=== PATIENT | male | born 1935 | race Caucasian/White ===

== ENCOUNTER → 2017-03-27 | Outpatient (CLI) | payer OTHER ==
[~2017-03-27] MED LIST: ACET-749 PO; ASPCH81 PO; B COCAP3 PO; CHOL400C7 PO; NORT25CA PO; PARO10TA4 PO; SIME125C52 PO; SULF800T23 PO; TAMS0.4C38 PO
[2017-03-27 13:31] LABS: BASO % 0.3 %; BASO ABS # 0.04 K/uL (0-0.2); HEMATOCRIT 45.2 % (42-52); IG% 1.1 %; LYMPH % 14.4 %; LYMPH ABS # 1.67 K/uL (1.2-3.4); MEAN CELL VOLUME 92.4 fL (80-100); MEAN CORPUSCULAR HEMOGLOBIN 30.9 pg (25-34); MONO % 10.3 %; NEUT % 70.9 %; PLATELET COUNT 230 K/uL (130-400); RED BLOOD COUNT 4.89 M/uL (4.7-6.1); WHITE BLOOD COUNT 11.61 K/uL (4.8-10.8)
[2017-03-27 13:53] LABS: ALB/GLOB RATIO 1.1 (0.9-2); ALKALINE PHOSPHATASE 102 U/L (45-117); ALT/SGPT 22 U/L (12-78); AST/SGOT 22 U/L (15-37); BLOOD UREA NITROGEN 19 mg/dl (7-18); BUN/CREATININE RATIO 17.4 (10-20); CALCIUM 9.3 mg/dl (8.5-10.1); CARBON DIOXIDE 26 mmol/L (21-32); CHLORIDE 106 mmol/L (98-107); GLUCOSE 84 mg/dl (70-99); POTASSIUM 4.4 mmol/L (3.5-5.1); SODIUM 140 mmol/L (136-145)
[2017-03-27 14:25] LABS: COMPLETE YES; MEAN CORPUSCULAR HGB CONC 33.4 g/dl (32-36)
== END ==
LOC: C.LABSPEC 11:26
DX: J18.9 Pneumonia, unspecified organism (principal)

== ENCOUNTER → 2018-02-06 | Outpatient (CLI) | payer OTHER ==
--- NOTE | 2018-02-06 14:41 | DIAGNOSTIC IMAGING REPORT ---
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 TECHNIQUE: Planar anterior and posterior imaging of the whole body was performed 3 hours following the intravenous administration of 25.4 mCi Tc-99m MDP. COMPARISON: None. FINDINGS: Focal activity is evident at the medial compartment of the left knee most consistent with degenerative change. Focal activity in the region of the scrotum most likely relates to urine leakage. No suspicious focal radiotracer activity is evident. Normal distribution of radiotracer in the axial and appendicular skeleton. Normal distribution within the genitourinary tract. IMPRESSION: 1. No convincing evidence of metastatic disease. 2. Medial compartment degenerative changes of the left knee. Electronically signed by: Corbin West M.D. 02/06/2018 2:39 PM Dictated Date/Time: 02/06/2018 2:33 PM
== END ==
LOC: C.NUCL 10:31
PROVIDERS: ATTEND Family Medicine
DX: M25.519 Pain in unspecified shoulder (principal); M25.559 Pain in unspecified hip; Z85.89 Personal history of malignant neoplasm of other organs and systems

== ENCOUNTER 2018-10-11 08:42 | Inpatient (IN) ==
[2018-10-11 09:28] LABS: Basophils # (auto) 0.07 K/uL (0-0.2); Basophils % (auto) 1.1 %; Eosinophils # (auto) 0.74 K/uL (0-0.5); Eosinophils % (auto) 11.6 %; Hematocrit (blood only) 47.5 % (42-52); Hemoglobin 16.1 g/dL (14.0-18.0); Immature Granulocytes # (auto) 0.03 K/uL (0.00-0.02); Immature Granulocytes % (auto) 0.5 %; Lymphocytes # (auto) 1.18 K/uL (1.2-3.4); Lymphocytes % (auto) 18.4 %; Mean Corpuscular Hgb Conc 33.9 g/dL (32-36); Mean Corpuscular Volume 90.3 fL (80-100); Mean Platelet Volume 10.2 fL (7.4-10.4); Monocytes # (auto) 0.84 K/uL (0.11-0.59); Monocytes % (auto) 13.1 %; Neutrophils # (auto) 3.54 K/uL (1.4-6.5); Neutrophils % (auto) 55.3 %; Platelet Count 169 K/uL (130-400); RDW Coefficient of Variation 14.5 % (11.5-14.5); RDW Standard Deviation 47.4 fL (36.4-46.3); Red Blood Count 5.26 M/uL (4.7-6.1)
[2018-10-11] MEDS ORDERED: SODIUM CHLORIDE 0.9% 1000ML 1,000 ML IV SCH (09:30)
[2018-10-11 09:38] LABS: Albumin Level 3.5 gm/dl (3.4-5.0); BUN Creatinine Ratio 17.7 (10-20); Calcium 9.1 mg/dl (8.5-10.1); Creatinine Clr Calc Pharmacy 59.1 ml/min; Est GFR (African American) 83.5; Magnesium 2.1 mg/dl (1.8-2.4); Potassium 3.8 mmol/L (3.5-5.1)
[2018-10-11 09:39] LABS: INR 1.1 (0.9-1.1); Prothrombin Time 10.7 Seconds (9.0-12.0)
--- NOTE | 2018-10-11 09:41 | XRay Report ---
XR chest 1V portable HISTORY: 83 years-old Male weakness acute weakness COMPARISON: Chest radiograph 07/27/2015 TECHNIQUE: Portable AP view of the chest FINDINGS: Cardiac silhouette is enlarged, unchanged. Inferior chest is partially excluded from the [id number] w. No pneumothorax, large pleural effusion or overt pulmonary edema. Subsegmental bibasilar opacities redemonstrated suggestive of atelectasis/scarring. Degenerative changes of the shoulders and spine. IMPRESSION: No acute process. The above report was generated using voice recognition software. It may contain grammatical, syntax o r spelling errors. Electronically signed by: Gerry Cali M.D. 10/11/2018 9:40 AM
[2018-10-11 09:49] LABS: Albumin Globulin Ratio 0.7 (0.9-2); Globulin 5.2 gm/dl (2.5-4.0); Total Protein 8.7 gm/dl (6.4-8.2)
--- NOTE | 2018-10-11 09:53 | Emergency Department Note ---
Entered by Jonatan Shafer acting as a scribe for ED Provider Note CHIEF COMPLAINT: Dizziness, chest tightness, hematochezia HISTORY OF PRESENT ILLNESS: The patient is an 83 year old male who presents to the Emergency Room with corrections officers from [facility] with complaints of persistent headaches and dizziness for about the past 2 weeks. The patient describes his dizziness and headache as a "tornado" in his head. He notes that he is intermittently off balance when walking, but denies any worsening of the dizziness with movement of his head. He is also currently complaining of "tightness" across his chest when he lays down at night as well as pain across his lower abdomen. He denies any nausea/vomiting or weakness. The patient adds that he has been having "blood and puss and poop" coming from his rectum for the past two weeks as well, but there is not any rectal pain. He has a significant medical history of parotid gland carcinoma and denied any chemotherapy/radiation treatment. He did have surgery by ENT. The patient was referred to the ED today from the [facility] for abdominal pain and hematochezia. There records state that he has a history of vertigo. REVIEW OF SYSTEMS: See HPI for pertinent positives and negatives. A total of ten systems were reviewed and were otherwise negative. PMHx/PSHx: Parotid gland carcinoma Inguinal hernia. SOCIAL HISTORY: Patient is incarcerated at [facility]. PHYSICAL EXAM: GENERAL: Awake, alert, well-appearing, in no distress HENT: Normocephalic, atraumatic. Oropharynx unremarkable. EYES: PERRL. Normal conjunctiva. Sclera non-icteric. Lateral nystagmus on exam. NECK: Inspection normal. Non-tender. Supple. No nuchal rigidity. FROM. No masses. There is a healed surgical scar in the right neck. RESPIRATORY: Clear to auscultation. No wheezes. No rales. Normal respiratory effort. CARDIAC: Normal rate. Normal rhythm. No murmurs. No rubs. Extremities warm and well perfused. Pulses equal. No JVD. GI: Soft, non-distended. There is lower abdominal tenderness to palpation. No rebound or guarding. No masses. RECTAL: Deferred. MUSCULOSKELETAL: Atraumatic. Chest examination reveals no tenderness. The back is symmetrical on inspection without obvious abnormality. There is no CVA tenderness to palpation. No joint edema. LOWER EXTREMITIES: Calves are equal size bilaterally and non-tender. No edema. No discoloration. NEURO: Normal sensorium. No sensory or motor deficits noted. SKIN: No rash or jaundice noted. EMERGENCY DEPARTMENT COURSE: 905: Past medical records reviewed. The patient was evaluated in room B4B, and a complete history and physical examination were performed. 1226: I discussed the case with Elisa DUKES. She will see the patient in consult. Suggests admitting to medicine. 1233: I updated the patient at this time. He is comfortable. 1257: I reviewed the patient's case with Dr. Stark - [facility]. He will evaluate the patient for further management. MEDICAL DECISION MAKING: Triage Nursing notes reviewed and agree them. The patient's history was concerning for abdominal pain, rectal bleeding, and dizziness. Differential diagnosis: Etiologies such as colitis, orthostatic hypotension, diverticulosis, appendicitis, diverticulitis, PUD, biliary pathology, UTI, pancreatitis, obstruction, mesenteric ischemia, aortic pathology, infections, inflammatory bowel disease, renal colic, positional vertigo, intracerebral event, as well as others were entertained. Physical examination findings: As above. Lower abdominal tenderness. ER treatment provided: Normal saline On reassessment the patient felt better. IV Rocephin Oral meclizine Diagnostics interpreted by me: ECG: No acute ischemia The labs revealed an unremarkable CBC and chemistry panel. The patient's urinalysis is concerning for infection. Imaging studies: CT scan of the head and abdomen were performed. Chest x-ray performed. The patient has a colitis. Consultation: Consultation was made with gastroenterology. Case discussed. The patient was evaluated in the ER. Stool testing and C. difficile testing ordered. A consultation was placed with the [facility] hospitalist. The case was discussed and diagnostics were reviewed. The patient was evaluated in the ER for further treatment. IMPRESSION: Colitis Acute UTI Dizziness PLAN: Admitted to [facility] Hospitalist. The scribe's documentation has been prepared under my direction and personally reviewed by me in its entirety. I confirm that the note above accurately reflects all work, treatment, procedures, and medical decision making performed by me. Impression & Plan Colitis, Acute UTI, Dizziness Past Med/Surg History Medical History Inguinal hernia Carcinoma of parotid gland Social History Current Living Situation Comment: [facility] Feels Safe at Home: Yes Smoking Status: Never smoker Results & Data Vital Signs Vital Signs - 24 hr 10/11/18 08:52 10/11/18 08:53 10/11/18 09:00 Temperature Temperature Source Sepsis Recent Fever Within 48 Hours Sepsis New/Unexplained Change in Mental Status Sepsis Action Taken by Nursing Pulse Rate - Lying Pulse Rate - Sitting Pulse Rate - Standing Pulse Rate 66 65 Pulse Rate [Left Brachial] Respiratory Rate 21 23 Respiratory Effort / Characteristics Respiratory Depth Respiratory Pattern Blood Pressure - Lying Blood Pressure - Sitting Blood Pressure- Standing Blood Pressure 114/72 Blood Pressure [Left Arm] Blood Pressure Mean 86 Blood Pressure Mean [Left Arm] Blood Pressure Position [Left Arm] Pulse Oximetry 97 97 95 Oxygen Delivery Method 10/11/18 09:02 10/11/18 09:07 10/11/18 09:15 Temperature 37.0 C Temperature Source Oral Sepsis Recent Fever Within 48 Hours No Sepsis New/Unexplained Change in Mental Status No Sepsis Action Taken by Nursing No Action Required Pulse Rate - Lying Pulse Rate - Sitting Pulse Rate - Standing Pulse Rate 64 Pulse Rate [Left Brachial] 64 Respiratory Rate 18 14 Respiratory Effort / Characteristics Non-Labored Spontaneous Respiratory Depth Normal Respiratory Pattern Regular Blood Pressure - Lying Blood Pressure - Sitting Blood Pressure- Standing Blood Pressure Blood Pressure [Left Arm] 114/72 Blood Pressure Mean Blood Pressure Mean [Left Arm] 86 Blood Pressure Position [Left Arm] Lying Pulse Oximetry 97 95 Oxygen Delivery Method Room Air 10/11/18 09:25 10/11/18 09:28 10/11/18 09:30 Temperature Temperature Source Sepsis Recent Fever Within 48 Hours Sepsis New/Unexplained Change in Mental Status Sepsis Action Taken by Nursing Pulse Rate - Lying 59 L Pulse Rate - Sitting 78 Pulse Rate - Standing 81 Pulse Rate 84 80 Pulse Rate [Left Brachial] Respiratory Rate 19 22 Respiratory Effort / Characteristics Respiratory Depth Respiratory Pattern Blood Pressure - Lying 124/78 Blood Pressure - Sitting 117/74 Blood Pressure- Standing 121/72 Blood Pressure 124/78 117/74 Blood Pressure [Left Arm] Blood Pressure Mean 93 88 Blood Pressure Mean [Left Arm] Blood Pressure Position [Left Arm] Pulse Oximetry 96 91 Oxygen Delivery Method Room Air 10/11/18 09:32 10/11/18 09:51 10/11/18 09:52 Temperature Temperature Source Sepsis Recent Fever Within 48 Hours Sepsis New/Unexplained Change in Mental Status Sepsis Action Taken by Nursing Pulse Rate - Lying Pulse Rate - Sitting Pulse Rate - Standing Pulse Rate 61 68 64 Pulse Rate [Left Brachial] 62 Respiratory Rate 16 16 15 Respiratory Effort / Characteristics Non-Labored Spontaneous Respiratory Depth Normal Respiratory Pattern Regular Blood Pressure - Lying Blood Pressure - Sitting Blood Pressure- Standing Blood Pressure 122/70 Blood Pressure [Left Arm] 122/70 Blood Pressure Mean 87 Blood Pressure Mean [Left Arm] 87 Blood Pressure Position [Left Arm] Lying Pulse Oximetry 98 95 97 Oxygen Delivery Method Room Air 10/11/18 10:00 10/11/18 10:15 10/11/18 10:30 Temperature Temperature Source Sepsis Recent Fever Within 48 Hours Sepsis New/Unexplained Change in Mental Status Sepsis Action Taken by Nursing Pulse Rate - Lying Pulse Rate - Sitting Pulse Rate - Standing Pulse Rate 57 L 61 56 L Pulse Rate [Left Brachial] Respiratory Rate 17 20 19 Respiratory Effort / Characteristics Respiratory Depth Respiratory Pattern Blood Pressure - Lying Blood Pressure - Sitting Blood Pressure- Standing Blood Pressure 116/55 L 114/53 L Blood Pressure [Left Arm] Blood Pressure Mean 75 73 Blood Pressure Mean [Left Arm] Blood Pressure Position [Left Arm] Pulse Oximetry 96 96 95 Oxygen Delivery Method 10/11/18 10:45 10/11/18 11:00 10/11/18 11:01 Temperature Temperature Source Sepsis Recent Fever Within 48 Hours Sepsis New/Unexplained Change in Mental Status Sepsis Action Taken by Nursing Pulse Rate - Lying Pulse Rate - Sitting Pulse Rate - Standing Pulse Rate 62 62 62 Pulse Rate [Left Brachial] 59 L Respiratory Rate 19 19 17 Respiratory Effort / Characteristics Non-Labored Spontaneous Respiratory Depth Normal Respiratory Pattern Regular Blood Pressure - Lying Blood Pressure - Sitting Blood Pressure- Standing Blood Pressure 116/68 Blood Pressure [Left Arm] 116/68 Blood Pressure Mean 84 Blood Pressure Mean [Left Arm] 84 Blood Pressure Position [Left Arm] Lying Pulse Oximetry 96 97 94 Oxygen Delivery Method Room Air 10/11/18 11:15 10/11/18 11:30 10/11/18 11:45 Temperature Temperature Source Sepsis Recent Fever Within 48 Hours Sepsis New/Unexplained Change in Mental Status Sepsis Action Taken by Nursing Pulse Rate - Lying Pulse Rate - Sitting Pulse Rate - Standing Pulse Rate 63 59 L 59 L Pulse Rate [Left Brachial] Respiratory Rate 22 15 16 Respiratory Effort / Characteristics Respiratory Depth Respiratory Pattern Blood Pressure - Lying Blood Pressure - Sitting Blood Pressure- Standing Blood Pressure 143/64 H Blood Pressure [Left Arm] Blood Pressure Mean 90 Blood Pressure Mean [Left Arm] Blood Pressure Position [Left Arm] Pulse Oximetry 97 96 95 Oxygen Delivery Method 10/11/18 12:00 10/11/18 12:01 10/11/18 12:11 Temperature Temperature Source Sepsis Recent Fever Within 48 Hours Sepsis New/Unexplained Change in Mental Status Sepsis Action Taken by Nursing Pulse Rate - Lying Pulse Rate - Sitting Pulse Rate - Standing Pulse Rate 57 L 64 Pulse Rate [Left Brachial] 64 Respiratory Rate 19 21 21 Respiratory Effort / Characteristics Non-Labored Spontaneous Respiratory Depth Normal Respiratory Pattern Regular Blood Pressure - Lying Blood Pressure - Sitting Blood Pressure- Standing Blood Pressure 121/65 Blood Pressure [Left Arm] 121/65 Blood Pressure Mean 83 Blood Pressure Mean [Left Arm] 83 Blood Pressure Position [Left Arm] Lying Pulse Oximetry 96 96 96 Oxygen Delivery Method Room Air 10/11/18 13:58 Temperature Temperature Source Sepsis Recent Fever Within 48 Hours Sepsis New/Unexplained Change in Mental Status Sepsis Action Taken by Nursing Pulse Rate - Lying Pulse Rate - Sitting Pulse Rate - Standing Pulse Rate Pulse Rate [Left Brachial] 63 Respiratory Rate 18 Respiratory Effort / Characteristics Non-Labored Spontaneous Respiratory Depth Normal Respiratory Pattern Regular Blood Pressure - Lying Blood Pressure - Sitting Blood Pressure- Standing Blood Pressure Blood Pressure [Left Arm] 123/68 Blood Pressure Mean Blood Pressure Mean [Left Arm] 86 Blood Pressure Position [Left Arm] Lying Pulse Oximetry 93 Oxygen Delivery Method Room Air Home Medications Current Medication List: was personally reviewed by me Laboratory Data Attestation: I reviewed the patient's lab results. Result diagrams: 10/11/18 08:55 10/11/18 08:55 Lab Results 10/11/18 10/11/18 10/11/18 Range/Units 08:55 08:55 08:55 WBC 6.40 (4.8-10.8) K/uL RBC 5.26 (4.7-6.1) M/uL Hgb 16.1 (14.0-18.0) g/dL Hct 47.5 (42-52) % MCV 90.3 (80-100) fL MCH 30.6 (25-34) pg MCHC 33.9 (32-36) g/dL RDW Std Deviation 47.4 H (36.4-46.3) fL RDW Coeff of Torrie 14.5 (11.5-14.5) % Plt Count 169 (130-400) K/uL MPV 10.2 (7.4-10.4) fL Immature Gran % (Auto) 0.5 % Neut % (Auto) 55.3 % Lymph % (Auto) 18.4 % [place] % (Auto) 13.1 % Eos % (Auto) 11.6 % Baso % (Auto) 1.1 % Immature Gran # (Auto) 0.03 H (0.00-0.02) K/uL Neut # (Auto) 3.54 (1.4-6.5) K/uL Lymph # (Auto) 1.18 L (1.2-3.4) K/uL [place] # (Auto) 0.84 H (0.11-0.59) K/uL Eos # (Auto) 0.74 H (0-0.5) K/uL Baso # (Auto) 0.07 (0-0.2) K/uL PT 10.7 (9.0-12.0) Seconds INR 1.1 (0.9-1.1) Sodium 140 (136-145) mmol/L Potassium 3.8 (3.5-5.1) mmol/L Chloride 109 H (98-107) mmol/L Carbon Dioxide 26 (21-32) mmol/L Anion Gap 5.0 (3-11) BUN 17 (7-18) mg/dl Creatinine 0.98 (0.6-1.4) mg/dl Est Cr Clr Drug Dosing 59.1 ml/min Est GFR ( Amer) 83.5 Est GFR (Non-Af Amer) 72.0 BUN/Creatinine Ratio 17.7 (10-20) Glucose 71 (70-99) mg/dl Calcium 9.1 (8.5-10.1) mg/dl Magnesium 2.1 (1.8-2.4) mg/dl Total Bilirubin 1.0 (0.2-1) mg/dl AST 23 (15-37) U/L ALT 19 (12-78) U/L Alkaline Phosphatase 142 H (45-117) U/L Total Protein 8.7 H (6.4-8.2) gm/dl Albumin 3.5 (3.4-5.0) gm/dl Globulin 5.2 H (2.5-4.0) gm/dl Albumin/Globulin Ratio 0.7 L (0.9-2) TSH 2.490 (0.300-4.500) uIu/ml Urine Color Urine Appearance (Clear) Urine pH (4.5-7.5) Ur Specific [place] (1.000-1.030) Urine Protein (Negative) Urine Glucose (UA) (Negative) Urine Ketones (Negative) Urine Blood (Negative) Urine Nitrite (Negative) Urine Bilirubin (Negative) Urine Urobilinogen (Negative) Ur Leukocyte Esterase (Negative) Urine WBC (Auto) (0-5) /hpf Urine RBC (Auto) (0-4) /hpf U Hyaline Cast (Auto) (0-5) /lpf U Epithel Cells (Auto) (0-5) /lpf Urine Bacteria (Auto) (Negative) 10/11/18 Range/Units 11:05 WBC (4.8-10.8) K/uL RBC (4.7-6.1) M/uL Hgb (14.0-18.0) g/dL Hct (42-52) % MCV (80-100) fL MCH (25-34) pg MCHC (32-36) g/dL RDW Std Deviation (36.4-46.3) fL RDW Coeff of Torrie (11.5-14.5) % Plt Count (130-400) K/uL MPV (7.4-10.4) fL Immature Gran % (Auto) % Neut % (Auto) % Lymph % (Auto) % [place] % (Auto) % Eos % (Auto) % Baso % (Auto) % Immature Gran # (Auto) (0.00-0.02) K/uL Neut # (Auto) (1.4-6.5) K/uL Lymph # (Auto) (1.2-3.4) K/uL [place] # (Auto) (0.11-0.59) K/uL Eos # (Auto) (0-0.5) K/uL Baso # (Auto) (0-0.2) K/uL PT (9.0-12.0) Seconds INR (0.9-1.1) Sodium (136-145) mmol/L Potassium (3.5-5.1) mmol/L Chloride (98-107) mmol/L Carbon Dioxide (21-32) mmol/L Anion Gap (3-11) BUN (7-18) mg/dl Creatinine (0.6-1.4) mg/dl Est Cr Clr Drug Dosing ml/min Est GFR ( Amer) Est GFR (Non-Af Amer) BUN/Creatinine Ratio (10-20) Glucose (70-99) mg/dl Calcium (8.5-10.1) mg/dl Magnesium (1.8-2.4) mg/dl Total Bilirubin (0.2-1) mg/dl AST (15-37) U/L ALT (12-78) U/L Alkaline Phosphatase (45-117) U/L Total Protein (6.4-8.2) gm/dl Albumin (3.4-5.0) gm/dl Globulin (2.5-4.0) gm/dl Albumin/Globulin Ratio (0.9-2) TSH (0.300-4.500) uIu/ml Urine Color Dark Yellow Urine Appearance Clear (Clear) Urine pH 5.0 (4.5-7.5) Ur Specific [place] 1.024 (1.000-1.030) Urine Protein Negative (Negative) Urine Glucose (UA) Negative (Negative) Urine Ketones 3+ H (Negative) Urine Blood Trace H (Negative) Urine Nitrite Positive H (Negative) Urine Bilirubin Negative (Negative) Urine Urobilinogen Negative (Negative) Ur Leukocyte Esterase 1+ H (Negative) Urine WBC (Auto) >30 H (0-5) /hpf Urine RBC (Auto) 5-10 H (0-4) /hpf U Hyaline Cast (Auto) 5-10 H (0-5) /lpf U Epithel Cells (Auto) 0-5 (0-5) /lpf Urine Bacteria (Auto) 2+ H (Negative) Administered Medications Sodium Chloride (Nss 1000ml) 1,000 mls @ 125 mls/hr IV .Q8H YADIRA Stop: 10/11/18 17:29 Last Admin: 10/11/18 09:32 Dose: 125 mls/hr Discontinued Medications Ceftriaxone Sodium (Rocephin) 1,000 mg in 50 mls @ 100 mls/hr IV NOW STA Stop: 10/11/18 12:56 Last Infusion: 10/11/18 13:04 Dose: 0 mls/hr Admin: 10/11/18 12:33 Dose: 100 mls/hr Meclizine HCl (Antivert) 25 mg PO NOW STA Stop: 10/11/18 12:34 Last Admin: 10/11/18 12:38 Dose: 25 mg Imaging Data Attestation: I personally reviewed and interpreted this imaging study as follows : Radiologist's Impression: HEAD CT NONCONTRAST CT DOSE: 1369.49 mGy.cm HISTORY: dizziness TECHNIQUE: Multiaxial CT images of the head were performed without the use of intravenous contrast. Automated exposure control was utilized for this study. A dose lowering technique was utilized adhering to the principles of ALARA. Comparison: Head CT 12/26/2012. Findings: The paranasal sinuses and mastoid air cells are clear. The calvarium and skull base are intact. There is no mass, hematoma, midline shift, acute infarct. White matter hypodensity is nonspecific but suggestive of microvascular ischemic change. The ventricles and sulci demonstrate mild age- related involutional changes. Old lacunar infarct within the right thalamus. Impression: No acute intracranial abnormality. Atrophy and microvascular ischemic changes. Electronically signed by: Richar Acuna M.D. 10/11/2018 10:05 AM XR chest 1V portable HISTORY: 83 years-old Male weakness acute weakness COMPARISON: Chest radiograph 07/27/2015 TECHNIQUE: Portable AP view of the chest FINDINGS: Cardiac silhouette is enlarged, unchanged. Inferior chest is partially excluded from the [id number]. No pneumothorax, large pleural effusion or overt pulmonary edema. Subsegmental bibasilar opacities redemonstrated suggestive of atelectasis/scarring. Degenerative changes of the shoulders and spine. IMPRESSION: No acute process. The above report was generated using voice recognition software. It may contain grammatical, syntax or spelling errors. Electronically signed by: Gerry Cali M.D. 10/11/2018 9:[address] SCAN OF THE ABDOMEN AND PELVIS WITHOUT IV CONTRAST CLINICAL HISTORY: Lower abdominal pain. Rectal bleeding. COMPARISON STUDY: Abdominal CT dated 12/29/2013. PET/CT dated 06/24/2015. Nuclear bone scan dated 02/06/2018. TECHNIQUE: CT scan of the abdomen and pelvis is performed from the lung bases to the proximal femora. Images are reviewed in the axial, sagittal, and coronal planes. IV contrast was not administered for this examination as per the referring clinician. Note that the examination was performed in significantly suboptimal fashion without oral and IV contrast. A dose lowering technique was utilized adhering to the principles of ALARA. FINDINGS: Lung bases: The heart is enlarged and without pericardial effusion. The coronary arteries are densely calcified. Emphysematous change is noted at the lung bases. There is bibasilar scarring/atelectasis. No airspace consolidation or pleural effusion is identified. There is a tiny hiatal hernia. A 2.2 x 1.8 cm lymph node is seen just above the esophageal hiatus on image #28. A right infrahilar node on image #16 measures 2.5 x 1.6 cm. Liver: The unenhanced liver is normal in size, contour, and attenuation. There is no intrahepatic biliary ductal dilatation. 9 mm cyst is noted in the right hepatic lobe. Gallbladder: A large calcified gallstone measures 2.2 cm. There is no CT evidence of acute cholecystitis. Spleen: Normal in size and attenuation. Pancreas: Unremarkable. Adrenal glands: Unremarkable. Kidneys: The unenhanced kidneys demonstrate cortical atrophy and are without hydronephrosis. There are no renal calculi identified. There is no evidence of contour deforming renal mass lesion. Abdominal vasculature: The abdominal aorta is normal in course and caliber noting moderate to advanced atherosclerotic calcification. Bowel: There is wall thickening with pericolonic inflammation and trace fluid seen involving the left colon. This extends from the mid descending colon to the rectum. The appearance is consistent with a nonspecific proctocolitis. There is mild to moderate colonic diverticulosis without CT evidence of acute diverticulitis. Moderate colonic fecal retention is observed. Small lipomas are densely noted in the duodenum. No bowel obstruction is identified. The appendix is not identified Peritoneum: There is no intraperitoneal free air or abdominal ascites. There is a small fat-containing umbilical hernia. There is a linear metallic foreign body present in the upper abdomen posterior to the distal stomach seen on image #109. Lymphadenopathy: There are enlarged lymph nodes in the yessica hepatis and portacaval region. These measure 11 mm short axis. There are numerous mildly enlarged retroperitoneal lymph nodes. The largest is aortocaval as seen on image #274 and measures 12 mm short axis. Mildly enlarged iliac chain nodes measure up to 12 mm in short axis as seen on image #321. Mildly enlarged mesenteric lymph nodes measure up to 10 mm short axis as seen on image #304. Pelvic viscera: The prostate gland is enlarged and heterogeneous, measuring 4.7 cm in transverse diameter. The bladder wall is thickened and trabeculated indicating chronic outlet obstruction. There is a moderate fat-containing right inguinal hernia. Skeletal structures: The skeletal structures are heterogeneously osteopenic. There is lumbosacral spondylosis and scoliosis. Nonspecific sclerotic change is seen involving the left iliac wing. This has been present dating back to 2013. There is a moderate chronic compression deformity of T12. IMPRESSION: 1. Significantly suboptimal examination without oral and IV contrast. 2. Findings are consistent with a nonspecific proctocolitis involving the left colon. This is likely on an infectious or inflammatory basis and clinical correlation will be required. 3. Mild to moderate colonic diverticulosis without clear CT evidence of acute diverticulitis. 4. There are pathologically enlarged lymph nodes identified in the lower chest, as well as the upper abdomen, retroperitoneum, iliac chain, and mesentery. 5. Cholelithiasis. 6. The skeletal structures are heterogeneously osteopenic with foci of patchy sclerosis. This has not appreciably changed from 12/29/2013 and may represent treated metastatic disease. This showed no pathologic activity on the 02/06/2018 clear bone scan. Clinical correlation will be required. 7. A linear metallic foreign body is present in the upper abdomen posterior to the stomach. This is of indeterminant significance and has been present dating back to 2013. 8. Cardiomegaly and emphysema. 9. Additional findings as above. Electronically signed by: Unruly Britton M.D. 10/11/2018 10:11 AM ECG Data Attestation: I personally reviewed and interpreted this ECG as follows: Indication: chest pain and other (Dizzy) Rate (beats per minute): 62 Rhythm: sinus rhythm Findings: + 1st degree AV block; no PAC, no PVC, no ST depression and no ST elevation Discharge Plan Visit Data Chief Complaint: Vertigo Stated Complaint: abd pain/rectal bleed / sci [facility] ED Provider: Eusebio Lopez Discharge Problem: Colitis, Acute UTI, Dizziness Patient Disposition: Being Evaluated by Hospitalist Forms Stand Alone Forms: [facility] Prescriptions Prescriptions: No Action aspirin 81 mg Tablet,Chewable 81 mg PO QAM RF: 0 cholecalciferol (vitamin D3) [Vitamin D3] 400 unit Tablet 800 unit PO QAM RF: 0 finasteride [Proscar] 5 mg Tablet 5 mg PO QAM RF: 0 vitamin B complex Capsule 1 cap PO QAM RF: 0 nabumetone 500 mg Tablet 500 mg PO BID RF: 0 Referrals Referrals: Berna LEBLANC [Primary Care Provider] - The scribe's documentation has been prepared under my direction and personally reviewed by me in its entirety. I confirm that the note above accurately reflects all work, treatment, procedures, and medical decision making performed by me.
--- NOTE | 2018-10-11 10:07 | CT Scan Report ---
HEAD CT NONCONTRAST CT DOSE: 1369.49 mGy.cm HISTORY: dizziness TECHNIQUE: Multiaxial CT images of the head were performed without the use of intravenous contrast. A utomated exposure control was utilized for this study. A dose lowering technique was utilized adheri ng to the principles of ALARA. Comparison: Head CT 12/26/2012. Findings: The paranasal sinuses and mastoid air cells are clear. The calvarium and skull base are int act. There is no mass, hematoma, midline shift, acute infarct. White matter hypodensity is nonspecifi c but suggestive of microvascular ischemic change. The ventricles and sulci demonstrate mild age-rela rosalina involutional changes. Old lacunar infarct within the right thalamus. Impression: No acute intracranial abnormality. Atrophy and microvascular ischemic changes. Electronically signed by: Richar Acuna M.D. 10/11/2018 10:05 AM
--- NOTE | 2018-10-11 10:13 | CT Scan Report ---
CT SCAN OF THE ABDOMEN AND PELVIS WITHOUT IV CONTRAST CLINICAL HISTORY: Lower abdominal pain. Rectal bleeding. COMPARISON STUDY: Abdominal CT dated 12/29/2013. PET/CT dated 06/24/2015. Nuclear bone scan dated 2017. TECHNIQUE: CT scan of the abdomen and pelvis is performed from the lung bases to the proximal femora. Images are reviewed in the axial, sagittal, and coronal planes. IV contrast was not administered for this examination as per the referring clinician. Note that the examination was performed in signific antly suboptimal fashion without oral and IV contrast. A dose lowering technique was utilized adherin g to the principles of ALARA. FINDINGS: Lung bases: The heart is enlarged and without pericardial effusion. The coronary arteries are densely calcified. Emphysematous change is noted at the lung bases. There is bibasilar scarring/atelectasis. No airspace consolidation or pleural effusion is identified. There is a tiny hiatal hernia. A 2.2 x 1.8 cm lymph node is seen just above the esophageal hiatus on image #28. A right infrahilar node on i mage #16 measures 2.5 x 1.6 cm. Liver: The unenhanced liver is normal in size, contour, and attenuation. There is no intrahepatic candelaria iary ductal dilatation. 9 mm cyst is noted in the right hepatic lobe. Gallbladder: A large calcified gallstone measures 2.2 cm. There is no CT evidence of acute cholecysti tis. Spleen: Normal in size and attenuation. Pancreas: Unremarkable. Adrenal glands: Unremarkable. Kidneys: The unenhanced kidneys demonstrate cortical atrophy and are without hydronephrosis. There ar e no renal calculi identified. There is no evidence of contour deforming renal mass lesion. Abdominal vasculature: The abdominal aorta is normal in course and caliber noting moderate to advance d atherosclerotic calcification. Bowel: There is wall thickening with pericolonic inflammation and trace fluid seen involving the left colon. This extends from the mid descending colon to the rectum. The appearance is consistent with a nonspecific proctocolitis. There is mild to moderate colonic diverticulosis without CT evidence of a cute diverticulitis. Moderate colonic fecal retention is observed. Small lipomas are densely noted in the duodenum. No bowel obstruction is identified. The appendix is not identified Peritoneum: There is no intraperitoneal free air or abdominal ascites. There is a small fat-containin g umbilical hernia. There is a linear metallic foreign body present in the upper abdomen posterior to the distal stomach seen on image #109. Lymphadenopathy: There are enlarged lymph nodes in the yessica hepatis and portacaval region. These aakash sure 11 mm short axis. There are numerous mildly enlarged retroperitoneal lymph nodes. The largest is aortocaval as seen on image #274 and measures 12 mm short axis. Mildly enlarged iliac chain nodes me asure up to 12 mm in short axis as seen on image #321. Mildly enlarged mesenteric lymph nodes measure up to 10 mm short axis as seen on image #304. Pelvic viscera: The prostate gland is enlarged and heterogeneous, measuring 4.7 cm in transverse diam eter. The bladder wall is thickened and trabeculated indicating chronic outlet obstruction. There is a moderate fat-containing right inguinal hernia. Skeletal structures: The skeletal structures are heterogeneously osteopenic. There is lumbosacral spo ndylosis and scoliosis. Nonspecific sclerotic change is seen involving the left iliac wing. This has been present dating back to 2013. There is a moderate chronic compression deformity of T12. IMPRESSION: 1. Significantly suboptimal examination without oral and IV contrast. 2. Findings are consistent with a nonspecific proctocolitis involving the left colon. This is likely on an infectious or inflammatory basis and clinical correlation will be required. 3. Mild to moderate colonic diverticulosis without clear CT evidence of acute diverticulitis. 4. There are pathologically enlarged lymph nodes identified in the lower chest, as well as the upper abdomen, retroperitoneum, iliac chain, and mesentery. 5. Cholelithiasis. 6. The skeletal structures are heterogeneously osteopenic with foci of patchy sclerosis. This has not appreciably changed from 12/29/2013 and may represent treated metastatic disease. This showed no path ologic activity on the 02/06/2018 clear bone scan. Clinical correlation will be required. 7. A linear metallic foreign body is present in the upper abdomen posterior to the stomach. This is o f indeterminant significance and has been present dating back to 2013. 8. Cardiomegaly and emphysema. 9. Additional findings as above. Electronically signed by: Unruly Britton M.D. 10/11/2018 10:11 AM
[2018-10-11 11:18] LABS: Appearance Urine Clear (Clear); Bacteria Urine Automated 2+ (Negative); Bilirubin Urine Negative (Negative); Blood Urine Trace (Negative); Color Urine Dark Yellow; Epithelial Cell Urine Auto 0-5 /lpf (0-5); Glucose Urine UA Negative (Negative); Leukocyte Esterase Urine 1+ (Negative); Nitrite Urine Positive (Negative); Protein Urine Negative (Negative); Specific Gravity Urine 1.024 (1.000-1.030); Urobilinogen Urine Negative (Negative); WBC Urine Automated >30 /hpf (0-5)
[2018-10-11 11:19] LABS: Ketones Urine 3+ (Negative)
[2018-10-11] MEDS ORDERED: cefTRIAXone SODIUM 1,000 MG/50 ML BAG IV STA (12:27)
[2018-10-11] MEDS ORDERED: MECLIZINE HCL 25 MG TAB PO STA (12:33)
--- NOTE | 2018-10-11 12:55 | Gastrointestinal Consultation ---
Date of Consultation October 11, 2018 Assessment & Plan (1) Colitis: Pt is a 83 y/o male inmate of [facility] presented w blood and pus in stools , stool urgency but denies diarrhea. On exam has L sided and lower quadrants tenderness. CT abd/pelvis w/o contrast w non specific proctocolitis. Labs w/o leukocytosis, anemia. He had hx of Cdiff in 2012. Colonoscopy then also showed ileitis w ulcer in rectum area bx consistency w dysplasia. + Tubular adenoma polyps - CL diet today; will tenatively make him NPO after midnight for possible flexible sigmoidscopy tomorrow if worsening rectal bleeding - Check stool cx, Cdiff. - We will follow along. Present on Admission?: Yes Supervising Physician Co-Signing Physician Notes I have performed a history and physical examination of this patient and reviewed the electronic medical record. Specifically, on physical examination there is mild left sided abdominal tenderness. I have discussed the case with ROSELINE Allen. The above note reflects my findings, conclusions, and recommendations. Brian Jonas MD History of Present Illness Reason for Consultation: Colitis Requesting Physician: Dr. Eusebio Lopez Attending Physician: Dr. 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 He's noticed blood and pus w each bowel movement. Has stool urgency after eating. Denies any n/v, abd pain but on exam is TTP on L sided of colon and lower quadrants. He is also been c/o "tornado feeling" in head, not headache or light headedness but more like vertigo. In the custodial he's on NSAIDs for his OA and also BPH meds. No recent antibiotics. On eval, labs w/o leukocytosis, H/H, plt ct, coags normal. Chem panel also relatively unremarkable. UA suspicious for UTI. CXR negative for acute processes. CT head w signs of microvascular ischemic changes. CT abd/ pelvis w/o contrast: showed L sided non specific proctocolitis, diverticulosis w /o diverticulitis. There are some lymph nodes enlargement on lower chest, upper abd, retroperitoneum, iliac chain and mesentery area. Pt did have hx of Cdiff infection in 2012. Colonoscopy 10/23/12 w findings of ileitis, rectal ulcers. 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 Was supposed to have repeat colonoscopy after Cdiff was treated but he didn't have one. Allergies Allergy/AdvReac Type Severity Reaction Status Date / Time No Known Allergies Allergy Unverified 10/11/18 09:28 Home Medications Home Medications Medication Instructions Recorded Confirmed Type aspirin 81 mg PO QAM 10/11/18 10/11/18 History cholecalciferol (vitamin D3) 800 unit PO QAM 10/11/18 10/11/18 History [Vitamin D3] finasteride [Proscar] 5 mg PO QAM 10/11/18 10/11/18 History nabumetone 500 mg PO BID 10/11/18 10/11/18 History vitamin B complex 1 cap PO QAM 10/11/18 10/11/18 History Patient History Medical History Inguinal hernia Carcinoma of parotid gland Social History Current Living Situation Comment: [facility] Feels Safe at Home: Yes Smoking Status: Never smoker Review of Systems Constitutional: no fever, no chills and no weakness Respiratory: no cough and no dyspnea Cardiovascular: no chest pain Gastrointestinal: as per Subjective / HPI and + blood in stools; no abdominal pain, no nausea and no vomiting pus in stools Neurologic: as per Subjective / HPI; no dizziness and no syncope Physical Exam 2 Vital Signs (Past 24 Hours): Last Vital Signs Temp 37.0 C 10/11/18 09:07 Pulse 64 10/11/18 12:11 Resp 21 10/11/18 12:11 BP 121/65 10/11/18 12:11 Pulse Ox 96 10/11/18 12:11 Constitutional: WD/WN, vitals as above well groomed, cooperative and comfortable Eyes: PERRL, conjunctivae normal, anicteric sclerae ENMT: external ear and nose normal, oropharynx normal Respiratory: normal respiratory effort, lungs clear to auscultation Cardiovascular: RRR, no murmur, no edema Gastrointestinal (Abdomen): Inspection/Auscultation: normal bowel sounds; abdomen not distended Percussion/Palpation: + abdomen tender (along L side of abd, lower quadrant. ) external hemorrhoids noted, no internal masses felt , red blood residue noted. Skin: no rashes, warm and dry no jaundice Neurologic: Motor/Sensory: no asterixis Psychiatric: A+Ox3, euthymic affect Lymphatic: no lymphedema Results & Data Laboratory Results Laboratory Results - last 48 hr 10/11/18 10/11/18 10/11/18 08:55 08:55 08:55 WBC 6.40 RBC 5.26 Hgb 16.1 Hct 47.5 MCV 90.3 MCH 30.6 MCHC 33.9 RDW Std Deviation 47.4 H RDW Coeff of Torrie 14.5 Plt Count 169 MPV 10.2 Immature Gran % (Auto) 0.5 Neut % (Auto) 55.3 Lymph % (Auto) 18.4 [place] % (Auto) 13.1 Eos % (Auto) 11.6 Baso % (Auto) 1.1 Immature Gran # (Auto) 0.03 H Neut # (Auto) 3.54 Lymph # (Auto) 1.18 L [place] # (Auto) 0.84 H Eos # (Auto) 0.74 H Baso # (Auto) 0.07 PT 10.7 INR 1.1 Sodium 140 Potassium 3.8 Chloride 109 H Carbon Dioxide 26 Anion Gap 5.0 BUN 17 Creatinine 0.98 Est Cr Clr Drug Dosing 59.1 Est GFR ( Amer) 83.5 Est GFR (Non-Af Amer) 72.0 BUN/Creatinine Ratio 17.7 Glucose 71 Calcium 9.1 Magnesium 2.1 Total Bilirubin 1.0 AST 23 ALT 19 Alkaline Phosphatase 142 H Total Protein 8.7 H Albumin 3.5 Globulin 5.2 H Albumin/Globulin Ratio 0.7 L TSH 2.490 Urine Color Urine Appearance Urine pH Ur Specific [place] Urine Protein Urine Glucose (UA) Urine Ketones Urine Blood Urine Nitrite Urine Bilirubin Urine Urobilinogen Ur Leukocyte Esterase Urine WBC (Auto) Urine RBC (Auto) U Hyaline Cast (Auto) U Epithel Cells (Auto) Urine Bacteria (Auto) 10/11/18 11:05 WBC RBC Hgb Hct MCV MCH MCHC RDW Std Deviation RDW Coeff of [place] Plt Count MPV Immature Gran % (Auto) Neut % (Auto) Lymph % (Auto) [place] % (Auto) Eos % (Auto) Baso % (Auto) Immature Gran # (Auto) Neut # (Auto) Lymph # (Auto) [place] # (Auto) Eos # (Auto) Baso # (Auto) PT INR Sodium Potassium Chloride Carbon Dioxide Anion Gap BUN Creatinine Est Cr Clr Drug Dosing Est GFR ( Amer) Est GFR (Non-Af Amer) BUN/Creatinine Ratio Glucose Calcium Magnesium Total Bilirubin AST ALT Alkaline Phosphatase Total Protein Albumin Globulin Albumin/Globulin Ratio TSH Urine Color Dark Yellow Urine Appearance Clear Urine pH 5.0 Ur Specific [place] 1.024 Urine Protein Negative Urine Glucose (UA) Negative Urine Ketones 3+ H Urine Blood Trace H Urine Nitrite Positive H Urine Bilirubin Negative Urine Urobilinogen Negative Ur Leukocyte Esterase 1+ H Urine WBC (Auto) >30 H Urine RBC (Auto) 5-10 H U Hyaline Cast (Auto) 5-10 H U Epithel Cells (Auto) 0-5 Urine Bacteria (Auto) 2+ H Diagnostic Findings CT abd/pelvis w/o contrast: 1. Significantly suboptimal examination without oral and IV contrast. 2. Findings are consistent with a nonspecific proctocolitis involving the left colon. This is likely on an infectious or inflammatory basis and clinical correlation will be required. 3. Mild to moderate colonic diverticulosis without clear CT evidence of acute diverticulitis. 4. There are pathologically enlarged lymph nodes identified in the lower chest, as well as the upper abdomen, retroperitoneum, iliac chain, and mesentery. 5. Cholelithiasis. 6. The skeletal structures are heterogeneously osteopenic with foci of patchy sclerosis. This has not appreciably changed from 12/29/2013 and may represent treated metastatic disease. This showed no pathologic activity on the 02/06/2018 clear bone scan. Clinical correlation will be required. 7. A linear metallic foreign body is present in the upper abdomen posterior to the stomach. This is of indeterminant significance and has been present dating back to 2013. 8. Cardiomegaly and emphysema.
--- NOTE | 2018-10-11 13:22 | History & Physical Report ---
Date of Service October 11, 2018 Assessment & Plan (1) Colitis: Patient has symptoms of colonic irritation with complaints of having purulent liquid coming from his rectum. The patient has a diffuse colitis seen on CT scan however with a relative paucity of systemic infectious symptoms this may be ischemic colitis. Given the fact that the mucosal membrane may be irritated we will cover with antibiotics will also serve to cover his urinary tract infection present on admission Gastroenterological consultation was undertaken in the ER this will be maintained Stool cultures were ordered in the ER including C. difficile these were not obtained will be reordered on the floor Patient appears clinically dehydrated although not markedly tachycardic we will provide additional hydration (2) Dizziness: Patient has persistent chronic dizziness. A CT scan of his head was negative on presentation will be continued on meclizine as needed. Patient states dizziness also occurs with his eyes closed is not reproducible by change in position of his head or moving his head side to side and it is been persistent and chronic. Given the fact that we are concerned about possible ischemic colitis he may have vascular disease elsewhere he will get as MRI of his brain and brainstem to evaluate for stroke causing the origin of his dizziness and a transdermal scopolamine patch will be applied he will be maintained on aspirin at this time he states he is on cholesterol-lowering medicine although this on his medicine reconciliation. If stroke is confirmed we will proceed with a high-dose statin (3) BPH (benign prostatic hyperplasia): Patient is maintained on his Proscar medication (4) DVT prophylaxis: Heparin subcu will be chosen for DVT prevention (5) UTI (urinary tract infection): Patient of urine culture sent to be placed on ceftriaxone and metronidazole at this time cover both the urine infection and possible bowel related issues (6) Carcinoma of parotid gland: History of Present Illness Primary Care Provider: [facility] Patient arrives in the [facility] with a history of only prehospital complaints of rectal bleeding with some purulence and loose stools. This is associate with left lower quadrant discomfort in his abdomen. Consists to He also had persistent continuous feelings of dizziness which she describes as a spinning sensation which is not worsened by head movement or eye movement In the ER he was found to have an abnormal urinalysis and he was seen by gastroenterology who was asked to have him brought into consider endoscopy The patient has had a negative CT scan of his head for acute stroke abdomen pelvis CT scan only showing ascending colitis Clinically the patient's biggest complaint is his dizziness Allergies Allergy/AdvReac Type Severity Reaction Status Date / Time No Known Allergies Allergy Unverified 10/11/18 09:28 Home Medications Home Medications Medication Instructions Recorded Confirmed Type aspirin 81 mg PO QAM 10/11/18 10/11/18 History cholecalciferol (vitamin D3) 800 unit PO QAM 10/11/18 10/11/18 History [Vitamin D3] finasteride [Proscar] 5 mg PO QAM 10/11/18 10/11/18 History nabumetone 500 mg PO BID 10/11/18 10/11/18 History vitamin B complex 1 cap PO QAM 10/11/18 10/11/18 History Past Med/Surg History Medical History Inguinal hernia Carcinoma of parotid gland Social History Current Living Situation Comment: [facility] Feels Safe at Home: Yes Smoking Status: Never smoker Review of Systems ROS: well nourished well developed. Patient has persistent vision problems since he had his parotid surgery for his parotid cancer he currently is got a new pair glasses with "prisms" in them No problems with speech or swallowing No palpitations, chest pain or pressure No Wheezing or breathing issues Left lower quadrant abdominal pain has no nausea vomiting has some diarrhea with blood in it No burning urine urine frequency or changes in color despite the abnormal urinalysis and presentation No focal joint pain or muscle pain No skin rashes or oral lesions No unusual bruising or bleeding No focused back pain or numbness or loss of strength No changes in memory or confusion Physical Exam 2 Vital Signs (Past 24 Hours): Last Vital Signs Temp 37.0 C 10/11/18 09:07 Pulse 64 10/11/18 12:11 Resp 21 10/11/18 12:11 BP 121/65 10/11/18 12:11 Pulse Ox 96 10/11/18 12:11 The patient appeared well nourished and normally developed. Vital signs as documented. Head exam is unremarkable. He has no lateral nystagmus to examination Neck is without jugular venous distension, thyromegaly, or lymphademopathy Lungs are clear to auscultation and percussion. Cardiac exam reveals Rhythm is regular. First and second heart sounds normal. No murmurs, rubs or gallops. Abdominal exam reveals normal bowel sounds, no masses, no organomegaly is tender to the left lower quadrant Extremities are nonedematous and both pedal pulses are normal. Is no dysmetria to confrontational testing Neurologic exam is A&Ox3, no focal deficits, strength is equal bilateral Skin is warm Dry without bruises or lesions Results & Data Diagnostic Findings ct abd pelvis IMPRESSION: . Findings are consistent with a nonspecific proctocolitis involving the left colon. This is likely on an infectious or inflammatory basis and clinical correlation will be required. 3. Mild to moderate colonic diverticulosis without clear CT evidence of acute diverticulitis. 4. There are pathologically enlarged lymph nodes identified in the lower chest, as well as the upper abdomen, retroperitoneum, iliac chain, and mesentery. 5. Cholelithiasis. 6. The skeletal structures are heterogeneously osteopenic with foci of patchy sclerosis. This has not appreciably changed from 12/29/2013 and may represent treated metastatic disease. This showed no pathologic activity on the 02/06/2018 clear bone scan. Clinical correlation will be required. 7. A linear metallic foreign body is present in the upper abdomen posterior to the stomach. This is of indeterminant significance and has been present dating back to 2013. 8. Cardiomegaly and emphysema. CT head Impression: No acute intracranial abnormality. Atrophy and microvascular ischemic changes.
[2018-10-11] MEDS ORDERED: SCOPOLAMINE 1.5 MG TDSY TD SCH (18:00)
[2018-10-11] MEDS: metroNIDAZOLE 500 MG/100 ML BAG IV SCH (18:46)
[2018-10-11] MEDS: SODIUM CHLORIDE 0.9% 1000ML 1,000 ML IV SCH (18:47)
[2018-10-11] MEDS: SCOPOLAMINE 1.5 MG TDSY TD SCH (18:48)
[2018-10-11] MEDS: CIPROFLOXACIN 400 MG/200 ML BAG IV SCH (20:45)
[2018-10-11] MEDS: HEPARIN SOD 5,000 UNIT/0.5 ML VIAL SQ SCH (20:46)
[2018-10-11] MEDS: NABUMETONE 500 MG TABLET PO SCH (20:47)
[2018-10-12] MEDS: CHECK SCOPOLAMINE PATCH PLACEMENT SCH ×3 (00:53→15:50)
[2018-10-12] MEDS: metroNIDAZOLE 500 MG/100 ML BAG IV SCH ×3 (02:11→18:45)
--- NOTE | 2018-10-12 07:21 | Magnetic Resonance Report ---
MR brain wo con HISTORY: Mental status change eval for stroke including brainstem TECHNIQUE: Multiplanar multisequence MRI of the brain was performed without the use of contrast. COMPARISON STUDY: None. FINDINGS: No evidence for an acute ischemic event based on diffusion images. Generalized atrophy and chronic small vessel change. Ventricular system is midline. 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 Internal artery canals are symmetric. Sella and parasellar regions are unremarkable. IMPRESSION: No acute intracranial abnormality. Atrophy. Chronic small vessel change. The above report was generated using voice recognition software. It may contain grammatical, syntax or spelling errors. Electronically signed by: Kevyn May M.D. 10/12/2018 7:19 AM
[2018-10-12] MEDS: CIPROFLOXACIN 400 MG/200 ML BAG IV SCH ×2 (08:07→20:38)
[2018-10-12] MEDS: HEPARIN SOD 5,000 UNIT/0.5 ML VIAL SQ SCH ×2 (08:10→20:38)
[2018-10-12] MEDS: SODIUM CHLORIDE 0.9% 1000ML 1,000 ML IV SCH ×2 (08:10→18:46)
[2018-10-12] MEDS: CHOLECALCIFEROL (VITAMIN D) 400 UNITS TABLET PO SCH (08:11)
[2018-10-12] MEDS: FINASTERIDE 5 MG TAB PO SCH (08:11)
[2018-10-12] MEDS: NABUMETONE 500 MG TABLET PO SCH ×2 (08:11→20:42)
[2018-10-12] MEDS: ASPIRIN 81 MG ECTAB PO SCH (08:11)
[2018-10-12] MEDS: VITAMIN B COMPLEX TAB PO SCH (08:11)
[2018-10-12 09:29] LABS: BUN Creatinine Ratio 15.3 (10-20); Calcium 8.1 mg/dl (8.5-10.1); Creatinine Clr Calc Pharmacy 70.4 ml/min; Est GFR (African American) 94.7; Est GFR (Non-African American) 81.7; Potassium 3.7 mmol/L (3.5-5.1)
--- NOTE | 2018-10-12 11:10 | Gastroenterology Progress Note ---
Date of Service October 12, 2018 Assessment & Plan (1) Colitis: Pt is a 83 y/o male inmate of [facility] presented w blood and pus in stools , stool urgency but denies diarrhea. On exam has L sided and lower quadrants tenderness. CT abd/pelvis w/o contrast w non specific proctocolitis. Labs w/o leukocytosis, anemia. He had hx of Cdiff in 2012. Colonoscopy then also showed ileitis w ulcer in rectum area bx consistency w dysplasia. + Tubular adenoma polyps Abd pain improved today, no n/v. Only had 1 stool this AM but still bloody. Stool studies for infectious workup not sent. - Check stool cx, Cdiff. - Regular diet - Continue Cipro/Flagyl to complete a week's course - No plans for endoscopic workup now, recommend waiting about 6 weeks for outpt colonoscopy evaluation (long term system to help arrange for appt date). - Pls call over weekend if any questions/concerns. Otherwise will sign off. Supervising Physician Co-Signing Physician Notes I saw and evaluated the patient. He reports having minimal hematochezia today and no longer has any loose to liquid stool. We would suggest a stool culture and C. difficile be done if possible. We suspect that the patient's presentation is likely related to ischemic colitis. We would suggest continued IV hydration and antibiotic use. The patient should be on an outpatient course of antibiotics for 10 days. He should have an outpatient colonoscopy in 6-8 weeks to ensure that he not have an underlying lesion such as a polyp or mass. Please call with any additional questions or concerns during the patient's hospital admission. Subjective Pt is laying comfortably in bed. Denies much abd pain, said dizziness is also better. He had one BM this AM that's liquid like and still w blood. Physical Exam 2 Vital Signs (Past 24 Hours): Last Vital Signs Temp 36.4 C L 10/12/18 07:40 Pulse 58 L 10/12/18 07:40 Resp 20 10/12/18 07:40 BP 113/59 L 10/12/18 07:40 Pulse Ox 95 10/12/18 07:40 Constitutional: WD/WN, vitals as above well groomed, cooperative and comfortable Eyes: PERRL, conjunctivae normal, anicteric sclerae ENMT: external ear and nose normal, oropharynx normal Respiratory: normal respiratory effort, lungs clear to auscultation Cardiovascular: RRR, no murmur, no edema Gastrointestinal (Abdomen): Inspection/Auscultation: normal bowel sounds; abdomen not distended Percussion/Palpation: + abdomen tender (along L side of abd, lower quadrant. ) Skin: no rashes, warm and dry no jaundice Neurologic: Motor/Sensory: no asterixis Psychiatric: A+Ox3, euthymic affect Lymphatic: no lymphedema
--- NOTE | 2018-10-12 14:28 | Hospitalist Progress Note ---
Date of Service October 12, 2018 Assessment & Plan (1) Colitis: Ddx includes ischemic colitis, infectious colitis. C. diff negative on . Other infectious causes pending. - Per GI, test stool for infectious causes & treat accordingly. - Follow up in 6 weeks for flex sigmoidoscopy - If infectious causes negative, could consider symptomatic treatment - Continue Cipro/Flagyl x 7 days per GI (End date: 10/18) (2) Dizziness: Patient has persistent chronic dizziness x 3 weeks. MRI brain on 10/11 showed small vessel disease, but no acute infarct. No recent cold or viral infection to indicate labrythnitis or vestibular neuritis. - Will get PT eval for vestibular causes - If negative, consider prednisone - Continue scopalamine patch (3) BPH (benign prostatic hyperplasia): - Continue finasteride (4) UTI (urinary tract infection): UA on 10/11 indicated infection. Urine culture growin Gram(-) bacteria. 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 - Outpatient follow up (7) DVT prophylaxis: Heparin 5000 TID Subjective 83yo M w/ hx of CAD who presents with bloody bowel movemnts. No further BMs today. No major complaints apart from the dizziness that began 3 weeks ago. Reports no fevers/chills, chest pain, shortness of breath, abdominal pain, nausea, or vomiting. Physical Exam 2 Vital Signs (Past 24 Hours): Last Vital Signs Temp 36.4 C L 10/12/18 07:40 Pulse 58 L 10/12/18 07:40 Resp 20 10/12/18 07:40 BP 113/59 L 10/12/18 07:40 Pulse Ox 95 10/12/18 07:40 Constitutional: WD/WN, vitals as above well groomed, cooperative and comfortable Eyes: PERRL, conjunctivae normal, anicteric sclerae ENMT: external ear and nose normal, oropharynx normal Respiratory: normal respiratory effort, lungs clear to auscultation Cardiovascular: RRR, no murmur, no edema Gastrointestinal (Abdomen): Inspection/Auscultation: normal bowel sounds; abdomen not distended Percussion/Palpation: + abdomen tender (along L side of abd, lower quadrant. ) Skin: no rashes, warm and dry no jaundice Neurologic: Motor/Sensory: no asterixis Psychiatric: A+Ox3, euthymic affect Lymphatic: no lymphedema
[2018-10-13] MEDS: CHECK SCOPOLAMINE PATCH PLACEMENT SCH ×3 (00:25→15:23)
[2018-10-13] MEDS: metroNIDAZOLE 500 MG/100 ML BAG IV SCH ×2 (01:46→10:42)
[2018-10-13] MEDS: SODIUM CHLORIDE 0.9% 1000ML 1,000 ML IV SCH ×3 (01:46→16:43)
--- NOTE | 2018-10-13 07:40 | Gastroenterology Progress Note ---
Date of Service October 13, 2018 Assessment & Plan (1) Colitis: Patient presented with altered bowel habits, intermittent hematochezia and found to have evidence of wall thickening on CT scan. There are number of possibilities to include infectious etiologies such as C. difficile or perhaps ischemic colitis. As the patient has persistent symptoms I would again suggest that the patient be screened for evidence of C. difficile infection as this would drastically change the management strategy for him at the present time. Recommendations Continue with IV hydration Continue with antibiotic coverage Await results from C. difficile PCR Consider use of Bentyl 10 mg twice daily Please call with any questions or concerns Subjective The patient reports that he had 2-3 loose bowel movements yesterday and had one today with some blood within it. This is from a baseline of 15 prior to admission. He does continue to have some left-sided abdominal discomfort but denies nausea vomiting fevers or chills. It appears that his stool culture is negative however stool was not sent for C. difficile as suggested before. Physical Exam 2 Vital Signs (Past 24 Hours): Last Vital Signs Temp 36.6 C 10/13/18 07:00 Pulse 53 L 10/13/18 07:00 Resp 18 10/13/18 07:00 BP 159/83 H 10/13/18 07:00 Pulse Ox 95 10/13/18 07:00 Neck: trachea midline, no thyromegaly Respiratory: normal respiratory effort, lungs clear to auscultation Cardiovascular: Rate/Rhythm: regular rate Heart Sounds: no murmur Gastrointestinal (Abdomen): Percussion/Palpation: + abdomen tender and abdomen soft mild LLQ tenderness Results & Data Laboratory Results Laboratory Results - last 24 hr 10/12/18 10/12/18 08:04 10:45 Sodium 141 Potassium 3.7 Chloride 112 H Carbon Dioxide 23 Anion Gap 6.0 BUN 13 Creatinine 0.85 Est Cr Clr Drug Dosing 70.4 Est GFR ( Amer) 94.7 Est GFR (Non-Af Amer) 81.7 BUN/Creatinine Ratio 15.3 Glucose 73 Calcium 8.1 L Stl C. diff Tox B Gene Neg C.diff Toxin B Diagnostic Findings CT SCAN OF THE ABDOMEN AND PELVIS WITHOUT IV CONTRAST CLINICAL HISTORY: Lower abdominal pain. Rectal bleeding. COMPARISON STUDY: Abdominal CT dated 12/29/2013. PET/CT dated 06/24/2015. Nuclear bone scan dated 02/06/2018. TECHNIQUE: CT scan of the abdomen and pelvis is performed from the lung bases to the proximal femora. Images are reviewed in the axial, sagittal, and coronal planes. IV contrast was not administered for this examination as per the referring clinician. Note that the examination was performed in significantly suboptimal fashion without oral and IV contrast. A dose lowering technique was utilized adhering to the principles of ALARA. FINDINGS: Lung bases: The heart is enlarged and without pericardial effusion. The coronary arteries are densely calcified. Emphysematous change is noted at the lung bases. There is bibasilar scarring/atelectasis. No airspace consolidation or pleural effusion is identified. There is a tiny hiatal hernia. A 2.2 x 1.8 cm lymph node is seen just above the esophageal hiatus on image #28. A right infrahilar node on image #16 measures 2.5 x 1.6 cm. Liver: The unenhanced liver is normal in size, contour, and attenuation. There is no intrahepatic biliary ductal dilatation. 9 mm cyst is noted in the right hepatic lobe. Gallbladder: A large calcified gallstone measures 2.2 cm. There is no CT evidence of acute cholecystitis. Spleen: Normal in size and attenuation. Pancreas: Unremarkable. Adrenal glands: Unremarkable. Kidneys: The unenhanced kidneys demonstrate cortical atrophy and are without hydronephrosis. There are no renal calculi identified. There is no evidence of contour deforming renal mass lesion. Abdominal vasculature: The abdominal aorta is normal in course and caliber noting moderate to advanced atherosclerotic calcification. Bowel: There is wall thickening with pericolonic inflammation and trace fluid seen involving the left colon. This extends from the mid descending colon to the rectum. The appearance is consistent with a nonspecific proctocolitis. There is mild to moderate colonic diverticulosis without CT evidence of acute diverticulitis. Moderate colonic fecal retention is observed. Small lipomas are densely noted in the duodenum. No bowel obstruction is identified. The appendix is not identified Peritoneum: There is no intraperitoneal free air or abdominal ascites. There is a small fat-containing umbilical hernia. There is a linear metallic foreign body present in the upper abdomen posterior to the distal stomach seen on image #109. Lymphadenopathy: There are enlarged lymph nodes in the yessica hepatis and portacaval region. These measure 11 mm short axis. There are numerous mildly enlarged retroperitoneal lymph nodes. The largest is aortocaval as seen on image #274 and measures 12 mm short axis. Mildly enlarged iliac chain nodes measure up to 12 mm in short axis as seen on image #321. Mildly enlarged mesenteric lymph nodes measure up to 10 mm short axis as seen on image #304. Pelvic viscera: The prostate gland is enlarged and heterogeneous, measuring 4.7 cm in transverse diameter. The bladder wall is thickened and trabeculated indicating chronic outlet obstruction. There is a moderate fat-containing right inguinal hernia. Skeletal structures: The skeletal structures are heterogeneously osteopenic. There is lumbosacral spondylosis and scoliosis. Nonspecific sclerotic change is seen involving the left iliac wing. This has been present dating back to 2013. There is a moderate chronic compression deformity of T12. IMPRESSION: 1. Significantly suboptimal examination without oral and IV contrast. 2. Findings are consistent with a nonspecific proctocolitis involving the left colon. This is likely on an infectious or inflammatory basis and clinical correlation will be required. 3. Mild to moderate colonic diverticulosis without clear CT evidence of acute diverticulitis. 4. There are pathologically enlarged lymph nodes identified in the lower chest, as well as the upper abdomen, retroperitoneum, iliac chain, and mesentery. 5. Cholelithiasis. 6. The skeletal structures are heterogeneously osteopenic with foci of patchy sclerosis. This has not appreciably changed from 12/29/2013 and may represent treated metastatic disease. This showed no pathologic activity on the 02/06/2018 clear bone scan. Clinical correlation will be required. 7. A linear metallic foreign body is present in the upper abdomen posterior to the stomach. This is of indeterminant significance and has been present dating back to 2013. 8. Cardiomegaly and emphysema. 9. Additional findings as above.
[2018-10-13] MEDS: FINASTERIDE 5 MG TAB PO SCH (07:44)
[2018-10-13] MEDS: CIPROFLOXACIN 400 MG/200 ML BAG IV SCH (07:44)
[2018-10-13] MEDS: CHOLECALCIFEROL (VITAMIN D) 400 UNITS TABLET PO SCH (07:44)
[2018-10-13] MEDS: ASPIRIN 81 MG ECTAB PO SCH (07:45)
[2018-10-13] MEDS: VITAMIN B COMPLEX TAB PO SCH (07:45)
[2018-10-13] MEDS: NABUMETONE 500 MG TABLET PO SCH (07:46)
[2018-10-13] MEDS: HEPARIN SOD 5,000 UNIT/0.5 ML VIAL SQ SCH (07:46)
[2018-10-13 08:08] LABS: Hematocrit (blood only) 41.9 % (42-52); Hemoglobin 14.3 g/dL (14.0-18.0); Mean Corpuscular Hgb Conc 34.1 g/dL (32-36); Mean Corpuscular Volume 89.9 fL (80-100); Mean Platelet Volume 9.8 fL (7.4-10.4); Platelet Count 151 K/uL (130-400); RDW Coefficient of Variation 14.5 % (11.5-14.5); RDW Standard Deviation 46.8 fL (36.4-46.3); Red Blood Count 4.66 M/uL (4.7-6.1)
[2018-10-13 08:32] LABS: Calcium 8.3 mg/dl (8.5-10.1); Creatinine Clr Calc Pharmacy 62.3 ml/min; Est GFR (African American) 85.6; Est GFR (Non-African American) 73.8; Potassium 3.5 mmol/L (3.5-5.1)
[2018-10-13] MEDS: MECLIZINE HCL 25 MG TAB PO PRN (10:48)
[2018-10-13] MEDS ORDERED: Nursing to Pharmacy Communication ONE (15:07)
[2018-10-13] MEDS ORDERED: PIPERACILL/TAZOBAC CONSULT ACTIVE PRN (15:43)
--- NOTE | 2018-10-13 15:49 | Hospitalist Progress Note ---
Date of Service October 13, 2018 Assessment & Plan (1) Colitis: Ddx includes ischemic colitis, infectious colitis. C. diff negative on . Other infectious causes so far negative. Nabumetone can cause diarrhea and "occult blood in stools" for 3-9% of people per UpToDate - Follow up in 6 weeks for colonoscopy - Continue Cipro/Flagyl x 7 days per GI (End date: 10/18) - Switched temporarily to Zosyn to cover UTI - Hold nabumetone (2) Dizziness: Patient has persistent chronic dizziness x 3 weeks. MRI brain on 10/11 showed small vessel disease, but no acute infarct. No recent cold or viral infection to indicate labrythnitis or vestibular neuritis. Worked with PT who felt that it was not BPPV-related, and possibly more orthostatic in nature. - Continue scopalamine patch & meclizine PRN (3) BPH (benign prostatic hyperplasia): - Continue finasteride (4) UTI (urinary tract infection): UA on 10/11 indicated infection. Urine culture growing Citrobacter. - Switched to Zosyn on 10/13 (5) Arthritis: Home nabumetone can cause dizziness and diarrhea. 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 - Outpatient follow up (7) DVT prophylaxis: SCDs Subjective 83yo M w/ hx of CAD who presents with bloody bowel movements. Several bloody BMs today. Minimal dizziness, but did require meclizine. Reports no fevers/chills, chest pain, shortness of breath, abdominal pain, nausea, or vomiting. Physical Exam 2 Vital Signs (Past 24 Hours): Last Vital Signs Temp 36.3 C L 10/13/18 14:50 Pulse 55 L 10/13/18 14:50 Resp 20 10/13/18 14:50 BP 117/73 10/13/18 14:50 Pulse Ox 94 10/13/18 14:50 Constitutional: WD/WN, vitals as above cooperative and comfortable Eyes: PERRL, conjunctivae normal, anicteric sclerae ENMT: external ear and nose normal, oropharynx normal Respiratory: normal respiratory effort, lungs clear to auscultation Cardiovascular: RRR, no murmur, no edema Gastrointestinal (Abdomen): Inspection/Auscultation: normal bowel sounds; abdomen not distended Percussion/Palpation: + abdomen tender (along L side of abd, lower quadrant. ) Skin: no rashes, warm and dry no jaundice Neurologic: Motor/Sensory: no asterixis Psychiatric: A+Ox3, euthymic affect Lymphatic: no lymphedema
[2018-10-13] MEDS ORDERED: ACETAMINOPHEN 325 MG TAB PO PRN (15:56)
[2018-10-13] MEDS ORDERED: PIPERACILLIN/TAZOBACTAM 3.375 GM in DEXTROSE 5% 100 ML IV ONE (16:00)
[2018-10-13] MEDS: PIPERACILLIN/TAZOBACTAM 3.375 GM in DEXTROSE 5% 100 ML IV SCH (22:39)
[2018-10-14] MEDS: CHECK SCOPOLAMINE PATCH PLACEMENT SCH ×4 (00:22→23:59)
[2018-10-14] MEDS: SODIUM CHLORIDE 0.9% 1000ML 1,000 ML IV SCH ×3 (01:39→17:26)
[2018-10-14 05:55] LABS: Hematocrit (blood only) 39.3 % (42-52); Hemoglobin 13.4 g/dL (14.0-18.0); Mean Corpuscular Hgb Conc 34.1 g/dL (32-36); Mean Corpuscular Volume 89.1 fL (80-100); Mean Platelet Volume 10.3 fL (7.4-10.4); Platelet Count 156 K/uL (130-400); RDW Coefficient of Variation 14.4 % (11.5-14.5); Red Blood Count 4.41 M/uL (4.7-6.1); White Blood Count 5.55 K/uL (4.8-10.8)
[2018-10-14 06:31] LABS: BUN Creatinine Ratio 8.6 (10-20); Calcium 8.1 mg/dl (8.5-10.1); Creatinine Clr Calc Pharmacy 66.5 ml/min; Est GFR (African American) 92.5; Est GFR (Non-African American) 79.8; Potassium 3.7 mmol/L (3.5-5.1)
--- NOTE | 2018-10-14 07:07 | Gastroenterology Progress Note ---
Date of Service October 14, 2018 Assessment & Plan (1) Colitis: Patient presented with discomfort, thickening of the colonic wall, and intermittent hematochezia with diarrhea. The findings were most consistent with ischemic colitis and I would suggest continued conservative management at the present time. He does appear to be improved today perhaps he can be returned to his place of origin. I would suggest completing a 10-day course of antibiotics. We will plan to do a colonoscopy in 6-8 weeks to ensure that he does not have another lesion within the colon. Please call with any questions or concerns. Subjective The patient notes that his discomfort is somewhat improved this morning. He notes that he has almost no hematochezia at the present time. Constitutional: no sweats and no malaise Eyes: no diplopia Respiratory: no change in sputum and no hemoptysis Cardiovascular: no chest pain with activity Physical Exam 2 Vital Signs (Past 24 Hours): Last Vital Signs Temp 36.6 C 10/13/18 22:31 Pulse 56 L 10/13/18 22:31 Resp 18 10/13/18 22:31 BP 116/74 10/13/18 22:31 Pulse Ox 94 10/13/18 22:31 Eyes: no scleral abnormality Neck: trachea midline, no thyromegaly Respiratory: normal respiratory effort, lungs clear to auscultation Cardiovascular: Rate/Rhythm: regular rate Gastrointestinal (Abdomen): Percussion/Palpation: abdomen soft; abdomen nontender and no guarding Results & Data Laboratory Results Laboratory Results - last 24 hr 10/13/18 10/13/18 10/13/18 08:00 08:00 10:49 WBC 5.50 RBC 4.66 L Hgb 14.3 Hct 41.9 L MCV 89.9 MCH 30.7 MCHC 34.1 RDW Std Deviation 46.8 H RDW Coeff of Torrie 14.5 Plt Count 151 MPV 9.8 Sodium 140 Potassium 3.5 Chloride 110 H Carbon Dioxide 24 Anion Gap 6.0 BUN 11 Creatinine 0.96 Est Cr Clr Drug Dosing 62.3 Est GFR ( Amer) 85.6 Est GFR (Non-Af Amer) 73.8 BUN/Creatinine Ratio 11.0 Glucose 81 Calcium 8.3 L Stl C. diff Tox B Gene Neg C.diff Toxin B 10/14/18 10/14/18 05:11 05:11 WBC 5.55 RBC 4.41 L Hgb 13.4 L Hct 39.3 L MCV 89.1 MCH 30.4 MCHC 34.1 RDW Std Deviation 47.0 H RDW Coeff of Torrie 14.4 Plt Count 156 MPV 10.3 Sodium 142 Potassium 3.7 Chloride 114 H Carbon Dioxide 26 Anion Gap 2.0 L BUN 8 Creatinine 0.90 Est Cr Clr Drug Dosing 66.5 Est GFR ( Amer) 92.5 Est GFR (Non-Af Amer) 79.8 BUN/Creatinine Ratio 8.6 L Glucose 73 Calcium 8.1 L Stl C. diff Tox B Gene
[2018-10-14] MEDS: PIPERACILLIN/TAZOBACTAM 3.375 GM in DEXTROSE 5% 100 ML IV SCH ×3 (07:14→21:37)
[2018-10-14] MEDS: FINASTERIDE 5 MG TAB PO SCH (08:14)
[2018-10-14] MEDS: CHOLECALCIFEROL (VITAMIN D) 400 UNITS TABLET PO SCH (08:15)
[2018-10-14] MEDS: VITAMIN B COMPLEX TAB PO SCH (08:15)
[2018-10-14] MEDS ORDERED: LOPERAMIDE HCL 2 MG CAP PO PRN (13:34)
--- NOTE | 2018-10-14 15:49 | Hospitalist Progress Note ---
Date of Service October 14, 2018 Assessment & Plan (1) Colitis: Ddx includes ischemic colitis vs. med effect. C. diff negative on 10/12. Other infectious causes so far negative. Nabumetone (LLAMAS-2 inhibitor for arthritis) can cause diarrhea and "occult blood in stools" for 3-9% of people per UpToDate. - Follow up in 6 weeks for colonoscopy - Continue Cipro/Flagyl x 10 days per GI (End date: 10/21) - Switched temporarily to Zosyn to cover UTI - Hold nabumetone - Trial loperamide since it is not infectious (2) Dizziness: Patient has persistent chronic dizziness x 3 weeks. MRI brain on 10/11 showed small vessel disease, but no acute infarct. No recent cold or viral infection to indicate labrythnitis or vestibular neuritis. Worked with PT who felt that it was not BPPV-related, and possibly more orthostatic in nature. - Continue scopalamine patch & meclizine PRN (3) BPH (benign prostatic hyperplasia): - Continued finasteride (4) UTI (urinary tract infection): UA on 10/11 indicated infection. Urine culture growing Citrobacter. - Switched to Zosyn on 10/13 (5) Arthritis: Home nabumetone can cause dizziness and diarrhea. 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 - Outpatient follow up (7) DVT prophylaxis: SCDs Dispo: Patient still having 5-10 bloody BMs/day with his RN and corrective officers corroborating his reports. Started loperamide trial today (10/14) to see if this improves. Will need to discuss with GI if no improvement in next 24 hours. Subjective 83yo M w/ hx of CAD who presents with bloody bowel movements. Several bloody BMs today. No dizziness, and has not required meclizine. Reports no fevers/chills, chest pain, shortness of breath, abdominal pain, nausea, or vomiting. Physical Exam 2 Vital Signs (Past 24 Hours): Last Vital Signs Temp 36.9 C 10/14/18 07:30 Pulse 60 10/14/18 07:30 Resp 18 10/14/18 07:30 BP 130/61 10/14/18 07:30 Pulse Ox 94 10/14/18 07:30 Constitutional: WD/WN, vitals as above well groomed, cooperative and comfortable Eyes: PERRL, conjunctivae normal, anicteric sclerae ENMT: external ear and nose normal, oropharynx normal Respiratory: normal respiratory effort, lungs clear to auscultation Cardiovascular: RRR, no murmur, no edema Gastrointestinal (Abdomen): Inspection/Auscultation: normal bowel sounds; abdomen not distended Percussion/Palpation: + abdomen tender (along L side of abd, lower quadrant. ) Skin: no rashes, warm and dry no jaundice Neurologic: Motor/Sensory: no asterixis Psychiatric: A+Ox3, euthymic affect Lymphatic: no lymphedema
[2018-10-14] MEDS: SCOPOLAMINE 1.5 MG TDSY TD SCH (17:28)
[2018-10-15] MEDS: SODIUM CHLORIDE 0.9% 1000ML 1,000 ML IV SCH ×3 (00:56→17:39)
[2018-10-15] MEDS: PIPERACILLIN/TAZOBACTAM 3.375 GM in DEXTROSE 5% 100 ML IV SCH (05:11)
[2018-10-15 06:09] LABS: Hematocrit (blood only) 40.2 % (42-52); Hemoglobin 13.6 g/dL (14.0-18.0); Mean Corpuscular Hgb Conc 33.8 g/dL (32-36); Mean Corpuscular Volume 89.9 fL (80-100); Mean Platelet Volume 10.6 fL (7.4-10.4); Platelet Count 155 K/uL (130-400); RDW Coefficient of Variation 14.6 % (11.5-14.5); RDW Standard Deviation 47.6 fL (36.4-46.3); Red Blood Count 4.47 M/uL (4.7-6.1); White Blood Count 6.14 K/uL (4.8-10.8)
[2018-10-15 06:40] LABS: BUN Creatinine Ratio 6.3 (10-20); Calcium 8.4 mg/dl (8.5-10.1); Creatinine Clr Calc Pharmacy 66.5 ml/min; Est GFR (African American) 92.5; Est GFR (Non-African American) 79.8
[2018-10-15] MEDS: VITAMIN B COMPLEX TAB PO SCH (07:28)
[2018-10-15] MEDS: CHOLECALCIFEROL (VITAMIN D) 400 UNITS TABLET PO SCH (07:28)
[2018-10-15] MEDS: CHECK SCOPOLAMINE PATCH PLACEMENT SCH ×3 (07:28→23:54)
[2018-10-15] MEDS: FINASTERIDE 5 MG TAB PO SCH (07:28)
--- NOTE | 2018-10-15 09:18 | Gastroenterology Progress Note ---
Date of Service October 15, 2018 Assessment & Plan (1) Colitis: 1. Change Immodium to regularly scheduled, TID.Pt can refuse if not needed. 2. Recommend OP Colonosocpy in 6-8 weeks, however, at this time, pt is refusing , citing that, if colon cancer were present he would op against treatment, saying he has a friend who from cancer treatment. Present on Admission?: Yes Supervising Physician Co-Signing Physician Notes I have personally seen and examined the patient with ROSELINE Hsieh on . Her note reflects my exam and findings. I agree with her impression and plan. An out patient colonoscopy is recommended to the patient. Marcelo Lindsey M.D. Subjective Mr. Sotelo is an 83-year old who presented to [facility] on 110 having been brought from [facility] with the report of rectal bleeding times 1 week. On arrival, CT with nonspecific proctocolitis. He has remained hemodynamically stable his hemoglobin is 13.6. He was placed on Zosyn and is 81 mg aspirin was held. Plan is for outpatient colonoscopy in 6 weeks I spoke with nursing who saw the bowel movement he had this morning and it was soft/loose and brown with very very small amount of light red blood. Physical Exam 2 Vital Signs (Past 24 Hours): Last Vital Signs Temp 36.8 C 10/15/18 07:59 Pulse 57 L 10/15/18 07:59 Resp 18 10/15/18 07:59 BP 138/79 10/15/18 07:59 Pulse Ox 94 10/15/18 07:59 Constitutional: WD/WN, vitals as above well developed and well nourished; no acute distress Eyes: PERRL, conjunctivae normal, anicteric sclerae Neck: trachea midline, no thyromegaly Respiratory: normal respiratory effort, lungs clear to auscultation Cardiovascular: RRR, no murmur, no edema Gastrointestinal (Abdomen): normal bowel sounds, soft, nontender, no hepatosplenomegaly Skin: no rashes, warm and dry no jaundice Neurologic: PERRL, EOMI, accommodation nl, no face palsy, no dysarthria Motor/Sensory: no tremor
[2018-10-15] MEDS: LOPERAMIDE HCL 2 MG CAP PO SCH ×2 (11:18→16:31)
[2018-10-15] MEDS: NITROFURANTOIN MONOHYDRATE 100 MG CAP PO SCH ×2 (11:58→20:41)
[2018-10-15] MEDS: CIPROFLOXACIN 500 MG TAB PO SCH ×2 (11:58→20:42)
[2018-10-15] MEDS: MECLIZINE HCL 25 MG TAB PO PRN (11:59)
[2018-10-15] MEDS: metroNIDAZOLE 500 MG TAB PO SCH ×2 (13:33→20:41)
--- NOTE | 2018-10-15 17:55 | Hospitalist Progress Note ---
Date of Service October 15, 2018 Assessment & Plan (1) Colitis: (2) Dizziness: (3) BPH (benign prostatic hyperplasia): (4) UTI (urinary tract infection): (5) Arthritis: (6) Carcinoma of parotid gland: (7) DVT prophylaxis: 83-year-old male admitted on October 11, 2018 because of ischemic colitis Colitis: Likely ischemic colitis, no more bloody bowrel movement Other differential diagnosis include C. difficile colitis, which was checked which was negative, stool culture negative GI on the case, recommend follow up in 6 weeks for colonoscopy On continue Cipro/Flagyl x 10 days per GI (End date: 10/21) Switched temporarily to Zosyn to cover UTI, switch back to Cipro and Flagyl today will continue trial loperamide since it is not infectious Diarrhea possible also could be from the side effect of Zosyn persistent chronic dizziness x 3 weeks. Report Meclizine help before the dizziness as needed MRI brain on 10/11 showed small vessel disease, but no acute infarct. No recent cold or viral infection to indicate labrythnitis or vestibular neuritis. Worked with PT who felt that it was not BPPV-related, and possibly more orthostatic in nature. Continue scopalamine patch & meclizine PRN Urine culture growing Citro, discussed with pharmacy, start nitrofurantoin per sensitivity, she is asymptomatic Arthritis, hx of Carcinoma of parotid gland f/u with Dr. Peralta, Possible discharge home tomorrow with planning follow-up with GI Subjective Reports significant diarrhea, throughout the night, No more bloody stools Denies fever and chill, Review of Systems Constitutional: Positive weakness, or fatigue Respiratory: no cough, sputum, wheezing, or dyspnea on exertion Cardiac: No chest pain, No orthopnea Abdomen: No pain, No nausea, No vomiting, No constipation, No GI bleeding Musculoskeletal: No joint pain, No muscle pain, No swelling, : No dysuria, No urinary frequency, No incontinence, Neurologic: No paralysis, No weakness, No numbness/tingling, Psychiatric: No depression symptoms, No anhedonism, No anxiety, Heme: No abnormal bleeding/bruising, No clotting problems, Skin: No rash, No itch, No new/changing skin lesions, No color change, No bleeding Physical Exam 2 Vital Signs (Past 24 Hours): Last Vital Signs Temp 36.5 C 10/15/18 15:25 Pulse 37 L 10/15/18 15:25 Resp 20 10/15/18 15:25 BP 128/74 10/15/18 15:25 Pulse Ox 94 10/15/18 15:25 Physical Exam: General Appearance: Pleasant, conversational, WD/WN, no apparent distress, Eyes: normal inspection, PERRL, EOMI, sclerae normal ENT: normal ENT inspection, hearing grossly normal, pharynx normal Neck: supple, no adenopathy, thyroid normal, no JVD, no carotid bruits, trachea midline Respiratory/Chest: chest non-tender, normal breath sounds, no wheezing rhonchi or crackles Cardiovascular: regular rate, rhythm, no JVD, no murmur Abdomen: normal bowel sounds, non tender, soft, no organomegaly, Extremities: normal range of motion, non-tender, normal inspection, no cyanosis clubbing Neurologic/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: 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, no motor/sensory deficits, alert, normal mood/affect, oriented x 3 Skin: normal color, warm/dry, no rash Lymphatic: no adenopathy Results & Data Laboratory Results Laboratory Results - last 24 hr 10/15/18 10/15/18 05:26 05:26 WBC 6.14 RBC 4.47 L Hgb 13.6 L Hct 40.2 L MCV 89.9 MCH 30.4 MCHC 33.8 RDW Std Deviation 47.6 H RDW Coeff of Torrie 14.6 H Plt Count 155 MPV 10.6 H Sodium 141 Potassium 4.0 Chloride 110 H Carbon Dioxide 23 Anion Gap 8.0 BUN 6 L Creatinine 0.90 Est Cr Clr Drug Dosing 66.5 Est GFR ( Amer) 92.5 Est GFR (Non-Af Amer) 79.8 BUN/Creatinine Ratio 6.3 L Glucose 72 Calcium 8.4 L Microbiology 10/12/18 10:45 Stool Escherichia coli Shiga Toxins - Final 10/12/18 10:45 Stool Stool Culture - Final No Salmonella isolated, No Shigella isolated, No Campylobacter jejuni isolated.
[2018-10-16] MEDS: SODIUM CHLORIDE 0.9% 1000ML 1,000 ML IV SCH ×2 (02:00→09:35)
[2018-10-16 06:13] LABS: Basophils # (auto) 0.06 K/uL (0-0.2); Basophils % (auto) 0.9 %; Eosinophils # (auto) 0.79 K/uL (0-0.5); Eosinophils % (auto) 11.7 %; Hematocrit (blood only) 40.2 % (42-52); Hemoglobin 13.6 g/dL (14.0-18.0); Immature Granulocytes # (auto) 0.03 K/uL (0.00-0.02); Immature Granulocytes % (auto) 0.4 %; Lymphocytes # (auto) 1.62 K/uL (1.2-3.4); Lymphocytes % (auto) 23.9 %; Mean Corpuscular Hgb Conc 33.8 g/dL (32-36); Mean Corpuscular Volume 89.7 fL (80-100); Mean Platelet Volume 10.3 fL (7.4-10.4); Monocytes # (auto) 1.03 K/uL (0.11-0.59); Monocytes % (auto) 15.2 %; Neutrophils # (auto) 3.24 K/uL (1.4-6.5); Neutrophils % (auto) 47.9 %; Platelet Count 151 K/uL (130-400); RDW Coefficient of Variation 14.7 % (11.5-14.5); RDW Standard Deviation 48.3 fL (36.4-46.3); Red Blood Count 4.48 M/uL (4.7-6.1); White Blood Count 6.77 K/uL (4.8-10.8)
[2018-10-16 07:03] LABS: BUN Creatinine Ratio 9.8 (10-20); Calcium 8.4 mg/dl (8.5-10.1); Creatinine Clr Calc Pharmacy 72.1 ml/min; Est GFR (African American) 95.6; Est GFR (Non-African American) 82.5; Magnesium 1.7 mg/dl (1.8-2.4); Phosphorus 2.7 mg/dl (2.5-4.9); Potassium 3.3 mmol/L (3.5-5.1)
[2018-10-16] MEDS ORDERED: POTASSIUM CHLORIDE 10 MEQ TABCR PO STA (08:06)
[2018-10-16] MEDS: CHECK SCOPOLAMINE PATCH PLACEMENT SCH ×2 (08:07→15:56)
[2018-10-16] MEDS: metroNIDAZOLE 500 MG TAB PO SCH ×3 (08:08→20:16)
[2018-10-16] MEDS: CHOLECALCIFEROL (VITAMIN D) 400 UNITS TABLET PO SCH (08:08)
[2018-10-16] MEDS: NITROFURANTOIN MONOHYDRATE 100 MG CAP PO SCH ×2 (08:08→20:17)
[2018-10-16] MEDS: CIPROFLOXACIN 500 MG TAB PO SCH ×2 (08:08→20:17)
[2018-10-16] MEDS: VITAMIN B COMPLEX TAB PO SCH (08:09)
[2018-10-16] MEDS: FINASTERIDE 5 MG TAB PO SCH (08:09)
[2018-10-16] MEDS: LOPERAMIDE HCL 2 MG CAP PO SCH ×4 (08:11→20:17)
[2018-10-16] MEDS ORDERED: MAGNESIUM SULFATE / D5W 1 GM/100 ML BAG IV ONE (08:45)
[2018-10-16] MEDS: MAGNESIUM OXIDE 400 MG TAB PO SCH ×2 (09:34→20:17)
--- NOTE | 2018-10-16 17:36 | Hospitalist Progress Note ---
Date of Service October 16, 2018 Assessment & Plan (1) Colitis: (2) Dizziness: (3) BPH (benign prostatic hyperplasia): (4) UTI (urinary tract infection): (5) Arthritis: (6) Carcinoma of parotid gland: (7) DVT prophylaxis: 83-year-old male admitted on October 11, 2018 because of ischemic colitis Colitis: Likely ischemic colitis, no more bloody bowrel movement Diarrhea from ischemic colitis, still so significant,Not improving Other differential diagnosis include C. difficile colitis, which was checked which was negative, stool culture negative GI on the case, recommend follow up in 6 weeks for colonoscopy On continue Cipro/Flagyl x 10 days per GI (End date: 10/21) Switched temporarily to Zosyn to cover UTI, switch back to Cipro and Flagyl Yesterday Because of severe diarrhea, will continue trial loperamide since it is not infectious, add choletyramine 1 g for Obvious diarrhea, Will watch for constipation and bowel obstruction when on choletyramine Diarrhea possible also could be from the side effect of Zosyn, However Zosyn was discontinued yesterday persistent chronic dizziness x 3 weeks. Report Meclizine help before the dizziness as needed MRI brain on 10/11 showed small vessel disease, but no acute infarct. No recent cold or viral infection to indicate labrythnitis or vestibular neuritis. Worked with PT who felt that it was not BPPV-related, and possibly more orthostatic in nature. Continue scopalamine patch & meclizine PRN Urine culture growing Citro, discussed with pharmacy, started nitrofurantoin per sensitivity On October 15, 2018 yesterday, will continue Arthritis, hx of Carcinoma of parotid gland f/u with Dr. Peralta, Possible discharge home tomorrow with planning follow-up with GI Subjective Reports significant diarrhea, Above 20 minutes after Almost every eat No more bloody stools Denies fever and chill, Review of Systems Constitutional: Positive weakness, or fatigue Respiratory: no cough, sputum, wheezing, or dyspnea on exertion Cardiac: No chest pain, No orthopnea Abdomen: No pain, No nausea, No vomiting, Musculoskeletal: No joint pain, No muscle pain, No swelling, : No dysuria, No urinary frequency, No incontinence, Neurologic: No paralysis, No weakness, No numbness/tingling, Psychiatric: No depression symptoms, No anhedonism, No anxiety, Heme: No abnormal bleeding/bruising, No clotting problems, Skin: No rash, No itch, No new/changing skin lesions, No color change, No bleeding Physical Exam 2 Vital Signs (Past 24 Hours): Last Vital Signs Temp 36.7 C 10/16/18 14:57 Pulse 60 10/16/18 14:57 Resp 18 10/16/18 14:57 BP 136/65 10/16/18 14:57 Pulse Ox 94 10/16/18 14:57 Physical Exam: eneral Appearance: Looks tired, speaks soft voice, conversational, WD/WN, no apparent distress, Eyes: normal inspection, PERRL, EOMI, sclerae normal ENT: normal ENT inspection, hearing grossly normal, pharynx normal Neck: supple, no adenopathy, thyroid normal, no JVD, no carotid bruits, trachea midline Respiratory/Chest: chest non-tender, normal breath sounds, no wheezing rhonchi or crackles Cardiovascular: regular rate, rhythm, no JVD, no murmur Abdomen: Active bowel sounds, non tender, soft, no organomegaly, Extremities: normal range of motion, non-tender, normal inspection, no cyanosis clubbing Neurologic/Psychiatric: 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 basic developer II-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 nml as tested, no motor/sensory deficits, alert, normal mood/affect, oriented x 3 Skin: normal color, warm/dry, no rash Lymphatic: no adenopathy Results & Data Laboratory Results Laboratory Results - last 24 hr 10/16/18 10/16/18 05:25 05:25 WBC 6.77 RBC 4.48 L Hgb 13.6 L Hct 40.2 L MCV 89.7 MCH 30.4 MCHC 33.8 RDW Std Deviation 48.3 H RDW Coeff of Torrie 14.7 H Plt Count 151 MPV 10.3 Immature Gran % (Auto) 0.4 Neut % (Auto) 47.9 Lymph % (Auto) 23.9 [place] % (Auto) 15.2 Eos % (Auto) 11.7 Baso % (Auto) 0.9 Immature Gran # (Auto) 0.03 H Neut # (Auto) 3.24 Lymph # (Auto) 1.62 [place] # (Auto) 1.03 H Eos # (Auto) 0.79 H Baso # (Auto) 0.06 Sodium 143 Potassium 3.3 L D Chloride 112 H Carbon Dioxide 21 Anion Gap 10.0 BUN 8 Creatinine 0.83 Est Cr Clr Drug Dosing 72.1 Est GFR ( Amer) 95.6 Est GFR (Non-Af Amer) 82.5 BUN/Creatinine Ratio 9.8 L Glucose 76 Calcium 8.4 L Phosphorus 2.7 Magnesium 1.7 L
[2018-10-16] MEDS: CHOLESTYRAMINE LIGHT 4 GM PKT PO SCH (22:24)
[2018-10-17] MEDS: LOPERAMIDE HCL 2 MG CAP PO SCH ×4 (00:06→12:49)
[2018-10-17] MEDS: CHECK SCOPOLAMINE PATCH PLACEMENT SCH ×3 (00:06→08:35)
[2018-10-17 06:14] LABS: Basophils # (auto) 0.04 K/uL (0-0.2); Basophils % (auto) 0.5 %; Eosinophils # (auto) 0.88 K/uL (0-0.5); Eosinophils % (auto) 11.4 %; Hematocrit (blood only) 41.7 % (42-52); Hemoglobin 14.1 g/dL (14.0-18.0); Immature Granulocytes # (auto) 0.03 K/uL (0.00-0.02); Immature Granulocytes % (auto) 0.4 %; Lymphocytes # (auto) 1.53 K/uL (1.2-3.4); Lymphocytes % (auto) 19.8 %; Mean Corpuscular Hgb Conc 33.8 g/dL (32-36); Mean Corpuscular Volume 90.5 fL (80-100); Mean Platelet Volume 10.4 fL (7.4-10.4); Monocytes # (auto) 0.86 K/uL (0.11-0.59); Monocytes % (auto) 11.1 %; Neutrophils % (auto) 56.8 %; Platelet Count 150 K/uL (130-400); RDW Coefficient of Variation 14.9 % (11.5-14.5); RDW Standard Deviation 48.9 fL (36.4-46.3); Red Blood Count 4.61 M/uL (4.7-6.1); White Blood Count 7.74 K/uL (4.8-10.8)
[2018-10-17 06:59] LABS: BUN Creatinine Ratio 9.8 (10-20); Calcium 8.4 mg/dl (8.5-10.1); Creatinine Clr Calc Pharmacy 73.9 ml/min; Est GFR (African American) 96.6; Est GFR (Non-African American) 83.4; Magnesium 1.8 mg/dl (1.8-2.4); Phosphorus 2.1 mg/dl (2.5-4.9); Potassium 3.8 mmol/L (3.5-5.1)
[2018-10-17] MEDS: CIPROFLOXACIN 500 MG TAB PO SCH (08:32)
[2018-10-17] MEDS: MAGNESIUM OXIDE 400 MG TAB PO SCH (08:33)
[2018-10-17] MEDS: CHOLECALCIFEROL (VITAMIN D) 400 UNITS TABLET PO SCH (08:33)
[2018-10-17] MEDS: FINASTERIDE 5 MG TAB PO SCH (08:33)
[2018-10-17] MEDS: NITROFURANTOIN MONOHYDRATE 100 MG CAP PO SCH (08:33)
[2018-10-17] MEDS: VITAMIN B COMPLEX TAB PO SCH (08:33)
[2018-10-17] MEDS: metroNIDAZOLE 500 MG TAB PO SCH (09:39)
[2018-10-17] MEDS: CHOLESTYRAMINE LIGHT 4 GM PKT PO SCH (09:40)
--- NOTE | 2018-10-17 16:09 | Discharge Summary ---
Date of Service October 17, 2018 Admission HPI Per Admitting Provider Patient arrives in the [facility] with a history of only prehospital complaints of rectal bleeding with some purulence and loose stools. This is associate with left lower quadrant discomfort in his abdomen. Consists to He also had persistent continuous feelings of dizziness which she describes as a spinning sensation which is not worsened by head movement or eye movement In the ER he was found to have an abnormal urinalysis and he was seen by gastroenterology who was asked to have him brought into consider endoscopy The patient has had a negative CT scan of his head for acute stroke abdomen pelvis CT scan only showing ascending colitis Clinically the patient's biggest complaint is his dizziness Principal Diagnosis no Discharge Data Allergies Allergy/AdvReac Type Severity Reaction Status Date / Time No Known Allergies Allergy Unverified 10/11/18 09:28 Consultations 10/11/18 12:54 ED Decision to Admit Stat Ordered Studies 10/11/18 09:18 CT abd pelvis wo con Stat CT head/brain wo con Stat 10/11/18 17:21 MR brain wo con Urgent Hospital Course (1) Colitis: (2) Dizziness: (3) BPH (benign prostatic hyperplasia): (4) UTI (urinary tract infection): (5) Arthritis: (6) Carcinoma of parotid gland: (7) DVT prophylaxis: 83-year-old male admitted on October 11, 2018 because of ischemic colitis Colitis: Likely ischemic colitis, no more bloody bowrel movement Diarrhea from ischemic colitis, has been improving, has 3 time diarrhea this morning, her differential diagnosis include C. difficile colitis, which was checked which was negative, stool culture negative GI on the case, recommend follow up in 6 weeks for colonoscopy On continue Cipro/Flagyl x 10 days per GI (End date: 10/21) Switched temporarily to Zosyn to cover UTI, switch back to Cipro and Flagyl Yesterday Because of severe diarrhea, has continued trial loperamide since it is not infectious, add choletyramine 1 g for Obvious diarrhea, yesterday. Is noticed patient to watch for constipation and bowel obstruction when on choletyramine persistent chronic dizziness x 3 weeks. Report Meclizine help for the dizziness as needed, will continue MRI brain on 10/11 showed small vessel disease, but no acute infarct. No recent cold or viral infection to indicate labrythnitis or vestibular neuritis. Worked with PT who felt that it was not BPPV-related, and possibly more orthostatic in nature. Continue scopalamine patch & meclizine PRN Urine culture growing Citro, discussed with pharmacy, started nitrofurantoin per sensitivity On October 15, 2018, will continue Arthritis, hx of Carcinoma of parotid gland f/u with Dr. Peralta, Important information upon discharge , need to follow up in 6 weeks for colonoscopy with GI, need to watch for constipation and bowel obstruction when on Choletyramine Subjective upon discharge, still have mild diarrhea but improving, No more bloody stools, Denies fever and chill, Review of Systems upon discharge Constitutional: Positive weakness, or fatigue Respiratory: no cough, sputum, wheezing, or dyspnea on exertion Cardiac: No chest pain, No orthopnea Abdomen: No pain, No nausea, No vomiting, Musculoskeletal: No joint pain, No muscle pain, No swelling, : No dysuria, No urinary frequency, No incontinence, Neurologic: No paralysis, No weakness, No numbness/tingling, Psychiatric: No depression symptoms, No anhedonism, No anxiety, Heme: No abnormal bleeding/bruising, No clotting problems, Skin: No rash, No itch, No new/changing skin lesions, No color change, No bleeding Physical Exam upon discharge General Appearance: Looks tired, speaks soft voice,conversational, WD/WN, no apparent distress, Eyes: normal inspection, PERRL, EOMI, sclerae normal ENT: normal ENT inspection, hearing grossly normal, pharynx normal Neck: supple, no adenopathy, thyroid normal, no JVD, no carotid bruits, trachea midline Respiratory/Chest: chest non-tender, normal breath sounds, no wheezing rhonchi or crackles Cardiovascular: regular rate, rhythm, no JVD, no murmur Abdomen: Active bowel sounds, non tender, soft, no organomegaly, Extremities: normal range of motion, non-tender, normal inspection, no cyanosis clubbing Neurologic/Psychiatric: research administrator II-XII nml as tested, no motor/sensory deficits, alert, normal mood/affect, oriented x 3 Skin: normal color, warm/dry, no rash Lymphatic: no adenopathy Lab data upon discharge: Laboratory Results - last 24 hr 10/17/18 10/17/18 05:27 05:27 WBC 7.74 RBC 4.61 L Hgb 14.1 Hct 41.7 L MCV 90.5 MCH 30.6 MCHC 33.8 RDW Std Deviation 48.9 H RDW Coeff of Torrie 14.9 H Plt Count 150 MPV 10.4 Immature Gran % (Auto) 0.4 Neut % (Auto) 56.8 Lymph % (Auto) 19.8 [place] % (Auto) 11.1 Eos % (Auto) 11.4 Baso % (Auto) 0.5 Immature Gran # (Auto) 0.03 H Neut # (Auto) 4.40 Lymph # (Auto) 1.53 [place] # (Auto) 0.86 H Eos # (Auto) 0.88 H Baso # (Auto) 0.04 Sodium 139 Potassium 3.8 D Chloride 110 H Carbon Dioxide 27 Anion Gap 2.0 L BUN 8 Creatinine 0.81 Est Cr Clr Drug Dosing 73.9 Est GFR ( Amer) 96.6 Est GFR (Non-Af Amer) 83.4 BUN/Creatinine Ratio 9.8 L Glucose 71 Calcium 8.4 L Phosphorus 2.1 L Magnesium 1.8 Total Time Total Time Spent Total Time Spent (In Minutes): 35 Total Time Includes: Examination of the Patient, Discharge Planning, Medication Reconciliation and Communication With Other Providers Discharge Plan Discharge Items Patient Disposition: Home - Self-Care Reason For Visit: ISCHEMIC COLITIS,UTI POA Discharge Diagnosis: as above Condition: Fair Discharge Goals: Decrease discomfort, Diagnostic testing, Improve disease control, Improve function and Increase independence Activity: Resume your previous activity Non-emergency contact: Primary Care Provider Call non-emergency contact if: you have any medication questions and your temperature is above 100.5 Diet: Heart Healthy, Low Fiber and Low Fat Addtl Provider Instructions: you are having Likely ischemic colitis, you need to follow up in 6 weeks for colonoscopy with GI uou need to watch for constipation and bowel obstruction when on Choletyramine stop Choletyramine when BM <3-4 times a day you have persistent chronic dizziness x 3 weeks. you can continue antivert for dizziness as needed MRI brain on 10/11 showed small vessel disease, but no acute infarct. No recent cold or viral infection to indicate labrythnitis or vestibular neuritis. you need to follow up with your primary care physician in 1 week, - take medication as instructed, never overdose or any misuse, or take with alcohol, because misuse of medicine may cause organ damage or , call me , or your primary care physician if have questions of discharge medicaitons. - call your primary care physician, or go to local emergency room if has any fever/chill, chest pain, shortness of breathing, nausea/vomiting/abdominal pain , facial droop/slurry speech/local weakness, or if has any questions. - fall precaution - diet as instructed - you need to follow up with your subspecialist, such as Dr. ALVAREZ Prescriptions: New loperamide 2 mg Capsule 2 mg PO Q4 7 Days Qty: 14 RF: 0 metronidazole 500 mg Tablet 500 mg PO TID 4 Days Qty: 12 RF: 0 ciprofloxacin HCl 500 mg Tablet 500 mg PO BID 4 Days Qty: 8 RF: 0 magnesium oxide 400 mg (241.3 mg magnesium) Tablet 400 mg PO BID 7 Days Qty: 14 RF: 0 meclizine 25 mg Tablet 25 mg PO Q6 PRN (Reason: dizziness) 7 Days Qty: 14 RF: 0 cholestyramine-aspartame [Cholestyramine Light] 4 gram Powder In Packet 7 g PO BID@1000,2200 3 Days Qty: 6 RF: 0 nitrofurantoin monohyd/m-cryst 100 mg Capsule 100 mg PO BID 4 Days Qty: 8 RF: 0 Continue aspirin 81 mg Tablet,Chewable 81 mg PO QAM RF: 0 cholecalciferol (vitamin D3) [Vitamin D3] 400 unit Tablet 800 unit PO QAM RF: 0 finasteride [Proscar] 5 mg Tablet 5 mg PO QAM RF: 0 vitamin B complex Capsule 1 cap PO QAM RF: 0 nabumetone 500 mg Tablet 500 mg PO BID RF: 0 Visit Report Forms: My [facility] Portal Stand-Alone Forms: [facility] Discharge Orders: Discharge Order (Routine); Ordered 10/17/18 Ordered By: Jose Enrique Grace Admission Data Admit Date/Time: 10/11/18 13:56 Attending Provider: Jose Enrique Grace Admit Provider: Corky Stark Primary Care Provider: Berna LEBLANC Other Providers: Janes Corey Service: Medical Other Interventions: Discharge Summary Assessment (RN) Last Done: 10/17/18 10:30 DC Date/Time DO NOT enter until pt leaves facility: 10/17/18 13:00
== END 2018-10-17 13:00 | disposition home or self-care (01) | DRG 394 ==
LOC: ED 08:42 → SUATTDRO 13:56 → 2W 13:56

== ENCOUNTER 2018-11-01 19:00 | Inpatient (IN) ==
[2018-11-01] MEDS ORDERED: ONDANSETRON INJ 2 MG/ML 2 ML VIAL IV STA (19:18)
[2018-11-01] MEDS ORDERED: ACETAMINOPHEN 1000 MG/100 ML IV IV STA (19:18)
[2018-11-01] MEDS ORDERED: SODIUM CHLORIDE 0.9% 1000ML 1,000 ML IV SCH (19:30)
[2018-11-01 19:31] LABS: Hematocrit (blood only) 42.5 % (42-52); Hemoglobin 14.6 g/dL (14.0-18.0); Mean Corpuscular Hgb Conc 34.4 g/dL (32-36); Mean Corpuscular Volume 90.4 fL (80-100); Mean Platelet Volume 10.2 fL (7.4-10.4); Platelet Count 187 K/uL (130-400); RDW Coefficient of Variation 14.3 % (11.5-14.5); RDW Standard Deviation 47.2 fL (36.4-46.3); White Blood Count 10.54 K/uL (4.8-10.8)
[2018-11-01 19:37] LABS: iSTAT Ionized Calcium 1.12 mmol/l (1.12-1.32)
[2018-11-01 19:42] LABS: INR 1.1 (0.9-1.1); Partial Thromboplastin Ratio 0.9; Partial Thromboplastin Time 24.6 Seconds (21.0-31.0); Prothrombin Time 11.1 Seconds (9.0-12.0)
[2018-11-01 19:46] LABS: Alanine Aminotransferase 20 U/L (12-78); Albumin Level 3.2 gm/dl (3.4-5.0); Aspartate Aminotransferase 27 U/L (15-37); BUN Creatinine Ratio 16.1 (10-20); Blood Urea Nitrogen 14 mg/dl (7-18); Calcium 8.9 mg/dl (8.5-10.1); Carbon Dioxide 24 mmol/L (21-32); Chloride 107 mmol/L (98-107); Creatinine Clr Calc Pharmacy 70.5 ml/min; Est GFR (African American) 92.5; Est GFR (Non-African American) 79.8; Glucose 97 mg/dl (70-99); Magnesium 1.8 mg/dl (1.8-2.4); Sodium 137 mmol/L (136-145)
[2018-11-01 19:51] LABS: Albumin Globulin Ratio 0.7 (0.9-2); Alkaline Phosphatase 92 U/L (45-117); Bilirubin,Total 0.8 mg/dl (0.2-1); Globulin 4.9 gm/dl (2.5-4.0); Total Protein 8.1 gm/dl (6.4-8.2); Troponin I < 0.015 ng/ml (0-0.045)
[2018-11-01 19:53] LABS: Basophils # (auto) 0.04 K/uL (0-0.2); Basophils % (auto) 0.4 %; Eosinophils # (auto) 0.34 K/uL (0-0.5); Eosinophils % (auto) 3.2 %; Immature Granulocytes # (auto) 0.03 K/uL (0.00-0.02); Immature Granulocytes % (auto) 0.3 %; Lymphocytes # (auto) 0.77 K/uL (1.2-3.4); Lymphocytes % (auto) 7.3 %; Monocytes # (auto) 0.76 K/uL (0.11-0.59); Monocytes % (auto) 7.2 %; Neutrophils % (auto) 81.6 %
--- NOTE | 2018-11-01 20:24 | CT Scan Report ---
CT abd pelvis wo con CLINICAL HISTORY: 83 years-old Male presenting with poss colitis or divertic. TECHNIQUE: Multidetector CT of the abdomen and pelvis was performed without the use of intravenous co ntrast. IV contrast: None. One or more dose lowering techniques were used consistent with the princip les of ALARA (as low as reasonably achievable), including automatic exposure control, mA or kV adjust ment to individual patient size, and/or use of iterative reconstruction. COMPARISON: 10/11/2018. CT DOSE (mGy.cm): The estimated cumulative dose is 606.33 mGycm. FINDINGS: Compressor Engineer topogram: Elevation of the left hemidiaphragm. Linear metallic foreign body projects over the e pigastrium. Lung bases: Extensive subpleural reticulation in a bandlike opacities, either atelectasis or chronic aspiration. Multichamber enlargement of the heart. Coronary artery calcification. Elevation of the le ft hemidiaphragm. No pericardial or pleural effusion. Liver: Normal morphology. Normal density. Subcentimeter well-defined hypodensity in the inferior righ t hepatic lobe likely hepatic cyst or hamartoma. Biliary: No gross biliary ductal dilatation allowing for noncontrast technique. Gallbladder contains gallstones. Pancreas: Mild parenchymal atrophy. Spleen: Normal noncontrast appearance. Adrenal glands: Normal noncontrast appearance. Kidneys and ureters: Normal noncontrast appearance. Punctate nonobstructing left renal calculus. No h ydronephrosis. Normal ureters. Bladder: Circumferential bladder wall thickening. Pelvic organs: Prostate enlargement likely secondary to benign prostatic hyperplasia. Bowel: Circumferential wall thickening of the rectum similar to prior exam. There is also diverticulo sis with significant wall thickening and pericolonic inflammatory change along the mid descending col on to mid sigmoid colon, which has worsened from prior exam. Greater adjacent peritoneal thickening. Allowing for noncontrast technique, no adjacent fluid collection to suggest abscess. No bowel obstruc tion. Peritoneal cavity: No free fluid or intraperitoneal gas. No focal fluid collection to suggest abscess . No extraluminal gas. Linear metallic foreign body in the region of the gastric antrum, which is of uncertain etiology. Lymph nodes: Numerous prominent retroperitoneal lymph nodes measuring up to 9 mm in short axis. There are also many prominent lymph nodes in the sigmoid mesocolon. Vasculature: Atherosclerosis of the normal caliber abdominal aorta. Abdominal wall: Fat-containing right inguinal hernia. Musculoskeletal: Degenerative changes of the spine. Osteopenia suspected. Posttraumatic or degenerati ve changes along the anterolateral right acetabulum. Anterior vertebral body compression deformity of T12, unchanged. IMPRESSION: 1. Findings consistent with severe though uncomplicated acute diverticulitis extending from the mid descending colon to the mid sigmoid colon. No abscess or extraluminal gas. Especially given the assoc iated borderline lymphadenopathy, follow-up direct visualization with colonoscopy recommended. 2. Noncontiguous circumferential wall thickening of the rectum suggesting proctitis, most likely inf ectious or inflammatory. 3. Cholelithiasis. 4. The linear metallic foreign body posterior to the gastric antrum is of uncertain clinical signifi cance and of uncertain etiology. The report will be called/faxed according to standard departmental protocol. Electronically signed by: Corbin West M.D. 11/01/2018 8:21 PM
[2018-11-01] MEDS ORDERED: PIPERACILLIN/TAZOBACTAM 4.5 GM/120 ML BAG IV ONE (20:59)
[2018-11-01] MEDS ORDERED: SODIUM CHLORIDE 0.9% 1000ML 1,000 ML IV STA (21:04)
--- NOTE | 2018-11-01 21:20 | XRay Report ---
XR chest 1V portable CLINICAL HISTORY: 83 years-old Male presenting with weakness, rectal bleeding. TECHNIQUE: Portable upright AP view of the chest was obtained. COMPARISON: 10/11/2018. FINDINGS: Atherosclerosis of the aortic arch. Tortuosity of the descending thoracic aorta. Cardiac silhouette n ormal in size. Mildly low lung volumes with elevation of the left hemidiaphragm. No focal opacity. No large effusion or pneumothorax. Degenerative changes of the thoracic spine. Linear metallic foreign body projects over the epigastrium as seen on CT. IMPRESSION: 1. Mildly low lung volumes with elevation of the left hemidiaphragm. No convincing evidence of acute cardiopulmonary disease. Electronically signed by: Corbin West M.D. 11/01/2018 9:19 PM
--- NOTE | 2018-11-01 22:18 | Emergency Department Note ---
Entered by Pawan Farfan acting as a scribe for Unruly Escobedo MD History of Present Illness General Chief complaint: Rectal Bleed Time Seen by Provider: 11/01/18 19:11 Source: patient and old records reviewed History of Present Illness Onset (ago): week(s) (a couple days after October 17) Location: buttocks (rectum) Pain Consistency: + other (persistent) Quality: + other (diarrhea and rectal bleeding) Associated symptoms: + weakness and + other (chills, lower abdominal pain); no nausea/vomiting and no shortness of breath The patient is an 83 year old male with a recent diagnosis of colitis who presents to the Emergency Room from [facility] with complaints of persistent diarrhea and rectal bleeding beginning a couple days after discharge on October 17. Review of records shows that the patient was discharged on October 17 from [facility] and was diagnosed with colitis thought to be ischemic. He was discharged on courses of Cipro and Flagyl that are now finished. The patient reports that he has diarrhea all the time, all day every day with bright red blood. He also notes weakness, chills and lower abdominal pain. He denies vomiting or shortness of breath. He notes that he feels thirsty. Home Medications Home Medications Medication Instructions Recorded Confirmed Type cholecalciferol (vitamin D3) 800 unit PO QAM 10/11/18 11/01/18 History [Vitamin D3] finasteride [Proscar] 5 mg PO QAM 10/11/18 11/01/18 History vitamin B complex 1 cap PO QAM 10/11/18 11/01/18 History aspirin [Aspir-Low] 81 mg PO DAILY 11/01/18 11/01/18 History tamsulosin 0.8 mg PO DAILY 11/01/18 11/01/18 History Allergies Allergy/AdvReac Type Severity Reaction Status Date / Time No Known Allergies Allergy Unverified 10/11/18 09:28 Past Med/Surg History Medical History Inguinal hernia Carcinoma of parotid gland BPH (benign prostatic hyperplasia) Family History Other Family history non-contributory Social History Current Living Situation: Other Current Living Situation Comment: [facility] Other Information That Helps Us Care for You: No Feels Safe at Home: Yes Safety Concerns: Feels Safe At This Time Smoking Status: Never smoker Tobacco Type: smokeless tobacco Do You Dip or Chew Tobacco: Yes Hx Alcohol Use: No Hx Substance Use: No Beliefs That Will Affect Care: None Preferred Language: Maltese Review of Systems See HPI for pertinent positives & negatives. and A total of 10 systems reviewed and were otherwise negative Physical Exam Vital Signs Vital Signs - 24 hr 11/01/18 19:05 11/01/18 19:12 11/01/18 19:18 Temperature 36.7 C Temperature Source Oral Sepsis Recent Fever Within 48 Hours No Sepsis Action Taken by Nursing No Action Required Pulse Rate 85 81 Pulse Rate [Apical] Respiratory Rate 19 27 H Respiratory Effort / Characteristics Non-Labored Respiratory Depth Normal Blood Pressure 113/77 Blood Pressure [Right Arm] Blood Pressure Mean 89 Blood Pressure Mean [Right Arm] Pulse Oximetry 96 96 95 Oxygen Delivery Method Room Air Nasal Cannula Oxygen Flow Rate 11/01/18 19:30 11/01/18 20:10 11/01/18 20:30 Temperature Temperature Source Sepsis Recent Fever Within 48 Hours Sepsis Action Taken by Nursing Pulse Rate 80 87 89 Pulse Rate [Apical] Respiratory Rate 22 23 32 H Respiratory Effort / Characteristics Respiratory Depth Blood Pressure Blood Pressure [Right Arm] Blood Pressure Mean Blood Pressure Mean [Right Arm] Pulse Oximetry 95 97 96 Oxygen Delivery Method Oxygen Flow Rate 11/01/18 20:49 11/01/18 20:59 11/01/18 21:00 Temperature Temperature Source Sepsis Recent Fever Within 48 Hours Sepsis Action Taken by Nursing Pulse Rate 84 85 Pulse Rate [Apical] 85 Respiratory Rate 18 21 21 Respiratory Effort / Characteristics Non-Labored Respiratory Depth Normal Blood Pressure 107/58 L 103/56 L Blood Pressure [Right Arm] 107/58 L Blood Pressure Mean 74 71 Blood Pressure Mean [Right Arm] 74 Pulse Oximetry 95 96 96 Oxygen Delivery Method Nasal Cannula Oxygen Flow Rate 2 11/01/18 21:02 11/01/18 21:30 11/01/18 22:00 Temperature Temperature Source Sepsis Recent Fever Within 48 Hours Sepsis Action Taken by Nursing Pulse Rate 84 82 76 Pulse Rate [Apical] Respiratory Rate 20 19 17 Respiratory Effort / Characteristics Respiratory Depth Blood Pressure 103/59 L 108/58 L Blood Pressure [Right Arm] Blood Pressure Mean 73 74 Blood Pressure Mean [Right Arm] Pulse Oximetry 96 96 96 Oxygen Delivery Method Oxygen Flow Rate 11/01/18 22:05 11/01/18 22:30 11/01/18 23:00 Temperature Temperature Source Sepsis Recent Fever Within 48 Hours Sepsis Action Taken by Nursing Pulse Rate 75 74 73 Pulse Rate [Apical] Respiratory Rate 18 16 20 Respiratory Effort / Characteristics Respiratory Depth Blood Pressure 108/58 L 102/55 L 112/59 L Blood Pressure [Right Arm] Blood Pressure Mean 74 70 76 Blood Pressure Mean [Right Arm] Pulse Oximetry 95 96 95 Oxygen Delivery Method Oxygen Flow Rate 11/01/18 23:30 11/01/18 23:31 11/02/18 00:00 Temperature Temperature Source Sepsis Recent Fever Within 48 Hours Sepsis Action Taken by Nursing Pulse Rate 71 71 71 Pulse Rate [Apical] Respiratory Rate 21 20 21 Respiratory Effort / Characteristics Respiratory Depth Blood Pressure 102/55 L 106/59 L Blood Pressure [Right Arm] Blood Pressure Mean 70 74 Blood Pressure Mean [Right Arm] Pulse Oximetry 97 96 98 Oxygen Delivery Method Oxygen Flow Rate 11/02/18 00:19 11/02/18 00:30 11/02/18 07:00 Temperature 36.7 C 36.4 C L Temperature Source Oral Oral Sepsis Recent Fever Within 48 Hours Sepsis Action Taken by Nursing Pulse Rate Pulse Rate [Apical] 71 65 Respiratory Rate 20 23 Respiratory Effort / Characteristics Respiratory Depth Blood Pressure Blood Pressure [Right Arm] 106/66 125/63 Blood Pressure Mean Blood Pressure Mean [Right Arm] 79 83 Pulse Oximetry 95 98 Oxygen Delivery Method Nasal Cannula Room Air Oxygen Flow Rate 2 11/02/18 10:24 Temperature 36.4 C L Temperature Source Sepsis Recent Fever Within 48 Hours Sepsis Action Taken by Nursing Pulse Rate Pulse Rate [Apical] 65 Respiratory Rate 23 Respiratory Effort / Characteristics Respiratory Depth Blood Pressure Blood Pressure [Right Arm] 125/63 Blood Pressure Mean Blood Pressure Mean [Right Arm] Pulse Oximetry 98 Oxygen Delivery Method Oxygen Flow Rate GENERAL: Patient is in no acute distress. HEENT: No acute trauma, normocephalic atraumatic, mucous membranes dry, no nasal congestion, no scleral icterus. NECK: No stridor, no adenopathy, no meningismus, trachea is midline. LUNGS: Clear to auscultation bilaterally, no wheeze, no rhonchi, breath sounds equal. HEART: Without murmurs gallops or rubs, regular rate and rhythm. ABDOMEN: Soft, mild tenderness in the LLQ, bowel sounds positive, no hernias, no peritonitis. EXTREMITIES: No cyanosis or edema, full range of motion of all the joints without pain or difficulty, no signs for acute trauma. NEUROLOGIC: Oriented x 3, no acute motor or sensory deficits, no focal weakness. SKIN: No rash, no jaundice, no diaphoresis. Course 1913: Past medical records reviewed. The patient was evaluated in room C10, and a complete history and physical examination were performed. 2056: Nursing staff report that the patients stool was heme-positive. 2107: I updated the patient on current results. 2129: Dr. Ribera [facility] Hospitalist has been notified of the patients case. He will reevaluate the patient for hospitalization. Consultations Consultation #1: Dr. Ribera [facility] Hospitalist has been notified of the patient s case. He will reevaluate the patient for hospitalization. Time: 21:30 Administered Medications Finasteride (Proscar) 5 mg PO QAM [facility] Stop: 12/02/18 08:59 Last Admin: 11/02/18 09:24 Dose: 5 mg Dextrose/Lactated Ringer's (D5w And Lactated Ringers) 1,000 mls @ 125 mls/hr IV .Q8H [facility] Stop: 11/02/18 16:33 Last Infusion: 11/02/18 05:04 Dose: 125 mls/hr Admin: 11/02/18 03:20 Dose: 125 mls/hr Piperacillin Sod/Tazobactam Sod (Zosyn) 3.375 gm in 115 mls @ 28.75 mls/hr IV Q8H [facility]; Protocol Stop: 11/12/18 02:59 Last Infusion: 11/02/18 03:52 Dose: 0 mls/hr Admin: 11/02/18 03:20 Dose: 230 mls/hr Tamsulosin HCl (Flomax) 0.8 mg PO DAILY [facility] Stop: 12/02/18 08:59 Last Admin: 11/02/18 09:24 Dose: 0.8 mg Discontinued Medications Acetaminophen (Ofirmev) 1,000 mg IV NOW STA Stop: 11/01/18 19:19 Last Admin: 11/01/18 19:32 Dose: 1,000 mg Sodium Chloride (Nss 1000ml) 1,000 mls @ 999 mls/hr IV .Q1H1M [facility] Stop: 11/01/18 20:30 Last Infusion: 11/01/18 20:40 Dose: 0 mls/hr Admin: 11/01/18 19:32 Dose: 999 mls/hr Piperacillin Sod/Tazobactam Sod (Zosyn) 4.5 gm in 120 mls @ 240 mls/hr IV NOW ONE Stop: 11/01/18 21:28 Last Infusion: 11/01/18 21:46 Dose: 0 mls/hr Admin: 11/01/18 21:04 Dose: 240 mls/hr Sodium Chloride (Nss 1000ml) 1,000 mls @ 999 mls/hr IV .Q1H1M STA Stop: 11/01/18 22:04 Last Infusion: 11/01/18 22:11 Dose: 0 mls/hr Admin: 11/01/18 21:09 Dose: 999 mls/hr Ondansetron HCl (Zofran) 4 mg IV NOW STA Stop: 11/01/18 19:19 Last Admin: 11/01/18 19:32 Dose: 4 mg Medical Decision Making Differential Diagnosis Differential diagnosis: dehydration, recurrent colitis, diverticulitis, C-diff infection, bacterial intestinal infection, renal or liver failure, electrolyte imbalance, anemia Medical Records Attestation: I reviewed the patient's medical records. Home Medications Current Medication List: was personally reviewed by me Laboratory Data Attestation: I reviewed the patient's lab results. Result diagrams: 11/02/18 06:13 11/02/18 06:13 Lab Results 11/01/18 11/01/18 11/01/18 Range/Units 19:12 19:12 19:12 WBC 10.54 (4.8-10.8) K/uL RBC 4.70 (4.7-6.1) M/uL Hgb 14.6 (14.0-18.0) g/dL POC Hgb (14.0-18.0) g/dl Hct 42.5 (42-52) % POC Hct (42-52) % MCV 90.4 (80-100) fL MCH 31.1 (25-34) pg MCHC 34.4 (32-36) g/dL RDW Std Deviation 47.2 H (36.4-46.3) fL RDW Coeff of Torrie 14.3 (11.5-14.5) % Plt Count 187 (130-400) K/uL MPV 10.2 (7.4-10.4) fL Immature Gran % (Auto) 0.3 % Neut % (Auto) 81.6 % Lymph % (Auto) 7.3 % [place] % (Auto) 7.2 % Eos % (Auto) 3.2 % Baso % (Auto) 0.4 % Immature Gran # (Auto) 0.03 H (0.00-0.02) K/uL Neut # (Auto) 8.60 H (1.4-6.5) K/uL Lymph # (Auto) 0.77 L (1.2-3.4) K/uL [place] # (Auto) 0.76 H (0.11-0.59) K/uL Eos # (Auto) 0.34 (0-0.5) K/uL Baso # (Auto) 0.04 (0-0.2) K/uL PT 11.1 (9.0-12.0) Seconds INR 1.1 (0.9-1.1) APTT 24.6 (21.0-31.0) Seconds PTT Ratio 0.9 POC Sodium (135-144) mEq/L Sodium 137 (136-145) mmol/L POC Potassium (3.3-5.0) mEq/L Potassium 4.0 (3.5-5.1) mmol/L POC Chloride (101-112) mEq/L Chloride 107 (98-107) mmol/L Carbon Dioxide 24 (21-32) mmol/L POC Total CO2 (24-31) mEq/l Anion Gap 6.0 (3-11) POC Anion Gap (16-25) mmol/L POC BUN (7-18) mg/dl BUN 14 (7-18) mg/dl Creatinine 0.90 (0.6-1.4) mg/dl POC Creatinine (0.6-1.3) mg/dl Est Cr Clr Drug Dosing 70.5 ml/min Est GFR ( Amer) 92.5 Est GFR (Non-Af Amer) 79.8 BUN/Creatinine Ratio 16.1 (10-20) Glucose 97 (70-99) mg/dl POC Glucose (other) (70-99) mg/dl Calcium 8.9 (8.5-10.1) mg/dl POC Ioniz Calcium Dianne (1.12-1.32) mmol/l Magnesium 1.8 (1.8-2.4) mg/dl Total Bilirubin 0.8 (0.2-1) mg/dl AST 27 (15-37) U/L ALT 20 (12-78) U/L Alkaline Phosphatase 92 (45-117) U/L Troponin I < 0.015 (0-0.045) ng/ml Total Protein 8.1 (6.4-8.2) gm/dl Albumin 3.2 L (3.4-5.0) gm/dl Globulin 4.9 H (2.5-4.0) gm/dl Albumin/Globulin Ratio 0.7 L (0.9-2) Specimen Hemolysis Urine Color Urine Appearance (Clear) Urine pH (4.5-7.5) Ur Specific [place] (1.000-1.030) Urine Protein (Negative) Urine Glucose (UA) (Negative) Urine Ketones (Negative) Urine Blood (Negative) Urine Nitrite (Negative) Urine Bilirubin (Negative) Urine Urobilinogen (Negative) Ur Leukocyte Esterase (Negative) Nasal Screen MRSA (PCR) (Negative) Stl C. diff Tox B Gene (Neg) 11/01/18 11/01/18 11/02/18 Range/Units 19:25 20:55 03:30 WBC (4.8-10.8) K/uL RBC (4.7-6.1) M/uL Hgb (14.0-18.0) g/dL POC Hgb 15.0 (14.0-18.0) g/dl Hct (42-52) % POC Hct 44 (42-52) % MCV (80-100) fL MCH (25-34) pg MCHC (32-36) g/dL RDW Std Deviation (36.4-46.3) fL RDW Coeff of Torrie (11.5-14.5) % Plt Count (130-400) K/uL MPV (7.4-10.4) fL Immature Gran % (Auto) % Neut % (Auto) % Lymph % (Auto) % [place] % (Auto) % Eos % (Auto) % Baso % (Auto) % Immature Gran # (Auto) (0.00-0.02) K/uL Neut # (Auto) (1.4-6.5) K/uL Lymph # (Auto) (1.2-3.4) K/uL [place] # (Auto) (0.11-0.59) K/uL Eos # (Auto) (0-0.5) K/uL Baso # (Auto) (0-0.2) K/uL PT (9.0-12.0) Seconds INR (0.9-1.1) APTT (21.0-31.0) Seconds PTT Ratio POC Sodium 142 (135-144) mEq/L Sodium (136-145) mmol/L POC Potassium 4.1 (3.3-5.0) mEq/L Potassium (3.5-5.1) mmol/L POC Chloride 103 (101-112) mEq/L Chloride (98-107) mmol/L Carbon Dioxide (21-32) mmol/L POC Total CO2 21 L (24-31) mEq/l Anion Gap (3-11) POC Anion Gap 23.0 (16-25) mmol/L POC BUN 16 (7-18) mg/dl BUN (7-18) mg/dl Creatinine (0.6-1.4) mg/dl POC Creatinine 0.8 (0.6-1.3) mg/dl Est Cr Clr Drug Dosing ml/min Est GFR ( Amer) Est GFR (Non-Af Amer) BUN/Creatinine Ratio (10-20) Glucose (70-99) mg/dl POC Glucose (other) 100 H (70-99) mg/dl Calcium (8.5-10.1) mg/dl POC Ioniz Calcium Dianne 1.12 (1.12-1.32) mmol/l Magnesium (1.8-2.4) mg/dl Total Bilirubin (0.2-1) mg/dl AST (15-37) U/L ALT (12-78) U/L Alkaline Phosphatase (45-117) U/L Troponin I (0-0.045) ng/ml Total Protein (6.4-8.2) gm/dl Albumin (3.4-5.0) gm/dl Globulin (2.5-4.0) gm/dl Albumin/Globulin Ratio (0.9-2) Specimen Hemolysis Urine Color Urine Appearance (Clear) Urine pH (4.5-7.5) Ur Specific [place] (1.000-1.030) Urine Protein (Negative) Urine Glucose (UA) (Negative) Urine Ketones (Negative) Urine Blood (Negative) Urine Nitrite (Negative) Urine Bilirubin (Negative) Urine Urobilinogen (Negative) Ur Leukocyte Esterase (Negative) Nasal Screen MRSA (PCR) Negative (Negative) Stl C. diff Tox B Gene Neg C.diff Toxin B (Neg) 11/02/18 11/02/18 11/02/18 Range/Units 05:30 06:13 06:13 WBC 8.16 (4.8-10.8) K/uL RBC 4.10 L (4.7-6.1) M/uL Hgb 12.5 L (14.0-18.0) g/dL POC Hgb (14.0-18.0) g/dl Hct 37.5 L (42-52) % POC Hct (42-52) % MCV 91.5 (80-100) fL MCH 30.5 (25-34) pg MCHC 33.3 (32-36) g/dL RDW Std Deviation 48.8 H (36.4-46.3) fL RDW Coeff of Torrie 14.6 H (11.5-14.5) % Plt Count 164 (130-400) K/uL MPV 9.9 (7.4-10.4) fL Immature Gran % (Auto) 0.2 % Neut % (Auto) 65.8 % Lymph % (Auto) 14.7 % [place] % (Auto) 13.6 % Eos % (Auto) 5.0 % Baso % (Auto) 0.7 % Immature Gran # (Auto) 0.02 (0.00-0.02) K/uL Neut # (Auto) 5.36 (1.4-6.5) K/uL Lymph # (Auto) 1.20 (1.2-3.4) K/uL [place] # (Auto) 1.11 H (0.11-0.59) K/uL Eos # (Auto) 0.41 (0-0.5) K/uL Baso # (Auto) 0.06 (0-0.2) K/uL PT (9.0-12.0) Seconds INR (0.9-1.1) APTT (21.0-31.0) Seconds PTT Ratio POC Sodium (135-144) mEq/L Sodium 141 (136-145) mmol/L POC Potassium (3.3-5.0) mEq/L Potassium 3.6 (3.5-5.1) mmol/L POC Chloride (101-112) mEq/L Chloride 110 H (98-107) mmol/L Carbon Dioxide 26 (21-32) mmol/L POC Total CO2 (24-31) mEq/l Anion Gap 6.0 (3-11) POC Anion Gap (16-25) mmol/L POC BUN (7-18) mg/dl BUN 13 (7-18) mg/dl Creatinine 1.04 (0.6-1.4) mg/dl POC Creatinine (0.6-1.3) mg/dl Est Cr Clr Drug Dosing 57.5 ml/min Est GFR ( Amer) 77.7 Est GFR (Non-Af Amer) 67.0 BUN/Creatinine Ratio 12.3 (10-20) Glucose 128 H (70-99) mg/dl POC Glucose (other) (70-99) mg/dl Calcium 7.8 L (8.5-10.1) mg/dl POC Ioniz Calcium Dianne (1.12-1.32) mmol/l Magnesium 2.1 (1.8-2.4) mg/dl Total Bilirubin (0.2-1) mg/dl AST (15-37) U/L ALT (12-78) U/L Alkaline Phosphatase (45-117) U/L Troponin I (0-0.045) ng/ml Total Protein (6.4-8.2) gm/dl Albumin (3.4-5.0) gm/dl Globulin (2.5-4.0) gm/dl Albumin/Globulin Ratio (0.9-2) Specimen Hemolysis Urine Color Dark Yellow Urine Appearance Clear (Clear) Urine pH 5.0 (4.5-7.5) Ur Specific [place] 1.022 (1.000-1.030) Urine Protein Negative (Negative) Urine Glucose (UA) Negative (Negative) Urine Ketones 1+ H (Negative) Urine Blood Negative (Negative) Urine Nitrite Negative (Negative) Urine Bilirubin Negative (Negative) Urine Urobilinogen Negative (Negative) Ur Leukocyte Esterase Negative (Negative) Nasal Screen MRSA (PCR) (Negative) Stl C. diff Tox B Gene (Neg) Imaging Data Radiologist's Impression: Radiology results as stated below per my review and the radiologist's interpretation: CT abd pelvis wo con CLINICAL HISTORY: 83 years-old Male presenting with poss colitis or divertic. TECHNIQUE: Multidetector CT of the abdomen and pelvis was performed without the use of intravenous contrast. IV contrast: None. One or more dose lowering techniques were used consistent with the principles of ALARA (as low as reasonably achievable), including automatic exposure control, mA or kV adjustment to individual patient size, and/or use of iterative reconstruction. COMPARISON: 10/11/2018. CT DOSE (mGy.cm): The estimated cumulative dose is 606.33 mGycm. 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 Linear metallic foreign body projects over the epigastrium. Lung bases: Extensive subpleural reticulation in a bandlike opacities, either atelectasis or chronic aspiration. Multichamber enlargement of the heart. Coronary artery calcification. Elevation of the left hemidiaphragm. No pericardial or pleural effusion. Liver: Normal morphology. Normal density. Subcentimeter well-defined hypodensity in the inferior right hepatic lobe likely hepatic cyst or hamartoma. Biliary: No gross biliary ductal dilatation allowing for noncontrast technique. Gallbladder contains gallstones. Pancreas: Mild parenchymal atrophy. Spleen: Normal noncontrast appearance. Adrenal glands: Normal noncontrast appearance. Kidneys and ureters: Normal noncontrast appearance. Punctate nonobstructing left renal calculus. No hydronephrosis. Normal ureters. Bladder: Circumferential bladder wall thickening. Pelvic organs: Prostate enlargement likely secondary to benign prostatic hyperplasia. Bowel: Circumferential wall thickening of the rectum similar to prior exam. There is also diverticulosis with significant wall thickening and pericolonic inflammatory change along the mid descending colon to mid sigmoid colon, which has worsened from prior exam. Greater adjacent peritoneal thickening. Allowing for noncontrast technique, no adjacent fluid collection to suggest abscess. No bowel obstruction. Peritoneal cavity: No free fluid or intraperitoneal gas. No focal fluid collection to suggest abscess. No extraluminal gas. Linear metallic foreign body in the region of the gastric antrum, which is of uncertain etiology. Lymph nodes: Numerous prominent retroperitoneal lymph nodes measuring up to 9 mm in short axis. There are also many prominent lymph nodes in the sigmoid mesocolon. Vasculature: Atherosclerosis of the normal caliber abdominal aorta. Abdominal wall: Fat-containing right inguinal hernia. Musculoskeletal: Degenerative changes of the spine. Osteopenia suspected. Posttraumatic or degenerative changes along the anterolateral right acetabulum. Anterior vertebral body compression deformity of T12, unchanged. IMPRESSION: 1. Findings consistent with severe though uncomplicated acute diverticulitis extending from the mid descending colon to the mid sigmoid colon. No abscess or extraluminal gas. Especially given the associated borderline lymphadenopathy, follow-up direct visualization with colonoscopy recommended. 2. Noncontiguous circumferential wall thickening of the rectum suggesting proctitis, most likely infectious or inflammatory. 3. Cholelithiasis. 4. The linear metallic foreign body posterior to the gastric antrum is of uncertain clinical significance and of uncertain etiology. The report will be called/faxed according to standard departmental protocol. Electronically signed by: Corbin West M.D. 11/01/2018 8:21 PM XR chest 1V portable CLINICAL HISTORY: 83 years-old Male presenting with weakness, rectal bleeding. TECHNIQUE: Portable upright AP view of the chest was obtained. COMPARISON: 10/11/2018. FINDINGS: Atherosclerosis of the aortic arch. Tortuosity of the descending thoracic aorta. Cardiac silhouette normal in size. Mildly low lung volumes with elevation of the left hemidiaphragm. No focal opacity. No large effusion or pneumothorax. Degenerative changes of the thoracic spine. Linear metallic foreign body projects over the epigastrium as seen on CT. IMPRESSION: 1. Mildly low lung volumes with elevation of the left hemidiaphragm. No convincing evidence of acute cardiopulmonary disease. Electronically signed by: Corbin West M.D. 11/01/2018 9:19 PM ECG Data Attestation: I personally reviewed and interpreted this ECG as follows: Indication: other (rectal bleeding) Rate (beats per minute): 84 Rhythm: sinus rhythm Findings: + 1st degree AV block and + T-wave inversion (anterior and lateral leads); no ST elevation Comparison ECG Date: from (10/11/18) Change: the following changes noted (anterior and lateral T-wave inversions are new) Blood Pressure Blood Pressure Findings: Low blood pressure Blood Pressure Disposition: further management by hospitalist MDM Narrative There is no leukocytosis or worrisome anemia. No significant electrolyte abnormality or kidney failure. No hepatitis. EKG shows some ST changes in the anterior/lateral leads, these did appear new compared to previous EKGs. No ST elevation. Cardiac enzyme testing x1 is not consistent with acute cardiac injury. There was no coagulopathy. Chest film did not show evidence for pneumonia or CHF. Abdominal and pelvis CT shows a significant case of diverticulitis. No perforation or abscess seen. Some proctitis was noted. Stool C. difficile testing was negative. Stool cultures are pending. The patient received IV saline, 2 L were given. He was given IV Tylenol for pain, IV Zofran for nausea, he received IV Zosyn as antibiotic coverage. Patient presents dehydrated with bloody stool. Nursing staff did confirm heme positive stool here in the ED. He has a severe case of diverticulitis and left lower quadrant abdominal pain. I do think IV antibiotics and a hospital stay is warranted. I spoke to the patient and case management. The on-call hospitalist was consulted. Of note, the patient was mildly hypoxic upon arrival, this resolved with nasal cannula O2. The cause for the hypoxia is not clear as his chest x-ray is unremarkable, the patient does not feel short of breath. Impression & Plan Acute diverticulitis, Dehydration, Acute electrocardiogram changes, Hypoxia Discharge Plan Visit Data *Final* Discharge Date/Time: 11/02/18 00:19 Chief Complaint: Rectal Bleed ED Provider: Unruly Escobedo Discharge Problem: Acute diverticulitis, Dehydration, Acute electrocardiogram changes, Hypoxia Patient Disposition: Admitted As Inpatient Discharge Instructions Interventions: ED Discharge Assessment Last Done: 11/02/18 00:19 The briana's documentation has been prepared under my direction and personally reviewed by me in its entirety. I confirm that the note above accurately reflects all work, treatment, procedures, and medical decision making performed by me.
--- NOTE | 2018-11-01 23:32 | History & Physical Report ---
Date of Service November 01, 2018 Assessment & Plan (1) Acute diverticulitis: 83 y/o M Hx BPH, parotid CA, recent admission for colitis - discharged . [facility] worsening abdominal pain and rigors over the past . A CT of the abdomen was obtained in the ER revealing severe, acute diverticulitis extending from the mid descending colon to the mid sigmoid colon and contiguous circumferential wall thickening of the rectum suggesting proctitis, most likely infectious or inflammatory. 1) Diverticulitis - sever, without evidence of perforation. Placed on Zosyn, IVF, NPO, analgesics, antiemetics as needed. There is accompanying proctocolitis which was present on previous, recent admit so that a GI consult may be merited prior to DC. 2) BPH - cont Finasteride, Flomax Full code - SCDs initially as there may be risk of GI bleed Total time for this admit including review of labs, meds, imaging, records - discussion with pt and ER attending - 37 min Present on Admission?: Yes History of Present Illness Chief Complaint: Abdominal pain Primary Care Provider: BENJI Coronel 83 y/o M Hx BPH, parotid CA, recent admission for colitis - discharged 10/20. [facility] worsening abdominal pain and rigors over the past . A CT of the abdomen was obtained in the ER revealing severe, acute diverticulitis extending from the mid descending colon to the mid sigmoid colon and nontiguous circumferential wall thickening of the rectum suggesting proctitis, most likely infectious or inflammatory. 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 or chemo 2) BPH Surgical: Limited to resection of the parotid gland on the R Social: Incarcerated, chews snuff, denies a history of smoking or alcohol abuse Family: Noncontributory due to age Allergies Allergy/AdvReac Type Severity Reaction Status Date / Time No Known Allergies Allergy Unverified 10/11/18 09:28 Home Medications Home Medications Medication Instructions Recorded Confirmed Type cholecalciferol (vitamin D3) 800 unit PO QAM 10/11/18 11/01/18 History [Vitamin D3] finasteride [Proscar] 5 mg PO QAM 10/11/18 11/01/18 History vitamin B complex 1 cap PO QAM 10/11/18 11/01/18 History aspirin [Aspir-Low] 81 mg PO DAILY 11/01/18 11/01/18 History tamsulosin 0.8 mg PO DAILY 11/01/18 11/01/18 History Past Med/Surg History Medical History Inguinal hernia Carcinoma of parotid gland BPH (benign prostatic hyperplasia) Family History Other Family history non-contributory Social History Current Living Situation: Other Current Living Situation Comment: [facility] Feels Safe at Home: Yes Smoking Status: Never smoker Tobacco Type: smokeless tobacco Second Hand Exposure: No Hx Alcohol Use: No Hx Substance Use: No Beliefs That Will Affect Care: None Preferred Language: Estonian Review of Systems Gen: Denies fevers, night sweats, fatigue, malaise, weight loss/gain - rigors reported and witnessed in ER ENT: Denies congestion, throat pain, hearing loss Eyes: Denies acute visual changes CV: Denies CP, palpitations Pulmonary: Denies SOB, cough, wheezing GI: Moderate to severe abdominal pain - mostly localized to LLQ - a few bouts of diarrhea Neuro: Denies acute or unilateral weakness, acute gait impairment, headache or acute visual changes Musculoskeletal: Denies joint pain, inflammation Endocrine: Denies polydipsia, polyuria Skin: Denies acute rashes or ulcers Physical Exam 2 Vital Signs (Past 24 Hours): Last Vital Signs Temp 36.7 C 11/01/18 19:05 Pulse 75 11/01/18 22:05 Resp 18 11/01/18 22:05 BP 108/58 L 11/01/18 22:05 Pulse Ox 95 11/01/18 22:05 Physical Exam: General: Cooperative elderly male, AAO x 3, no distress ENT: No erythema or exudates, no thrush Eyes: KELLY, EOMI Head and neck: Normocephalic, atraumatic, No JVD, neck is supple. Chest/heart: Nontender, S1,2, RRR, no murmurs, no gallops Lungs: CTAB, no wheezing or crackles Abdomen: Very tender with some guarding L abdomen - mostly lower Neuro: AAO x 3, speech is clear, no unilateral weakness or loss of sensation, coordination intact Musculoskeletal: No joint inflammation, muscle tenderness, FROM Skin: No acute rashes or ulcers Extremities: No clubbing, cyanosis, edema Results & Data Diagnostic Findings 1. Findings consistent with severe though uncomplicated acute diverticulitis extending from the mid descending colon to the mid sigmoid colon. No abscess or extraluminal gas. Especially given the associated borderline lymphadenopathy, follow-up direct visualization with colonoscopy recommended. 2. Noncontiguous circumferential wall thickening of the rectum suggesting proctitis, most likely infectious or inflammatory. 3. Cholelithiasis. 4. The linear metallic foreign body posterior to the gastric antrum is of uncertain clinical significance and of uncertain etiology. The report will be called/faxed according to standard departmental protocol.
[2018-11-02] MEDS ORDERED: ZOLPIDEM TARTRATE 5 MG TAB PO PRN (00:34)
[2018-11-02] MEDS ORDERED: PIPERACILL/TAZOBAC CONSULT ACTIVE PRN (00:34)
[2018-11-02] MEDS ORDERED: ACETAMINOPHEN 325 MG TAB PO PRN (00:34)
[2018-11-02] MEDS ORDERED: ONDANSETRON INJ 2 MG/ML 2 ML VIAL IV PRN (00:34)
[2018-11-02] MEDS ORDERED: HYDROmorphone INJ 0.5 MG/0.5 ML SYR IV PRN (00:34)
[2018-11-02] MEDS: D5W AND LACTATED RINGERS 1,000 ML IV SCH ×2 (03:20→15:00)
[2018-11-02] MEDS: PIPERACILLIN/TAZOBACTAM 3.375 GM/115 ML BAG IV SCH ×4 (03:20→16:00)
[2018-11-02 06:20] LABS: Appearance Urine Clear (Clear); Bilirubin Urine Negative (Negative); Color Urine Dark Yellow; Glucose Urine UA Negative (Negative); Ketones Urine 1+ (Negative); Leukocyte Esterase Urine Negative (Negative); Nitrite Urine Negative (Negative); Protein Urine Negative (Negative); Specific Gravity Urine 1.022 (1.000-1.030); Urobilinogen Urine Negative (Negative)
[2018-11-02 06:38] LABS: Basophils # (auto) 0.06 K/uL (0-0.2); Basophils % (auto) 0.7 %; Eosinophils # (auto) 0.41 K/uL (0-0.5); Hematocrit (blood only) 37.5 % (42-52); Hemoglobin 12.5 g/dL (14.0-18.0); Immature Granulocytes # (auto) 0.02 K/uL (0.00-0.02); Immature Granulocytes % (auto) 0.2 %; Lymphocytes % (auto) 14.7 %; Mean Corpuscular Hgb Conc 33.3 g/dL (32-36); Mean Corpuscular Volume 91.5 fL (80-100); Mean Platelet Volume 9.9 fL (7.4-10.4); Monocytes # (auto) 1.11 K/uL (0.11-0.59); Monocytes % (auto) 13.6 %; Neutrophils # (auto) 5.36 K/uL (1.4-6.5); Neutrophils % (auto) 65.8 %; Platelet Count 164 K/uL (130-400); RDW Coefficient of Variation 14.6 % (11.5-14.5); RDW Standard Deviation 48.8 fL (36.4-46.3); White Blood Count 8.16 K/uL (4.8-10.8)
[2018-11-02 07:12] LABS: BUN Creatinine Ratio 12.3 (10-20); Calcium 7.8 mg/dl (8.5-10.1); Creatinine Clr Calc Pharmacy 57.5 ml/min; Est GFR (African American) 77.7; Magnesium 2.1 mg/dl (1.8-2.4); Potassium 3.6 mmol/L (3.5-5.1)
[2018-11-02] MEDS: FINASTERIDE 5 MG TAB PO SCH (09:24)
[2018-11-02] MEDS: TAMSULOSIN HCL 0.4 MG CAP PO SCH (09:24)
--- NOTE | 2018-11-02 10:27 | Gastrointestinal Consultation ---
Date of Consultation November 02, 2018 Assessment & Plan (1) Abnormal CT of the abdomen: 83 year old male admitted with abdominal pain, diarrhea and rectal bleeding (similar presentation in October with negative stool studies) CT w/ severe inflammatory changes from the mid descending colon to the mid sigmoid colon w/o evidence of abscess/extraluminal gas w/ new lymphadenopathy. He is overdue for colonoscopy for colon CA screening - colonoscopy in 2012 was concerning for tubular adenoma and rectal dysplasia DDX discussed: IBD, diverticulitis, ischemic colitis, colon malignancy etc - NPO - Tap water enema x 3 - Flex Sig today - Cdiff negative - Culture pending - Continue ABX for now - Continue supportive management per primary service - Pending results of enema/flex sig may need fully prepped colonoscopy - Please see endoscopy report when completed for additional recommendations. Thank you for allowing us to participate in the care of this patient. Please call with any acute changes, questions or concerns. Please see addendum below with additional recommendation from my supervising physician. Present on Admission?: Yes Supervising Physician Co-Signing Physician Notes I performed a history and physical examination of the patient, including specifically on physical exam - soft, nontender abdomen. I have discussed the patient's management with Amie. Please refer to the nurse practitioner's note for the documented findings and plan of care. Abnormal CT scan with findings concerning for rectal malignancy, will plan for Flex sig today. 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 Pt was seen and evaluated, chart reviewed. Two guards at bedside. Notes recent admission in October. Symptoms improved on ABX but did not resolved. Endorses terrible abd pain. Bilateral lower quadrants. Associated with diarrhea. Has had some BRBPR. No melena. Denies any n/v. He has history of c.diff in 2012. Tolerating clear liquids. C.diff negative Stool culture pending but negative last admission CT: Findings consistent with severe though uncomplicated acute diverticulitis extending from the mid descending colon to the mid sigmoid colon. No abscess or extraluminal gas. Especially given the associated borderline lymphadenopathy, follow-up direct visualization with colonoscopy recommended.Noncontiguous circumferential wall thickening of the rectum suggesting proctitis, most likely infectious or inflammatory. Cholelithiasis. Colonoscopy 10/23/12 w findings of ileitis, rectal ulcers. 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 Was supposed to have repeat colonoscopy after Cdiff was treated but he didn't have one. Allergies Allergy/AdvReac Type Severity Reaction Status Date / Time No Known Allergies Allergy Unverified 10/11/18 09:28 Home Medications Home Medications Medication Instructions Recorded Confirmed Type cholecalciferol (vitamin D3) 800 unit PO QAM 10/11/18 11/01/18 History [Vitamin D3] finasteride [Proscar] 5 mg PO QAM 10/11/18 11/01/18 History vitamin B complex 1 cap PO QAM 10/11/18 11/01/18 History aspirin [Aspir-Low] 81 mg PO DAILY 11/01/18 11/01/18 History tamsulosin 0.8 mg PO DAILY 11/01/18 11/01/18 History Patient History Medical History Inguinal hernia Carcinoma of parotid gland BPH (benign prostatic hyperplasia) Family History Other Family history non-contributory Social History Current Living Situation: Other Current Living Situation Comment: [facility] Feels Safe at Home: Yes Smoking Status: Never smoker Tobacco Type: smokeless tobacco Hx Alcohol Use: No Hx Substance Use: No Beliefs That Will Affect Care: None Preferred Language: Portuguese Review of Systems Constitutional: + anorexia and + weight loss; no fever and no chills Respiratory: no cough, no chest congestion and no dyspnea Cardiovascular: no chest pain, no chest pain at rest and no dyspnea Gastrointestinal: + abdominal pain, + cramping, + change in stools, + diarrhea/ loose stools and + blood in stools; no belching, no bloating, no early satiety, no heartburn, no nausea, no vomiting, no coffee ground emesis, no hematemesis, no constipation and no melena Physical Exam 2 Vital Signs (Past 24 Hours): Last Vital Signs Temp 36.4 C L 11/02/18 07:00 Pulse 65 11/02/18 07:00 Resp 23 11/02/18 07:00 BP 125/63 11/02/18 07:00 Pulse Ox 98 11/02/18 07:00 Constitutional: + ill appearing (chronic), cooperative and comfortable; no acute distress Respiratory: normal respiratory effort, lungs clear to auscultation Cardiovascular: RRR, no murmur, no edema Gastrointestinal (Abdomen): normal bowel sounds, soft, nontender, no hepatosplenomegaly Skin: no rashes, warm and dry Results & Data Laboratory Results 11/02/18 11/02/18 11/02/18 Range/Units 06:13 06:13 05:30 WBC 8.16 (4.8-10.8) K/uL RBC 4.10 L (4.7-6.1) M/uL Hgb 12.5 L (14.0-18.0) g/dL POC Hgb (14.0-18.0) g/dl Hct 37.5 L (42-52) % POC Hct (42-52) % MCV 91.5 (80-100) fL MCH 30.5 (25-34) pg MCHC 33.3 (32-36) g/dL RDW Std Deviation 48.8 H (36.4-46.3) fL RDW Coeff of Torrie 14.6 H (11.5-14.5) % Plt Count 164 (130-400) K/uL MPV 9.9 (7.4-10.4) fL Immature Gran % (Auto) 0.2 % Neut % (Auto) 65.8 % Lymph % (Auto) 14.7 % [place] % (Auto) 13.6 % Eos % (Auto) 5.0 % Baso % (Auto) 0.7 % Immature Gran # (Auto) 0.02 (0.00-0.02) K/uL Neut # (Auto) 5.36 (1.4-6.5) K/uL Lymph # (Auto) 1.20 (1.2-3.4) K/uL [place] # (Auto) 1.11 H (0.11-0.59) K/uL Eos # (Auto) 0.41 (0-0.5) K/uL Baso # (Auto) 0.06 (0-0.2) K/uL PT (9.0-12.0) Seconds INR (0.9-1.1) APTT (21.0-31.0) Seconds PTT Ratio POC Sodium (135-144) mEq/L Sodium 141 (136-145) mmol/L POC Potassium (3.3-5.0) mEq/L Potassium 3.6 (3.5-5.1) mmol/L POC Chloride (101-112) mEq/L Chloride 110 H (98-107) mmol/L Carbon Dioxide 26 (21-32) mmol/L POC Total CO2 (24-31) mEq/l Anion Gap 6.0 (3-11) POC Anion Gap (16-25) mmol/L POC BUN (7-18) mg/dl BUN 13 (7-18) mg/dl Creatinine 1.04 (0.6-1.4) mg/dl POC Creatinine (0.6-1.3) mg/dl Est Cr Clr Drug Dosing 57.5 ml/min Est GFR ( Amer) 77.7 Est GFR (Non-Af Amer) 67.0 BUN/Creatinine Ratio 12.3 (10-20) Glucose 128 H (70-99) mg/dl POC Glucose (other) (70-99) mg/dl Calcium 7.8 L (8.5-10.1) mg/dl POC Ioniz Calcium Dianne (1.12-1.32) mmol/l Magnesium 2.1 (1.8-2.4) mg/dl Total Bilirubin (0.2-1) mg/dl AST (15-37) U/L ALT (12-78) U/L Alkaline Phosphatase (45-117) U/L Troponin I (0-0.045) ng/ml Total Protein (6.4-8.2) gm/dl Albumin (3.4-5.0) gm/dl Globulin (2.5-4.0) gm/dl Albumin/Globulin Ratio (0.9-2) Specimen Hemolysis Urine Color Dark Yellow Urine Appearance Clear (Clear) Urine pH 5.0 (4.5-7.5) Ur Specific Leola 1.022 (1.000-1.030) Urine Protein Negative (Negative) Urine Glucose (UA) Negative (Negative) Urine Ketones 1+ H (Negative) Urine Blood Negative (Negative) Urine Nitrite Negative (Negative) Urine Bilirubin Negative (Negative) Urine Urobilinogen Negative (Negative) Ur Leukocyte Esterase Negative (Negative) Nasal Screen MRSA (PCR) (Negative) Stl C. diff Tox B Gene (Neg) 11/02/18 11/01/18 11/01/18 Range/Units 03:30 20:55 19:25 WBC (4.8-10.8) K/uL RBC (4.7-6.1) M/uL Hgb (14.0-18.0) g/dL POC Hgb 15.0 (14.0-18.0) g/dl Hct (42-52) % POC Hct 44 (42-52) % MCV (80-100) fL MCH (25-34) pg MCHC (32-36) g/dL RDW Std Deviation (36.4-46.3) fL RDW Coeff of Torrie (11.5-14.5) % Plt Count (130-400) K/uL MPV (7.4-10.4) fL Immature Gran % (Auto) % Neut % (Auto) % Lymph % (Auto) % [place] % (Auto) % Eos % (Auto) % Baso % (Auto) % Immature Gran # (Auto) (0.00-0.02) K/uL Neut # (Auto) (1.4-6.5) K/uL Lymph # (Auto) (1.2-3.4) K/uL [place] # (Auto) (0.11-0.59) K/uL Eos # (Auto) (0-0.5) K/uL Baso # (Auto) (0-0.2) K/uL PT (9.0-12.0) Seconds INR (0.9-1.1) APTT (21.0-31.0) Seconds PTT Ratio POC Sodium 142 (135-144) mEq/L Sodium (136-145) mmol/L POC Potassium 4.1 (3.3-5.0) mEq/L Potassium (3.5-5.1) mmol/L POC Chloride 103 (101-112) mEq/L Chloride (98-107) mmol/L Carbon Dioxide (21-32) mmol/L POC Total CO2 21 L (24-31) mEq/l Anion Gap (3-11) POC Anion Gap 23.0 (16-25) mmol/L POC BUN 16 (7-18) mg/dl BUN (7-18) mg/dl Creatinine (0.6-1.4) mg/dl POC Creatinine 0.8 (0.6-1.3) mg/dl Est Cr Clr Drug Dosing ml/min Est GFR ( Amer) Est GFR (Non-Af Amer) BUN/Creatinine Ratio (10-20) Glucose (70-99) mg/dl POC Glucose (other) 100 H (70-99) mg/dl Calcium (8.5-10.1) mg/dl POC Ioniz Calcium Dianne 1.12 (1.12-1.32) mmol/l Magnesium (1.8-2.4) mg/dl Total Bilirubin (0.2-1) mg/dl AST (15-37) U/L ALT (12-78) U/L Alkaline Phosphatase (45-117) U/L Troponin I (0-0.045) ng/ml Total Protein (6.4-8.2) gm/dl Albumin (3.4-5.0) gm/dl Globulin (2.5-4.0) gm/dl Albumin/Globulin Ratio (0.9-2) Specimen Hemolysis Urine Color Urine Appearance (Clear) Urine pH (4.5-7.5) Ur Specific [place] (1.000-1.030) Urine Protein (Negative) Urine Glucose (UA) (Negative) Urine Ketones (Negative) Urine Blood (Negative) Urine Nitrite (Negative) Urine Bilirubin (Negative) Urine Urobilinogen (Negative) Ur Leukocyte Esterase (Negative) Nasal Screen MRSA (PCR) Negative (Negative) Stl C. diff Tox B Gene Neg C.diff Toxin B (Neg) 11/01/18 11/01/18 11/01/18 Range/Units 19:12 19:12 19:12 WBC 10.54 (4.8-10.8) K/uL RBC 4.70 (4.7-6.1) M/uL Hgb 14.6 (14.0-18.0) g/dL POC Hgb (14.0-18.0) g/dl Hct 42.5 (42-52) % POC Hct (42-52) % MCV 90.4 (80-100) fL MCH 31.1 (25-34) pg MCHC 34.4 (32-36) g/dL RDW Std Deviation 47.2 H (36.4-46.3) fL RDW Coeff of Torrie 14.3 (11.5-14.5) % Plt Count 187 (130-400) K/uL MPV 10.2 (7.4-10.4) fL Immature Gran % (Auto) 0.3 % Neut % (Auto) 81.6 % Lymph % (Auto) 7.3 % [place] % (Auto) 7.2 % Eos % (Auto) 3.2 % Baso % (Auto) 0.4 % Immature Gran # (Auto) 0.03 H (0.00-0.02) K/uL Neut # (Auto) 8.60 H (1.4-6.5) K/uL Lymph # (Auto) 0.77 L (1.2-3.4) K/uL [place] # (Auto) 0.76 H (0.11-0.59) K/uL Eos # (Auto) 0.34 (0-0.5) K/uL Baso # (Auto) 0.04 (0-0.2) K/uL PT 11.1 (9.0-12.0) Seconds INR 1.1 (0.9-1.1) APTT 24.6 (21.0-31.0) Seconds PTT Ratio 0.9 POC Sodium (135-144) mEq/L Sodium 137 (136-145) mmol/L POC Potassium (3.3-5.0) mEq/L Potassium 4.0 (3.5-5.1) mmol/L POC Chloride (101-112) mEq/L Chloride 107 (98-107) mmol/L Carbon Dioxide 24 (21-32) mmol/L POC Total CO2 (24-31) mEq/l Anion Gap 6.0 (3-11) POC Anion Gap (16-25) mmol/L POC BUN (7-18) mg/dl BUN 14 (7-18) mg/dl Creatinine 0.90 (0.6-1.4) mg/dl POC Creatinine (0.6-1.3) mg/dl Est Cr Clr Drug Dosing 70.5 ml/min Est GFR ( Amer) 92.5 Est GFR (Non-Af Amer) 79.8 BUN/Creatinine Ratio 16.1 (10-20) Glucose 97 (70-99) mg/dl POC Glucose (other) (70-99) mg/dl Calcium 8.9 (8.5-10.1) mg/dl POC Ioniz Calcium Dianne (1.12-1.32) mmol/l Magnesium 1.8 (1.8-2.4) mg/dl Total Bilirubin 0.8 (0.2-1) mg/dl AST 27 (15-37) U/L ALT 20 (12-78) U/L Alkaline Phosphatase 92 (45-117) U/L Troponin I < 0.015 (0-0.045) ng/ml Total Protein 8.1 (6.4-8.2) gm/dl Albumin 3.2 L (3.4-5.0) gm/dl Globulin 4.9 H (2.5-4.0) gm/dl Albumin/Globulin Ratio 0.7 L (0.9-2) Specimen Hemolysis Urine Color Urine Appearance (Clear) Urine pH (4.5-7.5) Ur Specific [place] (1.000-1.030) Urine Protein (Negative) Urine Glucose (UA) (Negative) Urine Ketones (Negative) Urine Blood (Negative) Urine Nitrite (Negative) Urine Bilirubin (Negative) Urine Urobilinogen (Negative) Ur Leukocyte Esterase (Negative) Nasal Screen MRSA (PCR) (Negative) Stl C. diff Tox B Gene (Neg)
[2018-11-02] MEDS ORDERED: TAP WATER ENEMA PR ONE ×3 (10:39→14:00)
--- NOTE | 2018-11-02 11:32 | Anesthesiology Consultation ---
Date of Service November 02, 2018 Assessment & Plan (1) Encounter for pre-operative examination: Chart Review Chart Review: Acceptable Risk for Surgery and Patient NOT seen in Pre Admission Testing Consults Requested none History Height/Weight Height: 5 ft 10 in Weight: 80 kg Allergies Allergy/AdvReac Type Severity Reaction Status Date / Time No Known Allergies Allergy Unverified 10/11/18 09:28 Medications Home Medications Medication Instructions Recorded Confirmed Last Taken cholecalciferol (vitamin D3) 800 unit PO QAM 10/11/18 11/01/18 10/11/18 [Vitamin D3] finasteride [Proscar] 5 mg PO QAM 10/11/18 11/01/18 10/11/18 vitamin B complex 1 cap PO QAM 10/11/18 11/01/18 10/11/18 aspirin [Aspir-Low] 81 mg PO DAILY 11/01/18 11/01/18 Unknown tamsulosin 0.8 mg PO DAILY 11/01/18 11/01/18 Unknown Active Medications Generic Name Dose Route Start Last Admin Trade Name Elis PRN Reason Stop Dose Admin Finasteride 5 mg 11/02/18 09:00 11/02/18 09:24 Proscar PO 12/02/18 08:59 5 mg QAM YADIRA Administration Dextrose/Lactated Ringer's 1,000 mls @ 125 mls/hr 11/02/18 00:34 11/02/18 05: 04 D5w And Lactated Ringers IV 11/02/18 16:33 125 mls/hr .Q8H YADIRA Infusion Piperacillin Sod/Tazobactam Sod 3.375 gm in 115 mls @ 28.75 mls/hr 11/02/18 03 :00 11/02/18 03:52 Zosyn IV 11/12/18 02:59 Infused Q8H YADIRA Infusion Protocol Tamsulosin HCl 0.8 mg 11/02/18 09:00 11/02/18 09:24 Flomax PO 12/02/18 08:59 0.8 mg DAILY YADIRA Administration Past Medical History Medical History Inguinal hernia Carcinoma of parotid gland BPH (benign prostatic hyperplasia) Past Family History Family History Other Family history non-contributory Social History Smoking Status: Never smoker tobacco type: smokeless tobacco Do You Dip or Chew Tobacco: Yes Hx Alcohol Use: No Hx Substance Use: No Physical Exam Vital Signs Last Vital Signs Temp 36.4 C L 11/02/18 10:24 Pulse 65 11/02/18 10:24 Resp 23 11/02/18 10:24 BP 125/63 11/02/18 10:24 Pulse Ox 98 11/02/18 10:24 Testing Laboratory Results 11/02/18 06:13 11/02/18 06:13 PT 11.1 Seconds (9.0-12.0) 11/01/18 19:12 INR 1.1 (0.9-1.1) 11/01/18 19:12 APTT 24.6 Seconds (21.0-31.0) 11/01/18 19:12 Urine Color Dark Yellow 11/02/18 05:30 Urine Appearance Clear (Clear) 11/02/18 05:30 Urine pH 5.0 (4.5-7.5) 11/02/18 05:30 Ur Specific [place] 1.022 (1.000-1.030) 11/02/18 05:30 Urine Protein Negative (Negative) 11/02/18 05:30 Urine Glucose (UA) Negative (Negative) 11/02/18 05:30 Urine Ketones 1+ (Negative) H 11/02/18 05:30 Urine Nitrite Negative (Negative) 11/02/18 05:30 Ur Leukocyte Esterase Negative (Negative) 11/02/18 05:30
[2018-11-02] MEDS ORDERED: ATROPINE SULFATE 0.1 MG/ML 10ML SYR IV PRN (12:19)
[2018-11-02] MEDS ORDERED: ePHEDrine sulfate 50 MG/ML AMP IV PRN (12:19)
[2018-11-02] MEDS ORDERED: PROPOFOL IV EMULSION 10 MG/ML 20 ML VIAL IV ONE (12:44)
[2018-11-02] MEDS ORDERED: LIDOCAINE HCL 2% 2 ML VIAL/AMP(20MG/ML) INFIL ONE (12:44)
--- NOTE | 2018-11-02 13:17 | GI REPORT ---
Patient Name: Gavin Sotelo Procedure Date: 11/02/2018 12:52 PM Date of : 1935 Admit Type: Inpatient Age: 83 Gender: Male Attending MD: Naveen Rayo MD Procedure: Flexible Sigmoidoscopy Providers: Naveen Rayo MD Referring MD: Galo Saxena Indications: Hematochezia, Diarrhea Medicines: Monitored Anesthesia Care Complications: No immediate complications. Estimated Blood Loss: Estimated blood loss: none. Procedure: Pre-Anesthesia Assessment: - Prior to the procedure, a History and Physical was performed, and patient medications and allergies were reviewed. The patient is competent. The risks and benefits of the procedure and the sedation options and risks were discussed with the patient. All questions were answered and informed consent was obtained. Patient identification and proposed procedure were verified by the physician and the nurse in the procedure room. Mental Status Examination: alert and oriented. Airway Examination: normal oropharyngeal airway and neck mobility. Respiratory Examination: clear to auscultation. CV Examination: normal. ASA Grade Assessment: III - A patient with severe systemic disease. After reviewing the risks and benefits, the patient was deemed in satisfactory condition to undergo the procedure. The anesthesia plan was to use monitored anesthesia care (MAC). Immediately prior to administration of medications, the patient was re-assessed for adequacy to receive sedatives. The heart rate, respiratory rate, oxygen saturations, blood pressure, adequacy of pulmonary ventilation, and response to care were monitored throughout the procedure. The physical status of the patient was re-assessed after the procedure. After obtaining informed consent, the endoscope was passed under direct vision. Throughout the procedure, the patient's blood pressure, pulse, and oxygen saturations were monitored continuously. The scope was introduced through the anus and advanced to the ileocecal valve. After obtaining informed consent, the endoscope was passed under direct vision. Throughout the procedure, the patient's blood pressure, pulse, and oxygen saturations were monitored continuously.The flexible sigmoidoscopy was accomplished without difficulty. The patient tolerated the procedure well. The quality of the bowel preparation was fair. Findings: The perianal and digital rectal examinations were normal. Solid stool was found in the ascending colon and in the cecum, precluding visualization. Normal mucosa was found in the transverse colon and in the ascending colon. Biopsies were taken with a cold forceps for histology. Verification of patient identification for the specimen was done by the physician and nurse using the patient's name and date. Segmental moderate inflammation characterized by erosions, erythema, friability and loss of vascularity was found from rectum to splenic flexure. Biopsies were taken with a cold forceps for histology. Multiple small-mouthed diverticula were found in the sigmoid colon. Non-bleeding internal hemorrhoids were found during retroflexion. The hemorrhoids were small. Impression: - Preparation of the colon was fair. - Normal mucosa in the transverse colon and in the ascending colon. Biopsied. - Segmental moderate inflammation was found from rectum to splenic flexure suggestive of left-sided ulcerative colitis. Biopsied. - Diverticulosis in the sigmoid colon. - Non-bleeding internal hemorrhoids. Recommendation: - Return patient to hospital [facility] for ongoing care. - Await pathology results. - Repeat flexible sigmoidoscopy in 6 months to evaluate the response to therapy. - If biopsies prove ulcerative colitis then use Pentasa 1 gram PO QID + Rowasa enemas 1 per rectum daily + prednisone 40 mg PO once a day for 2 weeks then do a short taper. Naveen Rayo MD 11/02/2018 1:17:20 PM This report has been signed electronically. Note Initiated On: 11/02/2018 12:52 PM Number of Addenda: 0 I attest to the content of the Intraoperative Record and orders documented therein, exceptions below {[id number]}
--- NOTE | 2018-11-02 15:04 | Anesthesiology Progress Note ---
Date of Service November 02, 2018 Anesthesia Post Procedure Vital Signs Vital Signs: Temp Pulse Pulse Resp BP BP Pulse Ox 11/02/18 13:27 70 18 114/60 98 11/02/18 13:12 36.7 C 69 16 95/40 L 98 11/02/18 12:10 36.4 C L 66 18 103/63 99 11/02/18 10:24 36.4 C L 65 23 125/63 98 11/02/18 07:00 36.4 C L 65 23 125/63 98 11/02/18 00:30 36.7 C 71 20 106/66 95 11/02/18 00:00 71 21 106/59 L 98 11/01/18 23:31 71 20 102/55 L 96 11/01/18 23:30 71 21 97 11/01/18 23:00 73 20 112/59 L 95 11/01/18 22:30 74 16 102/55 L 96 11/01/18 22:05 75 18 108/58 L 95 11/01/18 22:00 76 17 108/58 L 96 11/01/18 21:30 82 19 103/59 L 96 11/01/18 21:02 84 20 96 11/01/18 21:00 85 21 103/56 L 96 11/01/18 20:59 84 21 107/58 L 96 11/01/18 20:49 85 18 107/58 L 95 11/01/18 20:30 89 32 H 96 11/01/18 20:10 87 23 97 11/01/18 19:30 80 22 95 11/01/18 19:18 95 11/01/18 19:12 81 27 H 96 11/01/18 19:05 36.7 C 85 19 113/77 96 Pain Intensity Left Abdomen: Pain Intensity: 3 Notes Mental Status: alert / awake / arousable Patient Amnestic to Procedure: Yes Nausea / Vomiting: adequately controlled Pain: adequately controlled Airway Patency, RR, SpO2: stable & adequate BP & HR: stable & adequate Hydration State: stable & adequate Anesthetic Complications: no major complications apparent and Pt Satisfied with anesthetic care
[2018-11-02] MEDS ORDERED: MESALAMINE 4 GM/60 ML ENEMA PR ONE (16:58)
[2018-11-02] MEDS: MESALAMINE 250 MG CAPCR PO SCH ×2 (18:35→21:09)
--- NOTE | 2018-11-02 20:55 | Hospitalist Progress Note ---
Date of Service November 02, 2018 Assessment & Plan (1) Colitis: During previous admission thought to have ischemic colitis. Presented again yesterday to the hospital with onoing GI symptoms. CT with ?diverticulitis? Stephanie ALVAREZ consulted - elected to perform flex sig - findings concerning for ulcerative colitis. Repeat c. diff negative. GI recommending pentasa PO and WA. IF bx proves that this is ulcerative colitis then steroids to be started. Role for zosyn? IF GI ok with d/c of abx will do so. Supportive care, pain control, IV fluids, etc. (2) Carcinoma of parotid gland: (3) BPH (benign prostatic hyperplasia): cont usual meds no issues (4) DVT prophylaxis: in light of bloody stools will use SCDs at this time only Subjective after reviewing the pt's chart this AM I contacted Stephanie ALVAREZ they, too, were concerned about his recurrent admissions decision made to pursue flex sig flex sig completed -- findings were concerning for ulcerative colitis started on pentasa post-procedure patient reports ongoing abd pain he was sleepy, however, during the encounter (had just returned from flex sig) Constitutional: + anorexia and + weight loss Respiratory: no dyspnea Cardiovascular: no chest pain Gastrointestinal: + abdominal pain; no nausea and no vomiting Physical Exam 2 Vital Signs (Past 24 Hours): Last Vital Signs Temp 36.6 C 11/02/18 15:31 Pulse 63 11/02/18 15:31 Resp 20 11/02/18 15:31 BP 112/71 11/02/18 15:31 Pulse Ox 98 11/02/18 15:31 Constitutional: no acute distress ENMT: Mouth: + oral mucosal abnormality (dry mucous membranes) Respiratory: normal respiratory effort, lungs clear to auscultation Cardiovascular: RRR, no murmur, no edema Heart Sounds: normal S1 and normal S2 Vessels: posterior tibial pulses present and dorsalis pedis pulses present; no JVD Gastrointestinal (Abdomen): Inspection/Auscultation: abdomen normal to inspection and normal bowel sounds; abdomen not distended Percussion/ Palpation: + abdomen tender (left abdomen ); no hepatosplenomegaly Psychiatric: Orientation: alert and oriented x 3 Results & Data Laboratory Results Laboratory Results - last 24 hr 11/01/18 11/02/18 11/02/18 20:55 03:30 05:30 WBC RBC Hgb Hct MCV MCH MCHC RDW Std Deviation RDW Coeff of Torrie Plt Count MPV Immature Gran % (Auto) Neut % (Auto) Lymph % (Auto) [place] % (Auto) Eos % (Auto) Baso % (Auto) Immature Gran # (Auto) Neut # (Auto) Lymph # (Auto) [place] # (Auto) Eos # (Auto) Baso # (Auto) Sodium Potassium Chloride Carbon Dioxide Anion Gap BUN Creatinine Est Cr Clr Drug Dosing Est GFR ( Amer) Est GFR (Non-Af Amer) BUN/Creatinine Ratio Glucose Calcium Magnesium Specimen Hemolysis Urine Color Dark Yellow Urine Appearance Clear Urine pH 5.0 Ur Specific [place] 1.022 Urine Protein Negative Urine Glucose (UA) Negative Urine Ketones 1+ H Urine Blood Negative Urine Nitrite Negative Urine Bilirubin Negative Urine Urobilinogen Negative Ur Leukocyte Esterase Negative Nasal Screen MRSA (PCR) Negative Stl C. diff Tox B Gene Neg C.diff Toxin B 11/02/18 11/02/18 11/02/18 06:13 06:13 13:23 WBC 8.16 RBC 4.10 L Hgb 12.5 L Hct 37.5 L MCV 91.5 MCH 30.5 MCHC 33.3 RDW Std Deviation 48.8 H RDW Coeff of Torrie 14.6 H Plt Count 164 MPV 9.9 Immature Gran % (Auto) 0.2 Neut % (Auto) 65.8 Lymph % (Auto) 14.7 Whiteside % (Auto) 13.6 Eos % (Auto) 5.0 Baso % (Auto) 0.7 Immature Gran # (Auto) 0.02 Neut # (Auto) 5.36 Lymph # (Auto) 1.20 Wh[place]ide # (Auto) 1.11 H Eos # (Auto) 0.41 Baso # (Auto) 0.06 Sodium 141 Potassium 3.6 Chloride 110 H Carbon Dioxide 26 Anion Gap 6.0 BUN 13 Creatinine 1.04 Est Cr Clr Drug Dosing 57.5 Est GFR ( Amer) 77.7 Est GFR (Non-Af Amer) 67.0 BUN/Creatinine Ratio 12.3 Glucose 128 H Calcium 7.8 L Magnesium 2.1 Specimen Hemolysis Urine Color Urine Appearance Urine pH Ur Specific [place] Urine Protein Urine Glucose (UA) Urine Ketones Urine Blood Urine Nitrite Urine Bilirubin Urine Urobilinogen Ur Leukocyte Esterase Nasal Screen MRSA (PCR) Stl C. diff Tox B Gene Neg C.diff Toxin B _ (1) BPH (benign prostatic hyperplasia) Lower urinary tract symptom presence: symptoms absent Qualified Code(s): N40.0 - Benign prostatic hyperplasia without lower urinary tract symptoms
[2018-11-03] MEDS: PIPERACILLIN/TAZOBACTAM 3.375 GM/115 ML BAG IV SCH ×2 (00:09→08:11)
[2018-11-03 06:29] LABS: Hematocrit (blood only) 38.1 % (42-52); Hemoglobin 12.7 g/dL (14.0-18.0); Mean Corpuscular Hgb Conc 33.3 g/dL (32-36); Mean Corpuscular Volume 91.4 fL (80-100); Platelet Count 165 K/uL (130-400); RDW Coefficient of Variation 14.5 % (11.5-14.5); RDW Standard Deviation 48.3 fL (36.4-46.3); Red Blood Count 4.17 M/uL (4.7-6.1); White Blood Count 7.05 K/uL (4.8-10.8)
[2018-11-03 07:00] LABS: Calcium 8.2 mg/dl (8.5-10.1); Creatinine Clr Calc Pharmacy 68.8 ml/min; Est GFR (African American) 93.8; Est GFR (Non-African American) 80.9; Potassium 3.4 mmol/L (3.5-5.1)
[2018-11-03] MEDS: TAMSULOSIN HCL 0.4 MG CAP PO SCH (08:12)
[2018-11-03] MEDS: FINASTERIDE 5 MG TAB PO SCH (08:12)
[2018-11-03] MEDS: MESALAMINE 250 MG CAPCR PO SCH ×4 (08:12→21:12)
[2018-11-03] MEDS: POTASSIUM CHLORIDE 20 MEQ TABCR PO SCH ×3 (09:57→21:11)
--- NOTE | 2018-11-03 10:51 | Progress Note ---
Date of Service November 03, 2018 Subjective I have seen and examined the patient today. Feels fine, denies any abdominal pain, had several BM after the scope with no bleeding. His Flex sig was completed to the cecum and is consistent with likely left sided UC. He had a colonoscopy in 2012 with Bx suggestive of IBD. On exam abdomen is soft and nontender Recommend: Continue Mesalamine PO and rectal enema. Left sided UC typically responds to this regimen for induction and given no bleeding at this point I don't think he will need prednisone for induction of remession. Check ESR, CRP as baseline. Needs full colonoscopy as OP in 6 months. No need for IV ABx from GI point. OP follow up in GI office. Please recall GI if any questions of concerns. Physical Exam 2 Vital Signs (Past 24 Hours): Last Vital Signs Temp 36.6 C 11/03/18 07:55 Pulse 66 11/03/18 07:55 Resp 18 11/03/18 07:55 BP 143/81 H 11/03/18 07:55 Pulse Ox 92 11/03/18 07:55
[2018-11-03] MEDS: D5W AND 1/2NSS + 20MEQ KCL 20 MEQ/1,000 ML BAG IV SCH (16:43)
--- NOTE | 2018-11-03 21:58 | Hospitalist Progress Note ---
Date of Service November 03, 2018 Assessment & Plan (1) Ulcerative colitis: left-sided colitis thought to be due to UC flare. he had a colonoscopy several years ago through the [facility] and biopsies at that time were c/w IBD. he is now s/p flex sig this admission (although they reached the cecum with this scope) and grossly it appears the colitis is due to UC. [facility] recommending pentasa 1gm QID along with daily rectal pentasa (for proctitis component). defer on steroids for now unless he has poor response. having minimal stools at this time. abd exam today fairly benign. antibiotics can be stopped. I tried to order the pentasa rectally - uncertain if it is available at [facility]. advance diet to full liquids. cut fluid rate to 50cc/hour. appreciate [facility] recommendations. will need very close f/u after discharge. (2) Colitis: see discussion above in "UC" (3) Intra-abdominal lymphadenopathy: CT at admission with several upper limits of normal sized lymph nodes reactive to his colitis? he will need follow-up imaging to ensure these have resolved (4) Carcinoma of parotid gland: details uncertain (5) BPH (benign prostatic hyperplasia): cont usual meds no issues (6) Hypokalemia: replace, repeat BMP am (7) DVT prophylaxis: in light of bloody stools will use SCDs at this time only Subjective patient very distraught/tearful during the visit he asks numerous questions about the suspected ulcerative colitis he asks "can I from this?" he is especially tearful because he has 2 daughters and he wants to get in touch with them about his medical issues he has mild abdominal pain today and has had 1-2 stools but nothing has been worse Constitutional: no fever Respiratory: no cough and no dyspnea Cardiovascular: no chest pain Gastrointestinal: no nausea and no vomiting Physical Exam 2 Vital Signs (Past 24 Hours): Last Vital Signs Temp 36.5 C 11/03/18 14:25 Pulse 67 11/03/18 14:25 Resp 20 11/03/18 14:25 BP 121/77 11/03/18 14:25 Pulse Ox 96 11/03/18 14:25 Constitutional: no acute distress ENMT: Mouth: no oropharynx abnormality and no oral mucosal abnormality Respiratory: normal respiratory effort, lungs clear to auscultation Cardiovascular: RRR, no murmur, no edema Heart Sounds: normal S1 and normal S2 Vessels: posterior tibial pulses present and dorsalis pedis pulses present; no JVD Gastrointestinal (Abdomen): Inspection/Auscultation: abdomen normal to inspection and normal bowel sounds; abdomen not distended Percussion/ Palpation: abdomen nontender (left abdomen ) and no hepatosplenomegaly Psychiatric: Orientation: alert and oriented x 3 Affect: + tearful affect Results & Data Laboratory Results Laboratory Results - last 24 hr 11/03/18 11/03/18 05:53 05:53 WBC 7.05 RBC 4.17 L Hgb 12.7 L Hct 38.1 L MCV 91.4 MCH 30.5 MCHC 33.3 RDW Std Deviation 48.3 H RDW Coeff of Torrie 14.5 Plt Count 165 MPV 10.0 Sodium 144 Potassium 3.4 L Chloride 112 H Carbon Dioxide 25 Anion Gap 7.0 BUN 8 D Creatinine 0.87 Est Cr Clr Drug Dosing 68.8 Est GFR ( Amer) 93.8 Est GFR (Non-Af Amer) 80.9 BUN/Creatinine Ratio 9.0 L Glucose 76 Calcium 8.2 L _ (1) BPH (benign prostatic hyperplasia) Lower urinary tract symptom detail: Lower urinary tract symptom presence: symptoms absent Qualified Code(s): N40.0 - Benign prostatic hyperplasia without lower urinary tract symptoms
[2018-11-04 06:04] LABS: Hematocrit (blood only) 39.4 % (42-52); Hemoglobin 13.3 g/dL (14.0-18.0); Mean Corpuscular Hgb Conc 33.8 g/dL (32-36); Mean Corpuscular Volume 90.8 fL (80-100); Mean Platelet Volume 9.8 fL (7.4-10.4); Platelet Count 171 K/uL (130-400); RDW Coefficient of Variation 14.4 % (11.5-14.5); RDW Standard Deviation 47.6 fL (36.4-46.3); Red Blood Count 4.34 M/uL (4.7-6.1)
[2018-11-04 06:39] LABS: BUN Creatinine Ratio 4.9 (10-20); Calcium 8.6 mg/dl (8.5-10.1); Creatinine Clr Calc Pharmacy 73.9 ml/min; Est GFR (African American) 96.6; Est GFR (Non-African American) 83.4; Magnesium 1.9 mg/dl (1.8-2.4); Potassium 3.7 mmol/L (3.5-5.1)
[2018-11-04] MEDS: FINASTERIDE 5 MG TAB PO SCH (08:00)
[2018-11-04] MEDS: TAMSULOSIN HCL 0.4 MG CAP PO SCH (08:00)
[2018-11-04] MEDS: MESALAMINE 250 MG CAPCR PO SCH ×4 (08:00→21:09)
[2018-11-04] MEDS: MESALAMINE 4 GM/60 ML ENEMA PR SCH ×2 (10:08→22:10)
[2018-11-04] MEDS: D5W AND 1/2NSS + 20MEQ KCL 20 MEQ/1,000 ML BAG IV SCH (12:28)
--- NOTE | 2018-11-04 13:30 | Hospitalist Progress Note ---
Date of Service November 04, 2018 Assessment & Plan (1) Ulcerative colitis: left-sided colitis thought to be due to UC flare. he had a colonoscopy several years ago through the [facility] and biopsies at that time were c/w IBD. he is now s/p flex sig this admission (although they reached the cecum with this scope) and grossly it appears the colitis is due to UC. [facility] recommending pentasa 1gm QID along with daily rectal pentasa (for proctitis component). does not need steroids for now unless he has poor response. with continued loose stools with some red blood although Hgb stable abd exam today fairly benign. antibiotics have since been stopped. -advance diet to low fiber -continue IVFs at 50cc/hour. -appreciate [facility] recommendations. -will need very close f/u after discharge. -GI recommending full colonoscopy in 6 months (2) Colitis: see discussion above in "UC" Stool culture and C. diff stool toxin both negative (3) Intra-abdominal lymphadenopathy: CT at admission with several upper limits of normal sized lymph nodes reactive to his colitis? he will need follow-up imaging to ensure these have resolved (4) Carcinoma of parotid gland: details uncertain (5) BPH (benign prostatic hyperplasia): cont usual meds of FLomax and finasteride no issues (6) Hypokalemia: resolved (7) DVT prophylaxis: in light of bloody stools will use SCDs at this time only Subjective Pt reports pain in abdomen is improving, but still had 6 BMs so far today with some red blood in them. Is concerned he will be discharged too soon. No chest pain, no SOB. Tolerating full liquids diet Review of Systems All systems reviewed & are unremarkable except as noted in HPI & below Physical Exam 2 Vital Signs (Past 24 Hours): Last Vital Signs Temp 36.7 C 11/04/18 08:26 Pulse 58 L 11/04/18 08:26 Resp 20 11/04/18 08:26 BP 130/78 11/04/18 08:26 Pulse Ox 93 11/04/18 08:26 Constitutional: WD/WN, vitals as above Eyes: PERRL, conjunctivae normal, anicteric sclerae ENMT: external ear and nose normal, oropharynx normal Neck: trachea midline, no thyromegaly Respiratory: normal respiratory effort, lungs clear to auscultation Cardiovascular: RRR, no murmur, no edema Gastrointestinal (Abdomen): normal bowel sounds, soft, nontender, no hepatosplenomegaly Musculoskeletal: Extremities: extremities normal to inspection; no cyanosis and no clubbing Skin: no rashes, warm and dry Neurologic: moves all extremities and awake; no focal motor deficits Psychiatric: A+Ox3, euthymic affect Results & Data Laboratory Results 11/04/18 11/04/18 Range/Units 05:49 05:49 WBC 7.30 (4.8-10.8) K/uL RBC 4.34 L (4.7-6.1) M/uL Hgb 13.3 L (14.0-18.0) g/dL Hct 39.4 L (42-52) % MCV 90.8 (80-100) fL MCH 30.6 (25-34) pg MCHC 33.8 (32-36) g/dL RDW Std Deviation 47.6 H (36.4-46.3) fL RDW Coeff of Torrie 14.4 (11.5-14.5) % Plt Count 171 (130-400) K/uL MPV 9.8 (7.4-10.4) fL Sodium 139 (136-145) mmol/L Potassium 3.7 (3.5-5.1) mmol/L Chloride 110 H (98-107) mmol/L Carbon Dioxide 25 (21-32) mmol/L Anion Gap 4.0 (3-11) BUN 4 L (7-18) mg/dl Creatinine 0.81 (0.6-1.4) mg/dl Est Cr Clr Drug Dosing 73.9 ml/min Est GFR ( Amer) 96.6 Est GFR (Non-Af Amer) 83.4 BUN/Creatinine Ratio 4.9 L (10-20) Glucose 87 (70-99) mg/dl Calcium 8.6 (8.5-10.1) mg/dl Magnesium 1.9 (1.8-2.4) mg/dl _ (1) BPH (benign prostatic hyperplasia) Lower urinary tract symptom detail: Lower urinary tract symptom presence: symptoms absent Qualified Code(s): N40.0 - Benign prostatic hyperplasia without lower urinary tract symptoms (2) Ulcerative colitis Ulcerative colitis location: unspecified ulcerative colitis location Digestive disease complication type: with rectal bleeding Qualified Code(s): K51.911 - Ulcerative colitis, unspecified with rectal bleeding
[2018-11-05] MEDS: D5W AND 1/2NSS + 20MEQ KCL 20 MEQ/1,000 ML BAG IV SCH (06:03)
[2018-11-05 06:28] LABS: Basophils # (auto) 0.07 K/uL (0-0.2); Eosinophils # (auto) 0.83 K/uL (0-0.5); Eosinophils % (auto) 12.1 %; Hemoglobin 13.6 g/dL (14.0-18.0); Immature Granulocytes # (auto) 0.02 K/uL (0.00-0.02); Immature Granulocytes % (auto) 0.3 %; Lymphocytes # (auto) 1.45 K/uL (1.2-3.4); Lymphocytes % (auto) 21.1 %; Mean Corpuscular Volume 90.1 fL (80-100); Monocytes # (auto) 0.86 K/uL (0.11-0.59); Monocytes % (auto) 12.5 %; Neutrophils # (auto) 3.65 K/uL (1.4-6.5); Platelet Count 171 K/uL (130-400); RDW Coefficient of Variation 14.2 % (11.5-14.5); Red Blood Count 4.44 M/uL (4.7-6.1); White Blood Count 6.88 K/uL (4.8-10.8)
[2018-11-05 07:05] LABS: BUN Creatinine Ratio 4.6 (10-20); Creatinine Clr Calc Pharmacy 84.3 ml/min; Potassium 3.6 mmol/L (3.5-5.1)
[2018-11-05] MEDS: MESALAMINE 250 MG CAPCR PO SCH ×4 (08:09→21:16)
[2018-11-05] MEDS: TAMSULOSIN HCL 0.4 MG CAP PO SCH (08:09)
[2018-11-05] MEDS: FINASTERIDE 5 MG TAB PO SCH (08:09)
[2018-11-05] MEDS ORDERED: LOPERAMIDE HCL 2 MG CAP PO PRN (08:54)
[2018-11-05] MEDS ORDERED: LOPERAMIDE HCL 2 MG CAP PO STA (08:54)
--- NOTE | 2018-11-05 11:33 | Hospitalist Progress Note ---
Date of Service November 05, 2018 Assessment & Plan (1) Ulcerative colitis: With left-sided colitis thought to be due to UC flare. He had a colonoscopy several years ago through the [facility] and biopsies at that time were c/w IBD. Now s/p flex sig this admission (although they reached the cecum with this scope ) and grossly it appears the colitis is due to UC. Pathology still pending from biopsies GI recommending pentasa 1gm QID along with daily rectal pentasa (for proctitis component). -does not need steroids for now unless he has poor response. -remains today with loose stools with some red blood although Hgb stable -abd exam remains benign. -antibiotics have since been stopped. -continue low fiber diet -continue IVFs at 50cc/hour given poor appetite -start cholestyramine 4 gm pack bid, imodium prn for diarrhea -appreciate [facility] recommendations. -will need very close f/u after discharge. -GI recommending full colonoscopy in 6 months -if diarrhea and pain not improving in next 1-2 days, will d/w GI about starting steroids (2) Colitis: see discussion above in "UC" Stool culture and C. diff stool toxin both negative (3) Intra-abdominal lymphadenopathy: CT at admission with several upper limits of normal sized lymph nodes reactive to his colitis? he will need follow-up imaging to ensure these have resolved (4) Carcinoma of parotid gland: details uncertain (5) BPH (benign prostatic hyperplasia): cont usual meds of FLomax and finasteride no issues (6) Hypokalemia: resolved (7) DVT prophylaxis: in light of bloody stools will use SCDs at this time only Dispo-back to alf when appetite and diarrhea improve Subjective Pt reports he just does not feel well today. Still having multiple episodes of diarrhea, some LLQ abd pain. Is having a hard time eating regular food but wants to keep trying. Mostly feeling down about wanting to talk to his daughters. Reports he has never met his great granddaughters. He is expecting to get out of alf soon. Review of Systems All systems reviewed & are unremarkable except as noted in HPI & below Physical Exam 2 Vital Signs (Past 24 Hours): Last Vital Signs Temp 36.4 C L 11/05/18 07:52 Pulse 54 L 11/05/18 07:52 Resp 18 11/05/18 07:52 BP 139/84 11/05/18 07:52 Pulse Ox 96 11/05/18 07:52 Constitutional: WD/WN, vitals as above Eyes: PERRL, conjunctivae normal, anicteric sclerae Neck: trachea midline, no thyromegaly Respiratory: normal respiratory effort, lungs clear to auscultation Cardiovascular: RRR, no murmur, no edema Gastrointestinal (Abdomen): Inspection/Auscultation: abdomen normal to inspection and normal bowel sounds Percussion/Palpation: + abdomen tender ( mild in LLQ w/o guarding or rebound tenderness) Musculoskeletal: Extremities: extremities normal to inspection; no cyanosis and no clubbing Skin: no rashes, warm and dry Neurologic: moves all extremities and awake; no focal motor deficits Psychiatric: A+Ox3, euthymic affect Results & Data Laboratory Results 11/05/18 11/05/18 Range/Units 06:15 06:15 WBC 6.88 (4.8-10.8) K/uL RBC 4.44 L (4.7-6.1) M/uL Hgb 13.6 L (14.0-18.0) g/dL Hct 40.0 L (42-52) % MCV 90.1 (80-100) fL MCH 30.6 (25-34) pg MCHC 34.0 (32-36) g/dL RDW Std Deviation 47.0 H (36.4-46.3) fL RDW Coeff of Torrie 14.2 (11.5-14.5) % Plt Count 171 (130-400) K/uL MPV 10.0 (7.4-10.4) fL Immature Gran % (Auto) 0.3 % Neut % (Auto) 53.0 % Lymph % (Auto) 21.1 % Allen % (Auto) 12.5 % Eos % (Auto) 12.1 % Baso % (Auto) 1.0 % Immature Gran # (Auto) 0.02 (0.00-0.02) K/uL Neut # (Auto) 3.65 (1.4-6.5) K/uL Lymph # (Auto) 1.45 (1.2-3.4) K/uL Allen # (Auto) 0.86 H (0.11-0.59) K/uL Eos # (Auto) 0.83 H (0-0.5) K/uL Baso # (Auto) 0.07 (0-0.2) K/uL Sodium 140 (136-145) mmol/L Potassium 3.6 (3.5-5.1) mmol/L Chloride 108 H (98-107) mmol/L Carbon Dioxide 26 (21-32) mmol/L Anion Gap 6.0 (3-11) BUN 3 L (7-18) mg/dl Creatinine 0.71 (0.6-1.4) mg/dl Est Cr Clr Drug Dosing 84.3 ml/min Est GFR ( Amer) 102.0 Est GFR (Non-Af Amer) 88.0 BUN/Creatinine Ratio 4.6 L (10-20) Glucose 86 (70-99) mg/dl Calcium 9.0 (8.5-10.1) mg/dl _ (1) BPH (benign prostatic hyperplasia) Lower urinary tract symptom detail: Lower urinary tract symptom presence: symptoms absent Qualified Code(s): N40.0 - Benign prostatic hyperplasia without lower urinary tract symptoms (2) Ulcerative colitis Digestive disease complication type: with rectal bleeding Ulcerative colitis location: unspecified ulcerative colitis location Qualified Code(s): K51.911 - Ulcerative colitis, unspecified with rectal bleeding
[2018-11-05] MEDS: CHOLESTYRAMINE LIGHT 4 GM PKT PO SCH ×2 (12:55→22:03)
[2018-11-05] MEDS: MESALAMINE 4 GM/60 ML ENEMA PR SCH (22:03)
[2018-11-06] MEDS: D5W AND 1/2NSS + 20MEQ KCL 20 MEQ/1,000 ML BAG IV SCH (02:15)
[2018-11-06] MEDS: TAMSULOSIN HCL 0.4 MG CAP PO SCH (08:19)
[2018-11-06] MEDS: FINASTERIDE 5 MG TAB PO SCH (08:19)
[2018-11-06] MEDS: MESALAMINE 250 MG CAPCR PO SCH (08:19)
[2018-11-06] MEDS: CHOLESTYRAMINE LIGHT 4 GM PKT PO SCH (09:47)
--- NOTE | 2018-11-06 11:23 | Discharge Summary ---
Date of Service November 06, 2018 Admission HPI Per Admitting Provider 83 y/o M Hx BPH, parotid CA, recent admission for colitis - discharged 10/20. Presents from the [facility] for worsening abdominal pain and rigors over the past . A CT of the abdomen was obtained in the ER revealing severe, acute diverticulitis extending from the mid descending colon to the mid sigmoid colon and nontiguous circumferential wall thickening of the rectum suggesting proctitis, most likely infectious or inflammatory. 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 or chemo 2) BPH Surgical: Limited to resection of the parotid gland on the R Social: Incarcerated, chews snuff, denies a history of smoking or alcohol abuse Family: Noncontributory due to age Principal Diagnosis Ulcerative colitis Discharge Exam Constitutional WD/WN, vitals as above Eyes PERRL, conjunctivae normal, anicteric sclerae ENMT external ear and nose normal, oropharynx normal Neck trachea midline, no thyromegaly Respiratory normal respiratory effort, lungs clear to auscultation Cardiovascular RRR, no murmur, no edema Gastrointestinal (Abdomen) normal bowel sounds, soft, nontender, no hepatosplenomegaly Inspection/Auscultation: abdomen normal to inspection and normal bowel sounds Percussion/Palpation: + abdomen tender (mild in LLQ w/o guarding or rebound tenderness) Musculoskeletal Extremities: extremities normal to inspection; no cyanosis and no clubbing Skin no rashes, warm and dry Neurologic moves all extremities and awake; no focal motor deficits Psychiatric A+Ox3, euthymic affect Discharge Data Allergies Allergy/AdvReac Type Severity Reaction Status Date / Time No Known Allergies Allergy Unverified 10/11/18 09:28 Consultations Gastroenterology Procedures Performed Operation Date: 11/02/18 11:45 Actual Procedures p Flexible Sigmoidoscopy Biopsy - Naveen Rayo MD Ordered Studies 11/01/18 19:20 CT abd pelvis wo con Stat Chest x-ray Hospital Course (1) Ulcerative colitis: With left-sided colitis thought to be due to UC flare. He had a colonoscopy several years ago through the [facility] and biopsies at that time were c/w IBD. Now s/p flex sig this admission (although they reached the cecum with this scope ) and grossly it appears the colitis is due to UC. Pathology from biopsies confirms this diagnosis, no evidence of dysplasia GI recommending pentasa 1gm QID along with daily rectal pentasa (for proctitis component). -does not need steroids for now unless he has poor response. -Still having some loose stools with some scant red blood although Hgb stable and frequency is improving with Imodium -abd exam remains benign. -antibiotics have since been stopped. -continue regular diet -Received IV fluids and will now stop -Continue Imodium prn for diarrhea -appreciate [facility] recommendations. -will need very close f/u after discharge within 1 month. -GI recommending full colonoscopy in 6 months (2) Colitis: see discussion above in "UC" Stool culture and C. diff stool toxin both negative (3) Intra-abdominal lymphadenopathy: CT at admission with several upper limits of normal sized lymph nodes reactive to his colitis? 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 He is active and doing fairly well except for some occasional fecal urgency. He does not need any restrictions on top of his previously existing light duty and he does not need to remain in the infirmary for any extended period of time. Total Time Total Time Spent Total Time Spent (In Minutes): Greater than 30 minutes Total Time Includes: Examination of the Patient, Discharge Planning and Medication Reconciliation Discharge Plan Discharge Items [facility] Disposition: [facility] Reason For Visit: DIVERTICULITIS Discharge Diagnosis: Ulcerative Colitis Condition: Fair Discharge Goals: Decrease discomfort, Diagnostic testing and Therapeutic intervention Activity: Resume your previous activity Activity Comment: He should be as active as he can tolerate. No need for infirmary Lifting: Gradually increase as tolerated Bathing: No limitations Non-emergency contact: Primary Care Provider and Business Advisor Call non-emergency contact if: you have any medication questions, your symptoms worsen, your pain is not controlled, your pain is worsening, your pain is unusual for you, your pain is concerning for you and you have a fever Follow-up/Referrals: Naveen Rayo MD [Hospitalist] - (Please follow up within 1 month ) Diet: Regular Addtl Provider Instructions: You were admitted with bloody stools and abdominal pain. You had a sigmoidoscopy and were found to have ulcerative colitis. You were started on Pentasa both by mouth and per rectum. You can take imodium as needed for diarrhea.You will need to follow up with GI within 1 month and have a repeat colonoscopy in 6 months. Prescriptions: New acetaminophen [Mapap (acetaminophen)] 325 mg Tablet 650 mg PO Q4H PRN (Reason: pain) Qty: 30 RF: 0 loperamide 2 mg Capsule 2 mg PO Q4H PRN (Reason: loose stool) Qty: 30 RF: 0 mesalamine 4 gram/60 mL Enema 4 g NE HS 30 Days Qty: 1680 RF: 0 mesalamine 500 mg capsule, extended release 1,000 mg PO QID 28 Days Qty: 224 RF: 0 Continue cholecalciferol (vitamin D3) [Vitamin D3] 400 unit Tablet 800 unit PO QAM RF: 0 finasteride [Proscar] 5 mg Tablet 5 mg PO QAM RF: 0 vitamin B complex Capsule 1 cap PO QAM RF: 0 aspirin [Aspir-Low] 81 mg Tablet,Delayed Release (Dr/Ec) 81 mg PO DAILY RF: 0 tamsulosin 0.4 mg Capsule 0.8 mg PO DAILY RF: 0 Stand-Alone Forms: [facility] Discharge Orders: Discharge Order (Routine); Ordered 11/06/18 Ordered By: Vicki Salamanca Admission Data Admit Date/Time: 11/01/18 23:52 Attending Provider: Vicki Salamanca Admit Provider: Freddy Ribera Primary Care Provider: Berna LEBLANC Other Providers: Freddy Ribera ; Naveen Rayo Service: Medical Other Interventions: Discharge Summary Assessment (RN) Last Done: 11/06/18 11:37 Pending Studies at Discharge: No
== END 2018-11-06 12:55 | DRG 387 ==
LOC: ED 19:00 → 4W 23:52 → SUATTDRO 23:52 → 4W 11-02 00:19

== ENCOUNTER 2020-06-19 09:01 | Inpatient (IN) ==
[2020-06-19 09:41] LABS: Hematocrit (blood only) 35.6 % (42-52); Hemoglobin 11.9 g/dL (14.0-18.0); Mean Corpuscular Hemoglobin 28.4 pg (25-34); Mean Corpuscular Hgb Conc 33.4 g/dL (32-36); Mean Platelet Volume 9.1 fL (7.4-10.4); Platelet Count 273 K/uL (130-400); RDW Coefficient of Variation 13.7 % (11.5-14.5); RDW Standard Deviation 42.2 fL (36.4-46.3); Red Blood Count 4.19 M/uL (4.7-6.1); White Blood Count 9.51 K/uL (4.8-10.8)
[2020-06-19] MEDS ORDERED: SODIUM CHLORIDE 0.9% 1000ML 1,000 ML IV STA (09:52)
[2020-06-19] MEDS ORDERED: MoRPHine SULFATE 2 MG/ML CARP IV STA (09:52)
[2020-06-19] MEDS ORDERED: ONDANSETRON INJ 2 MG/ML 2 ML VIAL IV STA (09:52)
[2020-06-19] MEDS ORDERED: SODIUM CHLORIDE 0.9% 1000ML 500 ML IV ONE (09:52)
[2020-06-19 10:01] LABS: Albumin Level 1.9 gm/dl (3.4-5.0); Aspartate Aminotransferase 11 U/L (15-37); Blood Urea Nitrogen 18 mg/dl (7-18); Calcium 8.6 mg/dl (8.5-10.1); Carbon Dioxide 20 mmol/L (21-32); Chloride 104 mmol/L (98-107); Glucose 138 mg/dl (70-99); Lipase 155 U/L (73-393); Potassium 3.3 mmol/L (3.5-5.1); Sodium 138 mmol/L (136-145)
[2020-06-19 10:02] LABS: Alanine Aminotransferase 9 U/L (12-78); BUN Creatinine Ratio 20.9 (10-20); Est GFR (African American) 92.9; Est GFR (Non-African American) 80.2
[2020-06-19 10:05] LABS: Albumin Globulin Ratio 0.4 (0.9-2); Alkaline Phosphatase 77 U/L (45-117); Bilirubin,Total 0.7 mg/dl (0.2-1); Globulin 4.4 gm/dl (2.5-4.0); Magnesium 1.9 mg/dl (1.8-2.4); Total Protein 6.3 gm/dl (6.4-8.2)
[2020-06-19 10:13] LABS: Basophils # (auto) 0.01 K/uL (0-0.2); Basophils % (auto) 0.1 %; Eosinophils % (auto) 1.1 %; Immature Granulocytes # (auto) 0.12 K/uL (0.00-0.02); Immature Granulocytes % (auto) 1.3 %; Lymphocytes # (auto) 1.06 K/uL (1.2-3.4); Lymphocytes % (auto) 11.1 %; Monocytes # (auto) 1.04 K/uL (0.11-0.59); Monocytes % (auto) 10.9 %; Neutrophils # (auto) 7.18 K/uL (1.4-6.5); Neutrophils % (auto) 75.5 %
[2020-06-19 10:14] LABS: Troponin I < 0.015 ng/ml (0-0.045)
--- NOTE | 2020-06-19 10:18 | XRay Report ---
XR chest 1V portable CLINICAL HISTORY: Abdominal pain. Hypoxia. COMPARISON STUDY: Chest radiograph and chest CT November 19, 2019. FINDINGS: Lung volumes are diminished. This is unchanged. Mild left basilar opacity favors atelectasi s. There is no pneumothorax or pleural effusion. Moderate cardiomegaly is unchanged. There is no evid ence for pulmonary edema. 2.9 cm linear radiodensity projecting over the upper abdomen is unchanged. IMPRESSION: 1. No change in appearance of the chest. Low lung volumes with left basilar opacity suggestive of ate lectasis. 2. Cardiomegaly without evidence for pulmonary edema. ACT 112: Negative or not required by law. Electronically signed by: Lakhwinder Mckeon M.D. 06/19/2020 10:17 AM
--- NOTE | 2020-06-19 10:47 | CT Scan Report ---
CT OF THE ABDOMEN AND PELVIS WITHOUT CONTRAST CLINICAL HISTORY: Left lower quadrant abdominal pain. COMPARISON STUDY: CT of the abdomen and pelvis January 27, 2019. TECHNIQUE: Axial images of the abdomen and pelvis were obtained without IV contrast. Images were revi ewed in the axial, sagittal, and coronal planes. Automated exposure control was utilized for the ramya dy. A dose lowering technique was utilized adhering to the principles of ALARA. FINDINGS: Lung bases are unremarkable. No pneumatosis, free air or portal venous gas is present. A li near metallic density within the upper abdomen is unchanged from earlier exams. Evaluation of the abd omen and pelvis is suboptimal on this unenhanced examination. A subcentimeter segment 6 hepatic lesio n is unchanged. This is benign. The spleen, adrenal glands and kidneys are unremarkable. There is no hydronephrosis. There is a gallstone within the gallbladder without evidence for acute cholecystitis. There is no evidence for a bowel obstruction. There is mild wall thickening of the cecum, ascending colon and transverse colon. There is moderate wall thickening of the mid to distal descending colon a nd the proximal sigmoid colon. There is pericolic infiltration with prominent pericolonic lymph nodes . There is no evidence for a bowel obstruction. Several colonic wall thickening was shown on several prior exams. There are no suspicious osseous lesions. IMPRESSION: 1. Long segment mild to moderate colonic wall thickening, most pronounced within the descending colon and sigmoid colon with pericolic infiltration and prominent pericolonic lymph node. Similar findings shown on several prior exams. This represents a nonspecific colitis. No bowel obstruction. No pneuma tosis, free air or portal venous gas. If not recently performed, a follow-up nonemergent colonoscopy is recommended to exclude the less likely possibility of an underlying mucosal lesion. 2. Cholelithiasis. ACT 112: Negative or not required by law. Electronically signed by: Lakhwinder Mckeon M.D. 06/19/2020 10:46 AM
--- NOTE | 2020-06-19 12:04 | Electrocardiogram Report ---
Test Reason : Blood Pressure : / mmHG Vent. Rate : 078 BPM Atrial Rate : 078 BPM P-R Int : 216 ms QRS Dur : 110 ms QT Int : 418 ms P-R-T Axes : 026 019 026 degrees QTc Int : 476 ms Poor data quality, interpretation may be adversely affected Sinus rhythm with 1st degree A-V block Low voltage QRS Borderline ECG When compared with ECG of 19-NOV-2019 10:18, Premature ventricular complexes are no longer Present Confirmed by Cornelio Joshua ([id number]) on 06/19/2020 12:04:19 PM Referred By: [facility] Confirmed By:Cornelio Joshua
--- NOTE | 2020-06-19 12:36 | Emergency Department Note ---
Impression & Plan Abdominal pain, LLQ (left lower quadrant), Abnormal CT of the abdomen ED Provider Note INFORMANT: Patient ED PROVIDER(S): Eusebio Lopez MD CHIEF COMPLAINT: Abdominal pain PLAN: Disposition: Admitted Condition: Good MEDICAL DECISION MAKING: Patient presented with left lower quadrant abdominal pain. He was tender on examination. He was hydrated. He was given morphine and Zofran. He had an unremarkable ECG. The patient's CBC showed a mild anemia. Chemistry panel revealed mild hypokalemia. Troponin, LFTs and lipase were negative. The patient's chest x-ray showed cardiomegaly and a low lung volumes but no acute process. CT imaging of the abdomen pelvis does reveal a left-sided colitis. Given the findings and history reported of low blood pressure and low oxygen at the present I discussed the case with gastroenterology and internal medicine. Patient was evaluated by both teams in the emergency department. He was admitted for further management. Triage Nursing notes reviewed and agree them. Prior medical records reviewed, history of colitis noted. Seen by [facility]. Vital Signs: reviewed and remarkable for no significant abnormalities Differential diagnosis: Appendicitis, testicular torsion, infections, diverticulitis, UTI, obstruction, mesenteric ischemia, aortic pathology, inflammatory bowel disease, renal colic, PUD, pancreatitis, biliary pathology, hernia, volvulus, constipation, as well as other pathologies. Diagnostics interpreted by me: ECG: Twelve-lead ECG reveals a sinus rhythm with first-degree AV block at 78 bpm. There is low voltage QRS. No ST elevation or depression. Normal axis. No PACs or PVCs. Cardiac Monitoring: Cardiac monitoring ordered by me: The patient was placed on continuous cardiac monitoring and observed. It revealed a normal sinus rhythm at 72 beats per minute without ectopy or evidence of dysrhythmia. Imaging studies: Chest x-ray and CT scan as above. I refer you to the EMR for further details. Consultation(s): Dr. Gonzalez of [facility] Amie Cornell NP of the [facility] gastroenterology service HPI: The patient is a 85 year old male who presents to the Emergency Room with complaints of left-sided abdominal pain. This started 3 days ago and is persisting. The patient also notes the following associated symptoms, weakness, poor appetite. The patient has found no relieving factors. Current pain is rated as 5/10. Patient reportedly had a period of hypotension and hypoxia while being monitored for this abdominal pain. He was referred from the presented to the ER for further management. Currently he denies any trouble breathing, denies any recent problems as well. Pt denies LOC, headache, fevers, chills, diaphoresis, visual changes, neck pain, chest pain, breathing difficulties, nausea, vomiting, back pain, melena, hematochezia, urinary symptoms, numbness, weakness, lymphadenopathy, rash, or other complaints. ROS: See above HPI for pertinent positives & negatives. A total of 10 systems reviewed and were otherwise negative. PAST MEDICAL HISTORY:See Below, arthritis, BPH PAST SURGICAL HISTORY:See Below, FAMILY HISTORY:See Below SOCIAL HISTORY:See Below, incarcerated HOME MEDICATIONS:See Below ALLERGIES:See Below VITALS:See Below PHYSICAL EXAMINATION: GENERAL: Awake, alert, uncomfortable-appearing, in no distress HENT: Normocephalic, atraumatic. Oropharynx unremarkable. EYES: Normal conjunctiva. Sclera non-icteric. NECK: Inspection normal. Non-tender. Supple. No nuchal rigidity. FROM. No masses. RESPIRATORY: Clear to auscultation. No wheezes. No rales. Normal respiratory effort. CARDIAC: Normal rate. Normal rhythm. No murmurs. No rubs. Extremities warm and well perfused. Pulses equal. No JVD. GI: Soft, non-distended. Left lower quadrant tenderness to palpation. No rebound or guarding. No masses. RECTAL: Deferred. MUSCULOSKELETAL: Atraumatic. Chest examination reveals no tenderness. The back is symmetrical on inspection without obvious abnormality. There is no CVA tenderness to palpation. No joint edema. LOWER EXTREMITIES: Calves are equal size bilaterally and non-tender. No edema. No discoloration. NEURO: Normal sensorium. No sensory or motor deficits noted. SKIN: No rash or jaundice noted. Eusebio Lopez MD Past Med/Surg History Medical History (Updated 06/19/20 @ 15:40 by Eusebio Lopez MD) BPH (benign prostatic hyperplasia) Carcinoma of parotid gland Family History Other Family history non-contributory Social History Smoking Status: Never smoker Tobacco Type: Smokeless Tobacco (Dip or Chew) Second Hand Exposure: No; Do You Dip or Chew Tobacco: Yes (1 can every other day); Tobacco Cessation Education Requested by Patient: No Hx Alcohol Use: No Hx Substance Use: No Preferred Language: Faroese Communication Ability: Effective Operations Vocational Instructor Required: No Beliefs That Will Affect Care: None Current Living Situation: Other Current Living Situation Comment: inmate in [facility] Other Information That Helps Us Care for You: No Feels Safe at Home: Yes Safety Concerns: Feels Safe At This Time Allergies Allergies Allergy/AdvReac Type Severity Reaction Status Date / Time No Known Allergies Allergy Unverified 06/19/20 09:43 Home Meds Home Medications Medication Instructions Recorded Confirmed finasteride [Proscar] 5 mg PO HS 10/11/18 06/19/20 tamsulosin 0.8 mg PO HS 11/01/18 06/19/20 mesalamine 2.4 g PO BID 01/27/19 06/19/20 hydroxyzine pamoate 50 mg PO BID PRN 06/19/20 06/19/20 loperamide [Anti-Diarrhea] 2 mg PO BID 06/19/20 06/19/20 pantoprazole 40 mg PO DAILY 06/19/20 06/19/20 prednisolone [Millipred] 5 mg PO DAILY 06/19/20 06/19/20 sulfamethoxazole-trimethoprim 1 tab PO BID 06/19/20 06/19/20 [Bactrim DS] Results & Data (ED) Vital Signs Vital Signs - 24 hr 06/19/20 09:16 06/19/20 09:21 06/19/20 09:30 Temperature 36.8 C Temperature Source Oral Pulse Rate 74 77 79 Pulse Rate from SpO2 Sensor 77 79 Pulse Rhythm Regular Pulse Strength Normal Respiratory Rate 20 22 17 Respiratory Effort / Characteristics Non-Labored Spontaneous Respiratory Depth Normal Respiratory Pattern Regular Blood Pressure 114/65 113/66 114/65 Blood Pressure Mean 81 75 82 Blood Pressure Position Lying Pulse Oximetry 95 96 96 Oxygen Delivery Method Room Air Sepsis Recent Fever Within 48 Hours No Sepsis New/Unexplained Change in Mental Status No Sepsis Action Taken by Nursing No Action Required 06/19/20 10:00 06/19/20 10:35 06/19/20 11:09 Temperature Temperature Source Pulse Rate 77 79 75 Pulse Rate from SpO2 Sensor 76 75 71 Pulse Rhythm Pulse Strength Respiratory Rate 21 18 18 Respiratory Effort / Characteristics Respiratory Depth Respiratory Pattern Blood Pressure 102/76 112/60 119/73 Blood Pressure Mean 84 70 89 Blood Pressure Position Pulse Oximetry 97 96 96 Oxygen Delivery Method Sepsis Recent Fever Within 48 Hours Sepsis New/Unexplained Change in Mental Status Sepsis Action Taken by Nursing 06/19/20 11:30 06/19/20 12:00 06/19/20 12:10 Temperature Temperature Source Pulse Rate 77 77 75 Pulse Rate from SpO2 Sensor 78 77 74 Pulse Rhythm Pulse Strength Respiratory Rate 18 13 19 Respiratory Effort / Characteristics Respiratory Depth Respiratory Pattern Blood Pressure 133/70 110/62 Blood Pressure Mean 97 87 Blood Pressure Position Pulse Oximetry 96 97 98 Oxygen Delivery Method Sepsis Recent Fever Within 48 Hours Sepsis New/Unexplained Change in Mental Status Sepsis Action Taken by Nursing 06/19/20 12:20 06/19/20 12:30 06/19/20 12:31 Temperature Temperature Source Pulse Rate 78 76 77 Pulse Rate from SpO2 Sensor 73 79 73 Pulse Rhythm Pulse Strength Respiratory Rate 21 16 17 Respiratory Effort / Characteristics Respiratory Depth Respiratory Pattern Blood Pressure 118/69 Blood Pressure Mean 93 Blood Pressure Position Pulse Oximetry 96 95 95 Oxygen Delivery Method Sepsis Recent Fever Within 48 Hours Sepsis New/Unexplained Change in Mental Status Sepsis Action Taken by Nursing 06/19/20 12:40 06/19/20 12:50 06/19/20 13:00 Temperature Temperature Source Pulse Rate 75 76 76 Pulse Rate from SpO2 Sensor 74 74 76 Pulse Rhythm Pulse Strength Respiratory Rate 16 19 18 Respiratory Effort / Characteristics Respiratory Depth Respiratory Pattern Blood Pressure 114/70 Blood Pressure Mean 97 Blood Pressure Position Pulse Oximetry 94 92 95 Oxygen Delivery Method Sepsis Recent Fever Within 48 Hours Sepsis New/Unexplained Change in Mental Status Sepsis Action Taken by Nursing 06/19/20 13:01 06/19/20 13:10 06/19/20 13:20 Temperature Temperature Source Pulse Rate 76 78 75 Pulse Rate from SpO2 Sensor 76 75 75 Pulse Rhythm Pulse Strength Respiratory Rate 21 25 H 24 Respiratory Effort / Characteristics Respiratory Depth Respiratory Pattern Blood Pressure Blood Pressure Mean Blood Pressure Position Pulse Oximetry 95 93 93 Oxygen Delivery Method Sepsis Recent Fever Within 48 Hours Sepsis New/Unexplained Change in Mental Status Sepsis Action Taken by Nursing 06/19/20 13:30 06/19/20 13:31 06/19/20 14:00 Temperature Temperature Source Pulse Rate 75 74 75 Pulse Rate from SpO2 Sensor 75 69 75 Pulse Rhythm Pulse Strength Respiratory Rate 17 18 23 Respiratory Effort / Characteristics Respiratory Depth Respiratory Pattern Blood Pressure 111/67 105/71 Blood Pressure Mean 83 81 Blood Pressure Position Pulse Oximetry 95 95 94 Oxygen Delivery Method Sepsis Recent Fever Within 48 Hours Sepsis New/Unexplained Change in Mental Status Sepsis Action Taken by Nursing 06/19/20 15:15 Temperature Temperature Source Pulse Rate 71 Pulse Rate from SpO2 Sensor 71 Pulse Rhythm Pulse Strength Respiratory Rate 18 Respiratory Effort / Characteristics Respiratory Depth Respiratory Pattern Blood Pressure 111/62 Blood Pressure Mean 95 Blood Pressure Position Pulse Oximetry 97 Oxygen Delivery Method Sepsis Recent Fever Within 48 Hours Sepsis New/Unexplained Change in Mental Status Sepsis Action Taken by Nursing Laboratory Data Result diagrams: 06/19/20 09:35 06/19/20 09:35 Lab Results 06/19/20 06/19/20 06/19/20 Range/Units 09:35 09:35 11:04 WBC 9.51 (4.8-10.8) K/uL RBC 4.19 L (4.7-6.1) M/uL Hgb 11.9 L (14.0-18.0) g/dL Hct 35.6 L (42-52) % MCV 85.0 (80-100) fL MCH 28.4 (25-34) pg MCHC 33.4 (32-36) g/dL RDW Std Deviation 42.2 (36.4-46.3) fL RDW Coeff of Torrie 13.7 (11.5-14.5) % Plt Count 273 (130-400) K/uL MPV 9.1 (7.4-10.4) fL Immature Gran % (Auto) 1.3 % Neut % (Auto) 75.5 % Lymph % (Auto) 11.1 % [place] % (Auto) 10.9 % Eos % (Auto) 1.1 % Baso % (Auto) 0.1 % Neut # (Auto) 7.18 H (1.4-6.5) K/uL Lymph # (Auto) 1.06 L (1.2-3.4) K/uL [place] # (Auto) 1.04 H (0.11-0.59) K/uL Eos # (Auto) 0.10 (0-0.5) K/uL Baso # (Auto) 0.01 (0-0.2) K/uL Immature Gran # (Auto) 0.12 H (0.00-0.02) K/uL Sodium 138 (136-145) mmol/L Potassium 3.3 L (3.5-5.1) mmol/L Chloride 104 (98-107) mmol/L Carbon Dioxide 20 L (21-32) mmol/L Anion Gap 15.0 H (3-11) BUN 18 (7-18) mg/dl Creatinine 0.86 (0.6-1.4) mg/dl Est Cr Clr Drug Dosing Not Reportable Est GFR ( Amer) 92.9 Est GFR (Non-Af Amer) 80.2 BUN/Creatinine Ratio 20.9 H (10-20) Glucose 138 H (70-99) mg/dl Lactate 1.5 (0.4-2.0) mmol/L Calcium 8.6 (8.5-10.1) mg/dl Magnesium 1.9 (1.8-2.4) mg/dl Total Bilirubin 0.7 (0.2-1) mg/dl AST 11 L (15-37) U/L ALT 9 L (12-78) U/L Alkaline Phosphatase 77 (45-117) U/L Troponin I < 0.015 (0-0.045) ng/ml Total Protein 6.3 L (6.4-8.2) gm/dl Albumin 1.9 L (3.4-5.0) gm/dl Globulin 4.4 H (2.5-4.0) gm/dl Albumin/Globulin Ratio 0.4 L (0.9-2) Lipase 155 (73-393) U/L Urine Color Urine Appearance (Clear) Urine pH (4.5-7.5) Ur Specific [place] (1.000-1.030) Urine Protein (Negative) Urine Glucose (UA) (Negative) Urine Ketones (Negative) Urine Blood (Negative) Urine Nitrite (Negative) Urine Bilirubin (Negative) Urine Urobilinogen (Negative) Ur Leukocyte Esterase (Negative) Urine WBC (Auto) (0-5) /hpf Urine RBC (Auto) (0-4) /hpf U Hyaline Cast (Auto) (0-5) /lpf U Epithel Cells (Auto) (0-5) /lpf Urine Bacteria (Auto) (Negative) 06/19/20 Range/Units 12:15 WBC (4.8-10.8) K/uL RBC (4.7-6.1) M/uL Hgb (14.0-18.0) g/dL Hct (42-52) % MCV (80-100) fL MCH (25-34) pg MCHC (32-36) g/dL RDW Std Deviation (36.4-46.3) fL RDW Coeff of Torrie (11.5-14.5) % Plt Count (130-400) K/uL MPV (7.4-10.4) fL Immature Gran % (Auto) % Neut % (Auto) % Lymph % (Auto) % [place] % (Auto) % Eos % (Auto) % Baso % (Auto) % Neut # (Auto) (1.4-6.5) K/uL Lymph # (Auto) (1.2-3.4) K/uL [place] # (Auto) (0.11-0.59) K/uL Eos # (Auto) (0-0.5) K/uL Baso # (Auto) (0-0.2) K/uL Immature Gran # (Auto) (0.00-0.02) K/uL Sodium (136-145) mmol/L Potassium (3.5-5.1) mmol/L Chloride (98-107) mmol/L Carbon Dioxide (21-32) mmol/L Anion Gap (3-11) BUN (7-18) mg/dl Creatinine (0.6-1.4) mg/dl Est Cr Clr Drug Dosing Est GFR ( Amer) Est GFR (Non-Af Amer) BUN/Creatinine Ratio (10-20) Glucose (70-99) mg/dl Lactate (0.4-2.0) mmol/L Calcium (8.5-10.1) mg/dl Magnesium (1.8-2.4) mg/dl Total Bilirubin (0.2-1) mg/dl AST (15-37) U/L ALT (12-78) U/L Alkaline Phosphatase (45-117) U/L Troponin I (0-0.045) ng/ml Total Protein (6.4-8.2) gm/dl Albumin (3.4-5.0) gm/dl Globulin (2.5-4.0) gm/dl Albumin/Globulin Ratio (0.9-2) Lipase (73-393) U/L Urine Color Dark Yellow Urine Appearance Clear (Clear) Urine pH 5.5 (4.5-7.5) Ur Specific [place] 1.026 (1.000-1.030) Urine Protein Trace H (Negative) Urine Glucose (UA) Negative (Negative) Urine Ketones 3+ H (Negative) Urine Blood Negative (Negative) Urine Nitrite Negative (Negative) Urine Bilirubin Negative (Negative) Urine Urobilinogen Negative (Negative) Ur Leukocyte Esterase Trace H (Negative) Urine WBC (Auto) 1-5 (0-5) /hpf Urine RBC (Auto) 0-4 (0-4) /hpf U Hyaline Cast (Auto) 10-30 H (0-5) /lpf U Epithel Cells (Auto) 10-20 H (0-5) /lpf Urine Bacteria (Auto) Negative (Negative) Administered Medications Sodium Chloride (Nss 1000ml) 1,000 mls @ 125 mls/hr IV .Q8H STA Stop: 06/19/20 17:51 Last Admin: 06/19/20 11:41 Dose: 125 mls/hr Documented by: [id number] Discontinued Medications Sodium Chloride (Nss 1000ml) 500 mls @ 999 mls/hr IV .Q31M ONE Stop: 06/19/20 10:22 Last Infusion: 06/19/20 11:41 Dose: 0 mls/hr Documented by: [id number] Admin: 06/19/20 11:10 Dose: 999 mls/hr Documented by: [id number] Morphine Sulfate (Morphine Sulfate 2 Mg/Ml Carp) 2 mg IV NOW STA Stop: 06/19/20 09:53 Last Admin: 06/19/20 10:30 Dose: 2 mg Documented by: [id number] Ondansetron HCl (Ondansetron Inj 2 Mg/Ml 2 Ml Vial) 4 mg IV NOW STA Stop: 06/19/20 09:53 Last Admin: 06/19/20 10:30 Dose: 4 mg Documented by: [id number] Discharge Plan Visit Data Chief Complaint: Abdominal Pain ED Provider: Eusebio Lopez Discharge Problem: Abdominal pain, LLQ (left lower quadrant), Abnormal CT of the abdomen Forms Stand Alone Forms: [facility] Prescriptions Prescriptions: No Action finasteride [Proscar] 5 mg Tablet 5 mg PO HS RF: 0 tamsulosin 0.4 mg Capsule 0.8 mg PO HS RF: 0 mesalamine 1.2 gram Tablet,Delayed Release (Dr/Ec) 2.4 g PO BID RF: 0 loperamide [Anti-Diarrhea] 2 mg Tablet 2 mg PO BID RF: 0 hydroxyzine pamoate 50 mg Capsule 50 mg PO BID PRN (Reason: Itching) RF: 0 sulfamethoxazole-trimethoprim [Bactrim DS] 800-160 mg Tablet 1 tab PO BID RF: 0 pantoprazole 40 mg Tablet,Delayed Release (Dr/Ec) 40 mg PO DAILY RF: 0 Millipred 5 mg Tablet 5 mg PO DAILY RF: 0
[2020-06-19 12:41] LABS: Appearance Urine Clear (Clear); Bacteria Urine Automated Negative (Negative); Blood Urine Negative (Negative); Color Urine Dark Yellow; Glucose Urine UA Negative (Negative); Ketones Urine 3+ (Negative); Leukocyte Esterase Urine Trace (Negative); Nitrite Urine Negative (Negative); Protein Urine Trace (Negative); RBC Urine Automated 0-4 /hpf (0-4); Specific Gravity Urine 1.026 (1.000-1.030); Urobilinogen Urine Negative (Negative); pH Urine 5.5 (4.5-7.5)
[2020-06-19 12:51] LABS: Bilirubin Urine Negative (Negative); Ictotest Urine Negative (Negative)
--- NOTE | 2020-06-19 12:53 | Gastrointestinal Consultation ---
Date of Consultation June 19, 2020 Assessment & Plan (1) Ulcerative colitis: 85 year old male with history of UC on mesalamine who presents to the ED w/ abdominal pain, non-bloody diarrhea. CT w/ long segment mild to moderate colonic wall thickening, most pronounced within the descending colon and sigmoid colon with pericolic infiltration and prominent pericolonic lymph node. DDX discussed: infectious, inflammatory Clear liquids as tolerated Check c.diff Check stool culture Check CRP/ESR Continue mesalamine Pending results of stools consider steroid use Avoid narcotic analgesia if able antiemetics PRN Thank you for allowing us to participate in the care of this patient. Please call with any acute changes, questions or concerns. Please see addendum below with additional recommendation from my supervising physician. Supervising Physician Co-Signing Physician Notes I have personally seen and examined the patient with ROSELINE Shell. Her note reflects my exam and findings. I agree with her impression and plan. I am concerned about C. diff given reported hx of Bactrim course recently. Check stools and cont mesalamine product. Marcelo Lindsey M.D. History of Present Illness Reason for Consultation: abd pain Requesting Physician: Jessica Attending Physician: Aminta History of Present Illness 85 year old male from 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 Pt was seen and evaluated, chart reviewed. Two guards at bedside. Suggests for the past 1 week he has had generzlied abd pain, worse after PO intake. Suggests at this time he has had worsening diarrhea as well. 2/3 liquids stool in the AM and a few more bouts of diarrhea in the afternoon. Denies any black/bloody stools. He has also had decreased appetite and some vomiting post- prandial. No coffee ground emesis/hematemesis. He has history of c.diff in 2013. CT 2019: Long segment mild to moderate colonic wall thickening, most pronounced within the descending colon and sigmoid colon with pericolic infiltration and prominent pericolonic lymph node. Similar findings shown on several prior exams. This represents a nonspecific colitis. No bowel obstruction. No pneumatosis, free air or portal venous gas. If not recently performed, a follow-up nonemergent colonoscopy is recommended to exclude the less likely possibility of an underlying mucosal lesion. Cholelithiasis. CT: Findings consistent with severe though uncomplicated acute diverticulitis extending from the mid descending colon to the mid sigmoid colon. No abscess or extraluminal gas. Especially given the associated borderline lymphadenopathy, follow-up direct visualization with colonoscopy recommended.Noncontiguous circumferential wall thickening of the rectum suggesting proctitis, most likely infectious or inflammatory. Cholelithiasis. Colonoscopy 2019: Diverticulosis in the sigmoid colon. - Pseudopolyps with some inflammation at 40 cm proximal to the anus. Biopsied Colonoscopy 10/23/12 w findings of ileitis, rectal ulcers. 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 Was supposed to have repeat colonoscopy after Cdiff was treated but he didn't have one. Allergies Allergy/AdvReac Type Severity Reaction Status Date / Time No Known Allergies Allergy Unverified 06/19/20 09:43 Home Medications Home Medications Medication Instructions Recorded Confirmed Type finasteride [Proscar] 5 mg PO HS 10/11/18 06/19/20 History tamsulosin 0.8 mg PO HS 11/01/18 06/19/20 History mesalamine 2.4 g PO BID 01/27/19 06/19/20 History hydroxyzine pamoate 50 mg PO BID PRN 06/19/20 06/19/20 History loperamide [Anti-Diarrhea] 2 mg PO BID 06/19/20 06/19/20 History pantoprazole 40 mg PO DAILY 06/19/20 06/19/20 History prednisolone [Millipred] 5 mg PO DAILY 06/19/20 06/19/20 History sulfamethoxazole-trimethoprim 1 tab PO BID 06/19/20 06/19/20 History [Bactrim DS] Patient History Medical History (Updated 06/19/20 @ 14:18 by Galo Gonzalez MD) BPH (benign prostatic hyperplasia) Carcinoma of parotid gland Family History Other Family history non-contributory Social History Smoking Status: Never smoker Tobacco Type: Smokeless Tobacco (Dip or Chew) Second Hand Exposure: No; Do You Dip or Chew Tobacco: Yes (1 can every other day); Tobacco Cessation Education Requested by Patient: No Hx Alcohol Use: No Hx Substance Use: No Preferred Language: Tuvaluan Communication Ability: Effective Party Plan Sales Agent Required: No Beliefs That Will Affect Care: None Current Living Situation: Other Current Living Situation Comment: inmate in [facility] Other Information That Helps Us Care for You: No Feels Safe at Home: Yes Safety Concerns: Feels Safe At This Time Review of Systems Constitutional: + fatigue, + anorexia and + weight loss; no fever and no chills Respiratory: no cough and no chest congestion Cardiovascular: no chest pain Gastrointestinal: + abdominal pain, + nausea, + change in bowel habits and + diarrhea/loose stools; no hematemesis, no blood in stools and no melena Physical Exam Constitutional: + ill appearing (chronically ill appearing) and + thin; no acute distress Neck: trachea midline Respiratory: normal respiratory effort Cardiovascular: Rate/Rhythm: regular rate Gastrointestinal (Abdomen): Percussion/Palpation: + abdomen tender and abdomen soft; no guarding and abdomen not rigid Skin: no rashes, warm and dry Results & Data ([facility]) Vital Signs (Past 12 Hours) Vital Signs Temp Pulse Resp BP Pulse Ox 06/19/20 12:00 77 13 110/62 97 06/19/20 11:30 77 18 133/70 96 06/19/20 11:09 75 18 119/73 96 06/19/20 10:35 79 18 112/60 96 06/19/20 10:00 77 21 102/76 97 06/19/20 09:30 79 17 114/65 96 06/19/20 09:21 77 22 113/66 96 06/19/20 09:16 36.8 C 74 20 114/65 95 Laboratory Results 06/19/20 06/19/20 06/19/20 Range/Units 12:15 11:04 09:35 WBC (4.8-10.8) K/uL RBC (4.7-6.1) M/uL Hgb (14.0-18.0) g/dL Hct (42-52) % MCV (80-100) fL MCH (25-34) pg MCHC (32-36) g/dL RDW Std Deviation (36.4-46.3) fL RDW Coeff of Torrie (11.5-14.5) % Plt Count (130-400) K/uL MPV (7.4-10.4) fL Immature Gran % (Auto) % Neut % (Auto) % Lymph % (Auto) % [place] % (Auto) % Eos % (Auto) % Baso % (Auto) % Neut # (Auto) (1.4-6.5) K/uL Lymph # (Auto) (1.2-3.4) K/uL [place] # (Auto) (0.11-0.59) K/uL Eos # (Auto) (0-0.5) K/uL Baso # (Auto) (0-0.2) K/uL Immature Gran # (Auto) (0.00-0.02) K/uL Sodium 138 (136-145) mmol/L Potassium 3.3 L (3.5-5.1) mmol/L Chloride 104 (98-107) mmol/L Carbon Dioxide 20 L (21-32) mmol/L Anion Gap 15.0 H (3-11) BUN 18 (7-18) mg/dl Creatinine 0.86 (0.6-1.4) mg/dl Est Cr Clr Drug Dosing Not Reportable Est GFR ( Amer) 92.9 Est GFR (Non-Af Amer) 80.2 BUN/Creatinine Ratio 20.9 H (10-20) Glucose 138 H (70-99) mg/dl Lactate 1.5 (0.4-2.0) mmol/L Calcium 8.6 (8.5-10.1) mg/dl Magnesium 1.9 (1.8-2.4) mg/dl Total Bilirubin 0.7 (0.2-1) mg/dl AST 11 L (15-37) U/L ALT 9 L (12-78) U/L Alkaline Phosphatase 77 (45-117) U/L Troponin I < 0.015 (0-0.045) ng/ml Total Protein 6.3 L (6.4-8.2) gm/dl Albumin 1.9 L (3.4-5.0) gm/dl Globulin 4.4 H (2.5-4.0) gm/dl Albumin/Globulin Ratio 0.4 L (0.9-2) Lipase 155 (73-393) U/L Urine Color Dark Yellow Urine Appearance Clear (Clear) Urine pH 5.5 (4.5-7.5) Ur Specific [place] 1.026 (1.000-1.030) Urine Protein Trace H (Negative) Urine Glucose (UA) Negative (Negative) Urine Ketones 3+ H (Negative) Urine Blood Negative (Negative) Urine Nitrite Negative (Negative) Urine Bilirubin Negative (Negative) Urine Urobilinogen Negative (Negative) Ur Leukocyte Esterase Trace H (Negative) Urine WBC (Auto) 1-5 (0-5) /hpf Urine RBC (Auto) 0-4 (0-4) /hpf U Hyaline Cast (Auto) 10-30 H (0-5) /lpf U Epithel Cells (Auto) 10-20 H (0-5) /lpf Urine Bacteria (Auto) Negative (Negative) 06/19/20 Range/Units 09:35 WBC 9.51 (4.8-10.8) K/uL RBC 4.19 L (4.7-6.1) M/uL Hgb 11.9 L (14.0-18.0) g/dL Hct 35.6 L (42-52) % MCV 85.0 (80-100) fL MCH 28.4 (25-34) pg MCHC 33.4 (32-36) g/dL RDW Std Deviation 42.2 (36.4-46.3) fL RDW Coeff of Torrie 13.7 (11.5-14.5) % Plt Count 273 (130-400) K/uL MPV 9.1 (7.4-10.4) fL Immature Gran % (Auto) 1.3 % Neut % (Auto) 75.5 % Lymph % (Auto) 11.1 % [place] % (Auto) 10.9 % Eos % (Auto) 1.1 % Baso % (Auto) 0.1 % Neut # (Auto) 7.18 H (1.4-6.5) K/uL Lymph # (Auto) 1.06 L (1.2-3.4) K/uL [place] # (Auto) 1.04 H (0.11-0.59) K/uL Eos # (Auto) 0.10 (0-0.5) K/uL Baso # (Auto) 0.01 (0-0.2) K/uL Immature Gran # (Auto) 0.12 H (0.00-0.02) K/uL Sodium (136-145) mmol/L Potassium (3.5-5.1) mmol/L Chloride (98-107) mmol/L Carbon Dioxide (21-32) mmol/L Anion Gap (3-11) BUN (7-18) mg/dl Creatinine (0.6-1.4) mg/dl Est Cr Clr Drug Dosing Est GFR ( Amer) Est GFR (Non-Af Amer) BUN/Creatinine Ratio (10-20) Glucose (70-99) mg/dl Lactate (0.4-2.0) mmol/L Calcium (8.5-10.1) mg/dl Magnesium (1.8-2.4) mg/dl Total Bilirubin (0.2-1) mg/dl AST (15-37) U/L ALT (12-78) U/L Alkaline Phosphatase (45-117) U/L Troponin I (0-0.045) ng/ml Total Protein (6.4-8.2) gm/dl Albumin (3.4-5.0) gm/dl Globulin (2.5-4.0) gm/dl Albumin/Globulin Ratio (0.9-2) Lipase (73-393) U/L Urine Color Urine Appearance (Clear) Urine pH (4.5-7.5) Ur Specific [place] (1.000-1.030) Urine Protein (Negative) Urine Glucose (UA) (Negative) Urine Ketones (Negative) Urine Blood (Negative) Urine Nitrite (Negative) Urine Bilirubin (Negative) Urine Urobilinogen (Negative) Ur Leukocyte Esterase (Negative) Urine WBC (Auto) (0-5) /hpf Urine RBC (Auto) (0-4) /hpf U Hyaline Cast (Auto) (0-5) /lpf U Epithel Cells (Auto) (0-5) /lpf Urine Bacteria (Auto) (Negative) (1) Ulcerative colitis Digestive disease complication type: without complication Ulcerative colitis location: unspecified ulcerative colitis location Qualified Code(s): K51.90 - Ulcerative colitis, unspecified, without complications
--- NOTE | 2020-06-19 14:07 | History & Physical Report ---
Date of Service June 19, 2020 Assessment & Plan (1) Colitis: Gi Consulted - discussed with Dr Lindsey at bedside. Stool culture, c. diff (on antibiotics for right upper extremity abscess, prior history of this). If infectious workup negative will treat for ulcerative colitis (2) Ulcerative colitis: Switch Lialda for Delzicol as not available on hospital formulary. Notable history of this. (3) BPH (benign prostatic hyperplasia): Continue finasteride and tamsulosin (4) Abscess of right arm: Ongoing for last 3 weeks. Finishes bactrim today. HIM to get prior wound culture results. Does not appear cellulitis at the present time - no need to prolong antibiotics. Consult wound care nurse. (5) DVT prophylaxis: SCDs Admission and Anticipated Discharge Date Admission Date: June 19, 2020 History of Present Illness Chief Complaint: Abdominal pain, hypoxia, hypotension Primary Care Provider: [facility] Gavin Sotelo is an 85 year old male with ulcerative colitis who presents to the ER with worsening abdominal pain. LLQ abdominal pain intermittent, worse when he eats, ongoing for months although much worse in the last 3 days and more persisted during this time. Associated generalized weakness, complete loss of appetite. Currently pain at rest 3/10 but most severe 10/10. Having associated diarrhea 3-4 BM/day, non-watery, no melena or bright red blood in stool. Unable to take any oral intake due to pain. No nausea or vomiting. Prior history of c. diff. At [facility] he had a period of hypotension and hypoxia therefore was referred to the ER for ongoing care. Allergies Allergy/AdvReac Type Severity Reaction Status Date / Time No Known Allergies Allergy Unverified 06/19/20 09:43 Home Medications Home Medications Medication Instructions Recorded Confirmed Type finasteride [Proscar] 5 mg PO HS 10/11/18 06/19/20 History tamsulosin 0.8 mg PO HS 11/01/18 06/19/20 History mesalamine 2.4 g PO BID 01/27/19 06/19/20 History hydroxyzine pamoate 50 mg PO BID PRN 06/19/20 06/19/20 History loperamide [Anti-Diarrhea] 2 mg PO BID 06/19/20 06/19/20 History pantoprazole 40 mg PO DAILY 06/19/20 06/19/20 History prednisolone [Millipred] 5 mg PO DAILY 06/19/20 06/19/20 History sulfamethoxazole-trimethoprim 1 tab PO BID 06/19/20 06/19/20 History [Bactrim DS] Past Med/Surg History Medical History (Updated 06/21/20 @ 08:21 by Galo Gonzalez MD) BPH (benign prostatic hyperplasia) Carcinoma of parotid gland Ulcerative colitis Family History Other Family history non-contributory Social History Smoking Status: Never smoker Tobacco Type: Smokeless Tobacco (Dip or Chew) Second Hand Exposure: No; Do You Dip or Chew Tobacco: Yes (1 can every other day); Tobacco Cessation Education Requested by Patient: No Hx Alcohol Use: No Hx Substance Use: No Preferred Language: Japanese Communication Ability: Effective 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 Most recently taking Bactrim for this and finishes up this course today. No fever or chills. Physical Exam Constitutional: well developed, + acute distress (abdominal pain) and + frail appearing; + not well nourished Eyes: + anicteric sclerae; normal pupil size ENMT: Mouth: + dry oral mucous membranes Neck: trachea midline, no thyromegaly Respiratory: normal respiratory effort, lungs clear to auscultation Cardiovascular: Rate/Rhythm: regular rate and regular rhythm Heart Sounds: no murmur Extremities: normal capillary refill; no calf tenderness and no pedal edema Gastrointestinal (Abdomen): Inspection/Auscultation: + abdomen distended and normal bowel sounds Percussion/Palpation: + abdomen tender (generalized by much worse in LLQ), + guarding and abdomen soft; abdomen not rigid Musculoskeletal: no cyanosis or clubbing, extremities motor strength 5/5 Skin: Healing incised abscess on RUE with surrounding dark erythema but no cellulitis. Neurologic: moves all extremities and awake; not confused Psychiatric: A+Ox3, euthymic affect Genitourinary: no CVA tenderness Results & Data Results & Data ([facility]) Vital Signs (Past 12 Hours) Vital Signs Temp Pulse Resp BP Pulse Ox 06/19/20 13:31 74 18 95 06/19/20 13:30 75 17 111/67 95 06/19/20 13:20 75 24 93 06/19/20 13:10 78 25 H 93 06/19/20 13:01 76 21 95 06/19/20 13:00 76 18 114/70 95 06/19/20 12:50 76 19 92 06/19/20 12:40 75 16 94 06/19/20 12:31 77 17 95 06/19/20 12:30 76 16 118/69 95 06/19/20 12:20 78 21 96 06/19/20 12:10 75 19 98 06/19/20 12:00 77 13 110/62 97 06/19/20 11:30 77 18 133/70 96 06/19/20 11:09 75 18 119/73 96 06/19/20 10:35 79 18 112/60 96 06/19/20 10:00 77 21 102/76 97 06/19/20 09:30 79 17 114/65 96 06/19/20 09:21 77 22 113/66 96 06/19/20 09:16 36.8 C 74 20 114/[address] OF THE ABDOMEN AND PELVIS WITHOUT CONTRAST IMPRESSION: 1. Long segment mild to moderate colonic wall thickening, most pronounced within the descending colon and sigmoid colon with pericolic infiltration and prominent pericolonic lymph node. Similar findings shown on several prior exams. This represents a nonspecific colitis. No bowel obstruction. No pneumatosis, free air or portal venous gas. If not recently performed, a follow-up nonemergent colonoscopy is recommended to exclude the less likely possibility of an unde rlying mucosal lesion. 2. Cholelithiasis. ECG Indication: abdominal pain Rate (beats per minute): 78 Rhythm: normal sinus Findings: + 1st degree AV block; no acute ischemic change Comparison ECG Date: from (Nov 19, 2019) Change: the following changes noted (PVCs no longer present) Code Status & VTE Plan Code Status Full VTE Prophylaxis Plan VTE Prophylaxis will be ordered: Yes PG Care Time/CCT Total # of Minutes Spent Total Time Spent with Patient: Total time spent is greater than 50% in coordination of care (as documented) at patient's floor/unit and/or counseling patient: Coding Level of Care Code 57686 Initial Inpt Care Lvl 3 Diagnoses Colitis K52.9 Ulcerative colitis K51.90 Digestive disease complication type: without complication Ulcerative colitis location: unspecified ulcerative colitis location BPH (benign prostatic hyperplasia) N40.0 Lower urinary tract symptom presence: symptoms absent Abscess of right arm L02.413 DVT prophylaxis Z29.9 (1) BPH (benign prostatic hyperplasia) Lower urinary tract symptom presence: symptoms absent Qualified Code(s): N40.0 - Benign prostatic hyperplasia without lower urinary tract symptoms (2) Ulcerative colitis Digestive disease complication type: without complication Ulcerative colitis location: unspecified ulcerative colitis location Qualified Code(s): K51.90 - Ulcerative colitis, unspecified, without complications
[2020-06-19] MEDS: POTASSIUM CHLORIDE 40 MEQ in D5W AND 1/2NSS 1,000 ML/1,000 ML BAG IV SCH (18:25)
[2020-06-19] MEDS: ENOXAPARIN INJ 40 MG/0.4 ML SYR SQ SCH (20:17)
[2020-06-19] MEDS: TAMSULOSIN HCL 0.4 MG CAP PO SCH (20:19)
[2020-06-19] MEDS: FINASTERIDE 5 MG TAB PO SCH (20:21)
[2020-06-19] MEDS ORDERED: SULFAMETHOXAZOLE/TRIMETHOPRIM DS 800/160MG TAB PO ONE (21:00)
[2020-06-19] MEDS ORDERED: MESALAMINE 400 MG CAPDR PO ONE (22:00)
[2020-06-20 02:36] LABS: Hematocrit (blood only) 35.4 % (42-52); Hemoglobin 11.5 g/dL (14.0-18.0); Mean Corpuscular Hgb Conc 32.5 g/dL (32-36); Mean Corpuscular Volume 86.1 fL (80-100); Mean Platelet Volume 8.8 fL (7.4-10.4); Platelet Count 251 K/uL (130-400); RDW Coefficient of Variation 13.8 % (11.5-14.5); RDW Standard Deviation 43.6 fL (36.4-46.3); Red Blood Count 4.11 M/uL (4.7-6.1); White Blood Count 7.66 K/uL (4.8-10.8)
[2020-06-20 02:56] LABS: Albumin Level 1.9 gm/dl (3.4-5.0); BUN Creatinine Ratio 22.9 (10-20); Calcium 8.3 mg/dl (8.5-10.1); Est GFR (African American) 101.2; Est GFR (Non-African American) 87.3; Potassium 3.7 mmol/L (3.5-5.1)
[2020-06-20 02:58] LABS: Albumin Globulin Ratio 0.4 (0.9-2); Bilirubin,Total 0.4 mg/dl (0.2-1); Globulin 4.3 gm/dl (2.5-4.0); Phosphorus 1.9 mg/dl (2.5-4.9); Total Protein 6.2 gm/dl (6.4-8.2)
[2020-06-20] MEDS: POTASSIUM CHLORIDE 40 MEQ in D5W AND 1/2NSS 1,000 ML/1,000 ML BAG IV SCH ×3 (03:06→18:02)
[2020-06-20] MEDS: ACETAMINOPHEN 500 MG TAB PO PRN (07:50)
[2020-06-20] MEDS: MESALAMINE 400 MG CAPDR PO SCH ×3 (07:51→20:41)
[2020-06-20] MEDS: PANTOprazole 40 MG TAB PO SCH (07:51)
[2020-06-20] MEDS ORDERED: PREDNISOLONE SODIUM PHOSPHATE PO SCH ×2 (09:00)
[2020-06-20] MEDS ORDERED: prednisoLONE SYRUP 15 MG/5 ML BTL PO SCH (09:00)
[2020-06-20] MEDS ORDERED: HYDROmorphone INJ 1 MG/ML SYRINGE IV STA (13:24)
[2020-06-20 14:28] LABS: Cdiff Antigen Negative; Cdiff Toxin A+B Negative Cdiff Toxin (Negative)
--- NOTE | 2020-06-20 17:50 | Gastroenterology Progress Note ---
Date of Service June 20, 2020 Assessment & Plan Admission and Anticipated Discharge Date Admission Date: June 19, 2020 Subjective Cont to have pain in LLQ and tenesmus. Appetite is poor. No BM, no bleeding. On exam, he looks comfortable. Abd is tender in LLQ to light palpation with guarding but no rebound Labs unremarkable, C diff tox neg A/P: H/o UC Flex sig in 11/2018 with active left sided disease Cscopy in 06/[address] on admission with left colon wall thick Marked hypoalbuminemia - DDX = ischemic colitis, tic-itis, IBD flare. Absence of diarrhea, bleeding unusual for IBD flare. Cont same dose of low dose steroids and 5 ASA for now, will add cipro+ flagyl to cover possibility of ischemic colitis. If symptoms persistent, consider flex sig to help decide the need for steroids. Results & Data ([facility]) Vital Signs (Past 12 Hours) Vital Signs Temp Pulse Resp BP Pulse Ox 06/20/20 15:50 36.6 C 68 16 108/68 96 06/20/20 07:59 36.7 C 98 H 18 156/81 H 97
[2020-06-20] MEDS: HYDROmorphone INJ 0.5 MG/0.5 ML SYR IV PRN (18:02)
[2020-06-20] MEDS ORDERED: CIPROFLOXACIN / D5W 200 MG/100 ML BAG IV ONE (18:30)
[2020-06-20] MEDS: metroNIDAZOLE 500 MG/100 ML BAG IV SCH (18:39)
--- NOTE | 2020-06-20 18:59 | Hospitalist Progress Note ---
Date of Service June 20, 2020 Assessment & Plan (1) Colitis: LLQ pain with non-specific colitis on CT. Discussed with Dr Womack. Concern for ischemic colitis. Started on cef+met. c. diff toxin negative and not watery diarrhea therefore will also cover for ulcerative colitis flare with IV solu-medrol 20mg TID, hold his usual prednisolone. Stool culture pending (2) Ulcerative colitis: Switch Lialda for Delzicol as not available on hospital formulary. Notable history of this. (3) BPH (benign prostatic hyperplasia): Continue finasteride and tamsulosin (4) Abscess of right arm: Ongoing for last 3 weeks. Finishes bactrim today. HIM to get prior wound culture results. Does not appear cellulitis at the present time - no need to prolong antibiotics. Consult wound care nurse. (5) [facility] Admission and Anticipated Discharge Date Admission Date: June 19, 2020 Subjective Stool taken for c. diff today - gene positive, toxin negative. Not watery by report. x3 loose stool BM since admission. Ongoing abdominal pain much the same as yesterday. No appetite at the present time. No nausea or vomiting. Review of Systems Review of Systems: All systems reviewed & are unremarkable except as noted in HPI & below Physical Exam Constitutional: well developed, + acute distress (abdominal pain) and + frail appearing; + not well nourished ENMT: Mouth: + dry oral mucous membranes Respiratory: normal respiratory effort, lungs clear to auscultation Cardiovascular: Rate/Rhythm: regular rate and regular rhythm Heart Sounds: no murmur Extremities: normal capillary refill; no calf tenderness and no pedal edema Gastrointestinal (Abdomen): Inspection/Auscultation: + hypoactive bowel sounds Percussion/Palpation: + abdomen tender (generalized by much worse in LLQ), + guarding and abdomen soft; abdomen not rigid Musculoskeletal: no cyanosis or clubbing, extremities motor strength 5/5 Skin: + wound (RUE - not inspected under dressing today.) Neurologic: moves all extremities and awake; not confused Psychiatric: A+Ox3, euthymic affect Results & Data Results & Data ([facility]) Vital Signs (Past 12 Hours) Vital Signs Temp Pulse Resp BP Pulse Ox 06/20/20 15:50 36.6 C 68 16 108/68 96 06/20/20 07:59 36.7 C 98 H 18 156/81 H 97 PG Care Time/CCT Total # of Minutes Spent Total Time Spent with Patient: Total time spent is greater than 50% in coordination of care (as documented) at patient's floor/unit and/or counseling patient: Coding Level of Care Code 97943 Subseq Hosp Care Lvl 2 Diagnoses Colitis K52.9 Ulcerative colitis K51.90 Ulcerative colitis location: unspecified ulcerative colitis location Digestive disease complication type: without complication BPH (benign prostatic hyperplasia) N40.0 Lower urinary tract symptom presence: symptoms absent Abscess of right arm L02.413 DVT prophylaxis Z29.9 (1) Ulcerative colitis Ulcerative colitis location: unspecified ulcerative colitis location Digestive disease complication type: without complication Qualified Code(s): K51.90 - Ulcerative colitis, unspecified, without complications (2) BPH (benign prostatic hyperplasia) Lower urinary tract symptom presence: symptoms absent Qualified Code(s): N40.0 - Benign prostatic hyperplasia without lower urinary tract symptoms
[2020-06-20] MEDS: CIPROFLOXACIN / D5W 400 MG/200 ML BAG IV SCH (19:41)
[2020-06-20] MEDS: ENOXAPARIN INJ 40 MG/0.4 ML SYR SQ SCH (20:40)
[2020-06-20] MEDS: FINASTERIDE 5 MG TAB PO SCH (20:40)
[2020-06-20] MEDS: TAMSULOSIN HCL 0.4 MG CAP PO SCH (20:41)
[2020-06-20] MEDS: methylPREDNISolone 20 MG in SYRINGE 0 ML IV SCH (20:42)
[2020-06-21] MEDS: POTASSIUM CHLORIDE 40 MEQ in D5W AND 1/2NSS 1,000 ML/1,000 ML BAG IV SCH ×4 (02:12→19:29)
[2020-06-21] MEDS: metroNIDAZOLE 500 MG/100 ML BAG IV SCH ×3 (03:18→18:37)
[2020-06-21] MEDS: ONDANSETRON INJ 2 MG/ML 2 ML VIAL IV PRN (05:59)
[2020-06-21] MEDS: methylPREDNISolone 20 MG in SYRINGE 0 ML IV SCH ×3 (05:59→21:05)
[2020-06-21] MEDS: CIPROFLOXACIN / D5W 400 MG/200 ML BAG IV SCH ×2 (06:00→18:37)
[2020-06-21] MEDS: HYDROmorphone INJ 0.5 MG/0.5 ML SYR IV PRN (06:51)
[2020-06-21 06:56] LABS: BUN Creatinine Ratio 11.6 (10-20); Calcium 8.5 mg/dl (8.5-10.1); Creatinine Clr Calc Pharmacy 70.8 ml/min; Est GFR (African American) 96.2; Potassium 5.2 mmol/L (3.5-5.1)
[2020-06-21] MEDS: PANTOprazole 40 MG TAB PO SCH (08:08)
[2020-06-21] MEDS: MESALAMINE 400 MG CAPDR PO SCH ×3 (08:08→21:05)
--- NOTE | 2020-06-21 12:05 | Gastroenterology Progress Note ---
Date of Service June 21, 2020 Assessment & Plan Admission and Anticipated Discharge Date Admission Date: June 19, 2020 Subjective Pt reports no change in symptoms since yesterday. Solumedrol begun yest afternoon. On exam, appears comfortable. Tender LLQ. Labs reviewed A/P: IBD flare vs ischemic colitis - Cont steroids, un prepped flex sig tomorrow. Results & Data ([facility]) Vital Signs (Past 12 Hours) Vital Signs Temp Pulse Resp BP Pulse Ox 06/21/20 08:00 36.6 C 63 18 143/79 H 94 06/21/20 02:13 36.7 C 70 18 111/68 93
--- NOTE | 2020-06-21 17:44 | Hospitalist Progress Note ---
Date of Service June 21, 2020 Assessment & Plan (1) Colitis: LLQ pain with non-specific colitis on CT. Discussed with Dr Womack. Concern for ischemic colitis continue Cipro/Flagyl continue Solu Medrol 20mg q8 and mesalamine for UC flare? c. diff toxin negative and not watery diarrhea Stool culture pending plan for flexible sigmoidoscopy tomorrow, NPO after midnight, hold Lovenox (2) Ulcerative colitis: Solu Medrol 20 q8 and mesalamine GI consulted (3) BPH (benign prostatic hyperplasia): Continue finasteride and tamsulosin (4) Abscess of right arm: Ongoing for last 3 weeks. Finished bactrim 06/20. Does not appear cellulitis at the present time - no need to prolong antibiotics. (5) DVT prophylaxis: SCDs stop Lovenox for flex sigmoidoscopy Admission and Anticipated Discharge Date Admission Date: June 19, 2020 Subjective patient doing fine, still with diarrhea and abdominal pain no blood in diarrhea, no nausea or vomiting, tolerating liquid diet discussed with GI, plan for flex sigmoidoscopy tomorrow continue Solu Medrol reviewed labs, reviewed chart Review of Systems Review of Systems: All systems reviewed & are unremarkable except as noted in Subjective Gastrointestinal: + abdominal pain and + diarrhea/loose stools; no nausea, no vomiting, no constipation, no blood in stools and no melena Physical Exam Constitutional: WD/WN, vitals as above Eyes: PERRL, conjunctivae normal, anicteric sclerae ENMT: external ear and nose normal, oropharynx normal Neck: trachea midline, no thyromegaly Respiratory: normal respiratory effort, lungs clear to auscultation Cardiovascular: RRR, no murmur, no edema Gastrointestinal (Abdomen): Inspection/Auscultation: abdomen normal to inspection and + hyperactive bowel sounds; abdomen not distended Percussion/Palpation: + abdomen tender (diffuse) and abdomen soft; no guarding, abdomen not rigid, no hernia and no ascites Musculoskeletal: no cyanosis or clubbing, extremities motor strength 5/5 Skin: no rashes, warm and dry + wound (small wound, right arm, upper lateral, packing, no cellulitis surrounding) Neurologic: patellar DTR's 2+ bilat, sensation intact and PERRL, EOMI, accommodation nl, no face palsy, no dysarthria Psychiatric: A+Ox3, euthymic affect Lymphatic: no cervical or axillary lymphadenopathy Results & Data Results & Data ([facility]) Vital Signs (Past 12 Hours) Vital Signs Temp Pulse Resp BP Pulse Ox 06/21/20 15:22 36.5 C 69 16 127/88 95 06/21/20 08:00 36.6 C 63 18 143/79 H 94 Laboratory Results Laboratory Results - last 24 hr 06/21/20 05:52 Sodium 135 L Potassium 5.2 H D Chloride 107 Carbon Dioxide 21 Anion Gap 8.0 BUN 9 D Creatinine 0.79 Est Cr Clr Drug Dosing 70.8 Est GFR ( Amer) 96.2 Est GFR (Non-Af Amer) 83.0 BUN/Creatinine Ratio 11.6 Glucose 209 H Calcium 8.5 Medications Administered Current Inpatient Medications Acetaminophen (Acetaminophen 500 Mg Tab) 1,000 mg PO Q8H PRN PRN Reason: Pain or Fever Stop: 07/19/20 22:02 Last Admin: 06/20/20 07:50 Dose: 1,000 mg Documented by: Enoxaparin Sodium (Enoxaparin Inj 40 Mg/0.4 Ml Syr) 40 mg SQ QPM YADIRA Stop: 07/19/20 20:59 Last Admin: 06/20/20 20:40 Dose: 40 mg Documented by: Finasteride (Finasteride 5 Mg Tab) 5 mg PO HS YADIRA Stop: 07/19/20 20:59 Last Admin: 06/20/20 20:40 Dose: 5 mg Documented by: Hydromorphone HCl (Hydromorphone Inj 0.5 Mg/0.5 Ml Syr) 0.5 mg IV Q1H PRN PRN Reason: Pain Stop: 07/04/20 13:23 Last Admin: 06/21/20 06:51 Dose: 0.5 mg Documented by: Potassium Chloride 40 meq/ (Dextrose/Sodium Chloride) 1,000 ml in 1,020 mls @ 125 mls/hr IV .Q8H10M YADIRA Stop: 07/19/20 17:59 Last Admin: 06/21/20 19:29 Dose: 125 mls/hr Documented by: Metronidazole (Flagyl) 500 mg in 100 mls @ 100 mls/hr IV Q8H YADIRA Stop: 06/30/20 17:59 Last Infusion: 06/21/20 19:37 Dose: Infused Documented by: Ciprofloxacin (Cipro / D5w) 400 mg in 200 mls @ 100 mls/hr IV Q12H YADIRA Stop: 06/30/20 18:59 Last Infusion: 06/21/20 20:37 Dose: Infused Documented by: Methylprednisolone 20 mg/ (Syringe) 0.32 mls @ 1.5 mls/min IV Q8 YADIRA Stop: 07/20/20 21:59 Last Admin: 06/21/20 13:30 Dose: 1.5 mls/min Documented by: Mesalamine (Mesalamine 400 Mg Capdr) 800 mg PO TID YADIRA Stop: 07/20/20 08:59 Last Admin: 06/21/20 13:30 Dose: 800 mg Documented by: Ondansetron HCl (Ondansetron Inj 2 Mg/Ml 2 Ml Vial) 4 mg IV Q6H PRN PRN Reason: Nausea Stop: 07/19/20 22:05 Last Admin: 06/21/20 05:59 Dose: 4 mg Documented by: Pantoprazole Sodium (Pantoprazole 40 Mg Tab) 40 mg PO DAILY YADIRA Stop: 07/20/20 08:59 Last Admin: 06/21/20 08:08 Dose: 40 mg Documented by: Tamsulosin HCl (Tamsulosin Hcl 0.4 Mg Cap) 0.8 mg PO HS [facility] Stop: 07/19/20 20:59 Last Admin: 06/20/20 20:41 Dose: 0.8 mg Documented by: PG Care Time/CCT Total # of Minutes Spent Total Time Spent with Patient: Total time spent is greater than 50% in coordination of care (as documented) at patient's floor/unit and/or counseling patient: Coding Level of Care Code 82696 Subseq Hosp Care Lvl 2 Diagnoses Colitis K52.9 Ulcerative colitis K51.90 Digestive disease complication type: without complication Ulcerative colitis location: unspecified ulcerative colitis location BPH (benign prostatic hyperplasia) N40.0 Lower urinary tract symptom presence: symptoms absent Abscess of right arm L02.413 DVT prophylaxis Z29.9 (1) BPH (benign prostatic hyperplasia) Lower urinary tract symptom presence: symptoms absent Qualified Code(s): N40.0 - Benign prostatic hyperplasia without lower urinary tract symptoms (2) Ulcerative colitis Digestive disease complication type: without complication Ulcerative colitis location: unspecified ulcerative colitis location Qualified Code(s): K51.90 - Ulcerative colitis, unspecified, without complications
[2020-06-21] MEDS: FINASTERIDE 5 MG TAB PO SCH (21:04)
[2020-06-21] MEDS: TAMSULOSIN HCL 0.4 MG CAP PO SCH (21:04)
[2020-06-22] MEDS: HYDROmorphone INJ 0.5 MG/0.5 ML SYR IV PRN (01:43)
[2020-06-22] MEDS: PANTOprazole 40 MG in SYRINGE 0 ML IV SCH ×3 (02:54→20:28)
[2020-06-22] MEDS: metroNIDAZOLE 500 MG/100 ML BAG IV SCH ×3 (02:54→18:54)
[2020-06-22] MEDS: methylPREDNISolone 20 MG in SYRINGE 0 ML IV SCH ×3 (05:56→21:13)
[2020-06-22] MEDS: CIPROFLOXACIN / D5W 400 MG/200 ML BAG IV SCH ×2 (05:56→18:54)
[2020-06-22] MEDS: MESALAMINE 400 MG CAPDR PO SCH ×3 (07:28→20:27)
[2020-06-22 07:47] LABS: Creatinine Clr Calc Pharmacy 68.3 ml/min; Est GFR (African American) 94.8; Est GFR (Non-African American) 81.8
--- NOTE | 2020-06-22 08:01 | Anesthesiology Consultation ---
Date of Service June 22, 2020 Assessment & Plan (1) Encounter for pre-operative examination: Chart Review Chart Review: Acceptable Risk for Surgery and Patient NOT seen in Pre Admission Testing Consults Requested none History Surgery Operation Date: 06/22/20 18:30 Proposed Procedures p Colonoscopy Dr Shanta Womack Height/Weight Height: 5 ft 9 in Weight: 75.8 kg Allergies Allergy/AdvReac Type Severity Reaction Status Date / Time No Known Allergies Allergy Unverified 06/19/20 09:43 Medications Home Medications Medication Instructions Recorded Confirmed Last Taken finasteride [Proscar] 5 mg PO HS 10/11/18 06/19/20 02/16/19 tamsulosin 0.8 mg PO HS 11/01/18 06/19/20 02/16/19 mesalamine 2.4 g PO BID 01/27/19 06/19/20 02/17/19 hydroxyzine pamoate 50 mg PO BID PRN 06/19/20 06/19/20 Unknown loperamide [Anti-Diarrhea] 2 mg PO BID 06/19/20 06/19/20 Unknown pantoprazole 40 mg PO DAILY 06/19/20 06/19/20 Unknown prednisolone [Millipred] 5 mg PO DAILY 06/19/20 06/19/20 Unknown sulfamethoxazole-trimethoprim 1 tab PO BID 06/19/20 06/19/20 Unknown [Bactrim DS] Active Medications Generic Name Dose Route Start Last Admin Trade Name Freq PRN Reason Stop Dose Admin Acetaminophen 1,000 mg 06/19/20 22:03 06/20/20 07:50 Acetaminophen 500 Mg Tab PO 07/19/20 22:02 1,000 mg Q8H PRN Administration Pain or Fever Finasteride 5 mg 06/19/20 21:00 06/21/20 21:04 Finasteride 5 Mg Tab PO 07/19/20 20:59 5 mg HS YADIRA Administration Hydromorphone HCl 0.5 mg 06/20/20 13:24 06/22/20 01:43 Hydromorphone Inj 0.5 Mg/0.5 Ml Syr IV 07/04/20 13:23 0.5 mg Q1H PRN Administration Pain Metronidazole 500 mg in 100 mls @ 100 mls/hr 06/20/20 19:00 06/22/20 03:54 Flagyl IV 06/30/20 17:59 Infused Q8H YADIRA Infusion Ciprofloxacin 400 mg in 200 mls @ 100 mls/hr 06/20/20 19:00 06/22/20 05:56 Cipro / D5w IV 06/30/20 18:59 100 mls/hr Q12H YADIRA Administration Methylprednisolone 20 mg/ 0.32 mls @ 1.5 mls/min 06/20/20 22:00 06/22/20 05:56 Syringe IV 07/20/20 21:59 1.5 mls/min Q8 YADIRA Administration Pantoprazole Sodium 40 mg/ 10 mls @ 5 mls/min 06/22/20 02:10 06/22/20 07:45 Syringe IV 07/22/20 02:09 5 mls/min BID YADIRA Administration Mesalamine 800 mg 06/20/20 09:00 06/22/20 07:28 Mesalamine 400 Mg Capdr PO 07/20/20 08:59 800 mg TID YADIRA Administration Ondansetron HCl 4 mg 06/19/20 22:06 06/21/20 05:59 Ondansetron Inj 2 Mg/Ml 2 Ml Vial IV 07/19/20 22:05 4 mg Q6H PRN Administration Nausea Tamsulosin HCl 0.8 mg 06/19/20 21:00 06/21/20 21:04 Tamsulosin Hcl 0.4 Mg Cap PO 07/19/20 20:59 0.8 mg HS YADIRA Administration Past Medical History Medical History (Updated 06/22/20 @ 08:03 by Sukhdev Eubanks MD) BPH (benign prostatic hyperplasia) Carcinoma of parotid gland H/O flexible sigmoidoscopy Ulcerative colitis Past Family History Family History Other Family history non-contributory Social History Smoking Status: Never smoker tobacco type: smokeless tobacco Do You Dip or Chew Tobacco: Yes (1 can every other day) Hx Alcohol Use: No Hx Substance Use: No substance use type: does not use Physical Exam Vital Signs Last Vital Signs Temp 36.4 C L 06/22/20 07:51 Pulse 90 06/22/20 07:51 Resp 20 06/22/20 07:51 BP 107/73 06/22/20 07:51 Pulse Ox 91 06/22/20 07:51 Testing Laboratory Results 06/20/20 02:24 06/22/20 06:50 Urine Color Dark Yellow 06/19/20 12:15 Urine Appearance Clear (Clear) 06/19/20 12:15 Urine pH 5.5 (4.5-7.5) 06/19/20 12:15 Ur Specific Orient 1.026 (1.000-1.030) 06/19/20 12:15 Urine Protein Trace (Negative) H 06/19/20 12:15 Urine Glucose (UA) Negative (Negative) 06/19/20 12:15 Urine Ketones 3+ (Negative) H 06/19/20 12:15 Urine Nitrite Negative (Negative) 06/19/20 12:15 Ur Leukocyte Esterase Trace (Negative) H 06/19/20 12:15 Urine WBC (Auto) 1-5 /hpf (0-5) 06/19/20 12:15 Urine RBC (Auto) 0-4 /hpf (0-4) 06/19/20 12:15 U Hyaline Cast (Auto) 10-30 /lpf (0-5) H 06/19/20 12:15 U Epithel Cells (Auto) 10-20 /lpf (0-5) H 06/19/20 12:15 Urine Bacteria (Auto) Negative (Negative) 06/19/20 12:15 06/20/20 12:20 Escherichia coli Shiga Toxins Test - Preliminary Stool Stool Culture - Preliminary No Salmonella isolated to date, No Shigella isolated to date, No Campylobacter jejuni isolated to date. Electrocardiogram Date: 06/19/20 Findings: + NSR @ (78) Poor data quality, interpretation may be adversely affected Sinus rhythm with 1st degree A-V block Low voltage QRS Borderline ECG When compared with ECG of 19-NOV-2019 10:18, Premature ventricular complexes are no longer Present
--- NOTE | 2020-06-22 09:10 | History & Physical Bridge Note ---
Date of Service June 22, 2020 History & Physical Bridge Note I have examined the patient, reviewed the History & Physical and in the interval since the performance of the History & Physical I have noted the following changes of clinical significance: no changes noted
--- NOTE | 2020-06-22 11:47 | Medical Student Progress Note ---
Date of Service June 22, 2020 Assessment & Plan (1) Ulcerative colitis: Digestive disease complication type: without complication Ulcerative colitis location: unspecified ulcerative colitis location Qualified Code(s): K51.90 - Ulcerative colitis, unspecified, without complications Present on Admission?: Yes (2) Abdominal pain, LLQ (left lower quadrant): Present on Admission?: Yes (3) Dyspnea on exertion: Present on Admission?: Yes (4) Chest tightness: Present on Admission?: Yes (5) Abscess of right arm: Present on Admission?: Yes (6) Hypoalbuminemia: (7) Protein calorie malnutrition: Protein-calorie malnutrition severity: moderate Qualified Code(s): E44.0 - Moderate protein-calorie malnutrition (8) DVT prophylaxis: Admission and Anticipated Discharge Date Admission Date: June 19, 2020 Riley Alonso is an 85 y/o male with a history of ulcerative colitis, atrial fibrillation, HLD, BPH, cancer of the parotid gland, and vascular disease who presented to the ED on 06/20 with severe LLQ pain. There are no relieving factors to his pain, but pain increases after PO intake. He has not had much to eat or drink in the last week. He has been having increased diarrhea over the past 3 days. States that he has been having moderate to severe pain for about 2 weeks. It has been worsening over past two days and he rates it 8/10. He doesn't feel nauseated and has not vomited. He describes the pain as a generalized soreness. He also mentions that he is having dyspnea when walking and working at his job in [place]. He says there is increased chest tightness with this too. Some times, he has to use a wheelchair due to his dyspnea. He has concerns about the healing of the abcess on his right arm. It is currently being packed with iodine packing strips once a day. Physical Exam Constitutional: + thin, + frail appearing and + malnourished (Has not been eating well due to the pain from his UC. ) Neck: normal visual inspection and trachea midline Respiratory: normal respiratory effort, lungs clear to auscultation no respiratory distress, no cough and not tachypneic Auscultation: lungs clear to auscultation bilaterally; no crackles and no wheezes Cardiovascular: RRR, no murmur, no edema Heart Sounds: normal S1 and normal S2 Gastrointestinal (Abdomen): Inspection/Auscultation: normal bowel sounds Percussion/Palpation: + abdomen tender and abdomen soft; no hepatosplenomegaly Skin: + wound (Abcess noted on the RUE. Approx 1cm in diameter.) Neurologic: moves all extremities and awake Speech / Cognition: normal cognition Psychiatric: Orientation: alert, oriented x 3 and cooperative Eye Contact: + fair eye contact Results & Data ([facility]) Vital Signs (Past 12 Hours) Vital Signs Temp Pulse Resp BP BP Pulse Ox 06/22/20 11:01 58 L 17 125/72 99 06/22/20 10:47 58 L 17 118/69 98 06/22/20 10:32 67 17 118/74 97 06/22/20 09:30 36.1 C L 61 16 122/71 98 06/22/20 07:51 36.4 C L 90 20 107/73 91 States he is cold even with 5 blankets covering him.
--- NOTE | 2020-06-22 12:02 | GI REPORT ---
Patient Name: Gavin Sotelo Procedure Date: 06/22/2020 9:15 AM Date of : 1935 Admit Type: Inpatient Age: 85 Gender: Male Attending MD: Chaz Womack MD Procedure: Colonoscopy Providers: Chaz Womack MD Referring MD: Galo Saxena Indications: Follow-up of ulcerative colitis Medicines: See the Anesthesia note for documentation of the administered medications Complications: No immediate complications. Estimated Blood Loss: Estimated blood loss: none. Procedure: Pre-Anesthesia Assessment: - ASA Grade Assessment: III - A patient with severe systemic disease. After I obtained informed consent, the scope was passed under direct vision. Throughout the procedure, the patient's blood pressure, pulse, and oxygen saturations were monitored continuously. The Endoscope was introduced through the anus and advanced to the ileocecal valve. After I obtained informed consent, the scope was passed under direct vision. Throughout the procedure, the patient's blood pressure, pulse, and oxygen saturations were monitored continuously.The colonoscopy was performed without difficulty. The patient tolerated the procedure well. The quality of the bowel preparation was poor to fair. The upper endoscope was used to intubate the colon due to severe luminal narrowing. Findings: Hemorrhoids and skin tags were found on perianal exam. There was relative sparing of the rectum. Random biopsies of the rectum were done. There was circumferential severe ulceration and edema, as well as pseudopolyposis and nodularity beginning at 25 cm and extending throughout the sigmoid colon. There was moderate luminal narrowing and marked denudation of exudate. Biopsies from sigmoid colon. There was some mass effect from edema and pseudpolyposis at 30 cm. This tissue was very soft and friable. Extensive biopsies done at 30 to rule out neoplasia. There were punched out ulcers and pseudopolyps in the descending colon. This was biopsied. There were patchy areas of normal colon in the transverse colon. There were also areas of severe colitis in the proximal and distal transverse colon, characterized by ulceration, edema, and pseudopolypoosis. Random biopsies were done. There was severe colitis in the entire ascending colon, characterized by ulceration, edema, pseudopolyposis. Random biopsies done. Impression: Severe sanchez colitis with rectal sparing and skip areas in transverse colon. Luminal narrowing and edema, with some mass effect from colitis at 25 cm. Biopsies done throughout. Recommendation: - Discharge patient to floor. - Await biopsy results to rule out infectious etiology of colitis, also to rule out neoplasia. - Vascular imaging. - Clears only today. - Continue steroids and abx. Follow up pathology results. Chaz Womack M.D. Chaz Womack MD 06/22/2020 12:02:03 PM This report has been signed electronically. Note Initiated On: 06/22/2020 9:15 AM Number of Addenda: 0 I attest to the content of the Intraoperative Record and orders documented therein, exceptions below {[id number]}
[2020-06-22] MEDS ORDERED: LIDOCAINE HCL 2% 2 ML VIAL/AMP(20MG/ML) INFIL ONE (12:05)
[2020-06-22] MEDS ORDERED: PROPOFOL IV EMULSION 10 MG/ML 20 ML VIAL IV ONE (12:05)
--- NOTE | 2020-06-22 13:44 | Anesthesiology Progress Note ---
Date of Service June 22, 2020 Anesthesia Post Procedure Vital Signs Vital Signs: Temp Pulse Resp BP BP Pulse Ox 06/22/20 11:01 58 L 17 125/72 99 06/22/20 10:47 58 L 17 118/69 98 06/22/20 10:32 67 17 118/74 97 06/22/20 09:30 36.1 C L 61 16 122/71 98 06/22/20 07:51 36.4 C L 90 20 107/73 91 06/21/20 22:23 36.5 C 67 18 117/76 95 06/21/20 15:22 36.5 C 69 16 127/88 95 Pain Intensity Left Abdomen: Pain Intensity: 5 Transfer of Care Handoff Completed per policy Notes Mental Status: alert / awake / arousable and participated in evaluation Patient Amnestic to Procedure: Yes Nausea / Vomiting: adequately controlled Pain: adequately controlled Airway Patency, RR, SpO2: stable & adequate BP & HR: stable & adequate Hydration State: stable & adequate Anesthetic Complications: no major complications apparent and Pt Satisfied with anesthetic care
[2020-06-22] MEDS ORDERED: OPTIRAY 320 125ml IV ONE (15:25)
--- NOTE | 2020-06-22 15:45 | CT Scan Report ---
CT ANGIOGRAM OF THE ABDOMEN AND PELVIS CLINICAL HISTORY: Left lower quadrant abdominal pain. COMPARISON STUDY: Abdominal CT dated 06/19/2020. TECHNIQUE: Following the IV administration of 119 cc of Optiray 320, CT angiogram of the abdomen and pelvis was performed from the lung bases the proximal femora. Images are reviewed in the axial, sagit jean, and coronal planes. 3-D MIPS images are created and assessed. IV contrast was administered witho ut complication. A dose lowering technique was utilized adhering to the principles of ALARA. The exa mination is degraded by motion artifact. CT DOSE: 472.30 mGy.cm FINDINGS: Lower chest: The heart is normal in size and without pericardial effusion. The coronary arteries are densely calcified. There is chronic elevation of the left hemidiaphragm with bibasilar scarring/atele ctasis. No airspace consolidation or pleural effusion is identified. Liver: The contrast-enhanced liver is normal in size, contour, and attenuation. There is no intrahepa tic or ductal dilatation. A subcentimeter hypodensity in the right lobe on image #142 is unchanged. Gallbladder: There are numerous calcified gallstones without CT evidence of acute cholecystitis. Spleen: Normal in size and attenuation noting heterogeneous arterial phase enhancement. Pancreas: Moderately atrophic and grossly unremarkable. Adrenal glands: Unremarkable. Kidneys: The contrast enhanced kidneys are atrophic and without hydronephrosis. The kidneys enhance s ymmetrically. Abdominal aorta and iliac arteries: The abdominal aorta is normal in caliber noting mild to moderate atherosclerotic calcification. No dissection is seen. The abdominal aorta is widely patent. The iliac arteries are patent bilaterally noting mild atherosclerotic calcification. Major branches of the abdominal aorta: The celiac trunk, superior mesenteric, and inferior mesenteric arteries are widely patent. Hepatic arterial anatomy is conventional. The splenic artery is patent. There are 2 right renal arteries and a single left renal artery. The renal arteries are widely patent bilaterally. Bowel: There is a long segment of wall thickening with pericolonic inflammation and trace fluid invol ving the descending colon and proximal sigmoid. The appearance remains consistent with a nonspecific colitis. There are scattered colonic diverticula without clear CT evidence of acute diverticulitis. N o bowel obstruction is seen. The appendix is not visualized. Peritoneum: There is no intraperitoneal free air or abdominal ascites. There is a small fat-containin g umbilical hernia. A linear metallic foreign body is again seen in the upper abdomen below the diaph ragmatic hiatus. Lymphadenopathy: None. Pelvic viscera: The prostate gland is diminutive and heterogeneous noting median lobe hypertrophy. Th e bladder is normal as visualized. There is a fat-containing right inguinal hernia. Skeletal structures: The skeletal structures are osteopenic. There is advanced lumbosacral spondylosi s. A chronic compression deformity of T12 is unchanged. No destructive bony lesions are seen. IMPRESSION: 1. A nonspecific colitis of the left colon is unchanged from previous. This could be on an infectious , inflammatory, or ischemic basis and clinical correlation will be essential. 2. Unremarkable CT angiogram of the abdominal aorta and its major branches. 3. Cholelithiasis. 4. Additional findings as above. ACT 112: Negative or not required by law. Electronically signed by: Unruly Britton M.D. 06/22/2020 3:44 PM
[2020-06-22] MEDS: SODIUM CHLORIDE 0.9% 1000ML 1,000 ML IV SCH (16:56)
--- NOTE | 2020-06-22 18:30 | Hospitalist Progress Note ---
Date of Service June 22, 2020 Assessment & Plan (1) Colitis: s/p colonoscopy today. severe colitis seen especially the ascending and descending colon. likely that findings are due to severe, uncontrolled UC. biopsies taken to r/o CMV and neoplastic process but less likely. continue Cipro/Flagyl. continue Solu Medrol 20mg q8. clear liquids. resume IV fluids. appreciate GI support from [facility]. (2) Ulcerative colitis: see above in "colitis" cont steroids, abx, and mesalamine check iron studies, b12, folate in am (3) BPH (benign prostatic hyperplasia): Continue finasteride and tamsulosin (4) Abscess of right arm: s/p I/D several weeks ago followed by course of bactrim cont daily packing and local wound care (5) Chest tightness: IBARRA and chest symptoms could be 2nd to angina. start with 2D echo and go from there. recent EKG w/o ischemic changes. (6) Hypoalbuminemia: (7) DVT prophylaxis: resume lovenox Admission and Anticipated Discharge Date Admission Date: June 19, 2020 Subjective saw patient post-colonoscopy. c/o lack of appetite, ongoing abd pain, and just feeling poorly. he is hopeful that his abdomen starts to feel better soon. during our conversation he mentions that over the last 1-2 weeks he had been having episodes of dyspnea with exertion. he would have associated chest tightness over the mid-sternal region. he would stop and rest and symptoms would resolve. he thinks his father had heart disease but isn't certain. Review of Systems Constitutional: no fever Respiratory: no cough Cardiovascular: as per Subjective / HPI; no dyspnea at rest Gastrointestinal: + diarrhea/loose stools; no nausea and no vomiting Physical Exam Constitutional: no acute distress and no altered mental status ENMT: external ear and nose normal, oropharynx normal Respiratory: normal respiratory effort, lungs clear to auscultation Cardiovascular: Rate/Rhythm: regular rate and regular rhythm Heart Sounds: normal S1 and normal S2; no murmur Vessels: posterior tibial pulses present and dorsalis pedis pulses present; no JVD Extremities: no edema Gastrointestinal (Abdomen): normal bowel sounds, soft, nontender, no hepatosplenomegaly (Minimal discomfort LLQ) Neurologic: right proximal arm with prior abscess site with packing material in place; tiny area, about 1cm, with subcu induration but otherwise no signs of ongoing infection or cellulitis Psychiatric: A+Ox3, euthymic affect Results & Data Results & Data ([facility]) Vital Signs (Past 12 Hours) Vital Signs Temp Pulse Resp BP BP Pulse Ox 06/22/20 15:02 36.4 C L 68 20 122/71 95 06/22/20 11:01 58 L 17 125/72 99 06/22/20 10:47 58 L 17 118/69 98 06/22/20 10:32 67 17 118/74 97 06/22/20 09:30 36.1 C L 61 16 122/71 98 06/22/20 07:51 36.4 C L 90 20 107/73 91 Laboratory Results Laboratory Results - last 24 hr 06/22/20 06/22/20 06/22/20 06:50 08:28 08:28 Creatinine 0.82 Est Cr Clr Drug Dosing 68.3 Est GFR ( Amer) 94.8 Est GFR (Non-Af Amer) 81.8 COVID-19 Eval Order Covid19 [facility] SARS-CoV-2, RNA, NAAT NEGATIVE PG Care Time/CCT Total # of Minutes Spent Total Time Spent with Patient: Total time spent is greater than 50% in coordination of care (as documented) at patient's floor/unit and/or counseling patient: Coding Level of Care Code 35256 Subseq Hosp Care Lvl 2 Diagnoses Colitis K52.9 Ulcerative colitis K51.90 Digestive disease complication type: without complication Ulcerative colitis location: unspecified ulcerative colitis location BPH (benign prostatic hyperplasia) N40.0 Lower urinary tract symptom presence: symptoms absent Abscess of right arm L02.413 Chest tightness R07.89 Hypoalbuminemia E88.09 DVT prophylaxis Z29.9 (1) BPH (benign prostatic hyperplasia) Lower urinary tract symptom presence: symptoms absent Qualified Code(s): N40.0 - Benign prostatic hyperplasia without lower urinary tract symptoms (2) Ulcerative colitis Digestive disease complication type: without complication Ulcerative colitis location: unspecified ulcerative colitis location Qualified Code(s): K51.90 - Ulcerative colitis, unspecified, without complications
[2020-06-22] MEDS: FINASTERIDE 5 MG TAB PO SCH (20:27)
[2020-06-22] MEDS: TAMSULOSIN HCL 0.4 MG CAP PO SCH (20:27)
[2020-06-23] MEDS: metroNIDAZOLE 500 MG/100 ML BAG IV SCH ×3 (03:02→18:29)
[2020-06-23] MEDS: CIPROFLOXACIN / D5W 400 MG/200 ML BAG IV SCH ×2 (05:32→18:29)
[2020-06-23] MEDS: methylPREDNISolone 20 MG in SYRINGE 0 ML IV SCH ×3 (05:32→21:14)
[2020-06-23] MEDS: SODIUM CHLORIDE 0.9% 1000ML 1,000 ML IV SCH ×2 (05:35→18:23)
[2020-06-23 05:56] LABS: Hematocrit (blood only) 33.6 % (42-52); Hemoglobin 11.2 g/dL (14.0-18.0); Mean Corpuscular Hemoglobin 28.6 pg (25-34); Mean Corpuscular Hgb Conc 33.3 g/dL (32-36); Mean Corpuscular Volume 85.9 fL (80-100); Mean Platelet Volume 9.3 fL (7.4-10.4); Nucleated RBC # (auto) 0.02 K/uL (0-0); Nucleated RBC % (auto) 0.2 %; Platelet Count 198 K/uL (130-400); RDW Coefficient of Variation 13.9 % (11.5-14.5); RDW Standard Deviation 43.4 fL (36.4-46.3); Red Blood Count 3.91 M/uL (4.7-6.1); White Blood Count 10.06 K/uL (4.8-10.8)
[2020-06-23 06:19] LABS: BUN Creatinine Ratio 8.3 (10-20); Calcium 8.3 mg/dl (8.5-10.1); Creatinine Clr Calc Pharmacy 67.4 ml/min; Est GFR (African American) 94.3; Est GFR (Non-African American) 81.4; Potassium 5.1 mmol/L (3.5-5.1)
[2020-06-23 06:30] LABS: Ferritin 904.7 ng/ml (8-388); Thyroid Stimulating Hormone 0.366 uIu/ml (0.300-4.500)
[2020-06-23] MEDS: PANTOprazole 40 MG in SYRINGE 0 ML IV SCH ×2 (08:43→21:14)
[2020-06-23] MEDS: MESALAMINE 400 MG CAPDR PO SCH ×3 (08:43→21:14)
--- NOTE | 2020-06-23 09:41 | Medical Student Progress Note ---
Date of Service June 23, 2020 Assessment & Plan (1) Ulcerative colitis: Digestive disease complication type: without complication Ulcerative colitis location: unspecified ulcerative colitis location Qualified Code(s): K51.90 - Ulcerative colitis, unspecified, without complications (2) Anemia of chronic disease: (3) Chest tightness: (4) Protein calorie malnutrition: Protein-calorie malnutrition severity: moderate Qualified Code(s): E44.0 - Moderate protein-calorie malnutrition (5) Abscess of right arm: (6) DVT prophylaxis: (7) Dyspnea on exertion: (8) Folate deficiency: (9) Abnormal echocardiogram: Admission and Anticipated Discharge Date Admission Date: June 19, 2020 Riley Alonso is an 85 y/o male who is s/p colonoscopy for a flare up of his ulcerative colitis. This morning, he said that he is doing better today compared to yesterday. He is still having moderate soreness in the abdomen, but thinks it is improving from yesterday. He still does not have an appetite, and did not eat last night or this morning. He did have a bowel movement this morning, which he said was watery with some blood in it. He does not think his stool is forming yet. No changes to the abscess on his right arm since yesterday. He has no dyspnea or chest pain. He says this only happens when walking around. No tenderness in the lower extremities. Review of Systems Constitutional: no fever and no chills Complains of being cold despite having several blankets. Respiratory: + dyspnea on exertion; no cough and no chest congestion Cardiovascular: no chest pain, no dyspnea at rest, no edema and no calf pain Gastrointestinal: + abdominal pain, + diarrhea/loose stools and + blood in stools; no nausea and no vomiting Integumentary: Abcess on right upper extremity. No changes. Physical Exam Constitutional: + thin and + frail appearing Does not appear to be in as much discomfort as yesterday. Respiratory: normal respiratory effort, lungs clear to auscultation Cardiovascular: RRR, no murmur, no edema Extremities: no calf tenderness and no pedal edema Gastrointestinal (Abdomen): Inspection/Auscultation: abdomen normal to inspection and normal bowel sounds Percussion/Palpation: + abdomen tender and abdomen soft; no guarding and no hepatosplenomegaly Skin: no rashes, warm and dry Neurologic: awake Psychiatric: Orientation: alert and oriented x 3 Results & Data ([facility]) Vital Signs (Past 12 Hours) Vital Signs Temp Pulse Resp BP BP Pulse Ox 06/23/20 07:53 36.5 C 64 16 110/69 96 06/22/20 23:11 36.4 C L 64 18 133/80 95
--- NOTE | 2020-06-23 09:52 | Gastroenterology Progress Note ---
Date of Service June 23, 2020 Assessment & Plan (1) Ulcerative colitis: Pt is a 85 y/o male inmate w hx of Ulcerative colitis, admitted w bloody diarrhea, colitis on imaging studies. Colonoscopy 06/22 showed severe sanchez colitis with rectal sparing and skip areas in transverse colon. Luminal narrowing and edema, with some mass effect from colitis at 25 cm. Biopsies done, results pending. CTA abd/pelvis unremarkable for vascular issues. - Continue Cipro/Flagyl - Continue IV steroids - Adv to low residue diet as alisha - F/U bx report to r/o infectious etiology, neoplasia - Depending on bx if uncontrolled UC may need to escalate med therapy - GI will continue to follow Attg add: I interviewed and examined pt, reviewed chart and labs. Pt on abx, steroids (d #3) without improvement. Will check CRP, f/u path, also CXR/TB/Hep B serologies in anticipation of [facility] Admission and Anticipated Discharge Date Admission Date: June 19, 2020 Subjective Pt didn't eat breakfast this AM, said not hungry. Denies n/v. Stools still loose, blood tinged Review of Systems Review of Systems: All systems reviewed & are unremarkable except as noted in HPI & below Physical Exam Constitutional: WD/WN, vitals as above well groomed, cooperative and comfortable Eyes: PERRL, conjunctivae normal, anicteric sclerae ENMT: external ear and nose normal, oropharynx normal Respiratory: normal respiratory effort, lungs clear to auscultation Cardiovascular: RRR, no murmur, no edema Gastrointestinal (Abdomen): Inspection/Auscultation: normal bowel sounds Percussion/Palpation: abdomen soft Skin: no rashes, warm and dry no jaundice Psychiatric: A+Ox3, euthymic affect Lymphatic: no lymphedema Results & Data ([facility]) Vital Signs (Past 12 Hours) Vital Signs Temp Pulse Resp BP BP Pulse Ox 06/23/20 07:53 36.5 C 64 16 110/69 96 06/22/20 23:11 36.4 C L 64 18 133/80 95 (1) Ulcerative colitis Digestive disease complication type: without complication Ulcerative colitis location: unspecified ulcerative colitis location Qualified Code(s): K51.90 - Ulcerative colitis, unspecified, without complications
[2020-06-23 09:54] LABS: Folate (Folic Acid) 4.62 ng/ml (>5.38)
--- NOTE | 2020-06-23 11:19 | XCELERA ---
[id number]
[2020-06-23 11:59] LABS: Hepatitis B Surface Ab Quant < 3.10 mIU/mL (>or=10mIU/mL Immune); Hepatitis B Surface Antibody Non-Immune
[2020-06-23 12:10] LABS: Hepatitis B Surface Antigen Neg (Neg)
[2020-06-23] MEDS ORDERED: ENOXAPARIN INJ 40 MG/0.4 ML SYR SQ ONE (12:30)
--- NOTE | 2020-06-23 12:31 | Hospitalist Progress Note ---
Date of Service June 23, 2020 Assessment & Plan (1) Colitis: POD #1 s/p colonoscopy by Dr Womack with severe colitis seen especially the ascending and descending colon. likely that findings are due to severe, uncontrolled UC. biopsies taken to r/o CMV and neoplastic process but less likely. biopsies pending. continue Cipro/Flagyl. continue Solu Medrol 20mg q8. clear liquids as desired/tolerated. cont IV fluids. he overall is not much better today. appreciate GI support from [facility]. (2) Ulcerative colitis: see above in "colitis" cont steroids, abx, and mesalamine (3) Encephalopathy acute: metabolic from colitis. toxic from steroids, cipro, etc. haldol 1mg HS prn for severe agitation. fortunately he was directable during my visit today. cont supportive care. reinforce sleep-wake cycles. avoid benzos. (4) BPH (benign prostatic hyperplasia): Continue finasteride and tamsulosin (5) Abscess of right arm: s/p I/D several weeks ago followed by course of bactrim cont daily packing and local wound care (6) Chest tightness: IBARRA and chest symptoms - in the weeks leading up to admission. recent EKG w/o ischemic changes. however, echo with mildly depressed EF and ?inferior basal hypokinesis? poor candidate for stress test or other invasive cardiac testing due to colitis. strongly consider medical management only for now. (7) Hypoalbuminemia: (8) Folate deficiency: folic acid 1mg IV daily (9) Abnormal echocardiogram: mildly depressed EF with ? wall motion abnormality. indeed he may have ischemic heart disease as cause of recent cardiopulmonary symptoms back at the [place] [facility]. see above. (10) DVT prophylaxis: cont lovenox Admission and Anticipated Discharge Date Admission Date: June 19, 2020 Subjective patient very confused during the visit. upon my arrival he said "I want you to go away." I explained who I was and that I had met him yesterday but he didn't remember the visit. he told me to go away a 2nd time. he would not answer any questions. the guards report he was alert this am but he has worsened this afternoon. appetite very poor. c/o abdominal pain. Review of Systems Review of Systems: Unobtainable due to cognitive status Physical Exam Constitutional: no acute distress and no altered mental status ENMT: external ear and nose normal, oropharynx normal Respiratory: normal respiratory effort, lungs clear to auscultation Cardiovascular: Rate/Rhythm: regular rate and regular rhythm Heart Sounds: normal S1 and normal S2; no murmur Vessels: posterior tibial pulses present and dorsalis pedis pulses present; no JVD Extremities: no edema Gastrointestinal (Abdomen): normal bowel sounds, soft, nontender, no hepatosplenomegaly Psychiatric: Orientation: alert and oriented to person; + not oriented to place and + not oriented to time Insight: + limited insight Judgement: + limited judgement Results & Data Results & Data ([facility]) Vital Signs (Past 12 Hours) Vital Signs Temp Pulse Resp BP Pulse Ox 06/23/20 07:53 36.5 C 64 16 110/69 96 Laboratory Results Laboratory Results - last 24 hr 06/23/20 06/23/20 06/23/20 05:20 05:20 05:20 WBC 10.06 RBC 3.91 L Hgb 11.2 L Hct 33.6 L MCV 85.9 MCH 28.6 MCHC 33.3 RDW Std Deviation 43.4 RDW Coeff of Torrie 13.9 Plt Count 198 MPV 9.3 Absolute Nucleated RBC 0.02 H Nucleated RBC % (auto) 0.2 Sodium 139 Potassium 5.1 Chloride 108 H Carbon Dioxide 24 Anion Gap 7.0 BUN 7 Creatinine 0.83 Est Cr Clr Drug Dosing 67.4 Est GFR ( Amer) 94.3 Est GFR (Non-Af Amer) 81.4 BUN/Creatinine Ratio 8.3 L Glucose 147 H Calcium 8.3 L Iron 88 Transferrin 86 L Transferrin % Sat 73 H Ferritin 904.7 H C-Reactive Protein Vitamin B12 1621 H Folate 4.62 L TSH 0.366 Hep Bs Antigen Hep Bs Antibody Hep Bs Antibody, Quant 06/23/20 06/23/20 11:00 11:00 WBC RBC Hgb Hct MCV MCH MCHC RDW Std Deviation RDW Coeff of Torrie Plt Count MPV Absolute Nucleated RBC Nucleated RBC % (auto) Sodium Potassium Chloride Carbon Dioxide Anion Gap BUN Creatinine Est Cr Clr Drug Dosing Est GFR ( Amer) Est GFR (Non-Af Amer) BUN/Creatinine Ratio Glucose Calcium Iron Transferrin Transferrin % Sat Ferritin C-Reactive Protein 1.74 H Vitamin B12 Folate TSH Hep Bs Antigen Neg Hep Bs Antibody Non-Immune Hep Bs Antibody, Quant < 3.10 L PG Care Time/CCT Total # of Minutes Spent Total Time Spent with Patient: Total time spent is greater than 50% in coordination of care (as documented) at patient's floor/unit and/or counseling patient: Coding Level of Care Code 18530 Subseq Hosp Care Lvl 3 Diagnoses Colitis K52.9 Ulcerative colitis K51.90 Digestive disease complication type: without complication Ulcerative colitis location: unspecified ulcerative colitis location Encephalopathy acute G93.40 BPH (benign prostatic hyperplasia) N40.0 Lower urinary tract symptom presence: symptoms absent Abscess of right arm L02.413 Chest tightness R07.89 Hypoalbuminemia E88.09 Folate deficiency E53.8 Abnormal echocardiogram R93.1 DVT prophylaxis Z29.9 (1) BPH (benign prostatic hyperplasia) Lower urinary tract symptom presence: symptoms absent Qualified Code(s): N40.0 - Benign prostatic hyperplasia without lower urinary tract symptoms (2) Ulcerative colitis Digestive disease complication type: without complication Ulcerative colitis location: unspecified ulcerative colitis location Qualified Code(s): K51.90 - Ulcerative colitis, unspecified, without complications
[2020-06-23 13:09] LABS: INR 1.2 (0.9-1.1); Prothrombin Time 12.9 Seconds (9.0-12.0)
[2020-06-23] MEDS: FOLIC ACID 1 MG in SYRINGE 9.8 ML IV SCH (13:45)
[2020-06-23] MEDS: TAMSULOSIN HCL 0.4 MG CAP PO SCH (21:14)
[2020-06-23] MEDS: FINASTERIDE 5 MG TAB PO SCH (21:14)
[2020-06-23] MEDS ORDERED: haloperidoL 1 MG TAB PO PRN (21:28)
[2020-06-24] MEDS: metroNIDAZOLE 500 MG/100 ML BAG IV SCH ×3 (03:16→19:35)
[2020-06-24] MEDS: SODIUM CHLORIDE 0.9% 1000ML 1,000 ML IV SCH ×2 (05:53→21:39)
[2020-06-24] MEDS: methylPREDNISolone 20 MG in SYRINGE 0 ML IV SCH ×3 (05:53→21:47)
[2020-06-24] MEDS: CIPROFLOXACIN / D5W 400 MG/200 ML BAG IV SCH ×2 (05:56→19:35)
[2020-06-24 06:06] LABS: Hematocrit (blood only) 33.1 % (42-52); Hemoglobin 10.8 g/dL (14.0-18.0); Mean Corpuscular Hemoglobin 27.9 pg (25-34); Mean Corpuscular Hgb Conc 32.6 g/dL (32-36); Mean Corpuscular Volume 85.5 fL (80-100); Mean Platelet Volume 9.4 fL (7.4-10.4); Nucleated RBC # (auto) 0.02 K/uL (0-0); Nucleated RBC % (auto) 0.1 %; Platelet Count 168 K/uL (130-400); RDW Coefficient of Variation 13.8 % (11.5-14.5); Red Blood Count 3.87 M/uL (4.7-6.1); White Blood Count 13.37 K/uL (4.8-10.8)
[2020-06-24 06:44] LABS: BUN Creatinine Ratio 9.1 (10-20); Calcium 8.1 mg/dl (8.5-10.1); Creatinine Clr Calc Pharmacy 63.6 ml/min; Est GFR (African American) 92.1; Est GFR (Non-African American) 79.4; Magnesium 1.7 mg/dl (1.8-2.4); Phosphorus 2.3 mg/dl (2.5-4.9); Potassium 4.1 mmol/L (3.5-5.1)
[2020-06-24] MEDS: PANTOprazole 40 MG in SYRINGE 0 ML IV SCH ×2 (08:15→21:40)
[2020-06-24] MEDS: FOLIC ACID 1 MG in SYRINGE 9.8 ML IV SCH (08:16)
[2020-06-24] MEDS: ACETAMINOPHEN 500 MG TAB PO PRN (08:23)
[2020-06-24] MEDS: ENOXAPARIN INJ 40 MG/0.4 ML SYR SQ SCH (08:24)
[2020-06-24] MEDS: MESALAMINE 400 MG CAPDR PO SCH ×3 (08:24→21:45)
--- NOTE | 2020-06-24 09:50 | Medical Student Progress Note ---
Date of Service June 24, 2020 Assessment & Plan (1) Ulcerative colitis: Digestive disease complication type: without complication Ulcerative colitis location: unspecified ulcerative colitis location Qualified Code(s): K51.90 - Ulcerative colitis, unspecified, without complications (2) Encephalopathy acute: (3) Anemia of chronic disease: (4) Chest tightness: (5) Protein calorie malnutrition: Protein-calorie malnutrition severity: moderate Qualified Code(s): E44.0 - Moderate protein-calorie malnutrition (6) Abscess of right arm: (7) DVT prophylaxis: (8) Dyspnea on exertion: (9) Folate deficiency: (10) Abnormal echocardiogram: Admission and Anticipated Discharge Date Admission Date: June 19, 2020 Subjective Upon arrival, Gavin was laying in his bed sleeping. He says he is doing okay. He appeared less confused and agitated than yesterday, although his guards said they have had to explain to him several times why he is there. He said he is still having a generalized abdominal pain/soreness over the entire abdomen. He has not had an appetite for five days now and did not eat anything last night or this morning. He says he tried to drink water but vomits and cannot keep it down. He is not having any chest pain, shortness of breath, calf pain at this time. He is still cold despite having many blankets covering him. Encouraged keeping the blinds open to help with confusion and delirium. Review of Systems Constitutional: Complains of being cold despite having several blankets. Respiratory: + dyspnea on exertion; no cough and no chest congestion Gastrointestinal: + abdominal pain, + diarrhea/loose stools and + blood in stools; no nausea and no vomiting Integumentary: Abcess on right upper extremity. No changes. Psychiatric: + irritability and + confusion Physical Exam Constitutional: + thin, + frail appearing and + malnourished (Has not been eating well due to the pain from his UC. ) Neck: normal visual inspection and trachea midline Respiratory: normal respiratory effort, lungs clear to auscultation no respiratory distress, no cough and not tachypneic Auscultation: lungs clear to auscultation bilaterally; no crackles and no wheezes Cardiovascular: RRR, no murmur, no edema Heart Sounds: normal S1 and normal S2 Extremities: no calf tenderness and no pedal edema Gastrointestinal (Abdomen): Inspection/Auscultation: abdomen normal to inspect ion and normal bowel sounds Percussion/Palpation: + abdomen tender and abdomen soft; no guarding and no hepatosplenomegaly Skin: no rashes, warm and dry + wound (Abcess noted on the RUE. Approx 1cm in diameter.) Neurologic: moves all extremities, awake and + confused Speech / Cognition: normal cognition Psychiatric: Orientation: alert and cooperative Eye Contact: + fair eye contact Results & Data ([facility]) Vital Signs (Past 12 Hours) Vital Signs Temp Pulse Resp BP BP Pulse Ox 06/24/20 07:10 37.2 C 75 18 115/70 95 06/23/20 23:19 36.7 C 76 18 128/67 96
[2020-06-24] MEDS: POT PHOSPHATE MONOBASIC W/ SOD TAB PO SCH ×4 (09:59→21:45)
[2020-06-24] MEDS: MAGNESIUM SULFATE / D5W 1 GM/100 ML BAG IV SCH ×2 (09:59→12:06)
--- NOTE | 2020-06-24 10:16 | Gastroenterology Progress Note ---
Date of Service June 24, 2020 Assessment & Plan (1) Ulcerative colitis: Pt is a 85 y/o male inmate w hx of Ulcerative colitis, admitted w bloody diarrhea, colitis on imaging studies. Colonoscopy 06/22 showed severe sanchez colitis with rectal sparing and skip areas in transverse colon. Luminal narrowing and edema, with some mass effect from colitis at 25 cm. Bx showed colitis & ulcerations w/o dysplasia, malignancy or CMV. CTA abd/pelvis unremarkable for vascular issues. Noted CRP significantly decreased and he's having small amt of diarrhea w/o rectal bleeding. - Continue Cipro/Flagyl - Increase Methylprednisone to 20mg q6hrs IV - Adv to low residue diet as alisha - Anticipate possible escalation of therapy to TNF (CXR negative, TB quant gold pending; Hep B negative for active infection. He is not immune to Hep B). - GI will continue to follow Attg add: I interviewed and examined pt, reviewed chart and labs. Pt reports persistent pain but nurse reports improved diarrhea. On exam, pt appears improved, with little abdominal tenderness. Labs show amauri improvement in CRP. Currently on steroids day 4. Cont current rx. Plan IFX if quant gold neg. Admission and Anticipated Discharge Date Admission Date: June 19, 2020 Subjective Pt reports no appetite, feels nauseous, and having mild abd pain still. Stools small in amt, loose, denies any rectal bleeding Review of Systems Review of Systems: All systems reviewed & are unremarkable except as noted in HPI & below Constitutional: as per Subjective / HPI Physical Exam Constitutional: WD/WN, vitals as above well groomed, cooperative and comfortable Eyes: PERRL, conjunctivae normal, anicteric sclerae ENMT: external ear and nose normal, oropharynx normal Respiratory: normal respiratory effort, lungs clear to auscultation Cardiovascular: RRR, no murmur, no edema Gastrointestinal (Abdomen): Inspection/Auscultation: normal bowel sounds Percussion/Palpation: + abdomen tender and abdomen soft Skin: no rashes, warm and dry no jaundice Psychiatric: A+Ox3, euthymic affect Lymphatic: no lymphedema Results & Data ([facility]) Vital Signs (Past 12 Hours) Vital Signs Temp Pulse Resp BP BP Pulse Ox 06/24/20 07:10 37.2 C 75 18 115/70 95 06/23/20 23:19 36.7 C 76 18 128/67 96 (1) Ulcerative colitis Digestive disease complication type: without complication Ulcerative colitis location: unspecified ulcerative colitis location Qualified Code(s): K51.90 - Ulcerative colitis, unspecified, without complications
--- NOTE | 2020-06-24 11:37 | Hospitalist Progress Note ---
Date of Service June 24, 2020 Assessment & Plan (1) Colitis: POD #2 s/p colonoscopy by Dr Womack with severe colitis seen especially the ascending and descending colon. due to severe, uncontrolled UC. biopsies from colonoscopy most c/w UC. CMV negative. Bx's negative for mal ignancy. Ischemia not seen on biopsies. Cont Solu Medrol 20mg QID (dosing increased from TID to QID by GI today). Cont cipro/flagyl. clear liquids as desired/tolerated. cont IV fluids. If appetite does not improve soon consider parenteral nutrition. GI considering biological agent - Remicade? TB screen in progress. appreciate GI support from [facility]. of note -- stool cx negative. c diff gene + but toxin negative - thus, no active c. diff (and biopsies did not show signs of clostridium infection). (2) Ulcerative colitis: see above in "colitis" cont steroids, abx, and mesalamine (3) Encephalopathy acute: metabolic from colitis. toxic from steroids, cipro, etc. haldol 1mg HS prn for severe agitation. cont supportive care. reinforce sleep-wake cycles. avoid benzos. (4) BPH (benign prostatic hyperplasia): Continue finasteride and tamsulosin (5) Abscess of right arm: s/p I/D several weeks ago followed by course of bactrim cont daily packing and local wound care (6) Chest tightness: IBARRA and chest symptoms - in the weeks leading up to admission. recent EKG w/o ischemic changes. echo with mildly depressed EF and ?inferior basal hypokinesis? thus, symptoms may be due to CAD and ischemia would medically treat at this time; poor candidate for other testing in light of UC/GI issues consider asa, BB, statin, etc (7) Hypoalbuminemia: severe protein calorie malnutrition (8) Folate deficiency: folic acid 1mg IV daily (9) Abnormal echocardiogram: mildly depressed EF with ? wall motion abnormality. indeed he may have ischemic heart disease as cause of recent cardiopulmonary symptoms back at the [facility]. medical management for now. (10) Electrolyte abnormality: replace low mag - give IV mag sulfate replace low phos - give K-phos neutral PO repeat levels next 48 hours (11) DVT prophylaxis: cont lovenox Admission and Anticipated Discharge Date Admission Date: June 19, 2020 Subjective patient confused once again today - asking questions about why he is here and where he is. not as agitated as yesterday, however. appetite remains very poor. c/o generalized abd pain. no vomiting per guards. stools continue to be loose and with BRB at times. Review of Systems Constitutional: + fatigue and + anorexia; no fever Respiratory: no cough and no dyspnea Cardiovascular: no chest pain Gastrointestinal: + abdominal pain, + nausea, + diarrhea/loose stools and + blood in stools; no vomiting Physical Exam Constitutional: + altered mental status; no acute distress ENMT: external ear and nose normal, oropharynx normal Respiratory: normal respiratory effort, lungs clear to auscultation Cardiovascular: Rate/Rhythm: regular rate and regular rhythm Heart Sounds: normal S1 and normal S2; no murmur Vessels: posterior tibial pulses present and dorsalis pedis pulses present; no JVD Extremities: no edema Gastrointestinal (Abdomen): Inspection/Auscultation: normal bowel sounds; abdomen not distended Percussion/Palpation: + abdomen tender (Mild, left side of abdomen ); no guarding and no hepatosplenomegaly Psychiatric: Orientation: alert and oriented to person; + not oriented to place and + not oriented to time Speech: normal rate/rhythm/volume of speech Insight: + limited insight Results & Data Results & Data ([facility]) Vital Signs (Past 12 Hours) Vital Signs Temp Pulse Resp BP Pulse Ox 06/24/20 07:10 37.2 C 75 18 115/70 95 Laboratory Results Laboratory Results - last 24 hr 06/23/20 06/23/20 06/23/20 11:00 11:00 11:00 WBC RBC Hgb Hct MCV MCH MCHC RDW Std Deviation RDW Coeff of Torrie Plt Count MPV Absolute Nucleated RBC Nucleated RBC % (auto) PT INR Sodium Potassium Chloride Carbon Dioxide Anion Gap BUN Creatinine Est Cr Clr Drug Dosing Est GFR ( Amer) Est GFR (Non-Af Amer) BUN/Creatinine Ratio Glucose Calcium Phosphorus Magnesium C-Reactive Protein 1.74 H Hep Bs Antigen Neg Hep Bs Antibody Non-Immune Hep Bs Antibody, Quant < 3.10 L TB Test (QFT) Gold Plus Pending TB Test (QFT) Nil Pending TB Test Mitogen - Nil Pending TB Test Ag - Nil 1 Pending TB Test Ag - Nil 2 Pending 09/22/20 09/23/20 09/23/20 12:46 04:56 04:56 WBC 13.37 H RBC 3.87 L Hgb 10.8 L Hct 33.1 L MCV 85.5 MCH 27.9 MCHC 32.6 RDW Std Deviation 43.0 RDW Coeff of Torrie 13.8 Plt Count 168 MPV 9.4 Absolute Nucleated RBC 0.02 H Nucleated RBC % (auto) 0.1 PT 12.9 H INR 1.2 H Sodium 139 Potassium 4.1 D Chloride 108 H Carbon Dioxide 23 Anion Gap 8.0 BUN 8 Creatinine 0.88 Est Cr Clr Drug Dosing 63.6 Est GFR ( Amer) 92.1 Est GFR (Non-Af Amer) 79.4 BUN/Creatinine Ratio 9.1 L Glucose 158 H Calcium 8.1 L Phosphorus 2.3 L Magnesium 1.7 L C-Reactive Protein Hep Bs Antigen Hep Bs Antibody Hep Bs Antibody, Quant TB Test (QFT) Gold Plus TB Test (QFT) Nil TB Test Mitogen - Nil TB Test Ag - Nil 1 TB Test Ag - Nil 2 PG Care Time/CCT Total # of Minutes Spent Total Time Spent with Patient: Total time spent is greater than 50% in coordination of care (as documented) at patient's floor/unit and/or counseling patient: Coding Level of Care Code 18518 Subseq Hosp Care Lvl 2 Diagnoses Colitis K52.9 Ulcerative colitis K51.90 Digestive disease complication type: without complication Ulcerative colitis location: unspecified ulcerative colitis location Encephalopathy acute G93.40 BPH (benign prostatic hyperplasia) N40.0 Lower urinary tract symptom presence: symptoms absent Abscess of right arm L02.413 Chest tightness R07.89 Hypoalbuminemia E88.09 Folate deficiency E53.8 Abnormal echocardiogram R93.1 Electrolyte abnormality E87.8 DVT prophylaxis Z29.9 (1) BPH (benign prostatic hyperplasia) Lower urinary tract symptom presence: symptoms absent Qualified Code(s): N40.0 - Benign prostatic hyperplasia without lower urinary tract symptoms (2) Ulcerative colitis Digestive disease complication type: without complication Ulcerative colitis location: unspecified ulcerative colitis location Qualified Code(s): K51.90 - Ulcerative colitis, unspecified, without complications
[2020-06-24] MEDS: ONDANSETRON INJ 2 MG/ML 2 ML VIAL IV PRN (17:55)
[2020-06-24] MEDS: TAMSULOSIN HCL 0.4 MG CAP PO SCH (21:45)
[2020-06-24] MEDS: FINASTERIDE 5 MG TAB PO SCH (21:45)
[2020-06-25] MEDS: HYDROCODONE/ACETAMOPHEN 5/325MG TAB PO PRN ×3 (00:08→20:51)
[2020-06-25] MEDS: methylPREDNISolone 20 MG in SYRINGE 0 ML IV SCH ×6 (00:08→23:52)
[2020-06-25] MEDS: metroNIDAZOLE 500 MG/100 ML BAG IV SCH ×3 (04:09→18:34)
[2020-06-25] MEDS: CIPROFLOXACIN / D5W 400 MG/200 ML BAG IV SCH ×2 (06:07→18:31)
[2020-06-25 08:11] LABS: BUN Creatinine Ratio 9.7 (10-20); Calcium 7.7 mg/dl (8.5-10.1); Creatinine Clr Calc Pharmacy 60.8 ml/min; Est GFR (African American) 88.8; Est GFR (Non-African American) 76.6
[2020-06-25] MEDS: FOLIC ACID 1 MG in SYRINGE 9.8 ML IV SCH (08:15)
[2020-06-25] MEDS: PANTOprazole 40 MG in SYRINGE 0 ML IV SCH ×2 (08:15→20:41)
[2020-06-25] MEDS: MESALAMINE 400 MG CAPDR PO SCH ×3 (08:17→20:42)
[2020-06-25] MEDS: POT PHOSPHATE MONOBASIC W/ SOD TAB PO SCH ×4 (08:17→20:42)
[2020-06-25] MEDS: ENOXAPARIN INJ 40 MG/0.4 ML SYR SQ SCH (08:17)
[2020-06-25 08:47] LABS: Potassium 3.9 mmol/L (3.5-5.1)
[2020-06-25] MEDS ORDERED: ERGOCALCIFEROL 50,000 UNITS CAP PO ONE (08:51)
--- NOTE | 2020-06-25 08:54 | Medical Student Progress Note ---
Date of Service June 25, 2020 Assessment & Plan (1) Ulcerative colitis: DDx: Crohn Disease, Ischemic Bowel, Digestive disease complication type: without complication Ulcerative colitis location: unspecified ulcerative colitis location Qualified Code(s): K51.90 - Ulcerative colitis, unspecified, without complications Present on Admission?: Yes (2) Encephalopathy acute: Delirium during extended hospital stay. DDx: Corticosteroid use, increased pain, (3) Anemia of chronic disease: DDx: Secondary to ulcerative colitis, iron deficiency anemia, chronic kidney disease, endocrine disorder. Present on Admission?: Yes (4) Chest tightness: DDx: Heart failure, myocardial ischemia Present on Admission?: Yes (5) Protein calorie malnutrition: DDx: decreased appetite secondary to UC Protein-calorie malnutrition severity: moderate Qualified Code(s): E44.0 - Moderate protein-calorie malnutrition Present on Admission?: Yes (6) Abscess of right arm: (7) DVT prophylaxis: (8) Dyspnea on exertion: DDx: Asthma, heart failure, myocardial ischemia, pneumonia Present on Admission?: Yes (9) Folate deficiency: (10) Abnormal echocardiogram: Admission and Anticipated Discharge Date Admission Date: June 19, 2020 Riley Alonso is an 85 y/o male who was admitted due to a flare up of his ulcerative colitis. Today, he was asleep in bed upon my arrival. When getting up this morning to urinate, he did have a near syncopal episode where he needed to be put in a wheelchair to get him back to his bed. He is feeling better now while laying down. He is not having any chest pain, but says he is a little bit short of breath. He is still having significant abdominal pain primarily in the periumbilical region with generalized tenderness of the entire abdomen. He is not having any calf pain. He remains cold despite several blankets and turning the heat up in his room. He was cooperative with me, answering questions and allowing a physical exam without issue. His guards think he is less confused than yesterday. He has not had much to eat or drink last night or this morning. He says that he tried to drink a little bit of juice last night but he has no appetite. I encouraged him to drink his Boost Glucose Control drink this morning. Review of Systems Constitutional: Complains of being cold despite having several blankets. Respiratory: + dyspnea and + dyspnea on exertion; no cough and no chest congestion Gastrointestinal: + abdominal pain (Primarily periumbilical pain with a generalized tenderness over entire abdomen), + diarrhea/loose stools and + blood in stools; no nausea and no vomiting Integumentary: Abcess on right upper extremity. No changes. Neurologic: + generalized weakness, + dizziness and + confusion Psychiatric: + confusion Physical Exam Constitutional: + thin, + frail appearing and + malnourished (Has not been eating well due to the pain from his UC. ) Neck: normal visual inspection and trachea midline Respiratory: normal respiratory effort, lungs clear to auscultation no respiratory distress, no cough and not tachypneic Auscultation: lungs clear to auscultation bilaterally; no crackles and no wheezes Cardiovascular: RRR, no murmur, no edema Heart Sounds: normal S1 and normal S2 Extremities: no calf tenderness and no pedal edema Gastrointestinal (Abdomen): Inspection/Auscultation: abdomen normal to inspection and normal bowel sounds Percussion/Palpation: + abdomen tender and abdomen soft; no guarding Skin: no rashes, warm and dry + wound (Abcess noted on the RUE. Approx 1cm in diameter.) Neurologic: moves all extremities, awake and + confused Psychiatric: Orientation: alert and cooperative Eye Contact: + fair eye contact Results & Data ([facility]) Vital Signs (Past 12 Hours) Vital Signs Temp Pulse Resp BP BP Pulse Ox 06/25/20 07:19 36.5 C 66 18 133/79 95 06/25/20 06:21 67 126/73 06/24/20 23:07 36.6 C 66 18 125/75 97
[2020-06-25] MEDS: SODIUM CHLORIDE 0.9% 1000ML 1,000 ML IV SCH ×3 (08:55→16:38)
[2020-06-25] MEDS: ONDANSETRON INJ 2 MG/ML 2 ML VIAL IV PRN (09:19)
--- NOTE | 2020-06-25 10:12 | Gastroenterology Progress Note ---
Date of Service June 25, 2020 Assessment & Plan (1) Ulcerative colitis: Pt is a 85 y/o male inmate w hx of Ulcerative colitis, admitted w bloody diarrhea, colitis on imaging studies. Colonoscopy 06/22 showed severe sanchez colitis with rectal sparing and skip areas in transverse colon. Luminal narrowing and edema, with some mass effect from colitis at 25 cm. Bx showed colitis & ulcerations w/o dysplasia, malignancy or CMV. CTA abd/pelvis unremarkable for vascular issues. Noted CRP significantly decreased and he's having small amt of diarrhea w/o rectal bleeding. - Continue Cipro/Flagyl - Continue Methylprednisone to 20mg q6hrs IV - Adv to low residue diet as alisha - Anticipate possible escalation of therapy to TNF (CXR negative, TB quant gold pending; Hep B negative for active infection. He is not immune to Hep B). - GI will continue to follow Admission and Anticipated Discharge Date Admission Date: June 19, 2020 Subjective Pt still feels nauseous but is trying to drink Boost. Some abd discomfort. Soft brown stool noted in chart this AM. Review of Systems Review of Systems: All systems reviewed & are unremarkable except as noted in HPI & below Physical Exam Constitutional: WD/WN, vitals as above well groomed, cooperative and comfortable Eyes: PERRL, conjunctivae normal, anicteric sclerae ENMT: external ear and nose normal, oropharynx normal Respiratory: normal respiratory effort, lungs clear to auscultation Cardiovascular: RRR, no murmur, no edema Gastrointestinal (Abdomen): Inspection/Auscultation: normal bowel sounds Percussion/Palpation: + abdomen tender and abdomen soft Skin: no rashes, warm and dry no jaundice Psychiatric: A+Ox3, euthymic affect Lymphatic: no lymphedema Results & Data ([facility]) Vital Signs (Past 12 Hours) Vital Signs Temp Pulse Resp BP BP Pulse Ox 06/25/20 07:19 36.5 C 66 18 133/79 95 06/25/20 06:21 67 126/73 06/24/20 23:07 36.6 C 66 18 125/75 97 (1) Ulcerative colitis Ulcerative colitis location: unspecified ulcerative colitis location Digestive disease complication type: without complication Qualified Code(s): K51.90 - Ulcerative colitis, unspecified, without complications
[2020-06-25] MEDS: CHOLECALCIFEROL 1,000 UNITS 25 MCG TAB PO SCH (10:26)
[2020-06-25] MEDS ORDERED: SODIUM CHLORIDE 0.9% 1000ML 500 ML IV ONE (10:40)
[2020-06-25 13:10] LABS: Quantiferon Mitogen-NIL 0.52 IU/mL; Quantiferon NIL 0.02 IU/mL; Quantiferon TB Gold Plus NEGATIVE (NEGATIVE); Quantiferon TB1-NIL 0.17 IU/mL; Quantiferon TB2-NIL 0.05 IU/mL
[2020-06-25] MEDS: SUCRALFATE 1 GM/10 ML UDC PO SCH ×3 (14:41→20:41)
--- NOTE | 2020-06-25 19:33 | Hospitalist Progress Note ---
Date of Service June 25, 2020 Assessment & Plan (1) Ulcerative colitis: With severe exacerbation. Marginally improved at best. s/p colonoscopy on 06/[address] Womack, [facility]. Severe UC findings noted - especially ascending and descending colon. biopsies c/w severe UC. biopsies not c/w CMV, c diff, ischemia, or neoplastic process. Remains on solumedrol 20mg IV q6h. Remains on cipro/flagyl. Cont IVF & supportive care along with pain meds prn. [facility] planning initiation of remicade. Cont mesalamine. Appreciate GI assistance. (2) Encephalopathy acute: metabolic from colitis. toxic from steroids, cipro, etc. IMPROVED today. cont supportive care. reinforce sleep-wake cycles. avoid benzos. (3) Anemia of chronic disease: H/H stable (4) Protein calorie malnutrition: add MVI if appetite does not improve consider parenteral nutrition (5) Abscess of right arm: s/p I/D several weeks ago followed by course of bactrim cont daily packing and local wound care this is markedly improved (6) Dyspnea on exertion: (7) Chest tightness: IBARRA and chest symptoms - in the weeks leading up to admission. recent EKG w/o ischemic changes. echo with mildly depressed EF and ?inferior basal hypokinesis? thus, symptoms may be due to CAD and ischemia would medically treat at this time; poor candidate for other testing in light of UC/GI issues consider asa, BB, statin, etc (8) Abnormal echocardiogram: mildly depressed EF with ? wall motion abnormality. indeed he may have ischemic heart disease as cause of recent cardiopulmonary symptoms back at the [facility]. medical management for now. (9) Folate deficiency: folic acid 1mg IV daily (10) Orthostatic hypotension: 2nd volume depletion in setting of poor oral intake, ongoing diarrhea from UC, etc. flomax could be contributing as well. NS bolus 500cc x 1. lower flomax dose to 0.4mg/day. Cont IVF. (11) Vitamin D deficiency: Ergocalciferol 50,000 units qweekly x 8 weeks. (12) GERD (gastroesophageal reflux disease): suspect upper GI symptoms are due to reflux. reports burping, belching, and tasting acid in throat. add carafate QID to once daily PPI. (13) DVT prophylaxis: cont lovenox Admission and Anticipated Discharge Date Admission Date: June 19, 2020 Subjective patient more awake/alert/less confused today. was even joking at one point. with that said he reported poor appetite, burping/belching, and upper abdominal pain. occasional nausea. poor liquid intake per the guards. lower quadrant pain persists. also during a walk to the bathroom patient felt very dizzy/lightheaded. orthostatics checked - standing SBP was low 90s (drop of about 25mmHg). HR increased about 25 beats w/ standing as well. Review of Systems Constitutional: + fatigue and + anorexia; no fever Respiratory: no cough and no dyspnea Cardiovascular: no chest pain Gastrointestinal: + belching, + nausea and + diarrhea/loose stools (2 stools since this am ); no vomiting Endocrine: + cold intolerance Physical Exam Constitutional: + altered mental status (knew he was in hospital, knew the president, but could not name the year); no acute distress overall looks better today ENMT: Mouth: + dry oral mucous membranes Respiratory: normal respiratory effort, lungs clear to auscultation Cardiovascular: Rate/Rhythm: regular rate and regular rhythm Heart Sounds: normal S1 and normal S2; no murmur Vessels: posterior tibial pulses present and dorsalis pedis pulses present; no JVD Extremities: no edema Gastrointestinal (Abdomen): normal bowel sounds, soft, nontender, no hepatosplenomegaly Inspection/Auscultation: normal bowel sounds; abdomen not distended Percussion/Palpation: + abdomen tender (epigastric region and b/l lower quadrants as well); no guarding and no hepatosplenomegaly Skin: + turgor decreased right upper arm - packing material present in former abscess cavity; cavity is small, about 0.5cm. no cellulitis or indurat ion. no drainage. Psychiatric: Orientation: alert, oriented to person and oriented to place; + not oriented to time Results & Data Results & Data ([facility]) Vital Signs (Past 12 Hours) Vital Signs Temp Pulse Resp BP Pulse Ox 06/25/20 16:00 36.6 C 68 17 135/80 96 Laboratory Results Laboratory Results - last 24 hr 06/23/20 06/25/20 06/25/20 11:00 06:54 08:15 Sodium 139 Potassium 3.9 Chloride 107 Carbon Dioxide 25 Anion Gap 7.0 BUN 9 Creatinine 0.92 Est Cr Clr Drug Dosing 60.8 Est GFR ( Amer) 88.8 Est GFR (Non-Af Amer) 76.6 BUN/Creatinine Ratio 9.7 L Glucose 180 H Calcium 7.7 L Magnesium 2.0 TB Test (QFT) Gold Plus NEGATIVE TB Test (QFT) Nil 0.02 TB Test Mitogen - Nil 0.52 TB Test Ag - Nil 1 0.17 TB Test Ag - Nil 2 0.05 PG Care Time/CCT Total # of Minutes Spent Total Time Spent with Patient: Total time spent is greater than 50% in coordination of care (as documented) at patient's floor/unit and/or counseling patient: Coding Level of Care Code 00114 Subseq Hosp Care Lvl 3 Diagnoses Ulcerative colitis K51.90 Ulcerative colitis location: unspecified ulcerative colitis location Digestive disease complication type: without complication Encephalopathy acute G93.40 Anemia of chronic disease D63.8 Protein calorie malnutrition E44.0 Protein-calorie malnutrition severity: moderate Abscess of right arm L02.413 Dyspnea on exertion R06.00 Chest tightness R07.89 Abnormal echocardiogram R93.1 Folate deficiency E53.8 Orthostatic hypotension I95.1 Vitamin D deficiency E55.9 GERD (gastroesophageal reflux disease) K21.9 Esophagitis presence: esophagitis presence not specified DVT prophylaxis Z29.9 (1) Ulcerative colitis Ulcerative colitis location: unspecified ulcerative colitis location Digestive disease complication type: without complication Qualified Code(s): K51.90 - Ulcerative colitis, unspecified, without complications (2) Protein calorie malnutrition Protein-calorie malnutrition severity: moderate Qualified Code(s): E44.0 - Moderate protein-calorie malnutrition (3) GERD (gastroesophageal reflux disease) Esophagitis presence: esophagitis presence not specified Qualified Code(s): K21.9 - Gastro-esophageal reflux disease without esophagitis
[2020-06-25] MEDS: TAMSULOSIN HCL 0.4 MG CAP PO SCH (20:41)
[2020-06-25] MEDS: FINASTERIDE 5 MG TAB PO SCH (20:42)
[2020-06-25] MEDS: ACETAMINOPHEN 500 MG TAB PO PRN (23:52)
[2020-06-26] MEDS ORDERED: ALUMINUM/MAGNESIUM SUSP 30 ML UDC PO PRN (00:32)
[2020-06-26] MEDS: metroNIDAZOLE 500 MG/100 ML BAG IV SCH ×3 (02:13→18:26)
[2020-06-26] MEDS: SODIUM CHLORIDE 0.9% 1000ML 1,000 ML IV SCH ×2 (05:09→18:23)
[2020-06-26] MEDS: methylPREDNISolone 20 MG in SYRINGE 0 ML IV SCH ×3 (05:21→18:21)
[2020-06-26] MEDS: CIPROFLOXACIN / D5W 400 MG/200 ML BAG IV SCH ×2 (05:56→18:26)
[2020-06-26 06:51] LABS: Hematocrit (blood only) 32.3 % (42-52); Hemoglobin 10.6 g/dL (14.0-18.0); Mean Corpuscular Hemoglobin 27.9 pg (25-34); Mean Corpuscular Hgb Conc 32.8 g/dL (32-36); Mean Platelet Volume 9.1 fL (7.4-10.4); Nucleated RBC # (auto) 0.02 K/uL (0-0); Nucleated RBC % (auto) 0.2 %; Platelet Count 127 K/uL (130-400); RDW Coefficient of Variation 13.8 % (11.5-14.5); RDW Standard Deviation 42.5 fL (36.4-46.3); White Blood Count 10.01 K/uL (4.8-10.8)
[2020-06-26 07:26] LABS: BUN Creatinine Ratio 13.3 (10-20); Calcium 7.8 mg/dl (8.5-10.1); Creatinine Clr Calc Pharmacy 75.6 ml/min; Est GFR (African American) 98.9; Est GFR (Non-African American) 85.3; Potassium 3.4 mmol/L (3.5-5.1)
[2020-06-26] MEDS ORDERED: POTASSIUM CHLORIDE 20 MEQ TABCR PO STA (08:05)
[2020-06-26 08:09] LABS: Estimated Average Glucose 134 mg/dl; Hemoglobin A1C 6.3 % (4.5-5.6)
--- NOTE | 2020-06-26 08:42 | Medical Student Progress Note ---
Date of Service June 26, 2020 Assessment & Plan (1) Ulcerative colitis: DDx: Crohn Disease, Ischemic Bowel, Digestive disease complication type: without complication Ulcerative colitis location: unspecified ulcerative colitis location Qualified Code(s): K51.90 - Ulcerative colitis, unspecified, without complications (2) Encephalopathy acute: Delirium during extended hospital stay. DDx: Corticosteroid use, increased pain, (3) Anemia of chronic disease: DDx: Secondary to ulcerative colitis, iron deficiency anemia, chronic kidney disease, endocrine disorder. (4) Chest tightness: DDx: Heart failure, myocardial ischemia (5) Protein calorie malnutrition: DDx: decreased appetite secondary to UC Protein-calorie malnutrition severity: moderate Qualified Code(s): E44.0 - Moderate protein-calorie malnutrition (6) Abscess of right arm: (7) DVT prophylaxis: (8) Dyspnea on exertion: DDx: Asthma, heart failure, myocardial ischemia, pneumonia (9) Folate deficiency: (10) Abnormal echocardiogram: Admission and Anticipated Discharge Date Admission Date: June 19, 2020 Riley Alonso is an 85 y/o male who is on hospital day 7 for a flare up of his ulcerative colitis. Upon my arrival, he was sleeping in his bed. He said he feels a little better this morning but the pain of his UC kept him up last night. His alertness was about the same as when I saw him yesterday. The pain is primarily in the periumbilical region, and also generalized about the abdomen. He still has a poor appetite which seems to be slowly improving. He is still drinking/eating minimally. Breakfast came when I was in the room and he started to drink his Boost Glucose Control drink. He said that his acid reflux has not improved despite the pantoprazole. He stood up to urinate during our visit, he said he felt dizzy upon standing. When getting back in bed, he easily became short of breath. Overnight he had 2 bouts of fecal incontinence. Described as diarrhea without blood. Review of Systems Constitutional: Complains of being cold despite having several blankets. Respiratory: + dyspnea and + dyspnea on exertion; no cough and no chest congestion Gastrointestinal: + abdominal pain (Primarily periumbilical pain with a generalized tenderness over entire abdomen), + belching, + heartburn and + diarrhea/loose stools; no nausea and no vomiting Integumentary: Abcess on right upper extremity. No changes. Neurologic: + generalized weakness, + dizziness and + confusion Psychiatric: + confusion Physical Exam Constitutional: + thin, + frail appearing and + malnourished (Has not been eating well due to the pain from his UC. ) Neck: normal visual inspection and trachea midline Respiratory: normal respiratory effort, lungs clear to auscultation no respiratory distress, no cough and not tachypneic Auscultation: lungs clear to auscultation bilaterally; no crackles and no wheezes Cardiovascular: RRR, no murmur, no edema Heart Sounds: normal S1 and normal S2 Extremities: no calf tenderness and no pedal edema Gastrointestinal (Abdomen): Inspection/Auscultation: abdomen normal to inspection and normal bowel sounds Percussion/Palpation: + abdomen tender and abdomen soft; no guarding Skin: no rashes, warm and dry + wound (Abcess noted on the RUE. Approx 1cm in diameter.) Neurologic: moves all extremities, awake and + confused Psychiatric: Orientation: alert and cooperative Eye Contact: + fair eye contact Results & Data ([facility]) Vital Signs (Past 12 Hours) Vital Signs Temp Pulse Resp BP BP Pulse Ox 06/26/20 07:10 36.5 C 62 16 158/80 H 96 06/25/20 23:06 36.6 C 54 L 18 148/81 H 95
--- NOTE | 2020-06-26 08:44 | Gastroenterology Progress Note ---
Date of Service June 26, 2020 Assessment & Plan (1) Ulcerative colitis: Pt is a 85 y/o male inmate w hx of Ulcerative colitis, admitted w bloody diarrhea, colitis on imaging studies. Colonoscopy 06/22 showed severe sanchez colitis with rectal sparing and skip areas in transverse colon. Luminal narrowing and edema, with some mass effect from colitis at 25 cm. Bx showed colitis & ulcerations w/o dysplasia, malignancy or CMV. CTA abd/pelvis unremarkable for vascular issues. Noted CRP significantly decreased and he's having small amt of diarrhea w/o rectal bleeding. - Continue Cipro/Flagyl - Continue Methylprednisone to 20mg q6hrs IV ; upon DC need to taper Prednisone PO: 60mg daily x 1 week, 50mg daily x 1 week, 40mg daily x 1 week, 30mg daily x 1 week, 20mg daily x 1 week, 15mg daily x 1 week, 10mg daily x 1 week, 5mg daily x 1 week then stop - Adv to low residue diet as alisha - CXR, TB quant negative. No acute Hep B infection. Will plan to start Infliximab IV induction (5mg/kg) and to be continued after his discharge. - He will need Hep B immunization series, start first dose today on 06/26 (2nd dose 1 month later, 3rd dose 6 months after first dose). - He will need close f/u in outpt setting once DC'd to monitor response to med therapy and repeat colonoscopy to check for endoscopic signs of healing within 6 months after starting Infliximab Admission and Anticipated Discharge Date Admission Date: June 19, 2020 Supervising Physician Co-Signing Physician Notes I performed a history and physical examination of the patient today, including specifically on physical exam - soft abdomen. I have discussed the patient's management with the advanced practitioner. Please refer to the nurse practitioner's note for the documented findings and plan of care. Subjective Appetite still low, some nausea and abd discomfort. Stool brown, loose Review of Systems Review of Systems: All systems reviewed & are unremarkable except as noted in HPI & below Physical Exam Constitutional: WD/WN, vitals as above well groomed, cooperative and comfortable Eyes: PERRL, conjunctivae normal, anicteric sclerae ENMT: external ear and nose normal, oropharynx normal Respiratory: normal respiratory effort, lungs clear to auscultation Cardiovascular: RRR, no murmur, no edema Gastrointestinal (Abdomen): Inspection/Auscultation: normal bowel sounds Percussion/Palpation: + abdomen tender and abdomen soft Skin: no rashes, warm and dry no jaundice Psychiatric: A+Ox3, euthymic affect Lymphatic: no lymphedema Results & Data ([facility]) Vital Signs (Past 12 Hours) Vital Signs Temp Pulse Resp BP BP Pulse Ox 06/26/20 07:10 36.5 C 62 16 158/80 H 96 06/25/20 23:06 36.6 C 54 L 18 148/81 H 95 (1) Ulcerative colitis Digestive disease complication type: without complication Ulcerative colitis location: unspecified ulcerative colitis location Qualified Code(s): K51.90 - Ulcerative colitis, unspecified, without complications
[2020-06-26] MEDS: ENOXAPARIN INJ 40 MG/0.4 ML SYR SQ SCH (08:59)
[2020-06-26] MEDS: FOLIC ACID 1 MG in SYRINGE 9.8 ML IV SCH (09:01)
[2020-06-26] MEDS: SUCRALFATE 1 GM/10 ML UDC PO SCH ×4 (09:01→20:25)
[2020-06-26] MEDS: PANTOprazole 40 MG in SYRINGE 0 ML IV SCH ×2 (09:01→20:25)
[2020-06-26] MEDS: MESALAMINE 400 MG CAPDR PO SCH ×3 (09:02→20:25)
[2020-06-26] MEDS: POT PHOSPHATE MONOBASIC W/ SOD TAB PO SCH ×4 (09:02→20:25)
[2020-06-26] MEDS: CEROVITE ADV FORMULA TAB PO SCH (09:02)
[2020-06-26] MEDS: CHOLECALCIFEROL 1,000 UNITS 25 MCG TAB PO SCH (09:02)
[2020-06-26] MEDS: MoRPHine SULFATE 2 MG/ML CARP IV PRN (10:15)
[2020-06-26] MEDS: NYSTATIN SUSP 500,000 U/5 ML UDC PO SCH ×4 (10:16→20:25)
[2020-06-26] MEDS ORDERED: OPTIRAY 320 125ml IV ONE (11:04)
--- NOTE | 2020-06-26 11:17 | CT Scan Report ---
CT ANGIOGRAM OF THE CHEST CLINICAL HISTORY: Pleuritic chest pain. Possible pulmonary embolism COMPARISON STUDY: November 19, 2019 TECHNIQUE: Following the IV administration of 120 mL of Optiray-320, CT angiogram of the thorax was p erformed from the thoracic inlet to the lung bases utilizing the pulmonary embolus protocol. Images a re reviewed in the axial, sagittal, and coronal planes. IV contrast was administered without complica tion. MIP imaging was performed. A dose lowering technique was utilized adhering to the principles o f ALARA. CT DOSE: 775.98 mGy.cm FINDINGS: No pathologically enlarged axillary mediastinal or hilar lymph nodes were visualized. The ascending thoracic aorta measures 36 mm. There are moderately extensive coronary artery calcifications. There were no pulmonary artery filling defects to indicate acute pulmonary embolism. There are small bilateral pleural effusions. There is mild elevation of the left hemidiaphragm. There are dependent bibasilar opacities, likely at electatic. There is no lobar consolidation. IMPRESSION: 1. No evidence of acute pulmonary embolism 2. Small bilateral pleural effusions 3. Elevation of the left hemidiaphragm 4. Dependent basilar opacities, likely atelectatic. ACT 112: Negative or not required by law. Electronically signed by: Jayy Ríos M.D. 06/26/2020 11:16 AM
[2020-06-26] MEDS: ONDANSETRON INJ 2 MG/ML 2 ML VIAL IV SCH ×2 (11:52→16:44)
[2020-06-26] MEDS ORDERED: HEPATITIS B ADULT VACCINE INJ 10 MCG/1ML VIAL IM ONE (12:00)
[2020-06-26] MEDS ORDERED: 1.2 MICRON FILTER 1 EA IV ONE (12:00)
[2020-06-26] MEDS ORDERED: INFLIXIMAB IV ONE (12:00)
[2020-06-26] MEDS ORDERED: SODIUM CHLORIDE 0.9% IV ONE (12:00)
[2020-06-26] MEDS ORDERED: Nursing to Pharmacy Communication SCH (15:15)
--- NOTE | 2020-06-26 15:23 | Hospitalist Progress Note ---
Date of Service June 26, 2020 Assessment & Plan (1) Ulcerative colitis: With severe exacerbation. No improvement since admission despite IV steroids, IV cipro/flagyl, supportive care. s/p colonoscopy on 06/[address] Womack, Stephanie ALVAREZ. Severe UC findings noted - especially ascending and descending colon. biopsies c/w severe UC. biopsies not c/w CMV, c diff, ischemia, or neoplastic process. Remains on solumedrol 20mg IV q6h. Remains on cipro/flagyl. I spoke with Stephanie ALVAREZ today - initiation of remicade to start today. I called and spoke with Dr Ya, medical device assembler of [facility]. He confirmed that indeed they can provide ongoing doses of remicade for Mr Schulte rris after discharge. Pre-remicade TB screen neg. hepB screen shows no immunity to such - start HepB vaccine series. Cont mesalamine. Appreciate GI assistance. I discussed parenteral nutrition today with GI - they would like to hold off for now. They are going to schedule zofran to see if this helps appetite. (2) Encephalopathy acute: metabolic from colitis. toxic from steroids, cipro, etc. IMPROVED once again today. cont supportive care. reinforce sleep-wake cycles. avoid benzos. (3) Chest tightness: IBARRA and chest symptoms - in the weeks leading up to admission. recent EKG w/o ischemic changes. echo with mildly depressed EF and ?inferior basal hypokinesis? thus, symptoms may be due to CAD and ischemia TODAY he complained of pleuritic type chest pain. I obtained CTA chest - negative for PE or other pathology. Uncertain of chest symptoms today. [id number], would medically treat at this time; poor candidate for other testing in light of UC/GI issues consider asa, BB, statin, etc (4) Anemia of chronic disease: H/H stable cbc in am (5) Protein calorie malnutrition: added MVI replacing folate zofran for nausea if appetite does not improve consider parenteral nutrition (6) Abscess of right arm: s/p I/D several weeks ago followed by course of bactrim cont daily packing and local wound care this is markedly improved (7) Abnormal echocardiogram: mildly depressed EF with ? wall motion abnormality. indeed he may have ischemic heart disease as cause of recent cardiopulmonary symptoms back at the intermediate. medical management for now. (8) Dyspnea on exertion: CTA chest negative for infiltrates, PEs, etc due to severe deconditioning? underlying CAD? both? (9) Folate deficiency: folic acid 1mg IV daily (10) Orthostatic hypotension: 2nd volume depletion in setting of poor oral intake, ongoing diarrhea from UC, etc. flomax could be contributing as well. lowered flomax dose to 0.4mg/day. Cont IVF. (11) Vitamin D deficiency: Ergocalciferol 50,000 units qweekly x 8 weeks. (12) GERD (gastroesophageal reflux disease): suspect upper GI symptoms are due to reflux. reports burping, belching, and tasting acid in throat. cont PPI bid cont carafate cont zofran (13) DVT prophylaxis: cont lovenox patient making poor progress time today 40 minutes including multiple calls/discussions with GI and with intermediate medical device assembler, Dr Ya Admission and Anticipated Discharge Date Admission Date: June 19, 2020 Subjective patient resting comfortably in bed upon arrival. however, as soon as I started asking him questions he immediately began to c/o pain "all over". when asked to point to the location of most pain he initially pointed to the middle of the abdomen, but then started rubbing his entire abdomen and left upper chest. I asked him when the chest pain started and he couldn't tell me - "maybe 3-4 days" he stated. but a few days ago he only mentioned chest tightness back at the intermediate. he stated that it hurt to take deep breaths. continues with little appetite. continues with nausea. having incontinence of stool with diarrhea and some blood. Review of Systems Constitutional: + fatigue Respiratory: + dyspnea and + pain on inspiration; no cough Cardiovascular: as per Subjective / HPI and + chest pain; no orthopnea and no edema Gastrointestinal: + abdominal pain, + nausea, + diarrhea/loose stools and + blood in stools; no vomiting Physical Exam Constitutional: + altered mental status (Mild confusion); no acute distress ENMT: Mouth: + dry oral mucous membranes Respiratory: normal respiratory effort, lungs clear to auscultation Cardiovascular: Rate/Rhythm: regular rate and regular rhythm Heart Sounds: normal S1 and normal S2; no murmur Vessels: posterior tibial pulses present and dorsalis pedis pulses present; no JVD Extremities: no edema no reproducible chest wall pain Gastrointestinal (Abdomen): Inspection/Auscultation: normal bowel sounds; abdomen not distended Percussion/Palpation: + abdomen tender (epigastric region and b/l lower quadrants as well); no guarding and no hepatosplenomegaly Psychiatric: Orientation: alert, oriented to person and oriented to place; + not oriented to time Results & Data Results & Data ([facility]) Vital Signs (Past 12 Hours) Vital Signs Temp Pulse Pulse Resp BP BP Pulse Ox 06/26/20 13:59 36.5 C 62 18 126/75 95 06/26/20 13:31 36.4 C L 62 18 138/87 95 06/26/20 12:59 36.3 C L 60 16 152/82 H 94 06/26/20 12:29 36.5 C 59 L 18 141/80 H 96 06/26/20 11:50 36.5 C 53 L 16 115/73 95 06/26/20 07:10 36.5 C 62 16 158/80 H 96 Laboratory Results Laboratory Results - last 24 hr 06/26/20 06/26/20 06/26/20 06:03 06:03 06:03 WBC 10.01 RBC 3.80 L Hgb 10.6 L Hct 32.3 L MCV 85.0 MCH 27.9 MCHC 32.8 RDW Std Deviation 42.5 RDW Coeff of Torrie 13.8 Plt Count 127 L MPV 9.1 Absolute Nucleated RBC 0.02 H Nucleated RBC % (auto) 0.2 Sodium 140 Potassium 3.4 L Chloride 107 Carbon Dioxide 25 Anion Gap 7.0 BUN 10 Creatinine 0.74 Est Cr Clr Drug Dosing 75.6 Est GFR ( Amer) 98.9 Est GFR (Non-Af Amer) 85.3 BUN/Creatinine Ratio 13.3 Glucose 148 H Estimat Average Glucose 134 Hemoglobin A1c 6.3 H Calcium 7.8 L PG Care Time/CCT Total # of Minutes Spent Total Time Spent with Patient: Total time spent is greater than 50% in coordination of care (as documented) at patient's floor/unit and/or counseling patient: Coding Level of Care Code 76499 Subseq Hosp Care Lvl 3 Diagnoses Ulcerative colitis K51.90 Ulcerative colitis location: unspecified ulcerative colitis location Digestive disease complication type: without complication Encephalopathy acute G93.40 Chest tightness R07.89 Anemia of chronic disease D63.8 Protein calorie malnutrition E44.0 Protein-calorie malnutrition severity: moderate Abscess of right arm L02.413 Abnormal echocardiogram R93.1 Dyspnea on exertion R06.00 Folate deficiency E53.8 Orthostatic hypotension I95.1 Vitamin D deficiency E55.9 GERD (gastroesophageal reflux disease) K21.9 Esophagitis presence: esophagitis presence not specified DVT prophylaxis Z29.9 (1) Ulcerative colitis Ulcerative colitis location: unspecified ulcerative colitis location Digestive disease complication type: without complication Qualified Code(s): K51.90 - Ulcerative colitis, unspecified, without complications (2) Protein calorie malnutrition Protein-calorie malnutrition severity: moderate Qualified Code(s): E44.0 - Moderate protein-calorie malnutrition (3) GERD (gastroesophageal reflux disease) Esophagitis presence: esophagitis presence not specified Qualified Code(s): K21.9 - Gastro-esophageal reflux disease without esophagitis
[2020-06-26] MEDS: HYDROCODONE/ACETAMOPHEN 5/325MG TAB PO PRN (16:51)
[2020-06-26] MEDS: TAMSULOSIN HCL 0.4 MG CAP PO SCH (20:25)
[2020-06-26] MEDS: FINASTERIDE 5 MG TAB PO SCH (20:25)
[2020-06-27] MEDS: MoRPHine SULFATE 2 MG/ML CARP IV PRN ×2 (01:11→11:18)
[2020-06-27] MEDS: methylPREDNISolone 20 MG in SYRINGE 0 ML IV SCH ×5 (02:12→23:31)
[2020-06-27] MEDS: metroNIDAZOLE 500 MG/100 ML BAG IV SCH ×2 (04:00→10:18)
[2020-06-27] MEDS: ONDANSETRON INJ 2 MG/ML 2 ML VIAL IV SCH ×3 (06:27→15:25)
[2020-06-27] MEDS: CIPROFLOXACIN / D5W 400 MG/200 ML BAG IV SCH (06:27)
[2020-06-27 06:33] LABS: Hematocrit (blood only) 31.4 % (42-52); Hemoglobin 10.3 g/dL (14.0-18.0); Mean Corpuscular Hemoglobin 27.9 pg (25-34); Mean Corpuscular Hgb Conc 32.8 g/dL (32-36); Mean Corpuscular Volume 85.1 fL (80-100); Mean Platelet Volume 10.1 fL (7.4-10.4); Platelet Count 128 K/uL (130-400); RDW Coefficient of Variation 13.8 % (11.5-14.5); RDW Standard Deviation 42.3 fL (36.4-46.3); Red Blood Count 3.69 M/uL (4.7-6.1); White Blood Count 11.84 K/uL (4.8-10.8)
[2020-06-27] MEDS: HYDROCODONE/ACETAMOPHEN 5/325MG TAB PO PRN ×2 (06:40→19:46)
[2020-06-27 07:12] LABS: BUN Creatinine Ratio 11.7 (10-20); Calcium 7.3 mg/dl (8.5-10.1); Creatinine Clr Calc Pharmacy 73.6 ml/min; Est GFR (African American) 97.8; Est GFR (Non-African American) 84.4; Potassium 3.9 mmol/L (3.5-5.1)
[2020-06-27] MEDS: SODIUM CHLORIDE 0.9% 1000ML 1,000 ML IV SCH ×2 (07:45→20:32)
[2020-06-27] MEDS: NYSTATIN SUSP 500,000 U/5 ML UDC PO SCH ×4 (08:45→20:23)
[2020-06-27] MEDS: SUCRALFATE 1 GM/10 ML UDC PO SCH ×4 (08:46→20:22)
[2020-06-27] MEDS: CEROVITE ADV FORMULA TAB PO SCH (08:47)
[2020-06-27] MEDS: MESALAMINE 400 MG CAPDR PO SCH ×3 (08:47→20:22)
[2020-06-27] MEDS: CHOLECALCIFEROL 1,000 UNITS 25 MCG TAB PO SCH (08:47)
[2020-06-27] MEDS: POT PHOSPHATE MONOBASIC W/ SOD TAB PO SCH ×4 (08:48→20:24)
[2020-06-27] MEDS: FOLIC ACID 1 MG in SYRINGE 9.8 ML IV SCH (08:49)
[2020-06-27] MEDS: ENOXAPARIN INJ 40 MG/0.4 ML SYR SQ SCH (08:49)
[2020-06-27] MEDS: PANTOprazole 40 MG in SYRINGE 0 ML IV SCH ×2 (08:49→20:21)
--- NOTE | 2020-06-27 15:26 | Hospitalist Progress Note ---
Date of Service June 27, 2020 Assessment & Plan (1) Ulcerative colitis: With severe exacerbation. S/p colonoscopy on 06/[address] Womack [facility] which showed severe UC. - No improvement since admission despite IV steroids, IV cipro/flagyl, supportive care. - Biopsies not c/w CMV, c diff, ischemia, or neoplastic process. - Continue Solumedrol 20mg IV q6h. - Remains on Cipro/Flagyl PO - Started on infliximab on 06/26. (Pre-infliximab TB screen neg. HepB screen shows no immunity to such - started HepB vaccine series on 06/26.) - Continue mesalamine. - Will recheck C. diff given prior positive gene on 06/20. Empirically start vancomycin PO. (2) Chest tightness: IBARRA and chest symptoms - in the weeks leading up to admission. - Recent EKG w/o ischemic changes. - Echo with mildly depressed EF and possible inferior basal hypokinesis. Thus, symptoms may be due to CAD and ischemia. - Medically optimize as able (3) Anemia of chronic disease: Baseline hgb ~10. - Hgb stable today. (4) Protein calorie malnutrition: Due to ulcerative colitis. - Added MVI - Replacing folate - Zofran for nausea (5) Abscess of right arm: S/p I/D several weeks ago followed by course of Bactrim. - Continue daily packing and local wound care (6) Orthostatic hypotension: 2nd volume depletion in setting of poor oral intake, ongoing diarrhea from UC, etc. Flomax could be contributing as well. - Lowered Flomax dose to 0.4mg/day. - Cont IVF. (7) GERD (gastroesophageal reflux disease): Suspect upper GI symptoms are due to reflux. Reports burping, belching, and tasting acid in throat. - Continue PPI BID & Carafate - Continue Zofran (8) DVT prophylaxis: Lovenox Admission and Anticipated Discharge Date Admission Date: June 19, 2020 Subjective Reports pain today in the lower abdomen in a "horseshoe" shape that extends to the flanks. Reports no fevers/chills, chest pain, shortness of breath, nausea, or vomiting. Physical Exam Constitutional: WD/WN, vitals as above Eyes: EOM intact bilaterally; no conjunctival abnormality ENMT: external ear and nose normal, oropharynx normal Neck: trachea midline, no thyromegaly normal visual inspection Respiratory: normal respiratory effort, lungs clear to auscultation no respiratory distress Cardiovascular: RRR, no murmur, no edema Gastrointestinal (Abdomen): Inspection/Auscultation: abdomen normal to inspection and normal bowel sounds; abdomen not distended Percussion/Palpation: + abdomen tender (Lower abdomen) and abdomen soft; no guarding and abdomen not rigid Musculoskeletal: no cyanosis or clubbing, extremities motor strength 5/5 Skin: no rashes, warm and dry Neurologic: moves all extremities and awake Psychiatric: Orientation: alert, oriented to person and cooperative Results & Data Results & Data ([facility]) Vital Signs (Past 12 Hours) Vital Signs Temp Pulse Resp BP Pulse Ox 06/27/20 09:57 105 H 06/27/20 07:07 36.5 C 60 18 133/79 95 PG Care Time/CCT Total # of Minutes Spent Total Time Spent with Patient: Total time spent is greater than 50% in coordination of care (as documented) at patient's floor/unit and/or counseling patient: Coding Level of Care Code 93024 Subseq Hosp Care Lvl 3 Diagnoses Ulcerative colitis K51.90 Ulcerative colitis location: unspecified ulcerative colitis location Digestive disease complication type: without complication Chest tightness R07.89 Anemia of chronic disease D63.8 Protein calorie malnutrition E44.0 Protein-calorie malnutrition severity: moderate Abscess of right arm L02.413 Orthostatic hypotension I95.1 GERD (gastroesophageal reflux disease) K21.9 Esophagitis presence: esophagitis presence not specified DVT prophylaxis Z29.9 (1) Ulcerative colitis Ulcerative colitis location: unspecified ulcerative colitis location Dig estive disease complication type: without complication Qualified Code(s): K51.90 - Ulcerative colitis, unspecified, without complications (2) Protein calorie malnutrition Protein-calorie malnutrition severity: moderate Qualified Code(s): E44.0 - Moderate protein-calorie malnutrition (3) GERD (gastroesophageal reflux disease) Esophagitis presence: esophagitis presence not specified Qualified Code(s): K21.9 - Gastro-esophageal reflux disease without esophagitis
[2020-06-27] MEDS: VANCOMYCIN HCL 125 MG/2.5ML SOLN PO SCH ×2 (18:26→23:31)
[2020-06-27] MEDS: RASPBERRY SYRUP 5 ML UDP PO SCH ×2 (18:27→23:31)
[2020-06-27] MEDS: CIPROFLOXACIN 500 MG TAB PO SCH (19:40)
[2020-06-27] MEDS: TAMSULOSIN HCL 0.4 MG CAP PO SCH (20:23)
[2020-06-27] MEDS: metroNIDAZOLE 500 MG TAB PO SCH (20:23)
[2020-06-27] MEDS: FINASTERIDE 5 MG TAB PO SCH (20:24)
[2020-06-28] MEDS: CIPROFLOXACIN 500 MG TAB PO SCH ×2 (06:04→17:33)
[2020-06-28] MEDS: RASPBERRY SYRUP 5 ML UDP PO SCH ×2 (06:04→11:18)
[2020-06-28] MEDS: VANCOMYCIN HCL 125 MG/2.5ML SOLN PO SCH ×2 (06:04→11:18)
[2020-06-28] MEDS: methylPREDNISolone 20 MG in SYRINGE 0 ML IV SCH ×3 (06:08→17:33)
[2020-06-28] MEDS: ONDANSETRON INJ 2 MG/ML 2 ML VIAL IV SCH ×3 (07:43→15:38)
[2020-06-28 08:19] LABS: Hematocrit (blood only) 35.5 % (42-52); Hemoglobin 11.5 g/dL (14.0-18.0); Mean Corpuscular Hemoglobin 27.8 pg (25-34); Mean Corpuscular Hgb Conc 32.4 g/dL (32-36); Mean Corpuscular Volume 85.7 fL (80-100); Mean Platelet Volume 10.7 fL (7.4-10.4); Nucleated RBC # (auto) 0.08 K/uL (0-0); Nucleated RBC % (auto) 0.5 %; Platelet Count 152 K/uL (130-400); RDW Standard Deviation 43.4 fL (36.4-46.3); Red Blood Count 4.14 M/uL (4.7-6.1); White Blood Count 16.71 K/uL (4.8-10.8)
[2020-06-28 08:23] LABS: Albumin Level 2.2 gm/dl (3.4-5.0); BUN Creatinine Ratio 11.9 (10-20); Calcium 8.2 mg/dl (8.5-10.1); Creatinine Clr Calc Pharmacy 63.6 ml/min; Est GFR (African American) 92.1; Est GFR (Non-African American) 79.4; Potassium 3.8 mmol/L (3.5-5.1)
[2020-06-28] MEDS: CHOLECALCIFEROL 1,000 UNITS 25 MCG TAB PO SCH (08:24)
[2020-06-28] MEDS: metroNIDAZOLE 500 MG TAB PO SCH ×3 (08:24→20:51)
[2020-06-28] MEDS: ENOXAPARIN INJ 40 MG/0.4 ML SYR SQ SCH (08:25)
[2020-06-28] MEDS: MESALAMINE 400 MG CAPDR PO SCH ×3 (08:25→20:52)
[2020-06-28] MEDS: POT PHOSPHATE MONOBASIC W/ SOD TAB PO SCH ×4 (08:25→20:52)
[2020-06-28] MEDS: NYSTATIN SUSP 500,000 U/5 ML UDC PO SCH ×4 (08:25→20:50)
[2020-06-28] MEDS: CEROVITE ADV FORMULA TAB PO SCH (08:25)
[2020-06-28] MEDS: SUCRALFATE 1 GM/10 ML UDC PO SCH ×4 (08:25→20:50)
[2020-06-28] MEDS: PANTOprazole 40 MG in SYRINGE 0 ML IV SCH ×2 (08:26→20:51)
[2020-06-28] MEDS: FOLIC ACID 1 MG in SYRINGE 9.8 ML IV SCH (08:26)
[2020-06-28 08:27] LABS: Albumin Globulin Ratio 0.7 (0.9-2); Bilirubin,Total 0.6 mg/dl (0.2-1); Globulin 3.3 gm/dl (2.5-4.0); Phosphorus 2.5 mg/dl (2.5-4.9); Total Protein 5.5 gm/dl (6.4-8.2)
[2020-06-28] MEDS: SODIUM CHLORIDE 0.9% 1000ML 1,000 ML IV SCH ×2 (08:27→20:49)
--- NOTE | 2020-06-28 13:17 | Hospitalist Progress Note ---
Date of Service June 28, 2020 Assessment & Plan (1) Ulcerative colitis: With severe exacerbation. S/p colonoscopy on 06/[address] Womack [facility] which showed severe UC. - No improvement since admission despite IV steroids, IV cipro/flagyl, supportive care. - Biopsies not c/w CMV, c diff, ischemia, or neoplastic process. - Continue Solumedrol 20mg IV q6h. - Remains on Cipro/Flagyl PO - Started on infliximab on 06/26. (Pre-infliximab TB screen neg. HepB screen shows no immunity to such - started HepB vaccine series on 06/26.) - Continue mesalamine. - C. diff re-check on 06/28 showed no C. diff. Will stop PO vancomycin. No improvement otherwise. - Consider palliative care tomorrow. (2) Chest tightness: IBARRA and chest symptoms - in the weeks leading up to admission. - Recent EKG w/o ischemic changes. - Echo with mildly depressed EF and possible inferior basal hypokinesis. Thus, symptoms may be due to CAD and ischemia. - Medically optimize as able. -> No pain today. (3) Anemia of chronic disease: Baseline hgb ~10. - Hgb stable today at 11. (4) Protein calorie malnutrition: Due to ulcerative colitis. - Added MVI - Replacing folate - Zofran for nausea (5) Abscess of right arm: S/p I/D several weeks ago followed by course of Bactrim. - Continue daily packing and local wound care (6) Orthostatic hypotension: 2nd volume depletion in setting of poor oral intake, ongoing diarrhea from UC, etc. Flomax could be contributing as well. - Lowered Flomax dose to 0.4mg/day. - Cont IVF. (7) GERD (gastroesophageal reflux disease): Suspect upper GI symptoms are due to reflux. Reports burping, belching, and tasting acid in throat. - Continue PPI BID & Carafate - Continue Zofran (8) DVT prophylaxis: Lovenox Admission and Anticipated Discharge Date Admission Date: June 19, 2020 Subjective No real change today. Multiple bloody bowel movements. Abdominal pain. Reports no fevers/chills, chest pain, shortness of breath. Physical Exam Constitutional: WD/WN, vitals as above Eyes: EOM intact bilaterally; no conjunctival abnormality ENMT: external ear and nose normal, oropharynx normal Neck: trachea midline, no thyromegaly normal visual inspection Respiratory: normal respiratory effort, lungs clear to auscultation no respiratory distress Cardiovascular: RRR, no murmur, no edema Gastrointestinal (Abdomen): Inspection/Auscultation: abdomen normal to inspection and normal bowel sounds; abdomen not distended Percussion/Palpation: + abdomen tender (Lower abdomen) and abdomen soft; no guarding and abdomen not rigid Musculoskeletal: no cyanosis or clubbing, extremities motor strength 5/5 Skin: no rashes, warm and dry Neurologic: moves all extremities and awake Psychiatric: Orientation: alert, oriented to person and cooperative Results & Data Results & Data ([facility]) Vital Signs (Past 12 Hours) Vital Signs Temp Pulse Resp BP BP Pulse Ox 06/28/20 08:33 127/82 06/28/20 07:38 36.4 C L 75 18 96/60 L 97 PG Care Time/CCT Total # of Minutes Spent Total Time Spent with Patient: Total time spent is greater than 50% in coordination of care (as documented) at patient's floor/unit and/or counseling patient: Coding Level of Care Code 61213 Subseq Hosp Care Lvl 2 Diagnoses Ulcerative colitis K51.90 Digestive disease complication type: without complication Ulcerative colitis location: unspecified ulcerative colitis location Chest tightness R07.89 Anemia of chronic disease D63.8 Protein calorie malnutrition E44.0 Protein-calorie malnutrition severity: moderate Abscess of right arm L02.413 Orthostatic hypotension I95.1 GERD (gastroesophageal reflux disease) K21.9 Esophagitis presence: esophagitis presence not specified DVT prophylaxis Z29.9 (1) GERD (gastroesophageal reflux disease) Esophagitis presence: esophagitis presence not specified Qualified Code(s): K21.9 - Gastro-esophageal reflux disease without esophagitis (2) Ulcerative colitis Digestive disease complication type: without complication Ulcerative colitis location: unspecified ulcerative colitis location Qualified Code(s): K51.90 - Ulcerative colitis, unspecified, without complications (3) Protein calorie malnutrition Protein-calorie malnutrition severity: moderate Qualified Code(s): E44.0 - Moderate protein-calorie malnutrition
[2020-06-28] MEDS: TAMSULOSIN HCL 0.4 MG CAP PO SCH (20:51)
[2020-06-28] MEDS: FINASTERIDE 5 MG TAB PO SCH (21:07)
[2020-06-28] MEDS: MoRPHine SULFATE 2 MG/ML CARP IV PRN (21:07)
[2020-06-29] MEDS: methylPREDNISolone 20 MG in SYRINGE 0 ML IV SCH ×4 (00:05→18:14)
[2020-06-29] MEDS: ACETAMINOPHEN 500 MG TAB PO PRN (06:01)
[2020-06-29] MEDS: CIPROFLOXACIN 500 MG TAB PO SCH (06:02)
[2020-06-29] MEDS: ONDANSETRON INJ 2 MG/ML 2 ML VIAL IV SCH ×3 (07:32→15:47)
[2020-06-29 08:28] LABS: Hemoglobin 9.6 g/dL (14.0-18.0); Immature Granulocytes # (auto) 0.14 K/uL (0.00-0.02); Lymphocytes # (auto) 0.66 K/uL (1.2-3.4); Lymphocytes % (auto) 4.6 %; Mean Corpuscular Hemoglobin 26.7 pg (25-34); Mean Corpuscular Volume 86.1 fL (80-100); Mean Platelet Volume 10.5 fL (7.4-10.4); Monocytes # (auto) 0.53 K/uL (0.11-0.59); Monocytes % (auto) 3.7 %; Neutrophils # (auto) 12.96 K/uL (1.4-6.5); Neutrophils % (auto) 90.7 %; Nucleated RBC # (auto) 0.04 K/uL (0-0); Nucleated RBC % (auto) 0.3 %; Platelet Count 128 K/uL (130-400); RDW Coefficient of Variation 13.9 % (11.5-14.5); RDW Standard Deviation 43.3 fL (36.4-46.3); White Blood Count 14.29 K/uL (4.8-10.8)
[2020-06-29] MEDS: SUCRALFATE 1 GM/10 ML UDC PO SCH ×4 (08:33→20:24)
[2020-06-29] MEDS: POT PHOSPHATE MONOBASIC W/ SOD TAB PO SCH ×4 (08:33→20:25)
[2020-06-29] MEDS: NYSTATIN SUSP 500,000 U/5 ML UDC PO SCH ×4 (08:33→20:24)
[2020-06-29] MEDS: FOLIC ACID 1 MG in SYRINGE 9.8 ML IV SCH (08:34)
[2020-06-29] MEDS: metroNIDAZOLE 500 MG TAB PO SCH ×2 (08:34→13:26)
[2020-06-29] MEDS: MESALAMINE 400 MG CAPDR PO SCH ×3 (08:34→20:25)
[2020-06-29] MEDS: CEROVITE ADV FORMULA TAB PO SCH (08:34)
[2020-06-29] MEDS: PANTOprazole 40 MG in SYRINGE 0 ML IV SCH ×2 (08:34→21:07)
[2020-06-29] MEDS: CHOLECALCIFEROL 1,000 UNITS 25 MCG TAB PO SCH (08:34)
[2020-06-29] MEDS: ENOXAPARIN INJ 40 MG/0.4 ML SYR SQ SCH (08:35)
[2020-06-29] MEDS: SODIUM CHLORIDE 0.9% 1000ML 1,000 ML IV SCH ×2 (08:36→20:36)
[2020-06-29 08:53] LABS: BUN Creatinine Ratio 18.8 (10-20); Calcium 7.7 mg/dl (8.5-10.1); Est GFR (African American) 95.7; Est GFR (Non-African American) 82.6
[2020-06-29] MEDS: MoRPHine SULFATE 2 MG/ML CARP IV PRN (12:33)
--- NOTE | 2020-06-29 14:42 | Palliative Care Consultation ---
Date of Consultation June 29, 2020 Assessment & Plan (1) Goals of care, counseling/discussion: Pt is an 85 yo male with a PMH of Ulcerative colitis, malignant neoplasm of the parotid gland, h/o C diff, abscess of R arm - I&D a few weeks ago, and GERD who [facility] day h/o abd pain and diarrhea. Pt can report a general history but is not able to give details. Pt stated he had a severe episode several years ago and was hospitalized at [facility] and thought that was "the end" for him at that time - he stated he was not supposed to be able to walk - but recovered and did well for many years. Asked pt if this episode felt different from prior episode - he stated "no". CT scan showed colitis, he had a colonoscopy on 06/22 that showed severe UC - bx negative for dysplasia , neoplasm or CMV. Pt started on IV Cipro, Flagyl and steroids - Remicade started on 06/26 as per GI - BM have decreased to 2 per day from 4 per day since starting Remicade. - Goals of care - Pt stated all he wants to do is see his 2 daughters and grandchildren. - Discussed details of what it means to be a full code - pt stated he would want to be resuscitated. - Pt stated he feels no better now than when he was admitted - despite improvement in the # of loose stools a day. - Abd Pain - pt reports diffuse abd pain with more severe pain in his LLQ . He stated pain is no better than when he was admitted. He reports food makes it worse, nothing makes it better. Pain is constant, but does not interfere with sleep. Pt has required one prn Tylenol and 2 prn IV morphine at 2 mg in the past 24 hours. Pt did not wince with light palpation with stethoscope on exam. + normal BS. - He asked when the new feeding through his arm would start - TPN has been offered. - Pt open to further discussion of code status . (2) Abdominal pain, LLQ (left lower quadrant): Pt appears comfortable at rest - did not have pt try to sit up (3) Ulcerative colitis: frequency of loose stools improving Ulcerative colitis location: unspecified ulcerative colitis location Digestive disease complication type: without complication Qualified Code(s): K51.90 - Ulcerative colitis, unspecified, without complications (4) GERD (gastroesophageal reflux disease): on PPI BID, sucralfate added on 06/25 Esophagitis presence: esophagitis presence not specified Qualified Code(s): K21.9 - Gastro-esophageal reflux disease without esophagitis History of Present Illness Reason for Consultation: Goals of care and Code Status Requesting Physician: Dr Janes Corey Attending Physician: Janes Corey MD History of Present Illness Pt is a FULL CODE. Per attending physician - pt has been making statements that he feels he is at "the end" of his life. Asked to see pt to discuss goals of care as well as address CODE STATUS. Pt is an 85 yo male with a PMH of Ulcerative colitis, malignant neoplasm of the parotid gland, h/o C diff, abscess of R arm - I&D a few weeks ago, and GERD who [facility]7 day h/o abd pain and diarrhea. Pt can report a general history but is not able to give details. Pt stated he had a severe episode several years ago and was hospitalized at [facility] and thought that was "the end" for him at that time - he stated he was not supposed to be able to walk - but recovered and did well for many years. Asked pt if this episode felt different from prior episode - he stated "no". CT scan showed colitis, he had a colonoscopy on 06/22 that showed severe UC - bx negative for dysplasia , neoplasm or CMV. Pt started on IV Cipro, Flagyl and steroids - Remicade started on 06/26 as per GI - BM have decreased to 2 per day from 4 per day since starting Remicade. - Goals of care - Pt stated all he wants to do is see his 2 daughters and grandchildren. - Discussed details of what it means to be a full code - pt stated he would want to be resuscitated. - Pt stated he feels no better now than when he was admitted - despite improvement in the # of loose stools a day. - Abd Pain - pt reports diffuse abd pain with more severe pain in his LLQ . He stated pain is no better than when he was admitted. He reports food makes it worse, nothing makes it better. Pain is constant, but does not interfere with sleep. Pt has required one prn Tylenol and 2 prn IV morphine at 2 mg in the past 24 hours. Pt did not wince with light palpation with stethoscope on exam. + normal BS. - He asked when the new feeding through his arm would start - TPN has been offered. - Pt open to further discussion of code status . Allergies Allergy/AdvReac Type Severity Reaction Status Date / Time No Known Allergies Allergy Unverified 06/19/20 09:43 Home Medications Home Medications Medication Instructions Recorded Confirmed Type finasteride [Proscar] 5 mg PO HS 10/11/18 06/19/20 History tamsulosin 0.8 mg PO HS 11/01/18 06/19/20 History mesalamine 2.4 g PO BID 01/27/19 06/19/20 History hydroxyzine pamoate 50 mg PO BID PRN 06/19/20 06/19/20 History loperamide [Anti-Diarrhea] 2 mg PO BID 06/19/20 06/19/20 History pantoprazole 40 mg PO DAILY 06/19/20 06/19/20 History prednisolone [Millipred] 5 mg PO DAILY 06/19/20 06/19/20 History sulfamethoxazole-trimethoprim 1 tab PO BID 06/19/20 06/19/20 History [Bactrim DS] Patient History Medical History BPH (benign prostatic hyperplasia) Carcinoma of parotid gland H/O flexible sigmoidoscopy Ulcerative colitis Family History Other Family history non-contributory Social History Smoking Status: Never smoker Tobacco Type: Smokeless Tobacco (Dip or Chew) Second Hand Exposure: No; Do You Dip or Chew Tobacco: Yes (1 can every other day); Tobacco Cessation Education Requested by Patient: No Hx Alcohol Use: No Hx Substance Use: No Preferred Language: [place] Communication Ability: Effective Creative Services Specialist Required: No Beliefs That Will Affect Care: None Current Living Situation: Other Current Living Situation Comment: inmate in [facility] Other Information That Helps Us Care for You: No Feels Safe at Home: Yes Safety Concerns: Feels Safe At This Time Assistive Devices: Denture - Upper, Denture - Lower and Glasses Review of Systems Review of Systems: Pt denies fever, chills ,SOB or CP + for abd pain - diffuse with increase in the LLQ Physical Exam Physical Exam: PE: pt awake, alert, NAD HEENT: EOMI, hearing ENL Resp: clear BS, unlabored CV: RR, no edema Abd: soft, not distended, + normal BS, no grimace or c/o pain with light palpation with stethoscope all quad. Ext: well perfused Neuro: alert and oriented. Results & Data ([facility]) Vital Signs (Past 12 Hours) Vital Signs Temp Pulse Resp BP Pulse Ox 06/29/20 07:23 97.9 F 71 18 122/75 95 PG Care Time/CCT Total # of Minutes Spent Total Time Spent with Patient: Total time spent 70 min with greater than 50% of the time spent at bedside assessing pt's pain level, discussing goals of care as well as code status. Coding Level of Care Code 91874 Inpt Consult Level 3 Diagnoses Goals of care, counseling/discussion Z71.89 Abdominal pain, LLQ (left lower quadrant) R10.32 Ulcerative colitis K51.90 Ulcerative colitis location: unspecified ulcerative colitis location Digestive disease complication type: without complication GERD (gastroesophageal reflux disease) K21.9 Esophagitis presence: esophagitis presence not specified Time Spent (min) 70
--- NOTE | 2020-06-29 14:44 | Hospitalist Progress Note ---
Date of Service June 29, 2020 Assessment & Plan (1) Ulcerative colitis: With severe exacerbation. S/p colonoscopy on 06/[address] Womack [facility] which showed severe UC. - No improvement since admission despite IV steroids, IV cipro/flagyl, supportive care. - Biopsies not c/w CMV, c diff, ischemia, or neoplastic process. - Continue Solumedrol 20mg IV q6h. - Remains on Cipro/Flagyl PO - Started on infliximab on 06/26. (Pre-infliximab TB screen neg. HepB screen shows no immunity to such - started HepB vaccine series on 06/26.) - Continue mesalamine. - C. diff re-check on 06/28 showed no C. diff. - Consulted palliative care. - Today: Will switch to IV Cipro/Flagyl in case that is making his stomach upset. Will give him a full diet in case the milk products are hurting his stomach. He is interested in TPN, so will get consent for a PICC line and give a few days of TPN to improve nutrition. (2) Chest tightness: IBARRA and chest symptoms - in the weeks leading up to admission. - Recent EKG w/o ischemic changes. - Echo with mildly depressed EF and possible inferior basal hypokinesis. Thus, symptoms may be due to CAD and ischemia. - Medically optimize as able. -> No pain today. (3) Anemia of chronic disease: Baseline hgb ~10. - Hgb stable today at 11. (4) Protein calorie malnutrition: Due to ulcerative colitis. - Added MVI - Replacing folate - Zofran for nausea (5) Abscess of right arm: S/p I/D several weeks ago followed by course of Bactrim. - Continue daily packing and local wound care (6) Orthostatic hypotension: 2nd volume depletion in setting of poor oral intake, ongoing diarrhea from UC, etc. Flomax could be contributing as well. - Lowered Flomax dose to 0.4mg/day. - Cont IVF. (7) GERD (gastroesophageal reflux disease): Suspect upper GI symptoms are due to reflux. Reports burping, belching, and tasting acid in throat. - Continue PPI BID & Carafate - Continue Zofran (8) DVT prophylaxis: Lovenox - Despite bleeding, I think he is a high risk for DVT, so will continue. Admission and Anticipated Discharge Date Admission Date: June 19, 2020 Subjective No change today. Still with some pain in the stomach and poor appetite. Reports no fevers/chills, chest pain, shortness of breath, nausea, or vomiting. Physical Exam Constitutional: WD/WN, vitals as above Eyes: EOM intact bilaterally; no conjunctival abnormality ENMT: external ear and nose normal, oropharynx normal Neck: trachea midline, no thyromegaly normal visual inspection Respiratory: normal respiratory effort, lungs clear to auscultation no respiratory distress Cardiovascular: RRR, no murmur, no edema Gastrointestinal (Abdomen): Inspection/Auscultation: abdomen normal to inspection and normal bowel sounds; abdomen not distended Percussion/Palpatio n: + abdomen tender (Lower abdomen) and abdomen soft; no guarding and abdomen not rigid Musculoskeletal: no cyanosis or clubbing, extremities motor strength 5/5 Skin: no rashes, warm and dry Neurologic: moves all extremities and awake Psychiatric: Orientation: alert, oriented to person and cooperative Results & Data Results & Data ([facility]) Vital Signs (Past 12 Hours) Vital Signs Temp Pulse Resp BP Pulse Ox 06/29/20 07:23 36.6 C 71 18 122/75 95 PG Care Time/CCT Total # of Minutes Spent Total Time Spent with Patient: Total time spent is greater than 50% in coordination of care (as documented) at patient's floor/unit and/or counseling patient: Coding Level of Care Code 23341 Subseq Hosp Care Lvl 2 Diagnoses Ulcerative colitis K51.90 Ulcerative colitis location: unspecified ulcerative colitis location Digestive disease complication type: without complication Chest tightness R07.89 Anemia of chronic disease D63.8 Protein calorie malnutrition E44.0 Protein-calorie malnutrition severity: moderate Abscess of right arm L02.413 Orthostatic hypotension I95.1 GERD (gastroesophageal reflux disease) K21.9 Esophagitis presence: esophagitis presence not specified DVT prophylaxis Z29.9 (1) Ulcerative colitis Ulcerative colitis location: unspecified ulcerative colitis location Digestive disease complication type: without complication Qualified Code(s): K51.90 - Ulcerative colitis, unspecified, without complications (2) Protein calorie malnutrition Protein-calorie malnutrition severity: moderate Qualified Code(s): E44.0 - Moderate protein-calorie malnutrition (3) GERD (gastroesophageal reflux disease) Esophagitis presence: esophagitis presence not specified Qualified Code(s): K21.9 - Gastro-esophageal reflux disease without esophagitis
[2020-06-29] MEDS: POTASSIUM CHLORIDE / WTR 10 MEQ/100 ML PLCT IV SCH ×4 (15:47→19:27)
[2020-06-29] MEDS ORDERED: TPN/PPN CONSULT PHARMACY PRN (18:13)
[2020-06-29] MEDS ORDERED: TPN/PPN CONSULT PHARMACY STA (18:14)
[2020-06-29] MEDS: CIPROFLOXACIN / D5W 400 MG/200 ML BAG IV SCH (18:18)
[2020-06-29] MEDS: TAMSULOSIN HCL 0.4 MG CAP PO SCH (20:26)
[2020-06-29] MEDS: FINASTERIDE 5 MG TAB PO SCH (20:26)
[2020-06-29] MEDS: metroNIDAZOLE 500 MG/100 ML BAG IV SCH (21:04)
[2020-06-30] MEDS: methylPREDNISolone 20 MG in SYRINGE 0 ML IV SCH ×4 (00:16→17:33)
[2020-06-30 06:24] LABS: Hemoglobin 8.4 g/dL (14.0-18.0); Mean Corpuscular Hemoglobin 28.2 pg (25-34); Mean Corpuscular Hgb Conc 32.3 g/dL (32-36); Mean Corpuscular Volume 87.2 fL (80-100); Mean Platelet Volume 10.4 fL (7.4-10.4); Platelet Count 111 K/uL (130-400); RDW Coefficient of Variation 14.2 % (11.5-14.5); RDW Standard Deviation 44.3 fL (36.4-46.3); Red Blood Count 2.98 M/uL (4.7-6.1); White Blood Count 13.01 K/uL (4.8-10.8)
[2020-06-30] MEDS: CIPROFLOXACIN / D5W 400 MG/200 ML BAG IV SCH (06:24)
[2020-06-30] MEDS: metroNIDAZOLE 500 MG/100 ML BAG IV SCH ×2 (06:25→18:44)
[2020-06-30 06:51] LABS: Albumin Level 1.8 gm/dl (3.4-5.0); BUN Creatinine Ratio 20.3 (10-20); Creatinine Clr Calc Pharmacy 70.8 ml/min; Est GFR (African American) 96.2; Magnesium 1.8 mg/dl (1.8-2.4); Potassium 3.3 mmol/L (3.5-5.1)
[2020-06-30 06:58] LABS: Albumin Globulin Ratio 0.7 (0.9-2); Bilirubin,Total 0.4 mg/dl (0.2-1); Globulin 2.5 gm/dl (2.5-4.0); Phosphorus 2.1 mg/dl (2.5-4.9); Total Protein 4.3 gm/dl (6.4-8.2)
[2020-06-30] MEDS: ONDANSETRON INJ 2 MG/ML 2 ML VIAL IV SCH ×3 (07:40→16:59)
[2020-06-30] MEDS: SODIUM CHLORIDE 0.9% 1000ML 1,000 ML IV SCH (07:49)
[2020-06-30] MEDS: NYSTATIN SUSP 500,000 U/5 ML UDC PO SCH ×4 (09:16→22:12)
[2020-06-30] MEDS: PANTOprazole 40 MG in SYRINGE 0 ML IV SCH ×2 (09:17→22:11)
[2020-06-30] MEDS: POT PHOSPHATE MONOBASIC W/ SOD TAB PO SCH ×4 (09:18→22:11)
[2020-06-30] MEDS: CHOLECALCIFEROL 1,000 UNITS 25 MCG TAB PO SCH (09:18)
[2020-06-30] MEDS: SUCRALFATE 1 GM/10 ML UDC PO SCH ×4 (09:19→22:12)
[2020-06-30] MEDS: FOLIC ACID 1 MG in SYRINGE 9.8 ML IV SCH (09:19)
[2020-06-30] MEDS: CEROVITE ADV FORMULA TAB PO SCH (09:20)
[2020-06-30] MEDS: MESALAMINE 400 MG CAPDR PO SCH ×3 (09:20→22:12)
[2020-06-30] MEDS: ENOXAPARIN INJ 40 MG/0.4 ML SYR SQ SCH (09:21)
[2020-06-30] MEDS ORDERED: POTASSIUM PHOS 3 MMOL/1 ML INFUSION IV STA (10:12)
[2020-06-30] MEDS ORDERED: POTASSIUM PHOSPHATE 15 MMOL in SODIUM CHLORIDE 0.9% 250 ML IV ONE (10:30)
[2020-06-30] MEDS ORDERED: DEXTROSE 10% 1,000 ML IV PRN (11:07)
--- NOTE | 2020-06-30 11:38 | Pharmacy Report ---
Pharmacy PN Initial Consult - Date of Service June 30, 2020 - Scope Pharmacy has been consulted to manage parenteral nutrition orders and order appropriate labs. As part of the Nutrition Support Team guidelines, pharmacy will work in conjunction with dietary when determining the patients caloric needs. - Subjective The patient is a 85 year old M admitted on 06/19/20 14:26 for ULCERATIVE COLITIS EXACERBATION. Patient is to receive parenteral nutrition for prolonged NPO status with Ulcerative colitis. Pertinent PMH: N/A - Objective Height: 5 ft 9 in Weight: 75.8 kg Diet: Full Liquid Vascular Access:: peripheral -attempts at a PICC line yesterday Intake & Output (Last 24Hrs): Intake & Output 06/28/20 06/29/20 06/30/20 07/01/20 06:59 06:59 06:59 06:59 Intake Total 3672.667 / 3672.667 1636.666 / 7214.251 0513 / 2910 1197.333 / 1197.333 Output Total 852 / 852 545 / 545 252 / 252 151 / 151 Balance 2820.667 / 2820.667 1091.666 / 3086.795 1774 / 2658 1046.333 / 1046.333 Weight 75.8 kg Laboratory Data (Last 24 Hrs):: 06/30/20 06:00 Sodium 142 Potassium 3.3 L Chloride 110 H Carbon Dioxide 29 BUN 16 Creatinine 0.79 Glucose 192 H Calcium 7.0 L Phosphorus 2.1 L Magnesium 1.8 Total Bilirubin 0.4 AST 7 L ALT 10 L Alkaline Phosphatase 46 Albumin 1.8 L Triglycerides 138 Nutrition Assessment:: Please refer to the Notes section of the EMR for the most recent gaming cashier note. - Assessment Mr Sotelo is an 85 y/o M with a PMH of ulcerative colitis who presents with an exacerbation. Patient has received IV steroids since 06/24/20 (approximately 6 days) with little improvement. Addition of PPN (attempts at PICC line unsuccessful 06/29/20 but will attempt again today) to increase nutrition in the setting of prolonged diarrhea. - Plan For day 1 of PN administration, the following will be ordered: Macronutrients Amino acids 90 grams/day Dextrose 100 grams/day Lipids 50 grams/day Micronutrients Combined electrolytes 40 mL - contains 35 mEq Na, 20 meq K, 4.5 mEq Ca, 5 mEq Mg, 35 mEq Cl, 29.5 mEq acetate per 20 mL Sodium phosphate -- MMol Sodium chloride 30 mEq Sodium acetate 20 mEq Potassium phosphate 21 mMol Potassium chloride -- mEq Potassium acetate -- mEq Magnesium sulfate -- mEq Calcium gluconate -- mEq Multivitamins 10 mL Trace Elements 10 mL Additional additives: Total volume 2000 mL to be infused over 24 hrs will provide 1200 kcal/day Final osmolarity 890 mOsm/L (maximum for PPN is 900 mOsm/L) Labs to be ordered per PN order protocol Pharmacy will follow and adjust parenteral nutrition orders on a daily basis. Thank you.
[2020-06-30] MEDS ORDERED: Custom Peripheral Pn 2,000 ML in TPN BAG 0 ML IV SCH (16:00)
[2020-06-30] MEDS: metroNIDAZOLE 500 MG TAB PO SCH ×2 (16:59→22:12)
[2020-06-30] MEDS: TAMSULOSIN HCL 0.4 MG CAP PO SCH (22:11)
[2020-06-30] MEDS: FINASTERIDE 5 MG TAB PO SCH (22:12)
[2020-06-30] MEDS: CIPROFLOXACIN 500 MG TAB PO SCH (22:13)
--- NOTE | 2020-06-30 23:29 | Hospitalist Progress Note ---
Date of Service June 30, 2020 Assessment & Plan (1) Ulcerative colitis: With severe exacerbation. S/p colonoscopy on 06/[address] Womack, [facility] which showed severe UC. - No improvement since admission despite IV steroids, IV cipro/flagyl, supportive care. - Biopsies not c/w CMV, c diff, ischemia, or neoplastic process. - Continue Solumedrol 20mg IV q6h. - Placed back on Cipro/Flagyl PO as patient has limited IV access. - Started on infliximab on 06/26. (Pre-infliximab TB screen neg. HepB screen shows no immunity to such - started HepB vaccine series on 06/26.) - Continue mesalamine. - C. diff re-check on 06/28 showed no C. diff. - Consulted palliative care. - Today: Placed on PPN, due to no central line access. will continue to monitor. (2) Chest tightness: IBARRA and chest symptoms - in the weeks leading up to admission. - Recent EKG w/o ischemic changes. - Echo with mildly depressed EF and possible inferior basal hypokinesis. Thus, symptoms may be due to CAD and ischemia. - Medically optimize as able. -> No pain today. (3) Anemia of chronic disease: Baseline hgb ~10. - Hgb dropped to 9, will monitor. (4) Protein calorie malnutrition: Due to ulcerative colitis. - Added MVI - Replacing folate - Zofran for nausea (5) Abscess of right arm: S/p I/D several weeks ago followed by course of Bactrim. - Continue daily packing and local wound care (6) Orthostatic hypotension: 2nd volume depletion in setting of poor oral intake, ongoing diarrhea from UC, etc. Flomax could be contributing as well. - Lowered Flomax dose to 0.4mg/day. - Cont IVF. (7) GERD (gastroesophageal reflux disease): Suspect upper GI symptoms are due to reflux. Reports burping, belching, and tasting acid in throat. - Continue PPI BID & Carafate - Continue Zofran (8) DVT prophylaxis: Lovenox - Despite bleeding, I think he is a high risk for DVT, so will continue. Admission and Anticipated Discharge Date Admission Date: June 19, 2020 Subjective Patient reports no new symptoms today. He continues to feel fatigued. Review of Systems Review of Systems: Last 3 weeks the [facility]pc has been managing a skin abscess on his right upper extremity. Most recently taking Bactrim for this and finishes up this course today. No fever or chills. Constitutional: + fatigue Respiratory: no cough, no dyspnea and no pain on inspiration Cardiovascular: as per Subjective / HPI and + chest pain; no orthopnea and no edema Gastrointestinal: + abdominal pain, + nausea, + diarrhea/loose stools and + blood in stools; no vomiting Endocrine: + cold intolerance Physical Exam Physical Exam: Constitutional: WD/WN, vitals as above Eyes: EOM intact bilaterally; no conjunctival abnormality ENMT: external ear and nose normal, oropharynx normal Neck: trachea midline, no thyromegaly normal visual inspection Respiratory: normal respiratory effort, lungs clear to auscultation no respiratory distress Cardiovascular: RRR, no murmur, no edema Gastrointestinal (Abdomen): Inspection/Auscultation: abdomen normal to inspecti on and normal bowel sounds; abdomen not distended Percussion/Palpation: + abdomen tender (Lower abdomen) and abdomen soft; no guarding and abdomen not rigid Musculoskeletal: no cyanosis or clubbing, extremities motor strength 5/5 Skin: no rashes, warm and dry Neurologic: moves all extremities and awake Psychiatric: Orientation: alert, oriented to person and cooperative Results & Data Results & Data ([facility]) Vital Signs (Past 12 Hours) Vital Signs Temp Pulse Resp BP Pulse Ox 06/30/20 15:10 36.8 C 71 16 121/72 92 PG Care Time/CCT Total # of Minutes Spent Total Time Spent with Patient: Total time spent is greater than 50% in coordination of care (as documented) at patient's floor/unit and/or counseling patient: Coding Level of Care Code 13424 Subseq Hosp Care Lvl 3 Diagnoses Ulcerative colitis K51.90 Digestive disease complication type: without complication Ulcerative colitis location: unspecified ulcerative colitis location Chest tightness R07.89 Anemia of chronic disease D63.8 Protein calorie malnutrition E44.0 Protein-calorie malnutrition severity: moderate Abscess of right arm L02.413 Orthostatic hypotension I95.1 GERD (gastroesophageal reflux disease) K21.9 Esophagitis presence: esophagitis presence not specified DVT prophylaxis Z29.9 Time Spent (min) 35 (1) GERD (gastroesophageal reflux disease) Esophagitis presence: esophagitis presence not specified Qualified Code(s): K21.9 - Gastro-esophageal reflux disease without esophagitis (2) Ulcerative colitis Digestive disease complication type: without complication Ulcerative colitis location: unspecified ulcerative colitis location Qualified Code(s): K51.90 - Ulcerative colitis, unspecified, without complications (3) Protein calorie malnutrition Protein-calorie malnutrition severity: moderate Qualified Code(s): E44.0 - Moderate protein-calorie malnutrition
[2020-07-01] MEDS: methylPREDNISolone 20 MG in SYRINGE 0 ML IV SCH ×4 (00:09→18:27)
[2020-07-01 07:10] LABS: BUN Creatinine Ratio 22.7 (10-20); Calcium 7.5 mg/dl (8.5-10.1); Creatinine Clr Calc Pharmacy 62.2 ml/min; Est GFR (African American) 91.2; Est GFR (Non-African American) 78.7; Magnesium 1.9 mg/dl (1.8-2.4); Potassium 3.7 mmol/L (3.5-5.1)
[2020-07-01] MEDS: ONDANSETRON INJ 2 MG/ML 2 ML VIAL IV SCH ×3 (07:54→16:22)
[2020-07-01] MEDS: MoRPHine SULFATE 2 MG/ML CARP IV PRN (08:05)
[2020-07-01] MEDS: PANTOprazole 40 MG in SYRINGE 0 ML IV SCH (09:19)
[2020-07-01] MEDS: CHOLECALCIFEROL 1,000 UNITS 25 MCG TAB PO SCH (09:19)
[2020-07-01] MEDS: FOLIC ACID 1 MG in SYRINGE 9.8 ML IV SCH (09:19)
[2020-07-01] MEDS: MESALAMINE 400 MG CAPDR PO SCH ×3 (09:20→20:42)
[2020-07-01] MEDS: SUCRALFATE 1 GM/10 ML UDC PO SCH ×4 (09:20→20:37)
[2020-07-01] MEDS: CEROVITE ADV FORMULA TAB PO SCH (09:20)
[2020-07-01] MEDS: POT PHOSPHATE MONOBASIC W/ SOD TAB PO SCH ×4 (09:20→20:44)
[2020-07-01] MEDS: NYSTATIN SUSP 500,000 U/5 ML UDC PO SCH ×4 (09:20→20:43)
[2020-07-01] MEDS: metroNIDAZOLE 500 MG TAB PO SCH ×3 (09:21→20:42)
[2020-07-01] MEDS: CIPROFLOXACIN 500 MG TAB PO SCH ×2 (09:21→20:41)
[2020-07-01 09:22] LABS: Hematocrit (blood only) 24.9 % (42-52); Hemoglobin 8.2 g/dL (14.0-18.0); Mean Corpuscular Hgb Conc 32.9 g/dL (32-36); Platelet Count 105 K/uL (130-400); RDW Coefficient of Variation 14.5 % (11.5-14.5); RDW Standard Deviation 43.3 fL (36.4-46.3); Red Blood Count 2.93 M/uL (4.7-6.1); White Blood Count 22.91 K/uL (4.8-10.8)
[2020-07-01] MEDS ORDERED: SODIUM PHOSPHATE 3 MMOL/1 ML INFUSION IV STA (09:31)
[2020-07-01 09:32] LABS: Basophils # (auto) 0.02 K/uL (0-0.2); Basophils % (auto) 0.1 %; Immature Granulocytes # (auto) 0.28 K/uL (0.00-0.02); Immature Granulocytes % (auto) 1.2 %; Lymphocytes # (auto) 0.52 K/uL (1.2-3.4); Lymphocytes % (auto) 2.3 %; Monocytes # (auto) 1.25 K/uL (0.11-0.59); Monocytes % (auto) 5.5 %; Neutrophils # (auto) 20.84 K/uL (1.4-6.5); Neutrophils % (auto) 90.9 %
[2020-07-01] MEDS ORDERED: PHARMACY GLYCEMIC MGMT CONSULT PRN (09:43)
[2020-07-01] MEDS ORDERED: SODIUM PHOSPHATE 15 MMOL in SODIUM CHLORIDE 0.9% 250 ML IV ONE (09:45)
[2020-07-01] MEDS ORDERED: ENOXAPARIN INJ 40 MG/0.4 ML SYR SQ ONE (10:00)
[2020-07-01] MEDS ORDERED: DEXTROSE 50% 50 ML SYRINGE IV PRN (10:00)
[2020-07-01] MEDS ORDERED: GLUCOSE 40% GEL 15 GM TUBE PO PRN (10:00)
[2020-07-01] MEDS ORDERED: GLUCAGON FOR INJ 1 MG VIAL IM PRN (10:00)
[2020-07-01] MEDS ORDERED: GLUCOSE 10 TABS/TUBE PO PRN (10:00)
[2020-07-01] MEDS ORDERED: CARBOHYDRATES FOR HYPOGLYCEMIA PO PRN (10:00)
[2020-07-01] MEDS ORDERED: INSULIN GLARGINE SOLOSTAR 100 UNITS/ML 3 ML PEN SC ONE (10:30)
--- NOTE | 2020-07-01 11:46 | Pharmacy Report ---
Glycemic Control Consultation - Date of Service July 01, 2020 - Scope Scope: Glycemic Pharmacist consulted for glycemic control and to write orders per [facility] inpatient glycemic control protocol. - Objective Weight: 75.8 kg Accuchecks BSG (last 24hrs): 07/01/20 07/01/20 07/01/20 00:02 05:50 06:33 Glucose 244 H POC Glucose 282 H 241 H Laboratory Data (last 24hrs): 07/01/20 06:33 Potassium 3.7 Carbon Dioxide 24 Anion Gap 7.0 Creatinine 0.90 Est Cr Clr Drug Dosing 62.2 HbA1c: Hemoglobin A1c 6.3 % (4.5-5.6) H 06/26/20 06:03 - Recent Pertinent Medications Outpatient Anti-diabetic Regimen: * N/A Risk Factors for Insulin Resistance: * Steroids: Solu-Medrol 20 mg IV q6 hours * Infection: cipro and Flagyl PO * Diet: clears - Assessment & Plan Assessment & Plan: ASSESSMENT: * Mr Sotelo is an 85 y/o M with a PMH of prediabetes who presents with an ulcerative colitis flare. Patient has been on Solu-Medrol 20 mg IV q6 hours x 7 days. Started on PPN yesterday. * BSGs not checked prior to yesterday but fasting BSGs have been trending upwards through hospital stay. * BSGs > 200 mg/dL while on PPN despite 15 units of insulin used in PPN (around a carbohydrate ratio of 7) * Pharmacy consulted for extra insulin coverage in setting of hyperglycemia. * Will give Lantus 0.2 units/kg (15 units) x 1 -- even if patient does not have IV site and not receiving PPN, not concerned as there will be lasting steroid effect. * Start with CF of 15 q4 hours for aggressive coverage. PLAN FOR INPATIENT GLYCEMIC CONTROL: * Basal insulin * Lantus 15 units SQ x 1 * Bolus insulin * NovoLog per scale Q4hrs while NPO * Goal Range: Low 110 mg/dL - High 140 mg/dL * Correction Factor: 15 mg/dL/unit * Nutritional / Prandial insulin per carb ratio of 1 unit per 5 grams CHO consumed * Please note that the plan above was derived based on current level of insulin resistance and hospital stress. These recommendations are appropriate for inpatient admission only. Plan of care upon discharge will need to be reassessed to avoid potential outpatient hypo/hyperglycemia. Thank you.
[2020-07-01] MEDS: INSULIN ASPART 100 UNITS/ML 3 ML PEN SC SCH ×3 (12:33→19:59)
--- NOTE | 2020-07-01 12:43 | Consultation ---
Date of Consultation July 01, 2020 Assessment & Plan (1) Protein calorie malnutrition: Pt discussed with Dr Schmidt, planning on Wil catheter insertion on MONDAY in [place]. Plan discussed wtih pt, he is agreeable. Protein-calorie malnutrition severity: moderate Qualified Code(s): E44.0 - Moderate protein-calorie malnutrition History of Present Illness Reason for Consultation: consult for tunneled catheter placement for TPN Attending Physician: Shen Garcia History of Present Illness 85 yo m with multiple medical problems, including arthritis, UC, BPH, chronic anemia, GERD, admitted with acute exacerbation of UC, seen in consultation today for insertion of tunneled IJ catheter for TPn administration. Pt currently with severe malnutrition and multiple attempts for PICC placement have failed. Currently getting TPN through peripheral IV. Pt admits malaise and diarrhea. Denies fever, chest pain, SOB, abd pain currently, N/V, rest pain, claudication, other complaints. Allergies Allergy/AdvReac Type Severity Reaction Status Date / Time No Known Allergies Allergy Unverified 06/19/20 09:43 Home Medications Home Medications Medication Instructions Recorded Confirmed Type finasteride [Proscar] 5 mg PO HS 10/11/18 06/19/20 History tamsulosin 0.8 mg PO HS 11/01/18 06/19/20 History mesalamine 2.4 g PO BID 01/27/19 06/19/20 History hydroxyzine pamoate 50 mg PO BID PRN 06/19/20 06/19/20 History loperamide [Anti-Diarrhea] 2 mg PO BID 06/19/20 06/19/20 History pantoprazole 40 mg PO DAILY 06/19/20 06/19/20 History prednisolone [Millipred] 5 mg PO DAILY 06/19/20 06/19/20 History sulfamethoxazole-trimethoprim 1 tab PO BID 06/19/20 06/19/20 History [Bactrim DS] Patient History Medical History BPH (benign prostatic hyperplasia) Carcinoma of parotid gland H/O flexible sigmoidoscopy Ulcerative colitis Family History Other Family history non-contributory Social History Smoking Status: Never smoker Tobacco Type: Smokeless Tobacco (Dip or Chew) Second Hand Exposure: No; Do You Dip or Chew Tobacco: Yes (1 can every other day); Tobacco Cessation Education Requested by Patient: No Hx Alcohol Use: No Hx Substance Use: No Preferred Language: Nepalese Communication Ability: Effective 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: No Beliefs That Will Affect Care: None Current Living Situation: Other Current Living Situation Comment: inmate in [facility] Other Information That Helps Us Care for You: No Feels Safe at Home: Yes Safety Concerns: Feels Safe At This Time Assistive Devices: Glasses Review of Systems Review of Systems: All systems reviewed & are unremarkable except as noted in HPI & below Physical Exam Constitutional: + thin, + frail appearing, cooperative and + malnourished; + not well nourished and not in distress Eyes: PERRL, conjunctivae normal, anicteric sclerae ENMT: Ears: no hearing impairment Neck: trachea midline old surgical incision over R clavicle Respiratory: normal respiratory effort, lungs clear to auscultation Auscultation: + diminished lung sounds Cardiovascular: RRR, no murmur, no edema Vessels: femoral pulses present, posterior tibial pulses present, dorsalis pedis pulses present and radial pulses present; + abnormal peripheral pulses Extremities: normal capillary refill; no edema Gastrointestinal (Abdomen): Percussion/Palpation: + abdomen tender (mild generalized) and abdomen soft; no guarding Musculoskeletal: no cyanosis or clubbing, extremities motor strength 5/5 Skin: + wound (R upper lateral arm wound dressing not removed) Neurologic: moves all extremities and awake; no focal motor deficits and not confused Psychiatric: Orientation: alert and oriented x 3 Affect: + depressed affect and + flat affect Results & Data ([facility]) Vital Signs (Past 12 Hours) Vital Signs Temp Pulse Resp BP Pulse Ox 07/01/20 08:01 36.6 C 80 20 124/82 99
--- NOTE | 2020-07-01 12:45 | Gastroenterology Progress Note ---
Date of Service July 01, 2020 Assessment & Plan (1) Ulcerative colitis: Pt is a 85 y/o male inmate w hx of Ulcerative colitis, admitted w bloody diarrhea, colitis on imaging studies. Colonoscopy 06/22 showed severe sanchez colitis with rectal sparing and skip areas in transverse colon. Luminal narrowing and edema, with some mass effect from colitis at 25 cm. Bx showed colitis & ulcerations w/o dysplasia, malignancy or CMV. CTA abd/pelvis unremarkable for vascular issues. Now increase in BMs and blood in BMs again after having had improvement. - Continue Methylprednisone to 20mg q6hrs IV - Clear liquid diet. - Consider discontinuing Cipro/Flagyl as may be worsening nausea. - Will continue to follow. As OP: - He will need Hep B immunization series, start first dose today on 06/26 (2nd dose 1 month later, 3rd dose 6 months after first dose). - He will need close f/u in outpt setting once DC'd to monitor response to med therapy and repeat colonoscopy to check for endoscopic signs of healing within 6 months after starting Infliximab Admission and Anticipated Discharge Date Admission Date: June 19, 2020 Supervising Physician Co-Signing Physician Notes Attending attestation I have seen, examined this patient, and agree with the findings and above by our mid-level provider ROSELINE Amaya, with the following additions: Severe Ulcerative colitis, just initiating remicade Would add back ASA with lialda equivalent (pending forumation) as well as rowasa enemas consider megace or remeron etc for appetite stimulation Subjective 85 yr old male with malignant neoplasm of the parotid gland, UC. We were consulted last week and completed colonoscopy and recommended starting Remicade. Asked to see him again today because bloody BMs. C scope on 06/22/20 with severe sanchez colitis with rectal sparing. Initial infliximab infusion on 06/26. Next dose due Jul 09. (Induction is 0,2,6 wks) On Mesalamine 4.8gm po/day On Solumedrol 20 IV 4x/day. Pt appears comfortable but tell us has nausea, poor appetite. No vomiting. Has had decrease in frequency of BMs since last week, and did have brown BMs but today worsening again: 5 BMs with bright red blood. Not strong enough to walk. Though was on a soft diet x 2 days, ate very little, says it worsens his pain. Review of Systems Constitutional: as per Subjective / HPI Ear, Nose, Mouth, Throat: no dysphagia and no pain with swallowing Respiratory: no cough, no dyspnea and no wheezing Gastrointestinal: + abdominal pain, + nausea, + change in bowel habits and + diarrhea/loose stools; no hematemesis, no blood in stools and no melena Integumentary: no rash and no skin ulcer has mild redness of the skin of the lower legs Neurologic: + generalized weakness; no confusion Physical Exam Constitutional: WD/WN, vitals as above + obese and + lethargic Eyes: PERRL, conjunctivae normal, anicteric sclerae ENMT: external ear and nose normal, oropharynx normal Neck: trachea midline, no thyromegaly Respiratory: normal respiratory effort, lungs clear to auscultation Cardiovascular: RRR, no murmur, no edema Gastrointestinal (Abdomen): Inspection/Auscultation: abdomen normal to inspection and + hypoactive bowel sounds; abdomen not distended Percussion/Palpation: + abdomen tender (mildly tender throughout) and abdomen s oft Skin: mild dull redness to the lower legs, appears chronic Neurologic: PERRL, EOMI, accommodation nl, no face palsy, no dysarthria Psychiatric: Eye Contact: + fair eye contact Affect: + flat affect Lymphatic: no cervical or axillary lymphadenopathy Results & Data ([facility]) Vital Signs (Past 12 Hours) Vital Signs Temp Pulse Resp BP Pulse Ox 07/01/20 08:01 36.6 C 80 20 124/82 99 Laboratory Results WBC 22, Hb 8, Hct 24, Platelets Diagnostic Findings Non contrast CT abd/pelvis: 06/19/20: 1. Long segment mild to moderate colonic wall thickening, most pronounced within the descending colon and sigmoid colon with pericolic infiltration and prominent pericolonic lymph node. Similar findings shown on several prior exams. This represents a nonspecific colitis. No bowel obstruction. No pneumatosis, free air or portal venous gas. If not recently performed, a follow-up nonemergent colonoscopy is recommended to exclude the less likely possibility of an underlying mucosal lesion. 2. Cholelithiasis. CTA chest 06/26/20: 1. A nonspecific colitis of the left colon is unchanged from previous. This could be on an infectious, inflammatory, or ischemic basis and clinical correlation will be essential. 2. Unremarkable CT angiogram of the abdominal aorta and its major branches. 3. Cholelithiasis. (1) Ulcerative colitis Digestive disease complication type: without complication Ulcerative colitis location: unspecified ulcerative colitis location Qualified Code(s): K51.90 - Ulcerative colitis, unspecified, without complications
[2020-07-01] MEDS ORDERED: Custom Peripheral Pn 2,000 ML in TPN BAG 0 ML IV SCH (16:00)
[2020-07-01] MEDS: TAMSULOSIN HCL 0.4 MG CAP PO SCH (20:43)
[2020-07-01] MEDS: FINASTERIDE 5 MG TAB PO SCH (20:44)
[2020-07-01] MEDS: MESALAMINE 4 GM/60 ML ENEMA PR SCH (20:45)
--- NOTE | 2020-07-01 21:41 | Hospitalist Progress Note ---
Date of Service July 01, 2020 Assessment & Plan (1) Ulcerative colitis: With severe exacerbation. S/p colonoscopy on 06/[address] Womack [facility] which showed severe UC. - No improvement since admission despite IV steroids, IV cipro/flagyl, supportive care. - Biopsies not c/w CMV, c diff, ischemia, or neoplastic process. - Continue Solumedrol 20mg IV q6h. - Placed back on Cipro/Flagyl PO as patient has limited IV access. - Started on infliximab on 06/26. (Pre-infliximab TB screen neg. HepB screen shows no immunity to such - started HepB vaccine series on 06/26.) - Continue mesalamine. - C. diff re-check on 06/28 showed no C. diff. - Consulted palliative care. - Today: Continue on PPN, due to no central line access. will continue to monitor. - Reconsulted GI as he continues to have bloody stools despite steroids. Continue to replenish electrolytes. (2) Chest tightness: IBARRA and chest symptoms - in the weeks leading up to admission. - Recent EKG w/o ischemic changes. - Echo with mildly depressed EF and possible inferior basal hypokinesis. Thus, symptoms may be due to CAD and ischemia. - Medically optimize as able. -> No pain today. (3) Anemia of chronic disease: Baseline hgb ~10. - Hgb dropped to 9, will monitor. (4) Protein calorie malnutrition: Due to ulcerative colitis. - Added MVI - Replacing folate - Zofran for nausea (5) Abscess of right arm: S/p I/D several weeks ago followed by course of Bactrim. - Continue daily packing and local wound care (6) Orthostatic hypotension: 2nd volume depletion in setting of poor oral intake, ongoing diarrhea from UC, etc. Flomax could be contributing as well. - Lowered Flomax dose to 0.4mg/day. - Cont IVF. (7) GERD (gastroesophageal reflux disease): Suspect upper GI symptoms are due to reflux. Reports burping, belching, and tasting acid in throat. - Continue PPI BID & Carafate - Continue Zofran (8) DVT prophylaxis: Lovenox - Despite bleeding, I think he is a high risk for DVT, so will continue. Admission and Anticipated Discharge Date Admission Date: June 19, 2020 Subjective 85 yo male reports feeling mildy better, but he does not go into detail. Review of Systems Review of Systems: All systems reviewed & are unremarkable except as noted in HPI & below Physical Exam Physical Exam: Constitutional: WD/WN, vitals as above Eyes: EOM intact bilaterally; no conjunctival abnormality ENMT: external ear and nose normal, oropharynx normal Neck: trachea midline, no thyromegaly normal visual inspection Respiratory: normal respiratory effort, lungs clear to auscultation no respiratory distress Cardiovascular: RRR, no murmur, no edema Gastrointestinal (Abdomen): Inspection/Auscultation: abdomen normal to inspection and normal bowel sounds; abdomen not distended Percussion/Palpation: + abdomen tender (Lower abdomen) and abdomen soft; no guarding and abdomen not rigid Musculoskeletal: no cyanosis or clubbing, extremities motor strength 5/5 Skin: no rashes, warm and dry Neurologic: moves all extremities and awake Psychiatric: Orientation: alert, oriented to person and cooperative Results & Data Results & Data ([facility]) Vital Signs (Past 12 Hours) Vital Signs Temp Pulse Resp BP Pulse Ox 07/01/20 14:59 36.5 C 72 18 164/91 H 96 PG Care Time/CCT Total # of Minutes Spent Total Time Spent with Patient: Total time spent is greater than 50% in coordination of care (as documented) at patient's floor/unit and/or counseling patient: Coding Level of Care Code 91668 Subseq Hosp Care Lvl 2 Diagnoses Ulcerative colitis K51.90 Digestive disease complication type: without complication Ulcerative colitis location: unspecified ulcerative colitis location Chest tightness R07.89 Anemia of chronic disease D63.8 Protein calorie malnutrition E44.0 Protein-calorie malnutrition severity: moderate Abscess of right arm L02.413 Orthostatic hypotension I95.1 GERD (gastroesophageal reflux disease) K21.9 Esophagitis presence: esophagitis presence not specified DVT prophylaxis Z29.9 (1) GERD (gastroesophageal reflux disease) Esophagitis presence: esophagitis presence not specified Qualified Code(s): K21.9 - Gastro-esophageal reflux disease without esophagitis (2) Ulcerative colitis Digestive disease complication type: without complication Ulcerative colitis location: unspecified ulcerative colitis location Qualified Code(s): K51.90 - Ulcerative colitis, unspecified, without complications (3) Protein calorie malnutrition Protein-calorie malnutrition severity: moderate Qualified Code(s): E44.0 - Moderate protein-calorie malnutrition
[2020-07-02] MEDS: INSULIN ASPART 100 UNITS/ML 3 ML PEN SC SCH ×6 (00:05→21:28)
[2020-07-02] MEDS: methylPREDNISolone 20 MG in SYRINGE 0 ML IV SCH ×4 (00:06→17:12)
[2020-07-02 08:00] LABS: BUN Creatinine Ratio 34.3 (10-20); Calcium 7.5 mg/dl (8.5-10.1); Creatinine Clr Calc Pharmacy 93.3 ml/min; Est GFR (African American) 107.8; Magnesium 2.1 mg/dl (1.8-2.4); Phosphorus 2.8 mg/dl (2.5-4.9); Potassium 3.6 mmol/L (3.5-5.1)
[2020-07-02] MEDS: ONDANSETRON INJ 2 MG/ML 2 ML VIAL IV SCH ×3 (09:18→17:12)
[2020-07-02] MEDS: ENOXAPARIN INJ 40 MG/0.4 ML SYR SQ SCH (09:20)
[2020-07-02] MEDS: POT PHOSPHATE MONOBASIC W/ SOD TAB PO SCH ×4 (09:20→21:29)
[2020-07-02] MEDS: SUCRALFATE 1 GM/10 ML UDC PO SCH ×4 (09:21→21:28)
[2020-07-02] MEDS: CIPROFLOXACIN 500 MG TAB PO SCH ×2 (09:21→21:29)
[2020-07-02] MEDS: metroNIDAZOLE 500 MG TAB PO SCH ×3 (09:21→21:29)
[2020-07-02] MEDS: CHOLECALCIFEROL 1,000 UNITS 25 MCG TAB PO SCH (09:21)
[2020-07-02] MEDS: MESALAMINE 400 MG CAPDR PO SCH ×3 (09:21→21:30)
[2020-07-02] MEDS: MESALAMINE 4 GM/60 ML ENEMA PR SCH ×2 (09:23→21:31)
[2020-07-02 09:40] LABS: Hemoglobin 7.4 g/dL (14.0-18.0); Mean Corpuscular Hemoglobin 27.8 pg (25-34); Mean Corpuscular Hgb Conc 32.2 g/dL (32-36); Mean Corpuscular Volume 86.5 fL (80-100); Mean Platelet Volume 10.9 fL (7.4-10.4); Nucleated RBC # (auto) 0.02 K/uL (0-0); Nucleated RBC % (auto) 0.2 %; Platelet Count 97 K/uL (130-400); RDW Standard Deviation 44.6 fL (36.4-46.3); Red Blood Count 2.66 M/uL (4.7-6.1); White Blood Count 11.23 K/uL (4.8-10.8)
[2020-07-02 09:41] LABS: Basophils # (auto) 0.01 K/uL (0-0.2); Basophils % (auto) 0.1 %; Immature Granulocytes # (auto) 0.31 K/uL (0.00-0.02); Immature Granulocytes % (auto) 2.8 %; Lymphocytes # (auto) 0.52 K/uL (1.2-3.4); Lymphocytes % (auto) 4.6 %; Microcytosis Present; Monocytes # (auto) 0.88 K/uL (0.11-0.59); Monocytes % (auto) 7.8 %; Neutrophils # (auto) 9.51 K/uL (1.4-6.5); Neutrophils % (auto) 84.7 %; Platelet Estimate Decreased (Normal)
[2020-07-02] MEDS: NYSTATIN SUSP 500,000 U/5 ML UDC PO SCH ×4 (10:11→21:30)
--- NOTE | 2020-07-02 11:27 | Gastroenterology Progress Note ---
Date of Service July 02, 2020 Assessment & Plan (1) Ulcerative colitis: Pt is a 85 y/o male inmate w hx of Ulcerative colitis, admitted w bloody diarrhea, colitis on imaging studies. Colonoscopy 06/22 showed severe sanchez colitis with rectal sparing and skip areas in transverse colon. Luminal narrowing and edema, with some mass effect from colitis at 25 cm. Bx showed colitis & ulcerations w/o dysplasia, malignancy or CMV. CTA abd/pelvis unremarkable for vascular issues. Yesterday with increase in BMs and blood in BMs again after having had improvement. Improvement today again. 1. Continue: -Methylprednisone to 20mg q6hrs IV - Mesalamine 2.4 gram/day po - Rowasa enema 2. We will recheck stool studies for C. difficile and add stool for culture. 3. No clear indication for antibiotics for GI issues: consider discontinuing Cipro/Flagyl. 4. Advance diet to low fiber 5. Consider appetite stimulant As OP: - He will need Hep B immunization series, start first dose today on 06/26 (2nd dose 1 month later, 3rd dose 6 months after first dose). - He will need close f/u in outpt setting - Will be due for 2nd Remicade infusion on 07/10/20. - Will need repeat colonoscopy to check for endoscopic signs of healing 6 months after starting Infliximab Admission and Anticipated Discharge Date Admission Date: June 19, 2020 Supervising Physician Co-Signing Physician Notes Attending attestation I have seen, examined this patient, and agree with the findings and above by our mid-level provider ROSELINE Amaya, with the following additions: Severe Ulcerative colitis, just initiating remicade Would add back ASA with lialda equivalent (pending forumation) as well as rowasa enemas consider megace or remeron etc for appetite stimulation Subjective 85 yr old male with malignant neoplasm of the parotid gland, severe sanchez-UC on 06/22 colonoscopy. Remicade initiated on 06/26. We were consulted last week and completed colonoscopy and recommended starting Remicade. Blood BMs Tu and Mon after having had brown BMs. Saw yesterday and added Rowasa enema. Remains on On Mesalamine 4.8gm po/day and Solumedrol 20 IV 4x/day. Today, patient tells us that he feels a bit better. He is more awake alert less pain and has some appetite. He has had 2 bowel movements so far today each with some blood (5 yesterday with large amt blood). Tolerating a clear liquid diet well. Hb 7.4 down from 9 three days ago. BUN 21. WBC 11, down from 22 yesterday. Review of Systems Review of Systems: ROS: Gen: Weakness slightly improved today, appetite also slightly improved. Eyes: No eye redness, or pain, no recent vision changes Resp: No SOB, no cough Cardio: No palpitations/irregular beats, no chest pain GI: See HPI, otherwise negative : Denies pain on urination Skin: No jaundice, itching or new rashes Physical Exam Constitutional: WD/WN, vitals as above + obese Eyes: PERRL, conjunctivae normal, anicteric sclerae ENMT: external ear and nose normal, oropharynx normal Neck: trachea midline, no thyromegaly Respiratory: normal respiratory effort, lungs clear to auscultation Cardiovascular: RRR, no murmur, no edema Gastrointestinal (Abdomen): Inspection/Auscultation: abdomen normal to inspection and + hypoactive bowel sounds; abdomen not distended Percussion/Palpation: + abdomen tender (mildly tender throughout) and abdomen soft Neurologic: PERRL, EOMI, accommodation nl, no face palsy, no dysarthria Psychiatric: A+Ox3, euthymic affect Answers all questions readily today. Lymphatic: no cervical or axillary lymphadenopathy Results & Data ([facility]) Vital Signs (Past 12 Hours) Vital Signs Temp Pulse Pulse Resp BP BP Pulse Ox 07/02/20 07:46 36.5 C 73 18 119/74 99 07/01/20 23:16 36.5 C 67 16 120/71 97 (1) Ulcerative colitis Digestive disease complication type: without complication Ulcerative colitis location: unspecified ulcerative colitis location Qualified Code(s): K51.90 - Ulcerative colitis, unspecified, without complications
--- NOTE | 2020-07-02 12:48 | Pharmacy Report ---
Glycemic Control Progress Note - Date of Service July 02, 2020 - Scope Glycemic Pharmacist consulted for glycemic control to write orders per [facility] inpatient glycemic control protocol. - Objective Accuchecks BSG(last 24 hours):: 07/01/20 07/01/20 07/02/20 16:27 19:37 00:01 Glucose POC Glucose 196 H 207 H 128 H 07/02/20 07/02/20 07/02/20 04:09 06:13 08:15 Glucose 98 POC Glucose 114 H 107 H 07/02/20 12:16 Glucose POC Glucose 124 H HbA1c:: Hemoglobin A1c 6.3 % (4.5-5.6) H 06/26/20 06:03 - Recent Pertinent Medications The patient is currently receiving: * Basal insulin: Lantus 15 units SQ x 1 * Correctional Insulin: Novolog Correction per scale ACHS Goal Range: Low 110 mg/dL - High 140 mg/dL Correction Factor: 15 mg/dL/unit * Prandial insulin: Per carb ratio of 1 unit per 5 grams CHO consumed - Outpatient Anti-Diabetic Meds N/A - Assessment & Plan ASSESSMENT: * See progress note from 07/01/20 for more background info, in short: * Pt receiving SQ basal bolus insulin regimen for hyperglycemia secondary to Methylprednisolone 20 mg IV q6 hours. Patient has prediabetes. * Patient is currently receiving an average of 39 units of insulin per day (plus 20 units in PPN) * 15 units of basal insulin * 24 units of prandial/correctional insulin * BSGs ranging 128 - 207 mg/dl over the past 24hrs * Changes needed to insulin regimen: * AM Fasting BSG = 98 mg/dl. This is in goal range for patient based on inpatient targets and co-morbidities. Patient's PPN will be held today. Will give Lantus 7 units tonight since patient experienced hyperglycemia with minimal oral intake prior. * Post-prandial BSGs are in range therefore no changes needed to CF/CR. * Total daily dose = ? units. Will depend upon oral and IV intake. PLAN FOR INPATIENT GLYCEMIC CONTROL: * Decreasing Lantus to 7 units SQ HS * Continuing correction factor of 15 mg/dl/unit * Continuing carb ratio of 1 unit per 5 grams CHO consumed * Continuing goal range of Low 110 mg/dL - High 140 mg/dL * Please note that the plan above was derived based on current level of insulin resistance and hospital stress. These recommendations are appropriate for inpatient admission only. Plan of care upon discharge will need to be reassessed to avoid potential outpatient hypo/hyperglycemia. Thank you.
--- NOTE | 2020-07-02 13:20 | Communication Note ---
Date of Service: July 02, 2020 Patient is scheduled for insertion of a lytic catheter tomorrow for hyperalimentation. I have discussed the risks options and benefits of the procedure with the patient. The patient understands the risks options and benefits and agrees to the procedure.
--- NOTE | 2020-07-02 13:27 | Communication Note ---
Date of Service: July 02, 2020 Patient now being tried on low fiber diet. Can treat with oral supplementation if he tolerates a liquid diet. Will hold off on insertion of a norman catheter at this time.
--- NOTE | 2020-07-02 16:12 | Palliative Care Progress Note ---
Date of Service July 02, 2020 Assessment & Plan (1) Goals of care, counseling/discussion: Pt is an 85 yo male with a PMH of Ulcerative colitis, malignant neoplasm of the parotid gland, h/o C diff, abscess of R arm - I&D a few weeks ago, and GERD who presented from the skilled nursing for a 3-7 day h/o abd pain and diarrhea. Pt can report a general history but is not able to give details. Pt stated he had a severe episode several years ago and was hospitalized at [facility] and thought that was "the end" for him at that time - he stated he was not supposed to be able to walk - but recovered and did well for many years. Asked pt if this episode felt different from prior episode - he stated "no". CT scan showed colitis, he had a colonoscopy on 06/22 that showed severe UC - bx negative for dysplasia , neoplasm or CMV. Pt started on IV Cipro, Flagyl and steroids - Remicade started on 06/26 as per GI -patient continues to have frequent loose stools - Goals of care - Pt stated all he wants to do is see his 2 daughters and grandchildren. - Discussed details of what it means to be a full code - pt stated he would want to be resuscitated. - Pt stated he feels no better now than when he was admitted despite not requiring any PRN pain medications in the past 24 hours-he would want aggressive measures if there was anything that could improve his loose stools, patient had 5 bowel movements on the , 2 bowel movements yesterday. - Abd Pain - pt reports diffuse abd pain-denied pain on exam today. Pt did not wince with light palpation with stethoscope on exam. Decreased BS on exam today. -Patient currently on TPN (2) Abdominal pain, LLQ (left lower quadrant): Pt appears comfortable at rest - did not have pt try to sit up (3) Ulcerative colitis: frequency of loose stools improving (4) GERD (gastroesophageal reflux disease): on PPI BID, sucralfate added on 06/25 Admission and Anticipated Discharge Date Admission Date: June 19, 2020 Subjective Chart reviewed, patient seen and examined Patient awake and alert, unable to give a reliable history over the past several days-patient states he does not feel that he is getting any better. He denies abdominal pain but continues to have multiple loose bowel movements. Patient has not required any PRN pain medications in the past 24 hours -Patient wants to remain a full code-is agreeable to any aggressive measures that would improve his ulcerative colitis. Review of Systems Review of Systems: Patient denies fever, chills, chest pain, shortness of breath, or abdominal pain Positive for continued loose stools Physical Exam Physical Exam: PE: Patient awake and alert, no acute distress at rest HEENT: EOMI, hearing within normal limits Respirations: Unlabored, clear breath sounds CV: Regular rate Abdomen: Distended, diminished bowel sounds, nontender to light palpation Extremities: Warm to touch Neuro: Alert and oriented Results & Data ([facility]) Vital Signs (Past 12 Hours) Vital Signs Temp Pulse Resp BP Pulse Ox 07/02/20 15:09 97.9 F 21 145/102 H 07/02/20 07:46 97.7 F 73 18 119/74 99 PG Care Time/CCT Total # of Minutes Spent Total Time Spent with Patient: Total time spent 35 minutes with greater than 50% of the time spent at bedside assessing patient's current level of comfort and discussing goals of care Coding Level of Care Code 04386 Subseq Hosp Care Lvl 3 Diagnoses Goals of care, counseling/discussion Z71.89 Abdominal pain, LLQ (left lower quadrant) R10.32 Ulcerative colitis K51.90 Ulcerative colitis location: unspecified ulcerative colitis location Digestive disease complication type: without complication GERD (gastroesophageal reflux disease) K21.9 Esophagitis presence: esophagitis presence not specified Time Spent (min) 35 (1) Ulcerative colitis Ulcerative colitis location: unspecified ulcerative colitis location Digestive disease complication type: without complication Qualified Code(s): K51.90 - Ulcerative colitis, unspecified, without complications (2) GERD (gastroesophageal reflux disease) Esophagitis presence: esophagitis presence not specified Qualified Code(s): K21.9 - Gastro-esophageal reflux disease without esophagitis
[2020-07-02] MEDS ORDERED: INSULIN GLARGINE SOLOSTAR 100 UNITS/ML 3 ML PEN SC SCH (21:00)
[2020-07-02] MEDS: TAMSULOSIN HCL 0.4 MG CAP PO SCH (21:31)
[2020-07-02] MEDS: FINASTERIDE 5 MG TAB PO SCH (21:31)
--- NOTE | 2020-07-02 22:44 | Hospitalist Progress Note ---
Date of Service July 02, 2020 Assessment & Plan (1) Ulcerative colitis: With severe exacerbation. S/p colonoscopy on 06/[address] Womack [facility] which showed severe UC. - No improvement since admission despite IV steroids, IV cipro/flagyl, supportive care. - Biopsies not c/w CMV, c diff, ischemia, or neoplastic process. - Continue Solumedrol 20mg IV q6h. - Placed back on Cipro/Flagyl PO as patient has limited IV access. - Started on infliximab on 06/26. (Pre-infliximab TB screen neg. HepB screen shows no immunity to such - started HepB vaccine series on 06/26.) - Continue mesalamine. - C. diff re-check on 06/28 showed no C. diff. - Consulted palliative care. - Today: will hold PPN, as patient is becoming more edematous. will also hold antibiotics as GI states there is no indication at this point. - Reconsulted GI as he continues to have bloody stools despite steroids. Continue to replenish electrolytes. -Consulted palliative care: patient wants to continue to be a full code. (2) Chest tightness: IBARRA and chest symptoms - in the weeks leading up to admission. - Recent EKG w/o ischemic changes. - Echo with mildly depressed EF and possible inferior basal hypokinesis. Thus, symptoms may be due to CAD and ischemia. - Medically optimize as able. -> No pain today. (3) Anemia of chronic disease: Baseline hgb ~10. - Hgb dropped to 9, will monitor. (4) Protein calorie malnutrition: Due to ulcerative colitis. - Added MVI - Replacing folate - Zofran for nausea (5) Abscess of right arm: S/p I/D several weeks ago followed by course of Bactrim. - Continue daily packing and local wound care (6) Orthostatic hypotension: 2nd volume depletion in setting of poor oral intake, ongoing diarrhea from UC, etc. Flomax could be contributing as well. - Lowered Flomax dose to 0.4mg/day. - Cont IVF. (7) GERD (gastroesophageal reflux disease): Suspect upper GI symptoms are due to reflux. Reports burping, belching, and tasting acid in throat. - Continue PPI BID & Carafate - Continue Zofran (8) DVT prophylaxis: Lovenox - Despite bleeding, I think he is a high risk for DVT, so will continue. Admission and Anticipated Discharge Date Admission Date: June 19, 2020 Subjective 85 yo male reports no improvement. Review of Systems Review of Systems: All systems reviewed & are unremarkable except as noted in HPI & below Physical Exam Physical Exam: Constitutional: WD/WN, vitals as above Eyes: EOM intact bilaterally; no conjunctival abnormality ENMT: external ear and nose normal, oropharynx normal Neck: trachea midline, no thyromegaly normal visual inspection Respiratory: normal respiratory effort, lungs clear to auscultation no respiratory distress Cardiovascular: RRR, no murmur, no edema Gastrointestinal (Abdomen): Inspection/Auscultation: abdomen normal to inspection and normal bowel sounds; abdomen not distended Percussion/Palpation: + abdomen tender (Lower abdomen) and abdomen soft; no guarding and abdomen not rigid Musculoskeletal: no cyanosis or clubbing, extremities motor strength 5/5 Skin: no rashes, warm and dry, arm is becoming more edematous. Neurologic: moves all extremities and awake Psychiatric: Orientation: alert, oriented to person and cooperative Results & Data Results & Data ([facility]) Vital Signs (Past 12 Hours) Vital Signs Temp Resp BP 07/02/20 15:09 36.6 C 21 145/102 H PG Care Time/CCT Total # of Minutes Spent Total Time Spent with Patient: Total time spent is greater than 50% in coordination of care (as documented) at patient's floor/unit and/or counseling patient: Coding Level of Care Code 90227 Subseq Hosp Care Lvl 2 Diagnoses Ulcerative colitis K51.90 Digestive disease complication type: without complication Ulcerative colitis location: unspecified ulcerative colitis location Chest tightness R07.89 Anemia of chronic disease D63.8 Protein calorie malnutrition E44.0 Protein-calorie malnutrition severity: moderate Abscess of right arm L02.413 Orthostatic hypotension I95.1 GERD (gastroesophageal reflux disease) K21.9 Esophagitis presence: esophagitis presence not specified DVT prophylaxis Z29.9 Time Spent (min) 25 (1) GERD (gastroesophageal reflux disease) Esophagitis presence: esophagitis presence not specified Qualified Code(s): K21.9 - Gastro-esophageal reflux disease without esophagitis (2) Ulcerative colitis Digestive disease complication type: without complication Ulcerative colitis location: unspecified ulcerative colitis location Qualified Code(s): K51.90 - Ulcerative colitis, unspecified, without complications (3) Protein calorie malnutrition Protein-calorie malnutrition severity: moderate Qualified Code(s): E44.0 - Moderate protein-calorie malnutrition
[2020-07-03] MEDS: methylPREDNISolone 20 MG in SYRINGE 0 ML IV SCH ×4 (00:13→18:21)
[2020-07-03] MEDS: ONDANSETRON INJ 2 MG/ML 2 ML VIAL IV SCH ×3 (08:51→18:16)
[2020-07-03] MEDS: CIPROFLOXACIN 500 MG TAB PO SCH ×2 (08:52→21:18)
[2020-07-03] MEDS: NYSTATIN SUSP 500,000 U/5 ML UDC PO SCH ×4 (08:52→21:18)
[2020-07-03] MEDS: POT PHOSPHATE MONOBASIC W/ SOD TAB PO SCH ×4 (08:52→21:18)
[2020-07-03] MEDS: metroNIDAZOLE 500 MG TAB PO SCH ×3 (08:52→21:19)
[2020-07-03] MEDS: ENOXAPARIN INJ 40 MG/0.4 ML SYR SQ SCH (08:53)
[2020-07-03] MEDS: CHOLECALCIFEROL 1,000 UNITS 25 MCG TAB PO SCH (09:10)
[2020-07-03] MEDS: MESALAMINE 400 MG CAPDR PO SCH ×3 (09:10→21:18)
[2020-07-03] MEDS: SUCRALFATE 1 GM/10 ML UDC PO SCH ×4 (09:10→21:18)
[2020-07-03] MEDS: MESALAMINE 4 GM/60 ML ENEMA PR SCH ×2 (09:10→21:13)
[2020-07-03] MEDS: MoRPHine SULFATE 2 MG/ML CARP IV PRN ×2 (10:40→21:13)
[2020-07-03] MEDS: INSULIN ASPART 100 UNITS/ML 3 ML PEN SC SCH ×4 (10:49→21:28)
[2020-07-03 11:39] LABS: Hematocrit (blood only) 23.5 % (42-52); Hemoglobin 7.6 g/dL (14.0-18.0); Mean Corpuscular Hemoglobin 28.3 pg (25-34); Mean Corpuscular Hgb Conc 32.3 g/dL (32-36); Mean Corpuscular Volume 87.4 fL (80-100); Nucleated RBC # (auto) 0.03 K/uL (0-0); Nucleated RBC % (auto) 0.2 %; RDW Coefficient of Variation 15.6 % (11.5-14.5); RDW Standard Deviation 44.9 fL (36.4-46.3); Red Blood Count 2.69 M/uL (4.7-6.1); White Blood Count 14.12 K/uL (4.8-10.8)
--- NOTE | 2020-07-03 11:45 | Gastroenterology Progress Note ---
Date of Service July 03, 2020 Assessment & Plan (1) Ulcerative colitis: Pt is a 85 y/o male inmate w hx of Ulcerative colitis, admitted w bloody diarrhea, colitis on imaging studies. Colonoscopy 06/22 showed severe sanchez colitis with rectal sparing and skip areas in transverse colon. Luminal narrowing and edema, with some mass effect from colitis at 25 cm. Bx showed colitis & ulcerations w/o dysplasia, malignancy or CMV. CTA abd/pelvis unremarkable for vascular issues. Repeat stools for C-diff and culture (-). He is stable, but does not seem to be improving during Remicade induction with max po steroids and po/rectal mesalamine. May need to consider transfer to tertiary care for colorectal surgery eval. Admission and Anticipated Discharge Date Admission Date: June 19, 2020 Supervising Physician Co-Signing Physician Notes Attending attestation I have seen, examined this patient, and agree with the findings and above by our mid-level provider ROSEILNE Amaya, with the following additions: -Patient chronically ill in the setting of severe colitis, patient with IV steroids, ASA medications as well as recent infusion of Remicade. I would encourage continued the p.o. as tolerated, nutrition, but if fails to improve then the only possibility for therapy would be referral to a tertiary center for colorectal surgery evaluation. Given his debilitated nature of not sure that that would be possibly heroic but should be considered. -We will follow Dr. Lindsey will be covering over the weekend. -Consider repeat C. difficile test as well as abdominal x-ray today. Subjective 85 yr old male with malignant neoplasm of the parotid gland, severe sanchez-UC on colonoscopy. Remicade initiated on 06/26. On Solumedrol 20 QID, Mesalamine po and rectally. We were consulted last week and completed colonoscopy and recommended starting Remicade. Blood BMs started again on and persist: 3 large red liquid BMs from midnight thru to this morning. Pt c/o increased diffuse abd pain, "like a target," and "ache all over." Hb 7.6 today (7.4 yesterday), WBC 14 today. Review of Systems Review of Systems: ROS: Gen: + weakness, weight loss; no fevers Eyes: No eye redness, or pain, no recent vision changes Resp: No SOB, no cough Cardio: No palpitations/irregular beats, no chest pain GI: See HPI, poor appetite and doesn't want to eat because worsens abd pain. No N/V : Denies pain on urination Skin: No jaundice, itching or new rashes Physical Exam Constitutional: WD/WN, vitals as above + obese Eyes: PERRL, conjunctivae normal, anicteric sclerae ENMT: external ear and nose normal, oropharynx normal Neck: trachea midline, no thyromegaly Respiratory: normal respiratory effort, lungs clear to auscultation Cardiovascular: RRR, no murmur, no edema Gastrointestinal (Abdomen): Inspection/Auscultation: abdomen normal to inspection and + hypoactive bowel sounds; abdomen not distended Percussion/Palpation: + abdomen tender (mildly tender throughout) and abdomen soft Neurologic: PERRL, EOMI, accommodation nl, no face palsy, no dysarthria Psychiatric: A+Ox3, euthymic affect Eye Contact: + fair eye contact Affect: + flat affect Lymphatic: no cervical or axillary lymphadenopathy Results & Data ([facility]) Vital Signs (Past 12 Hours) Vital Signs Temp Pulse Resp BP Pulse Ox 07/03/20 08:59 101/63 07/03/20 07:50 36.7 C 77 14 99/63 L 92 07/03/20 00:11 37.0 C 65 14 110/66 97 (1) Ulcerative colitis Digestive disease complication type: without complication Ulcerative colitis location: unspecified ulcerative colitis location Qualified Code(s): K51.90 - Ulcerative colitis, unspecified, without complications
[2020-07-03 11:55] LABS: Albumin Level 1.8 gm/dl (3.4-5.0); BUN Creatinine Ratio 32.9 (10-20); Calcium 7.9 mg/dl (8.5-10.1); Creatinine Clr Calc Pharmacy 75.4 ml/min; Est GFR (African American) 95.3; Est GFR (Non-African American) 82.2; Magnesium 2.1 mg/dl (1.8-2.4); Potassium 4.1 mmol/L (3.5-5.1)
[2020-07-03 12:00] LABS: Albumin Globulin Ratio 0.7 (0.9-2); Bilirubin,Total 0.5 mg/dl (0.2-1); Globulin 2.4 gm/dl (2.5-4.0); Phosphorus 3.5 mg/dl (2.5-4.9); Total Protein 4.2 gm/dl (6.4-8.2)
[2020-07-03 12:04] LABS: Mean Platelet Volume 11.1 fL (7.4-10.4); Platelet Count 90 K/uL (130-400)
[2020-07-03 12:06] LABS: Anisocytosis Present; Basophils # (auto) 0.01 K/uL (0-0.2); Basophils % (auto) 0.1 %; Giant Platelets 1+; Immature Granulocytes # (auto) 0.27 K/uL (0.00-0.02); Immature Granulocytes % (auto) 1.9 %; Lymphocytes # (auto) 0.68 K/uL (1.2-3.4); Lymphocytes % (auto) 4.8 %; Monocytes # (auto) 1.09 K/uL (0.11-0.59); Monocytes % (auto) 7.7 %; Neutrophils # (auto) 12.07 K/uL (1.4-6.5); Neutrophils % (auto) 85.5 %; Platelet Estimate Decreased (Normal); Polychromasia 1+
--- NOTE | 2020-07-03 13:52 | Pharmacy Report ---
Pharmacy Glycemic Short Note 2 - Date of Service July 03, 2020 - Glycemic Short BSG Results (Last 24 hours): 07/02/20 07/02/20 07/03/20 16:26 20:31 08:08 Glucose POC Glucose 193 H 154 H 81 07/03/20 07/03/20 11:12 12:17 Glucose 98 POC Glucose 112 H OUTPATIENT ANTIDIABETIC REGIMEN: * n/a ASSESSMENT: * 85yo pre-diabetic male with steroid induced hyperglycemia * Pt receiving RTC methylprednisolone for UC flare * Pt only has peripheral IV access - peripheral PN on hold d/t volume overload * Pt not tolerating PO intake, extremely minimal food intake. * Pt has been receiving ~ 20 units of insulin per day * 7 units of basal insulin * 13 units of bolus insulin * BSGs [id number] mg/dl * Steroid have their most profound effect on post-prandial hyperglycemia - effect is minimal since PO intake is so low. * AM fasting BSG is slightly below goal range for inpatient targets - will decrease dose slightly * No changes needed to CF/CR as PO intake is so low. PLAN FOR INPATIENT GLYCEMIC CONTROL: * Basal insulin: decrease * Lantus 6 units SQ HS * Bolus insulin * NovoLog per scale ACHS or Q6hrs while NPO * Goal Range: Low 110 mg/dL - High 140 mg/dL * Correction Factor: 15 mg/dL/unit * Nutritional / Prandial insulin per carb ratio of 1 unit per 5 grams CHO consumed
--- NOTE | 2020-07-03 15:08 | XRay Report ---
XR KUB/Abdomen 1 view CLINICAL HISTORY: abdominal pain with severe UC, r/o megacolon COMPARISON STUDY: CT scan dated 06/22/2020 FINDINGS: 2 supine views the abdomen are provided for interpretation. There is gas present within non dilated colon. There is a mildly dilated mid abdominal small bowel measuring 3.5 cm. IMPRESSION: 1. No evidence of pathologic colonic dilatation 2. Nonspecific bowel gas pattern with a mildly dilated mid abdominal small bowel loop. ACT 112: Negative or not required by law. Electronically signed by: Jayy Ríos M.D. 07/03/2020 3:06 PM
[2020-07-03] MEDS ORDERED: Custom Peripheral Pn 2,000 ML in TPN BAG 0 ML IV SCH (16:00)
--- NOTE | 2020-07-03 16:32 | Surgery Consultation ---
Date of Consultation July 03, 2020 Assessment & Plan (1) Ulcerative colitis: He should be evaluated by colorectal surgery at a tertiary facility, subtotal colectomy for UC is not a procedure we would perform here. Dr. Harvey-I saw the patient in his room-he just had an episode of diarrhea He is severely anemic at 7.6 hemoglobin, his albumin is very low at 1.8-he is an extremely poor surgical risk I would not even consider attempting a colectomy. The GI team did suggest possible evaluation by colorectal surgery I suppose there could be some place for diversion but I do not think the patient would tolerate an ileostomy very well The medical team may consider discussing with the fdc having him seen at a tertiary care center by colorectal surgery He does need calories and I know PPN/TPN has been considered History of Present Illness Attending Physician: Shen Carcamo Radha History of Present Illness 85 y/o male inmate with ulcerative colitis admitted 2 weeks ago for LLQ pain, frequent BMs, lethargy. He does not feel he has made any progress during admission in terms of energy, appetite or BMs despite treatment initiated by GI. Allergies Allergy/AdvReac Type Severity Reaction Status Date / Time No Known Allergies Allergy Unverified 06/19/20 09:43 Home Medications Home Medications Medication Instructions Recorded Confirmed Type finasteride [Proscar] 5 mg PO HS 10/11/18 06/19/20 History tamsulosin 0.8 mg PO HS 11/01/18 06/19/20 History mesalamine 2.4 g PO BID 01/27/19 06/19/20 History hydroxyzine pamoate 50 mg PO BID PRN 06/19/20 06/19/20 History loperamide [Anti-Diarrhea] 2 mg PO BID 06/19/20 06/19/20 History pantoprazole 40 mg PO DAILY 06/19/20 06/19/20 History prednisolone [Millipred] 5 mg PO DAILY 06/19/20 06/19/20 History sulfamethoxazole-trimethoprim 1 tab PO BID 06/19/20 06/19/20 History [Bactrim DS] Patient History Medical History BPH (benign prostatic hyperplasia) Carcinoma of parotid gland H/O flexible sigmoidoscopy Ulcerative colitis Family History Other Family history non-contributory Social History Smoking Status: Never smoker Tobacco Type: Smokeless Tobacco (Dip or Chew) Second Hand Exposure: No; Do You Dip or Chew Tobacco: Yes (1 can every other day); Tobacco Cessation Education Requested by Patient: No Hx Alcohol Use: No Hx Substance Use: No Preferred Language: Mauritanian Communication Ability: Effective Portfolio Management Marketing Required: No Beliefs That Will Affect Care: None Current Living Situation: Other Current Living Situation Comment: inmate in [facility] Other Information That Helps Us Care for You: No Feels Safe at Home: Yes Safety Concerns: Feels Safe At This Time Assistive Devices: Glasses Review of Systems Constitutional: + anorexia; no fever and no chills Gastrointestinal: + abdominal pain and + diarrhea/loose stools; no nausea and no vomiting Physical Exam Constitutional: WD/WN, vitals as above Gastrointestinal (Abdomen): Inspection/Auscultation: abdomen not distended Percussion/Palpation: abdomen soft; abdomen nontender and no guarding Results & Data ([facility]) Vital Signs (Past 12 Hours) Vital Signs Temp Pulse Resp BP BP Pulse Ox 07/03/20 15:07 36.7 C 82 14 100/64 97 07/03/20 08:59 101/63 07/03/20 07:50 36.7 C 77 14 99/63 L 92 PG Care Time/CCT Total # of Minutes Spent Total Time Spent with Patient: Total time spent is greater than 50% in coordination of care (as documented) at patient's floor/unit and/or counseling patient: Coding Level of Care Code 26797 Inpt Consult Level 2 Diagnoses Ulcerative colitis K51.90 Digestive disease complication type: without complication Ulcerative colitis location: unspecified ulcerative colitis location (1) Ulcerative colitis Digestive disease complication type: without complication Ulcerative colitis location: unspecified ulcerative colitis location Qualified Code(s): K51.90 - Ulcerative colitis, unspecified, without complications
[2020-07-03] MEDS: TAMSULOSIN HCL 0.4 MG CAP PO SCH (21:18)
[2020-07-03] MEDS: FINASTERIDE 5 MG TAB PO SCH (21:19)
[2020-07-03] MEDS: INSULIN GLARGINE SOLOSTAR 100 UNITS/ML 3 ML PEN SC SCH (21:26)
--- NOTE | 2020-07-03 23:20 | Hospitalist Progress Note ---
Date of Service July 03, 2020 Assessment & Plan (1) Ulcerative colitis: With severe exacerbation. S/p colonoscopy on 06/[address] Womack [facility] which showed severe UC. - No improvement since admission despite IV steroids, IV cipro/flagyl, supportive care. - Biopsies not c/w CMV, c diff, ischemia, or neoplastic process. - Continue Solumedrol 20mg IV q6h. - Placed back on Cipro/Flagyl PO as patient has limited IV access. - Started on infliximab on 06/26. (Pre-infliximab TB screen neg. HepB screen shows no immunity to such - started HepB vaccine series on 06/26.) - Continue mesalamine. - C. diff re-check on 06/28 showed no C. diff. - Consulted palliative care. - Today: will continue to hold PPN, as patient is more edematous. still on antibiotics. - Reconsulted GI as he continues to have bloody stools despite steroids. -appears patient may need colectomy. will consult Gen surgery, if not able to perform surgery, will transfer patient Continue to replenish electrolytes. -Consulted palliative care: patient wants to continue to be a full code. -Patient is high risk for surgery given his age and comorbididtes, however, patient wants to continue to be full code. (2) Chest tightness: IBARRA and chest symptoms - in the weeks leading up to admission. - Recent EKG w/o ischemic changes. - Echo with mildly depressed EF and possible inferior basal hypokinesis. Thus, symptoms may be due to CAD and ischemia. - Medically optimize as able. -> No pain today. (3) Anemia of chronic disease: Baseline hgb ~10. - Hgb dropped to 9, will monitor. (4) Protein calorie malnutrition: Due to ulcerative colitis. - Added MVI - Replacing folate - Zofran for nausea (5) Abscess of right arm: S/p I/D several weeks ago followed by course of Bactrim. - Continue daily packing and local wound care (6) Orthostatic hypotension: 2nd volume depletion in setting of poor oral intake, ongoing diarrhea from UC, etc. Flomax could be contributing as well. - Lowered Flomax dose to 0.4mg/day. - Cont IVF. (7) GERD (gastroesophageal reflux disease): Suspect upper GI symptoms are due to reflux. Reports burping, belching, and tasting acid in throat. - Continue PPI BID & Carafate - Continue Zofran (8) DVT prophylaxis: Lovenox - Despite bleeding, I think he is a high risk for DVT, so will continue. Admission and Anticipated Discharge Date Admission Date: June 19, 2020 Subjective 85 yo male reports no improvement. Review of Systems Review of Systems: All systems reviewed & are unremarkable except as noted in HPI & below Physical Exam Physical Exam: Constitutional: WD/WN, vitals as above Eyes: EOM intact bilaterally; no conjunctival abnormality ENMT: external ear and nose normal, oropharynx normal Neck: trachea midline, no thyromegaly normal visual inspection Respiratory: normal respiratory effort, lungs clear to auscultation no respiratory distress Cardiovascular: RRR, no murmur, no edema Gastrointestinal (Abdomen): Inspection/Auscultation: abdomen normal to inspection and normal bowel sounds; abdomen not distended Percussion/Palpation: + abdomen tender (Lower abdomen) and abdomen soft; no guarding and abdomen not rigid Musculoskeletal: no cyanosis or clubbing, extremities motor strength 5/5 Skin: no rashes, warm and dry, arm is becoming more edematous. Neurologic: moves all extremities and awake Psychiatric: Orientation: alert, oriented to person and cooperative Results & Data Results & Data ([facility]) Vital Signs (Past 12 Hours) Vital Signs Temp Pulse Resp BP Pulse Ox 07/03/20 15:07 36.7 C 82 14 100/64 97 PG Care Time/CCT Total # of Minutes Spent Total Time Spent with Patient: Total time spent is greater than 50% in coordination of care (as documented) at patient's floor/unit and/or counseling patient: Coding Level of Care Code 68387 Subseq Hosp Care Lvl 3 Diagnoses Ulcerative colitis K51.90 Ulcerative colitis location: unspecified ulcerative colitis location Digestive disease complication type: without complication Chest tightness R07.89 Anemia of chronic disease D63.8 Protein calorie malnutrition E44.0 Protein-calorie malnutrition severity: moderate Abscess of right arm L02.413 Orthostatic hypotension I95.1 GERD (gastroesophageal reflux disease) K21.9 Esophagitis presence: esophagitis presence not specified DVT prophylaxis Z29.9 Time Spent (min) 35 (1) Ulcerative colitis Ulcerative colitis location: unspecified ulcerative colitis location Digestive disease complication type: without complication Qualified Code(s): K51.90 - Ulcerative colitis, unspecified, without complications (2) Protein calorie malnutrition Protein-calorie malnutrition severity: moderate Qualified Code(s): E44.0 - Moderate protein-calorie malnutrition (3) GERD (gastroesophageal reflux disease) Esophagitis presence: esophagitis presence not specified Qualified Code(s): K21.9 - Gastro-esophageal reflux disease without esophagitis
[2020-07-04] MEDS: methylPREDNISolone 20 MG in SYRINGE 0 ML IV SCH ×4 (00:47→18:21)
[2020-07-04] MEDS: MoRPHine SULFATE 2 MG/ML CARP IV PRN ×2 (06:36→13:21)
--- NOTE | 2020-07-04 07:40 | Surgery Progress Note ---
Date of Service July 04, 2020 Assessment & Plan (1) Ulcerative colitis: This is a very difficult situation Patient shows gradual significant decline with continued ulcerative colitis which seems Refractory to medical treatment Surgical treatment would be at least subtotal colectomy with end ileostomy-I think his postop mortality risk In his current state is very high He is not in an emergent situation-he is not bleeding severely, he does not have toxic megacolon or perforation I would not attempt this operation in this hospital-I think we need to make a decision if he should be considered for transfer To a colorectal service at a tertiary care center Otherwise it seems he should have palliative/comfort care Admission and Anticipated Discharge Date Admission Date: June 19, 2020 Subjective Patient with continued loose bowel movements with some blood He is very weak but does respond He did receive some pain medication but was not specifically for abdominal pain Physical Exam Physical Exam: His abdomen is flat and soft-he does not have peritoneal signs Constitutional: no acute distress Eyes: + eyelid abnormality Respiratory: normal respiratory effort; no respiratory distress Cardiovascular: Rate/Rhythm: regular rate Skin: no rashes, warm and dry Neurologic: awake Results & Data ([facility]) Vital Signs (Past 12 Hours) Vital Signs Temp Pulse Resp BP BP Pulse Ox 07/04/20 07:20 36.4 C L 78 17 90/58 L 97 07/03/20 23:21 36.4 C L 70 18 104/65 95 PG Care Time/CCT Total # of Minutes Spent Total Time Spent with Patient: Total time spent is greater than 50% in coordination of care (as documented) at patient's floor/unit and/or counseling patient: Coding Level of Care Code 01021 Inpt Consult Level 3 Diagnoses Ulcerative colitis K51.90
[2020-07-04] MEDS: NYSTATIN SUSP 500,000 U/5 ML UDC PO SCH ×3 (09:04→21:20)
[2020-07-04] MEDS: CIPROFLOXACIN 500 MG TAB PO SCH (09:04)
[2020-07-04] MEDS: metroNIDAZOLE 500 MG TAB PO SCH ×2 (09:04→13:31)
[2020-07-04] MEDS: ENOXAPARIN INJ 40 MG/0.4 ML SYR SQ SCH (09:05)
[2020-07-04] MEDS: POT PHOSPHATE MONOBASIC W/ SOD TAB PO SCH ×4 (09:05→21:21)
[2020-07-04] MEDS: ONDANSETRON INJ 2 MG/ML 2 ML VIAL IV SCH ×3 (09:10→18:35)
[2020-07-04] MEDS: INSULIN ASPART 100 UNITS/ML 3 ML PEN SC SCH ×4 (09:10→21:21)
[2020-07-04] MEDS: SUCRALFATE 1 GM/10 ML UDC PO SCH ×4 (10:02→21:20)
[2020-07-04] MEDS: CHOLECALCIFEROL 1,000 UNITS 25 MCG TAB PO SCH (10:02)
[2020-07-04] MEDS: MESALAMINE 4 GM/60 ML ENEMA PR SCH ×2 (10:03→21:21)
[2020-07-04] MEDS: MESALAMINE 400 MG CAPDR PO SCH ×3 (10:18→21:20)
[2020-07-04] MEDS: HYDROmorphone INJ 0.5 MG/0.5 ML SYR IV PRN (10:24)
[2020-07-04 11:00] LABS: BUN Creatinine Ratio 30.6 (10-20); Calcium 7.4 mg/dl (8.5-10.1); Creatinine Clr Calc Pharmacy 65.1 ml/min; Est GFR (African American) 86.6; Est GFR (Non-African American) 74.7; Magnesium 2.1 mg/dl (1.8-2.4); Phosphorus 3.7 mg/dl (2.5-4.9); Potassium 3.9 mmol/L (3.5-5.1)
--- NOTE | 2020-07-04 14:56 | Progress Notes ---
DATE: 07/04/2020 HISTORY OF PRESENT ILLNESS: The patient continues to decline. His ulcerative colitis has not responded to medical management. I confirmed with the pharmacy that he did receive his first dose last week of Remicade. Today, he continues to have abdominal pain, burgundy stools from his severe ulcerative colitis. His most recent white blood cell count is 14, which is increased from the day before hemoglobin is 7.6. KUB from yesterday did not reveal any evidence of colonic dilatation. There is no obvious free air. IMPRESSION/PLAN: At this point, the patient has failed medical management during his prolonged hospitalization for severe ulcerative colitis. It is becoming readily apparent that the patient either needs to have his colon removed or made comfort measures. The patient is increasingly frustrated and when I spoke with him states that he would like "something done even if surgery". Most likely he would need to be transferred to a Tertiary Center such as [facility] for colorectal surgery. From the progress notes, it appears that the surgery team here agrees with this as well. I have discussed this with the nurse and the hospitalist service. ROSSY
[2020-07-04 15:54] LABS: Hematocrit (blood only) 21.7 % (42-52); Hemoglobin 6.9 g/dL (14.0-18.0); Mean Corpuscular Hemoglobin 28.3 pg (25-34); Mean Corpuscular Hgb Conc 31.8 g/dL (32-36); Mean Corpuscular Volume 88.9 fL (80-100); Mean Platelet Volume 11.9 fL (7.4-10.4); Nucleated RBC # (auto) 0.14 K/uL (0-0); Nucleated RBC % (auto) 0.7 %; Platelet Count 78 K/uL (130-400); RDW Standard Deviation 46.3 fL (36.4-46.3); Red Blood Count 2.44 M/uL (4.7-6.1); White Blood Count 19.57 K/uL (4.8-10.8)
[2020-07-04] MEDS ORDERED: SODIUM CHLORIDE 0.9% 250 ML IV PRN (15:54)
[2020-07-04] MEDS ORDERED: Custom Peripheral Pn 1,500 ML in TPN BAG 0 ML IV SCH (16:00)
--- NOTE | 2020-07-04 16:07 | Discharge Summary ---
Date of Service July 04, 2020 Admission HPI Per Admitting Provider Gavin Sotelo is an 85 year old male with ulcerative colitis who presents to the ER with worsening abdominal pain. LLQ abdominal pain intermittent, worse when he eats, ongoing for months although much worse in the last 3 days and more persisted during this time. Associated generalized weakness, complete loss of appetite. Currently pain at rest 3/10 but most severe 10/10. Having associated diarrhea 3-4 BM/day, non-watery, no melena or bright red blood in stool. Unable to take any oral intake due to pain. No nausea or vomiting. Prior history of c. diff. At [facility] he had a period of hypotension and hypoxia therefore was referred to the ER for ongoing care. Principal Diagnosis Ulcerative colitis Discharge Exam Constitutional: WD/WN, vitals as above Eyes: EOM intact bilaterally; no conjunctival abnormality ENMT: external ear and nose normal, oropharynx normal Neck: trachea midline, no thyromegaly normal visual inspection Respiratory: normal respiratory effort, lungs clear to auscultation no respiratory distress Cardiovascular: RRR, no murmur, no edema Gastrointestinal (Abdomen): Inspection/Auscultation: abdomen normal to inspection and normal bowel sounds; abdomen not distended Percussion/Palpation: + abdomen tender (Lower abdomen) and abdomen soft; no guarding and abdomen not rigid Musculoskeletal: no cyanosis or clubbing, extremities motor strength 5/5 Skin: no rashes, warm and dry, arm is becoming more edematous. Neurologic: moves all extremities and awake Psychiatric: Orientation: alert, oriented to person and cooperative Discharge Data Allergies Allergy/AdvReac Type Severity Reaction Status Date / Time No Known Allergies Allergy Unverified 06/19/20 09:43 Consultations 06/19/20 13:06 ED Decision to Admit Stat 06/21/20 08:05 Consult Health Information Management Routine 06/29/20 12:04 Consult Palliative Care Routine 07/01/20 08:21 Consult Vascular Surgery Routine 07/03/20 15:41 Consult General Surgery Routine Procedures Performed Operation Date: 06/22/20 16:30 Actual Procedures p Colonoscopy Biopsy Cytology - Irphan E Gaslightwala Operation Date: 07/03/20 12:40 <No data on this case meets the specified criteria> Ordered Studies 06/19/20 09:52 CT abd pelvis wo con Stat 06/22/20 14:09 CT angio abdomen pelvis w con Routine 06/26/20 10:07 CT angio chest PE protocol Urgent Hospital Course (1) Ulcerative colitis: With severe exacerbation. S/p colonoscopy on 06/[address] Womack, [facility] which showed severe UC. - No improvement since admission despite IV steroids, IV cipro/flagyl, supportive care. - Biopsies not c/w CMV, c diff, ischemia, or neoplastic process. - Continue Solumedrol 20mg IV q6h. - Placed back on Cipro/Flagyl PO as patient has limited IV access. - Started on infliximab on 06/26. (Pre-infliximab TB screen neg. HepB screen shows no immunity to such - started HepB vaccine series on 06/26.) - Continue mesalamine. - C. diff re-check on 06/28 showed no C. diff. - Consulted palliative care. - - Today: will continue to hold PPN, as patient is more edematous. still on antibiotics. - Reconsulted GI as he continues to have bloody stools despite steroids. -appears patient may need colectomy. will consult Gen surgery, if not able to perform surgery, will transfer patient Continue to replenish electrolytes. -Consulted palliative care: patient wants to continue to be a full code. -Patient is high risk for surgery given his age and comorbididtes, however, patient wants to continue to be full code. PATIENT IS NOW AGREEABLE TO TRANSFER after refusing the day prior. PATIENT IS NOW REQUIRING TRANSFUSION and was able to obtain consent. -D/W vp cardiovascular, and obtained a central line. D/W [facility] for transfer. Patient has elevated lactic acidosis, likely secondary to poor perfussion. Patient should improve with transfusion. Explained to patient that he has a poor prognosis, given severity of his inflammatory bowel, low blood count, advanced age. Patient still wants to try everything. (2) Chest tightness: IBARRA and chest symptoms - in the weeks leading up to admission. - Recent EKG w/o ischemic changes. - Echo with mildly depressed EF and possible inferior basal hypokinesis. Thus, symptoms may be due to CAD and ischemia. - Medically optimize as able. -> No pain today. (3) Anemia of chronic disease: Baseline hgb ~10. - Hgb dropped to 9, will monitor. (4) Protein calorie malnutrition: Due to ulcerative colitis. - Added MVI - Replacing folate - Zofran for nausea (5) Abscess of right arm: S/p I/D several weeks ago followed by course of Bactrim. - Continue daily packing and local wound care (6) Orthostatic hypotension: 2nd volume depletion in setting of poor oral intake, ongoing diarrhea from UC, etc. Flomax could be contributing as well. - Lowered Flomax dose to 0.4mg/day. - Cont IVF. (7) GERD (gastroesophageal reflux disease): Suspect upper GI symptoms are due to reflux. Reports burping, belching, and tasting acid in throat. - Continue PPI BID & Carafate - Continue Zofran (8) DVT prophylaxis: Lovenox - Despite bleeding, I think he is a high risk for DVT, so will continue. Total Time Total Time Spent Total Time Spent (In Minutes): 75 Total Time Includes: Examination of the Patient, Discharge Planning and Medication Reconciliation Discharge Plan Discharge Items Patient Disposition: Transfer Acute Care Hospital Reason For Visit: ULCERATIVE COLITIS EXACERBATION Discharge Diagnosis: Ulcerative colitis Exacerbation Activity: Resume your previous activity Non-emergency contact: Primary Care Provider Call non-emergency contact if: you have any medication questions Follow-up/Referrals: Berna LEBLANC [Primary Care Provider] - Diet: Other - See Diet Comment Diet Comment: JATIN Alvarado Attending Provider Instructions: transferred to [place] Pending Studies at Discharge: No Stand-Alone Forms: My [employer], Smoking Cessation Skilled Items Patient informed of condition?: No DNR: No Discharge Level of Care: Other Communicable Disease: No Discharge Prognosis: Deteriorating Lines: [facility] Urinary Catheter: No Medications and DC Order Prescriptions: Continued finasteride [Proscar] 5 mg Tablet 5 mg PO HS RF: 0 tamsulosin 0.4 mg Capsule 0.8 mg PO HS RF: 0 hydroxyzine pamoate 50 mg Capsule 50 mg PO BID PRN (Reason: Itching) RF: 0 Millipred 5 mg Tablet 5 mg PO DAILY RF: 0 Discontinued mesalamine 1.2 gram Tablet,Delayed Release (Dr/Ec) 2.4 g PO BID RF: 0 loperamide [Anti-Diarrhea] 2 mg Tablet 2 mg PO BID RF: 0 sulfamethoxazole-trimethoprim [Bactrim DS] 800-160 mg Tablet 1 tab PO BID RF: 0 pantoprazole 40 mg Tablet,Delayed Release (Dr/Ec) 40 mg PO DAILY RF: 0 Discharge Orders: Discharge Order (Routine); Ordered 07/04/20 Ordered By: Shen Dahl/Other Patient Handouts: A1C Admission Data Admit Date/Time: 06/19/20 14:26 Attending Provider: Shen Garcia Admit Provider: Galo Gonzalez Primary Care Provider: [facility] Other Providers: Janes Corey ; Letty Love ; Eric Schmidt ; Bud Harvey ; Carlos Rhoades ; Luis Antonio Chacon ; Garett Coffey Jr ; Pawan Almodovar ; Angel Pang ; Vijaya Mccormick ; Ry Cancino ; William Block Other Interventions: Discharge Summary Assessment (RN) Last Done: 07/04/20 18:50 Coding Level of Care Code D/C Day Management >30 mins Diagnoses Ulcerative colitis K51.90 Digestive disease complication type: without complication Ulcerative colitis location: unspecified ulcerative colitis location Chest tightness R07.89 Anemia of chronic disease D63.8 Protein calorie malnutrition E44.0 Protein-calorie malnutrition severity: moderate Abscess of right arm L02.413 Orthostatic hypotension I95.1 GERD (gastroesophageal reflux disease) K21.9 Esophagitis presence: esophagitis presence not specified DVT prophylaxis Z29.9
[2020-07-04 16:13] LABS: Anisocytosis Present; Basophils # (auto) 0.02 K/uL (0-0.2); Basophils % (auto) 0.1 %; Immature Granulocytes # (auto) 0.22 K/uL (0.00-0.02); Immature Granulocytes % (auto) 1.1 %; Lymphocytes % (auto) 6.6 %; Monocytes # (auto) 1.43 K/uL (0.11-0.59); Monocytes % (auto) 7.3 %; Neutrophils % (auto) 84.9 %
--- NOTE | 2020-07-04 18:49 | XRay Report ---
XR chest 1V portable HISTORY: central line placement COMPARISON: Chest 06/19/2020. FINDINGS: A right jugular central venous catheter terminates at the SVC. Greater than expected lucenc y at the right lung apex. However, no pleural reflection to suggest pneumothorax. Addition, this is s ymmetric to the contralateral side. Therefore, no definite pneumothorax. Mild elevation of the left h emidiaphragm. A few linear densities the left lung base consistent with subsegmental atelectasis. Thi s remains unchanged. The heart remains enlarged. Trace bilateral pleural effusions. No new focal lung consolidations to suggest pneumonia. No evidence for pulmonary edema. Linear radiopaque foreign body within the epigastric location remains unchanged. IMPRESSION: 1. Right jugular central venous catheter terminates at the SVC. 2. No definite pneumothorax as described above. ACT 112: Negative or not required by law. Electronically signed by: Richar Acuna M.D. 07/04/2020 6:48 PM
[2020-07-04] MEDS: INSULIN GLARGINE SOLOSTAR 100 UNITS/ML 3 ML PEN SC SCH (21:20)
[2020-07-04] MEDS: TAMSULOSIN HCL 0.4 MG CAP PO SCH (21:20)
[2020-07-04] MEDS: FINASTERIDE 5 MG TAB PO SCH (21:21)
--- NOTE | 2020-07-05 14:21 | Procedure Note ---
Procedure Note Date of Service July 04, 2020 Procedure date: Noted above Procedure: Central venous access Pre-procedure indication: Poor vascular access, need for blood transfusion, gastrointestinal hemorrhage Post-procedure Diagnosis: same as above Prior to Procedure: Informed Consent: The risks, benefits, indications, potential complications, and alternatives were explained to the patient and informed consent obtained. Attending Staff: Kit Reynoso DO Resident/APC: Zofia Skin Prep: Chlorhexidine Anesthesia: 4 mL 1% lidocaine without epinephrine The identity of the patient was confirmed and a bedside time out was performed. Description of Procedure: After sterile prep and sterile drape utilizing standard sterile technique the superficial skin of the right internal jugular area was anesthetized. The target vessel was identified and entered with an 18- gauge needle. Dark venous blood return was noted. A guidewire was inserted through the needle and into the vessel. The needle was withdrawn and a skin aimee was made. A tissue dilator was advanced via Seldinger technique and removed. A triple lumen catheter was inserted via Seldinger technique and the guidewire removed. All ports eileen and flushed easily. A Biopatch was placed, and the catheter was secured via silk suture. A sterile dressing was then gabino lied. Complications: None Estimated blood loss: Trace Patient tolerated the procedure well. Procedure Date: Noted Above Procedure: Procedural Ultrasound Indication: Central venous access Attending: Kit Reynoso DO Resident/Physician Agricultural Commodities Inspector: Zofia Artery visualized: Yes Vein visualized: Yes Compressible Vein: Yes Vein patent: Yes Guidewire or Short Catheter seen in vein prior to dilation: Yes Line confirmed in Vein with ultrasound: Yes Lung Sliding on side of attempt (if applicable): NA If no lung sliding or not obtained has CXR been ordered: Yes Impression: Successful central venous access placement Images obtained are saved for permanent record Coding CPT Codes Tubes, Drains, and Vasc Access - Tubes, Drains, and Vasc Access: [id number] Insertion Of Non-tunneled Catheter Age 7 Yrs> ([id number]) Tubes, Drains, and Vasc Access - Tubes, Drains, and Vasc Access: [id number] Ultrasound Guidance For Vascular ([id number]) [facility] [place]Charges) Tubes, Drains, and Vasc Access Procedure 1: Tubes, Drains, and Vasc Access: [id number] Insertion Of Non-tunneled Catheter Age 7 Yrs> Procedure 2: Tubes, Drains, and Vasc Access: [id number] Ultrasound Guidance For Vascular
[2020-07-06 10:40] LABS: C-Reactive Protein High Sens. 3.1 mg/L
== END 2020-07-05 | disposition short-term general hospital (02) | DRG 385 ==
LOC: ED 09:01 → 2W 09:01 → SUATTDRO 14:26 → 2W 15:49 → 3W 06-22 16:29

== ENCOUNTER 2020-07-26 09:03 | Inpatient (IN) ==
--- NOTE | 2020-07-26 09:40 | Emergency Department Note ---
Impression & Plan Dvt femoral (deep venous thrombosis), Confusion, Breathlessness, Pneumonia of both lower lobes, Acute septic pulmonary embolism, Non-ST elevation MO (NSTEMI), COVID-19 ED Provider Note Provider: Desmond Santoyo MD DATE OF SERVICE:07/26/2020 CHIEF COMPLAINT: Weakness, fatigue, shortness of breath, abdominal issues HISTORY OF PRESENT ILLNESS: Patient is a 85-year-old gentleman with a signifi cant past medical history of ulcerative colitis, GERD presenting today from the assisted due to concerns for increased weakness and possible change in mental status overnight. Evidently was recently discharged from [facility] on the back to assisted after an extended stay there. He was initially seen here at the end of June and transferred to the beginning of July to [place] for GI bleed and a colitis. While at [facility] confirmed ulcerative colitis flare but also diagnosed with C. difficile colitis and started on oral vancomycin. Improved with steroids and was on TPN for some duration. Patient per the discharge summary refused a PEG tube for nutritional support and dialysis catheter and TPN was discontinued during the prior stay. Per the report from the assisted seems more confused today and the patient states he was significantly weak and I will get out of bed. Patient states he is had some continued abdominal discomfort and nausea and feels generally weak but not focally. No falls or syncope reported. The assisted was concerned that he possibly aspirated yesterday. Patient denies any significant bloody stools or diarrhea at this time. Patient with some mild diffuse abdominal tenderness reported. States a little bit of chest discomfort. REVIEW OF SYSTEMS: A total of 10 review of systems was obtained and negative except as stated above in the HPI. PAST MEDICAL HISTORY: As noted above MEDICATIONS: Reviewed medication list with the assisted including oral vancomycin at this time. SOCIAL HISTORY: An inmate at the state assisted. PHYSICAL EXAM: GENERAL: alert and oriented to person and events but not sure of month in no acute distress on stretcher Head: normocephalic and atraumatic EYES: No injection, discharge or icterus. PERRL NECK: Trachea midline. Supple. ENT: Mucous membranes pink and moist. LUNGS: Airway patent. No retractions. Breath sounds coarse with wet cough diminished at the bases HEART: Regular rate and rhythm. No chest wall tenderness ABDOMEN: Soft with mild diffuse tenderness. Not peritoneal. No large masses ap preciated. SKIN: Acyanotic, warm, dry with scattered ecchymoses on the upper extremities. Evidence of healing prior central access wound of the left upper chest as well as bandage over the right neck from prior central access. EXTREMITIES: Without significant deformity but 1+ bilateral swelling of the lower extremities. NEUROLOGICAL: No focal deficits. No aphasia. No facial droop or slurred speech. EK bpm sinus rhythm with PVC other significant baseline artifact and some wander. Do not see clear evidence of ST segment elevation or depression at this time. CONTINUOUS CARDIAC MONITORING: was ordered and showed a heart rate of 88 bpm in normal sinus rhythm occasional PVC PDMP was checked without noted issue. GCS 15. Patient's laboratory studies and imaging reviewed. Differential includes Infection, dehydration, metabolic abnormality, hypo/hyperglycemia, electrolyte disturbance, anemia, hypoxia, cardiac sources, intracerebral event, toxicologic, neurologic, as well as other pathologies. IMPRESSION/MEDICAL DECISION MAKING: Reviewed recent medical record here as well as the discharge summary from his admission at [place]. Present was concerned about possible aspiration as well as more confusion today. Pulse ox is in the low 90s on room air here and does have a wet cough and coarse lung sounds. Patient endorses significant generalized weakness as well as some diffuse abdominal discomfort, slight abdominal pain, and is a poor historian. Review of records indicate blood loss anemia from ulcerative colitis flare improved with steroids but also diagnosed at that time with C. difficile colitis on oral vancomycin. Patient likely denies recent diarrhea or bloody diarrhea symptoms. Broad differential was entertained. Basic labs showed no significant leukocytosis at this time and mild anemia improved from previous and compared to hemoglobin from [place] on the 14 is actually somewhat higher. INR is normal. No significant lactate abnormalities or signs of renal dysfunction at this time. Given his symptoms recent hospitalizations and incarceration or Covid test was sent although given the patient's multiple comorbidities poor health and recent issues wonder if his increased confusion weakness are still related to a general decline from his illness and recent hospitalization. Chest x-ray per radiology without significant change without a large new lung consolidation noted or significant pulmonary edema. EKG somewhat difficult to interpret with artifact but no clear evidence of ischemic changes and no evidence of ST segment elevation. Troponin is detectable today which appears to be new. Given the question of some change in mental status CT the head was completed as well as with the respiratory issues and some continued abdominal discomfort a CT of the chest as well as abdomen pelvis was obtained. CT scan shows a right lower extremity DVT extensive in nature with a few scattered pulmonary nodules question some septic pulmonary emboli. Given recent TPN and the radiologist concern for possible fungal process here. Pancolitis is still present. Trace bilateral pleural effusions and bilateral bibasilar densities noted question a telectasis versus pneumonia. And the patient without significant leukocytosis but is a little bit hypoxic and coronavirus testing comes back positive. X-ray questions bibasilar lower lobe pneumonia. Heparinization was initiated. Discussed with the hospitalist options at this time for continued care here versus transfer. Ordered empiric vancomycin and Zosyn. IV team was able to establish a second IV site. Given some IV fluids. Hemodynamically the patient's not appreciably tachycardic or significantly hypotensive here. Did alert the assisted of the patient's Covid positive status. Discussed with who is agree with the plan for antibiotics and anticoagulation at this point. We will hold off on antifungals at the current time. The patient again does appear hemodynamically stable and do not feel needs ICU care at this point. DIAGNOSIS: Weakness, confusion, shortness of breath, right lower extremity DVT, pulmonary emboli, NSTEMI, pneumonia, pancolitis DISPOSITION: Hospitalist will evaluate for admission for further treatment Critical Care I have personally spent 48 minutes of critical care time in the direct management of this patient. This includes bedside care, interpretation of diagnostic studies, and testing, discussion with consultants, patient, and family members, and other required patient management activities. These 48 simba matilde is in excess of all separately billable procedures. Past Med/Surg History Medical History (Updated 07/26/20 @ 12:58 by Desmond Santoyo M.D.) BPH (benign prostatic hyperplasia) Carcinoma of parotid gland H/O flexible sigmoidoscopy Ulcerative colitis Family History Other Family history non-contributory Social History Smoking Status: Never smoker Tobacco Type: Smokeless Tobacco (Dip or Chew) Second Hand Exposure: No; Do You Dip or Chew Tobacco: Yes (1 can every other day); Tobacco Cessation Education Requested by Patient: No Hx Alcohol Use: No Hx Substance Use: No Preferred Language: Portuguese Communication Ability: poor histo Poolroom/Poolhall Manager Required: No Beliefs That Will Affect Care: None Current Living Situation: Other Current Living Situation Comment: [facility] Other Information That Helps Us Care for You: No Feels Safe at Home: Yes Safety Concerns: Feels Safe At This Time Assistive Devices: None Allergies Allergies Allergy/AdvReac Type Severity Reaction Status Date / Time No Known Allergies Allergy Unverified 06/19/20 09:43 Home Meds Home Medications Medication Instructions Recorded Confirmed finasteride [Proscar] 5 mg PO HS 10/11/18 07/26/20 tamsulosin 0.8 mg PO HS 11/01/18 07/26/20 insulin aspart U-100 [Novolog 1 sliding scale dose SUBCUT 07/26/20 07/26/20 U-100 Insulin aspart] USEASDIRECTD mirtazapine 15 mg PO PM 07/26/20 07/26/20 omeprazole 40 mg PO BID 07/26/20 07/26/20 prednisone [Deltasone] 40 mg PO PM 07/26/20 07/26/20 vancomycin 125 mg PO Q6H 07/26/20 07/26/20 Results & Data (ED) Vital Signs Vital Signs - 24 hr 07/26/20 09:23 07/26/20 09:28 07/26/20 11:23 Temperature 36.7 C Temperature Source Oral Pulse Rate 88 Pulse Rate [Apical] 98 H Respiratory Rate 22 20 Blood Pressure 106/69 Blood Pressure [Left Arm] 129/72 Blood Pressure Mean 81 Blood Pressure Mean [Left Arm] 91 Pulse Oximetry 92 91 99 Oxygen Delivery Method Room Air Room Air Nasal Cannula Oxygen Flow Rate 2 Sepsis Recent Fever Within 48 Hours No Sepsis New/Unexplained Change in Mental Status Yes Sepsis Action Taken by Nursing Physician Notified 07/26/20 11:58 07/26/20 13:00 Temperature Temperature Source Pulse Rate Pulse Rate [Apical] 90 90 Respiratory Rate 22 18 Blood Pressure Blood Pressure [Left Arm] 122/69 100/63 Blood Pressure Mean Blood Pressure Mean [Left Arm] 86 75 Pulse Oximetry 99 98 Oxygen Delivery Method Nasal Cannula Nasal Cannula Oxygen Flow Rate 2 2 Sepsis Recent Fever Within 48 Hours Sepsis New/Unexplained Change in Mental Status Sepsis Action Taken by Nursing Laboratory Data Result diagrams: 07/26/20 09:20 07/26/20 09:20 Lab Results 07/26/20 07/26/20 07/26/20 Range/Units 09:13 09:13 09:20 WBC 9.77 (4.8-10.8) K/uL RBC 3.21 L (4.7-6.1) M/uL Hgb 9.7 L (14.0-18.0) g/dL Hct 31.4 L (42-52) % MCV 97.8 (80-100) fL MCH 30.2 (25-34) pg MCHC 30.9 L (32-36) g/dL RDW Std Deviation 69.3 H (36.4-46.3) fL RDW Coeff of Torrie 19.4 H (11.5-14.5) % Plt Count 353 (130-400) K/uL MPV 10.2 (7.4-10.4) fL Neutrophils % (Manual) 77.0 % Lymphocytes % (Manual) 8.0 % Monocytes % (Manual) 4.4 % Metamyelocytes % (Man) 1.8 % Myelocytes % (Man) 8.8 % Neutrophils # (Manual) 7.52 H (1.4-6.5) K/uL Total Absolute Neuts 7.52 H (1.4-6.5) K/uL Lymphocytes # (Manual) 0.78 L (1.2-3.4) K/uL Total Abs Lymphocytes 0.78 L (1.2-3.4) K/uL Monocytes # (Manual) 0.43 (0.11-0.59) K/uL Metamyelocytes # (Man) 0.18 H (0-0) K/uL Myelocytes # (Manual) 0.86 H (0-0) K/uL RBC Morphology Unremarkable PT (9.0-12.0) Seconds INR (0.9-1.1) VBG pH (7.36-7.41) VBG pCO2 (38-50) mmHg VBG pO2 mmHg VBG HCO3 mmol/L VBG O2 Saturation % VBG Base Excess mEq/L Barometric Pressure mm/Hg Sodium (136-145) mmol/L Potassium (3.5-5.1) mmol/L Chloride (98-107) mmol/L Carbon Dioxide (21-32) mmol/L Anion Gap (3-11) BUN (7-18) mg/dl Creatinine (0.6-1.4) mg/dl Est Cr Clr Drug Dosing ml/min Est GFR ( Amer) Est GFR (Non-Af Amer) BUN/Creatinine Ratio (10-20) Glucose (70-99) mg/dl Lactate (0.4-2.0) mmol/L Calcium (8.5-10.1) mg/dl Magnesium (1.8-2.4) mg/dl Total Bilirubin (0.2-1) mg/dl AST (15-37) U/L ALT (12-78) U/L Alkaline Phosphatase (45-117) U/L Ammonia (11-32) umol/L Troponin I (0-0.045) ng/ml Total Protein (6.4-8.2) gm/dl Albumin (3.4-5.0) gm/dl Globulin (2.5-4.0) gm/dl Albumin/Globulin Ratio (0.9-2) Procalcitonin (0-0.5) ng/ml TSH (0.300-4.500) uIu/ml COVID-19 Eval Order Covid19 Done at [facility] COVID-19 PCR POSITIVE A* (Negative) Blood Type Antibody Screen 07/26/20 07/26/20 07/26/20 Range/Units 09:20 09:20 09:20 WBC (4.8-10.8) K/uL RBC (4.7-6.1) M/uL Hgb (14.0-18.0) g/dL Hct (42-52) % MCV (80-100) fL MCH (25-34) pg MCHC (32-36) g/dL RDW Std Deviation (36.4-46.3) fL RDW Coeff of Torrie (11.5-14.5) % Plt Count (130-400) K/uL MPV (7.4-10.4) fL Neutrophils % (Manual) % Lymphocytes % (Manual) % Monocytes % (Manual) % Metamyelocytes % (Man) % Myelocytes % (Man) % Neutrophils # (Manual) (1.4-6.5) K/uL Total Absolute Neuts (1.4-6.5) K/uL Lymphocytes # (Manual) (1.2-3.4) K/uL Total Abs Lymphocytes (1.2-3.4) K/uL Monocytes # (Manual) (0.11-0.59) K/uL Metamyelocytes # (Man) (0-0) K/uL Myelocytes # (Manual) (0-0) K/uL RBC Morphology PT 11.0 (9.0-12.0) Seconds INR 1.0 (0.9-1.1) VBG pH (7.36-7.41) VBG pCO2 (38-50) mmHg VBG pO2 mmHg VBG HCO3 mmol/L VBG O2 Saturation % VBG Base Excess mEq/L Barometric Pressure mm/Hg Sodium 139 (136-145) mmol/L Potassium 4.0 (3.5-5.1) mmol/L Chloride 107 (98-107) mmol/L Carbon Dioxide 28 (21-32) mmol/L Anion Gap 4.0 (3-11) BUN 15 (7-18) mg/dl Creatinine 0.69 (0.6-1.4) mg/dl Est Cr Clr Drug Dosing 91.2 ml/min Est GFR ( Amer) 101.8 Est GFR (Non-Af Amer) 87.8 BUN/Creatinine Ratio 22.5 H (10-20) Glucose 84 (70-99) mg/dl Lactate (0.4-2.0) mmol/L Calcium 7.7 L (8.5-10.1) mg/dl Magnesium 2.2 (1.8-2.4) mg/dl Total Bilirubin 0.4 (0.2-1) mg/dl AST 21 (15-37) U/L ALT 18 (12-78) U/L Alkaline Phosphatase 89 (45-117) U/L Ammonia (11-32) umol/L Troponin I 0.055 H* (0-0.045) ng/ml Total Protein 5.7 L (6.4-8.2) gm/dl Albumin 1.7 L (3.4-5.0) gm/dl Globulin 4.0 (2.5-4.0) gm/dl Albumin/Globulin Ratio 0.4 L (0.9-2) Procalcitonin 0.10 (0-0.5) ng/ml TSH 0.743 (0.300-4.500) uIu/ml COVID-19 Eval Order COVID-19 PCR (Negative) Blood Type Antibody Screen 07/26/20 07/26/20 07/26/20 Range/Units 12:07 12:07 12:07 WBC (4.8-10.8) K/uL RBC (4.7-6.1) M/uL Hgb (14.0-18.0) g/dL Hct (42-52) % MCV (80-100) fL MCH (25-34) pg MCHC (32-36) g/dL RDW Std Deviation (36.4-46.3) fL RDW Coeff of Torrie (11.5-14.5) % Plt Count (130-400) K/uL MPV (7.4-10.4) fL Neutrophils % (Manual) % Lymphocytes % (Manual) % Monocytes % (Manual) % Metamyelocytes % (Man) % Myelocytes % (Man) % Neutrophils # (Manual) (1.4-6.5) K/uL Total Absolute Neuts (1.4-6.5) K/uL Lymphocytes # (Manual) (1.2-3.4) K/uL Total Abs Lymphocytes (1.2-3.4) K/uL Monocytes # (Manual) (0.11-0.59) K/uL Metamyelocytes # (Man) (0-0) K/uL Myelocytes # (Manual) (0-0) K/uL RBC Morphology PT (9.0-12.0) Seconds INR (0.9-1.1) VBG pH (7.36-7.41) VBG pCO2 (38-50) mmHg VBG pO2 mmHg VBG HCO3 mmol/L VBG O2 Saturation % VBG Base Excess mEq/L Barometric Pressure mm/Hg Sodium (136-145) mmol/L Potassium (3.5-5.1) mmol/L Chloride (98-107) mmol/L Carbon Dioxide (21-32) mmol/L Anion Gap (3-11) BUN (7-18) mg/dl Creatinine (0.6-1.4) mg/dl Est Cr Clr Drug Dosing ml/min Est GFR ( Amer) Est GFR (Non-Af Amer) BUN/Creatinine Ratio (10-20) Glucose (70-99) mg/dl Lactate 1.3 (0.4-2.0) mmol/L Calcium (8.5-10.1) mg/dl Magnesium (1.8-2.4) mg/dl Total Bilirubin (0.2-1) mg/dl AST (15-37) U/L ALT (12-78) U/L Alkaline Phosphatase (45-117) U/L Ammonia 13.0 (11-32) umol/L Troponin I (0-0.045) ng/ml Total Protein (6.4-8.2) gm/dl Albumin (3.4-5.0) gm/dl Globulin (2.5-4.0) gm/dl Albumin/Globulin Ratio (0.9-2) Procalcitonin (0-0.5) ng/ml TSH (0.300-4.500) uIu/ml COVID-19 Eval Order COVID-19 PCR (Negative) Blood Type O Positive Antibody Screen NEGATIVE 07/26/20 Range/Units 12:07 WBC (4.8-10.8) K/uL RBC (4.7-6.1) M/uL Hgb (14.0-18.0) g/dL Hct (42-52) % MCV (80-100) fL MCH (25-34) pg MCHC (32-36) g/dL RDW Std Deviation (36.4-46.3) fL RDW Coeff of Torrie (11.5-14.5) % Plt Count (130-400) K/uL MPV (7.4-10.4) fL Neutrophils % (Manual) % Lymphocytes % (Manual) % Monocytes % (Manual) % Metamyelocytes % (Man) % Myelocytes % (Man) % Neutrophils # (Manual) (1.4-6.5) K/uL Total Absolute Neuts (1.4-6.5) K/uL Lymphocytes # (Manual) (1.2-3.4) K/uL Total Abs Lymphocytes (1.2-3.4) K/uL Monocytes # (Manual) (0.11-0.59) K/uL Metamyelocytes # (Man) (0-0) K/uL Myelocytes # (Manual) (0-0) K/uL RBC Morphology PT (9.0-12.0) Seconds INR (0.9-1.1) VBG pH 7.37 (7.36-7.41) VBG pCO2 42 (38-50) mmHg VBG pO2 36 mmHg VBG HCO3 24 mmol/L VBG O2 Saturation 64.3 % VBG Base Excess -1.3 mEq/L Barometric Pressure 740.0 mm/Hg Sodium (136-145) mmol/L Potassium (3.5-5.1) mmol/L Chloride (98-107) mmol/L Carbon Dioxide (21-32) mmol/L Anion Gap (3-11) BUN (7-18) mg/dl Creatinine (0.6-1.4) mg/dl Est Cr Clr Drug Dosing ml/min Est GFR ( Amer) Est GFR (Non-Af Amer) BUN/Creatinine Ratio (10-20) Glucose (70-99) mg/dl Lactate (0.4-2.0) mmol/L Calcium (8.5-10.1) mg/dl Magnesium (1.8-2.4) mg/dl Total Bilirubin (0.2-1) mg/dl AST (15-37) U/L ALT (12-78) U/L Alkaline Phosphatase (45-117) U/L Ammonia (11-32) umol/L Troponin I (0-0.045) ng/ml Total Protein (6.4-8.2) gm/dl Albumin (3.4-5.0) gm/dl Globulin (2.5-4.0) gm/dl Albumin/Globulin Ratio (0.9-2) Procalcitonin (0-0.5) ng/ml TSH (0.300-4.500) uIu/ml COVID-19 Eval Order COVID-19 PCR (Negative) Blood Type Antibody Screen Administered Medications Discontinued Medications Heparin Sodium (Porcine) (Heparin Sod (Porcine) 1000 Unit/Ml 10 Ml Vial) 6,000 units IV NOW STA Stop: 07/26/20 12:20 Last Admin: 07/26/20 12:30 Dose: 6,000 units Documented by: [id number] Cosigned by: [id number] Heparin Sodium/Dextrose (Heparin Iv Standard With Bolus) 1 ea IV NOW STA; Protocol Stop: 07/26/20 12:16 Last Admin: 07/26/20 14:01 Dose: Not Given Documented by: [id number] Sodium Chloride (Nss) 500 mls @ 999 mls/hr IV .Q31M ONE Stop: 07/26/20 12:07 Last Infusion: 07/26/20 12:24 Dose: 0 mls/hr Documented by: [id number] Admin: 07/26/20 11:47 Dose: 999 mls/hr Documented by: [id number] Piperacillin Sod/Tazobactam Sod (Zosyn) 4.5 gm in 120 mls @ 240 mls/hr IV NOW ONE Stop: 07/26/20 12:07 Last Infusion: 07/26/20 13:22 Dose: 0 mls/hr Documented by: [id number] Admin: 07/26/20 12:30 Dose: 240 mls/hr Documented by: [id number] Vancomycin HCl 2,000 mg/ (Sodium Chloride) 540 mls @ 200 mls/hr IV NOW ONE Stop: 07/26/20 14:19 Last Infusion: 07/26/20 14:11 Dose: 0 mls/hr Documented by: [id number] Admin: 07/26/20 14:10 Dose: 200 mls/hr Documented by: [id number] Heparin Sodium/Dextrose (Heparin Sodium/Dextrose) 25,000 units in 500 mls @ 29 mls/hr IV .[id number] REPLACED BY [facility]; Protocol Stop: 08/25/20 12:14 Last Admin: 07/26/20 12:30 Dose: 1,450 units/hr, 29 mls/hr Documented by: [id number] Cosigned by: [id number] Ioversol (Ioversol 100ml) 94 ml IV ONCE ONE Stop: 07/26/20 10:39 Last Admin: 07/26/20 10:39 Dose: 94 ml Documented by: [id number] Discharge Plan Visit Data Chief Complaint: Illness Stated Complaint: ams/ [facility] ED Provider: Desmond Santoyo Discharge Problem: Dvt femoral (deep venous thrombosis), Confusion, Breathlessness, Pneumonia of both lower lobes, Acute septic pulmonary embolism, Non-ST elevation MO (NSTEMI), COVID-19 Patient Disposition: Being Evaluated by Hospitalist Condition: Serious Discharge Instructions Interventions: ED Discharge Assessment Last Done: 07/26/20 14:09 Discharge Problem: Dvt femoral (deep venous thrombosis) Qualifiers: Chronicity: acute Laterality: right Qualified Code(s): I82.411 - Acute embolism and thrombosis of right femoral vein Pneumonia of both lower lobes Qualifiers: Pneumonia type: due to unspecified organism Qualified Code(s): J18.9 - Pneumonia, unspecified organism Acute septic pulmonary embolism Qualifiers: Acute cor pulmonale presence: unspecified Qualified Code(s): I26.90 - Septic pulmonary embolism without acute cor pulmonale
[2020-07-26 09:58] LABS: Hematocrit (blood only) 31.4 % (42-52); Hemoglobin 9.7 g/dL (14.0-18.0); Mean Corpuscular Hemoglobin 30.2 pg (25-34); Mean Corpuscular Hgb Conc 30.9 g/dL (32-36); Mean Corpuscular Volume 97.8 fL (80-100); Mean Platelet Volume 10.2 fL (7.4-10.4); Platelet Count 353 K/uL (130-400); RDW Coefficient of Variation 19.4 % (11.5-14.5); RDW Standard Deviation 69.3 fL (36.4-46.3); Red Blood Count 3.21 M/uL (4.7-6.1); White Blood Count 9.77 K/uL (4.8-10.8)
[2020-07-26 10:06] LABS: Albumin Level 1.7 gm/dl (3.4-5.0); BUN Creatinine Ratio 22.5 (10-20); Calcium 7.7 mg/dl (8.5-10.1); Creatinine Clr Calc Pharmacy 91.2 ml/min; Est GFR (African American) 101.8; Est GFR (Non-African American) 87.8; Magnesium 2.2 mg/dl (1.8-2.4)
--- NOTE | 2020-07-26 10:06 | XRay Report ---
XR chest 1V portable HISTORY: weakness COMPARISON: Chest 07/04/2020. FINDINGS: Low lung volumes. Chronic elevation of the left hemidiaphragm. A few bibasilar linear densi ties persist and favor atelectasis or scarring. No new focal lung consolidations. No evidence for pul monary edema. The heart remains enlarged. Degenerative changes noted within the shoulders. IMPRESSION: No significant change compared to the prior study. No acute process. Cardiomegaly and bibasilar atele ctasis persist. ACT 112: Negative or not required by law. Electronically signed by: Richar Acuna M.D. 07/26/2020 10:04 AM
[2020-07-26 10:19] LABS: Albumin Globulin Ratio 0.4 (0.9-2); Bilirubin,Total 0.4 mg/dl (0.2-1); Thyroid Stimulating Hormone 0.743 uIu/ml (0.300-4.500); Total Protein 5.7 gm/dl (6.4-8.2); Troponin I 0.055 ng/ml (0-0.045)
[2020-07-26 10:26] LABS: ALC (manual) 0.78 K/uL (1.2-3.4); ANC (manual) 7.52 K/uL (1.4-6.5); Lymphocytes # (manual) 0.78 K/uL (1.2-3.4); Metamyelocytes # (manual) 0.18 K/uL (0-0); Metamyelocytes % (manual) 1.8 %; Monocytes # (manual) 0.43 K/uL (0.11-0.59); Monocytes % (manual) 4.4 %; Myelocytes # (manual) 0.86 K/uL (0-0); Myelocytes % (manual) 8.8 %; Neutrophils # (manual) 7.52 K/uL (1.4-6.5); RBC Morphology Unremarkable
[2020-07-26] MEDS ORDERED: IOVERSOL 100ml IV ONE (10:38)
--- NOTE | 2020-07-26 11:29 | CT Scan Report ---
CHEST CT WITH CONTRAST, ABDOMEN AND PELVIS CT WITH INTRAVENOUS CONTRAST CT DOSE: HISTORY: Short of breath. Weakness. Aspiration. Generalized abdominal pain. TECHNIQUE: Multiaxial CT images of the chest, abdomen, and pelvis were performed following the intrav enous administration of contrast. A dose lowering technique was utilized adhering to the principles of ALARA. COMPARISON: Chest CTA 06/26/2020. Abdomen and pelvis CTA 06/22/2020. FINDINGS: Chest CT: There is respiratory motion artifact. The central airways appear patent. No pneumothorax. S mall left and trace right pleural effusions are again noted. These are similar to the prior study. Th e heart is borderline enlarged. The main and lobar pulmonary arteries are patent. The distal pulmonar y arteries are obscured by motion artifact. Normal caliber thoracic aorta with no evidence for dissec tion. No pericardial effusion. Normal esophagus. No mediastinal or hilar lymphadenopathy. No suspicio us lytic or blastic osseous lesions. Old compression deformity at T12. Slight progression of the cons olidation within the left lung base. Groundglass densities within the base of the right lower lobe fung ve also progressed. A few partially opacified distal bilateral lower lobe bronchi. There are few scat tered irregular nodules within the lungs which are new from the prior study. A few these demonstrate central cavitation. Given the interval change these favor an infectious/inflammatory process in could be due to a fungal infection or septic pulmonary emboli. Dominant nodule within the left upper lobe on image 118 measures 13 mm. Abdomen/pelvis CT: No pneumoperitoneum. No pneumatosis. No suspicious lytic or blastic osseous lesion s. Suboptimal evaluation of the abdomen and pelvis due to motion artifact. However, the liver, spleen , adrenal glands, and pancreas are unremarkable. There is a 2 cm gallstone. No gallbladder wall thick ening. Moderate bilateral cortical renal thinning is again noted. No hydronephrosis. Epigastric linea r metallic density remains unchanged. Normal bladder. Trace pelvic free fluid. Long segment thrombus identified within the distal right external iliac vein and extending into the right common femoral, s uperficial femoral, deep femoral veins. Small fat-containing bilateral inguinal hernias. Mild/moderat e body wall edema. Fluid-filled colon. There is mild to moderate bowel wall thickening and pericoloni c fat stranding involving the majority of the colon consistent with a nonspecific pancolitis. This fung s slightly progressed in the interval and could represent inflammatory process or an infectious proce ss such as C. difficile colitis. A few mildly dilated gas-filled loops of large and small bowel sugge stive of a mild ileus. No evidence for bowel obstruction. The main mesenteric vessels appear patent. The main portal vein is also patent. IMPRESSION: 1. Right lower extremity deep vein thrombosis involving the distal external iliac vein, common femora l vein, and proximal superficial/deep femoral veins. 2. Interval development of a few scattered pulmonary nodules some of which demonstrate cavitation. In conjunction with the DVT this is highly suspicious for septic pulmonary emboli. The main and lobar p ulmonary arteries are patent. The distal pulmonary arteries are obscured by motion artifact. An atypi zack infection such as a fungal process could also result in the cavitary nodules. 3. Slight progression of the pancolitis. This could represent an inflammatory process or infectious p rocess such as C. difficile colitis. 4. Cholelithiasis. 5. Small left and trace right pleural effusions, unchanged. 6. Bibasilar densities have progressed. This could represent atelectasis or pneumonia. 7. Additional findings as described above. ACT 112: Negative or not required by law. Electronically signed by: Richra Acuna M.D. 07/26/2020 11:27 AM
--- NOTE | 2020-07-26 11:31 | CT Scan Report ---
HEAD CT NONCONTRAST CT DOSE: 2465.41 mGycm HISTORY: ams TECHNIQUE: Multiaxial CT images of the head were performed without the use of intravenous contrast. A utomated exposure control was utilized for this study. A dose lowering technique was utilized adheri ng to the principles of ALARA. Comparison: Head CT 02/17/2019. Findings: The paranasal sinuses and mastoid air cells are clear. The calvarium and skull base are int act. There is no mass, hematoma, midline shift, acute infarct. White matter hypodensity is nonspecifi c but suggestive of microvascular ischemic change. The ventricles and sulci demonstrate mild age-rela rosalina involutional changes. 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 No acute intracranial abnormality. ACT 112: Negative or not required by law. Electronically signed by: Richar Acuna M.D. 07/26/2020 11:30 AM
[2020-07-26] MEDS ORDERED: SODIUM CHLORIDE 0.9% 500 ML IV ONE (11:37)
[2020-07-26] MEDS ORDERED: PIPERACILL/TAZOBAC CONSULT ACTIVE PRN (11:38)
[2020-07-26] MEDS ORDERED: VANCOMYCIN HCL 2,000 MG in SODIUM CHLORIDE 0.9% 500 ML IV ONE (11:38)
[2020-07-26] MEDS ORDERED: PIPERACILLIN/TAZOBACTAM 4.5 GM/120 ML BAG IV ONE (11:38)
[2020-07-26] MEDS ORDERED: VANCOMYCIN CONSULT ACTIVE PRN (11:38)
[2020-07-26] MEDS ORDERED: HEPARIN SODIUM/DEXTROSE 25,000 UNITS/500 ML BAG IV SCH (12:15)
[2020-07-26] MEDS ORDERED: HEPARIN SOD (PORCINE) 1000 UNIT/ML 10 ML VIAL IV STA (12:19)
[2020-07-26 12:35] LABS: Base Excess VBG -1.3 mEq/L; Oxygen Saturation VBG 64.3 %; pH VBG 7.37 (7.36-7.41)
--- NOTE | 2020-07-26 14:15 | History & Physical Report ---
Date of Service July 26, 2020 Assessment & Plan (1) Dvt femoral (deep venous thrombosis): Patient was found to have a DVT seen on CT scan of the abdomen pelvis. Patient is initiated on therapeutic heparin drip at this time. Patient patient had prolonged hospitalization he also has inflammatory disease of ulcerative colitis and currently COVID-19. Currently he is continued on his therapeutic heparin however we are in discussions with pharmacy to try to reduce nursing interface with this patient may consider Lovenox therapy CT scan abdomen pelvis 07/26/2020 IMPRESSION: 1. Right lower extremity deep vein thrombosis involving the distal external iliac vein, common femoral vein, and proximal superficial/deep femoral veins. 2. Interval development of a few scattered pulmonary nodules some of which demonstrate cavitation. In conjunction with the DVT this is highly suspicious for septic pulmonary emboli. The main and lobar pulmonary arteries are patent. The distal pulmonary arteries are obscured by motion artifact. An atypical infection such as a fungal process could also result in the cavitary nodules. 3. Slight progression of the pancolitis. This could represent an inflammatory process or infectious process such as C. difficile colitis. 4. Cholelithiasis. 5. Small left and trace right pleural effusions, unchanged. 6. Bibasilar densities have progressed. This could represent atelectasis or pneumonia. (2) COVID-19: COVID-19 infection by nasopharyngeal swab. Unclear exposure patient was recently in the [facility] system discharged on 21 July. Reportedly the [facility] guards were with him, from [place], state that there is no active cases amongst the guards at [place] only possible exposures. And to their knowledge there is no other inmates who have Covid. The patient does have some mild groundglass changes on his chest CT however he does have concern for pulmonary embolism or septic emboli. The large eventration of his diaphragm with bowel in his chest. To this end there is consideration that this could be a false positive test and will likely repeat testing to assure that this is truly a Covid infection. With regards to this being a Covid infection the patient does not qualify for remdesivir or convalescent plasma as he is not significantly hypoxic he will receive dexamethasone and zinc. I spoke to Dr Bronson who does not recommend remdesovir or convalescent plasma (3) Acute septic pulmonary embolism: Consideration of septic emboli was brought up by radiology. The patient is immunosuppressed being given Remicade not too long ago is extremely poor nutrition is a diabetic and is on steroids. Subsequently the patient was initiated on vancomycin and Zosyn in the emergency department and these will be continued. Blood cultures were obtained. This could be the source of his metabolic encephalopathy as well other infections from his novel COVID-19 infection. His procalcitonin being negative goes against this being a bacterial septic emboli may make these changes be just pulmonary emboli from his DVT (4) Ulcerative colitis: Patient was given Remicade in our facility on June 26 he is ma intained on prednisone 40 mg a day and was treated for a concomitant C. difficile colitis. To this end he will be given dexamethasone for his Covid infection which will replace the stress dose steroids in this condition. As per his previous treatment for C. difficile colitis he remains on vancomycin orally (5) Encephalopathy acute: Patient's encephalopathy could be multifactorial is always challenging given an incarcerated person. The patient likely may have encephalopathy from his Covid infection is low pro calcitonin goes against this being a bacterial infection He did have a CT scan of his head on 07/26/2020 which shows no significant change compared to prior (6) Anemia of chronic disease: Persist with anemia of chronic disease likely from his previous persistent prolonged GI blood loss from colitis his hemoglobin is in the 9 g range which is actually improved from his discharge hemoglobin History of Present Illness Primary Care Provider: [facility] 85-year-old life incarcerated inmate with a significant past medical history of ulcerative colitis, GERD. [facility] due to concerns for increased weakness and possible change in mental status overnight. Evidently was recently discharged from [facility] on [facility] 07[facility] an extended stay there where he was evaluated for colectomy due to unremitting Ulcerative colitis flare. Prior to transfer he did recieve REmicade and was on steroids. While at [facility] confirmed ulcerative colitis flare but also diagnosed with C. difficile colitis and started on oral vancomycin. Improved with steroids and was on TPN for some duration. Patient per the discharge summary refused a PEG tube for nutritional support and tunnel catheter and TPN was discontinued. Per the report from the [facility]ci seems more confused today and the patient states he was significantly weak. Patient states he is had some continued abdominal discomfort and nausea and feels generally weak but not focally. No falls or syncope reported. The [facility] was concerned that he possibly aspirated yesterday. Patient denies any significant bloody stools or diarrhea at this time. Patient with some mild diffuse abdominal tenderness reported. States a little bit of chest discomfort. Pt found to have lower extremity edema and CT of Chest abd pelvis shows extensive right sided DVT into the femoral vein and concern for small PE's vs septic emboli. During the last admission he did see Palliative care and confirms he was to be a full code Allergies Allergy/AdvReac Type Severity Reaction Status Date / Time No Known Allergies Allergy Unverified 06/19/20 09:43 Home Medications Home Medications Medication Instructions Recorded Confirmed Type finasteride [Proscar] 5 mg PO HS 10/11/18 07/26/20 History tamsulosin 0.8 mg PO HS 11/01/18 07/26/20 History insulin aspart U-100 [Novolog 1 sliding scale dose SUBCUT 07/26/20 07/26/20 History U-100 Insulin aspart] USEASDIRECTD mirtazapine 15 mg PO PM 07/26/20 07/26/20 History omeprazole 40 mg PO BID 07/26/20 07/26/20 History prednisone [Deltasone] 40 mg PO PM 07/26/20 07/26/20 History vancomycin 125 mg PO Q6H 07/26/20 07/26/20 History Past Med/Surg History Medical History (Updated 07/26/20 @ 12:58 by Desmond Santoyo M.D.) BPH (benign prostatic hyperplasia) Carcinoma of parotid gland H/O flexible sigmoidoscopy Ulcerative colitis Family History Other Family history non-contributory Social History Smoking Status: Never smoker Tobacco Type: Smokeless Tobacco (Dip or Chew) Second Hand Exposure: No; Do You Dip or Chew Tobacco: Yes (1 can every other day); Tobacco Cessation Education Requested by Patient: No Hx Alcohol Use: No Hx Substance Use: No Preferred Language: Monegasque Communication Ability: poor histo Building Superintendent Required: No Beliefs That Will Affect Care: None Current Living Situation: Other Current Living Situation Comment: [facility] Other Information That Helps Us Care for You: No Feels Safe at Home: Yes Safety Concerns: Feels Safe At This Time Assistive Devices: None Review of Systems Review of Systems: Review of systems is clouded by the fact that the patient has metabolic encephalopathy mild to moderate distress and fatigue no headache, blurry or double vision no speech or swallowing issues no chest pain, pressure or palpitations Increase shortness of breath, cough or wheezes Distant mild abdominal pain, portly nausea & vomiting 1 day prior to admission, continues with diarrhea no dysuria, hematuria or frequency no focal joint pain does have increased right lower extremity swelling no back pain, CVA tenderness or radicular pain no bruising, bleeding or rashes no focal signs of weakness or numbness or altered sensation Physical Exam Physical Exam: The patient appeared chronically ill debilitated Vital signs as documented. Patient is non-currently is a significantly hypoxic Head exam is normocephalic atraumatic no scleral icterus Neck is without JVD, thyromegaly, or carotid bruits. Lungs are decreased breath sounds at left lower lung base some minor rhonchi heard bilaterally Cardiac exam, Rhythm is regular.. No murmurs, rubs or gallops. Abdominal exam reveals normal bowel sounds, soft mildly tender Extremities right leg is 1-2+ edema is minorly uncomfortable with his calf and middle thigh Neurologic exam is alert responds to questions he is confused at times he can spontaneously move all extremities except for 1 sitter shackled to the bed Skin is with various skin bruises of different stages of healing Results & Data [facility] Vital Signs (Past 12 Hours) Vital Signs Temp Pulse Pulse Resp BP BP Pulse Ox 07/26/20 13:00 90 18 100/63 98 07/26/20 11:58 90 22 122/69 99 07/26/20 11:23 98 H 20 129/72 99 07/26/20 09:28 91 07/26/20 09:23 98.1 F 88 22 106/69 92 Code Status & VTE Plan VTE Prophylaxis Plan VTE Prophylaxis will be ordered: Yes PG Care Time/CCT Total # of Minutes Spent Total Time Spent with Patient: Total time spent is greater than 50% in coordination of care (as documented) at patient's floor/unit and/or counseling patient: Coding Level of Care Code 50370 Initial Inpt Care Lvl 3 Diagnoses Dvt femoral (deep venous thrombosis) I82.411 Chronicity: acute Laterality: right COVID-19 U07.1 Acute septic pulmonary embolism I26.90 Acute cor pulmonale presence: unspecified Ulcerative colitis K51.90 Encephalopathy acute G93.40 Anemia of chronic disease D63.8 (1) Acute septic pulmonary embolism Acute cor pulmonale presence: unspecified Qualified Code(s): I26.90 - Septic pulmonary embolism without acute cor pulmonale (2) Dvt femoral (deep venous thrombosis) Chronicity: acute Laterality: right Qualified Code(s): I82.411 - Acute embolism and thrombosis of right femoral vein
[2020-07-26] MEDS ORDERED: ONDANSETRON INJ 2 MG/ML 2 ML VIAL IV PRN (14:56)
[2020-07-26] MEDS ORDERED: GLUCAGON FOR INJ 1 MG VIAL SQ PRN (14:56)
[2020-07-26] MEDS ORDERED: CARBOHYDRATES FOR HYPOGLYCEMIA PO PRN (14:56)
[2020-07-26] MEDS ORDERED: GLUCOSE 40% GEL 15 GM TUBE PO PRN (14:56)
[2020-07-26] MEDS ORDERED: DEXAMETHASONE SOD INJ 10 MG/ML VIAL IV SCH (14:56)
[2020-07-26] MEDS ORDERED: DEXTROSE 50% 50 ML SYRINGE IV PRN (14:56)
[2020-07-26] MEDS ORDERED: GLUCOSE 10 TABS/TUBE PO PRN (14:56)
[2020-07-26] MEDS ORDERED: NON-FORMULARY MEDICATION (Vancomycin 125 MG) PO SCH (14:56)
[2020-07-26] MEDS ORDERED: ACETAMINOPHEN 500 MG TAB PO PRN (14:56)
[2020-07-26] MEDS ORDERED: PHARMACY GLYCEMIC MGMT CONSULT PRN (15:10)
[2020-07-26 15:18] LABS: Partial Thromboplastin Ratio 0.9; Partial Thromboplastin Time 25.6 Seconds (21.0-31.0)
--- NOTE | 2020-07-26 15:25 | Pharmacy Report ---
Pharmacy Abx Initial Consult - Date of Service July 26, 2020 - Pharmacy Dosing Scope Date of Consult: 07/26/20 Consultation requested by: Dr. Stark Pharmacy is consulted to initiate Vancomycin + Zosyn IV dosing therapy, order appropriate labs and adjust drug dose/frequency. - Subjective The patient is a 85 year old M admitted on 07/26/20 13:32. - Objective Height: 5 ft 7 in Weight: 99.5 kg Vital Signs (Past 12hrs): Vital Signs Temp Pulse Pulse Resp BP BP Pulse Ox 07/26/20 13:00 90 18 100/63 98 07/26/20 11:58 90 22 122/69 99 07/26/20 11:23 98 H 20 129/72 99 07/26/20 09:28 91 07/26/20 09:23 36.7 C 88 22 106/69 92 Lab Results (24hrs): Laboratory Tests (24 Hours) 07/26/20 07/26/20 07/26/20 09:20 09:20 09:20 WBC 9.77 Creatinine 0.69 Est Cr Clr Drug Dosing 91.2 Procalcitonin 0.10 Micro Results: 07/26/20 12:07 Aerobic Blood Culture - Pending Blood Anaerobic Blood Culture - Pending 07/26/20 09:20 Aerobic Blood Culture - Pending Blood Anaerobic Blood Culture - Pending - Risk Factors for Resistance * Incarcerated * Hospitalization for 48 hours or more within the past 90 days * Immunocompromised (chronic steroid therapy, for UC) * Antimicrobial use within the last 90 days : cipro/flagyl for UC flare - Assessment & Plan Assessment 85 year old M initiated on IV Vancomycin + Zosyn for PNA COVID+ although repeating test as this may be a false positive Pt with multiple risk factors for MDRO Currently receiving treatment with PO vanco for c diff Renal function WNL Plan Vancomycin + Zosyn for treatment of PNA Vancomycin IV * Estimated PK Parameters: Vd 0.6 L/kg, Americo 0.067 hr-1, t1/2 10.35 hr * Loading dose: 2,000 mg (20 mg/kg) * Maintenance dose: 1,250 mg IV (12.5 mg/kg) every 12 hours * Goal trough level for PNA : 15 to 20 mcg/mL * Trough level ordered for 07/28/20 @ 0930 Piperacillin/tazobactam * 4.5 g bolus administered over 30 minutes, then 3.375 g IV extended infusion every 8 hours for CrCl greater than 20 mL/min Pharmacy will continue to follow and will adjust dose/frequency as necessary. Thank you.
--- NOTE | 2020-07-26 15:47 | Pharmacy Report ---
Pharmacy Glycemic Short Note 2 - Date of Service July 26, 2020 - Glycemic Short BSG Results (Last 24 hours): 07/26/20 09:20 Glucose 84 OUTPATIENT ANTIDIABETIC REGIMEN: * NovoLog per scale ACHS * recently on a course of prednisone 40mg daily for UC flare * A1c = 6.3% on 06/26/20 ASSESSMENT: * 85yo "pre-diabetic" known to pharmacy from previous admissions/glycemic consults- most recently earlier this month * Pt typically has severe hyperglycemia secondary to steroids. Pt is starting DXM 6mg IV Q24hrs for COVID-19+ * NPH insulin is used to counteract the hyperglycemic effect of prednisone. Pt ordered DXM (not prednisone) but will use NPH for DXM induced hyperglycemia in this patient since he typically has an adequate HS --> AM drop in BSG per last admission. 24hr insulin (Lantus) not needed and may contribute to hypoglycemia. * NPH should be dosed at the same time that steroid is given * The dose of NPH given is dependent on the steroid dose given. DXM 4mg IV is ~ prednisone 40mg PO. * For doses of prednisone 40mg/day or above NPH dose should be 0.4 units/kg. HOWEVER, patient did NOT require this high of dosing last admission while on RTC steroids of methylprednisolone. Patient averaged ~ 20-40units of insulin per day. Typically, patients will also need rapid-acting insulin with meals * Will initiated SQ basal bolus insulin regimen with NPH + NovoLog based on a total daily dose of ~ 40 units/day; however will distribute in a 70%:30% fashion between prandial:basal (regimen weighted towards prandial insulin since steroids have their most profound effect on post-prandial hyperglycemia) * Will adjust insulin orders and titrate based on BSG trends. PLAN FOR INPATIENT GLYCEMIC CONTROL: * Steroid hyperglycemia/Basal insulin * NPH 15 units (0.15 units/kg) SQ daily * Dose to be given at the same time as DXM. HOLD NPH if DXM is held. * Bolus insulin * NovoLog per scale ACHS or Q6hrs while NPO * Goal Range: Low 90 mg/dL - High 140 mg/dL * Correction Factor: 15 mg/dL/unit * Nutritional / Prandial insulin per carb ratio of 1 unit per 5 grams CHO consumed
[2020-07-26] MEDS ORDERED: DEXAMETHASONE SOD PHOSPHATE 6 MG in SYRINGE 0 ML IV SCH (16:00)
[2020-07-26] MEDS ORDERED: INSULIN HUMAN NPH SC SCH (16:30)
[2020-07-26] MEDS: ENOXAPARIN 100 MG/1ML SYR SC SCH (16:58)
[2020-07-26] MEDS: INSULIN ASPART 100 UNITS/ML 3 ML PEN SC SCH ×2 (17:21→21:34)
[2020-07-26] MEDS ORDERED: LORazepam 0.5 MG/1 ML VIAL IV PRN (17:49)
[2020-07-26] MEDS ORDERED: HALOPERIDOL LACTATE 5 MG/ML 1 ML VIAL IV PRN (17:49)
[2020-07-26] MEDS ORDERED: ACETAMINOPHEN 1000 MG/100 ML IV IV PRN (17:49)
[2020-07-26] MEDS: PIPERACILLIN/TAZOBACTAM 3.375 GM in DEXTROSE 5% 100 ML IV SCH (18:11)
[2020-07-26] MEDS: VANCOMYCIN HCL 125 MG/2.5ML SOLN PO SCH (18:11)
[2020-07-26] MEDS: RASPBERRY SYRUP 5 ML UDP PO SCH (18:11)
[2020-07-26] MEDS ORDERED: FINASTERIDE 5 MG TAB PO SCH (21:00)
[2020-07-26] MEDS ORDERED: predniSONE 20 MG TAB PO SCH (21:00)
[2020-07-26] MEDS ORDERED: MIRTAZAPINE TAB 15 MG TAB PO SCH (21:00)
[2020-07-26] MEDS ORDERED: TAMSULOSIN HCL 0.4 MG CAP PO SCH (21:00)
[2020-07-26 21:12] LABS: Appearance Urine Clear (Clear); Bacteria Urine Automated Negative (Negative); Bilirubin Urine Negative (Negative); Blood Urine Trace (Negative); Color Urine Dark Yellow; Glucose Urine UA Negative (Negative); Ketones Urine Trace (Negative); Leukocyte Esterase Urine Negative (Negative); Nitrite Urine Negative (Negative); Protein Urine 1+ (Negative); RBC Urine Automated 0-4 /hpf (0-4); Specific Gravity Urine > 1.045 (1.000-1.030); Urobilinogen Urine Negative (Negative)
[2020-07-26] MEDS: PANTOprazole 40 MG TAB PO SCH (21:36)
[2020-07-26] MEDS: VANCOMYCIN HCL 1,250 MG in SODIUM CHLORIDE 0.9% 250 ML IV SCH (22:35)
[2020-07-27] MEDS: RASPBERRY SYRUP 5 ML UDP PO SCH ×2 (00:37→06:09)
[2020-07-27] MEDS: VANCOMYCIN HCL 125 MG/2.5ML SOLN PO SCH ×5 (00:37→23:28)
[2020-07-27] MEDS: PIPERACILLIN/TAZOBACTAM 3.375 GM in DEXTROSE 5% 100 ML IV SCH ×2 (00:37→10:29)
[2020-07-27] MEDS: ENOXAPARIN 100 MG/1ML SYR SC SCH (06:09)
--- NOTE | 2020-07-27 06:16 | Electrocardiogram Report ---
Test Reason : Blood Pressure : / mmHG Vent. Rate : 084 BPM Atrial Rate : 084 BPM P-R Int : 206 ms QRS Dur : 086 ms QT Int : 386 ms P-R-T Axes : 041 -04 035 degrees QTc Int : 456 ms Sinus rhythm with Premature supraventricular complexes Low voltage QRS Nonspecific T wave abnormality When compared with ECG of 19-JUN-2020 09:11, Premature supraventricular complexes are now Present QRS duration has decreased Confirmed by Mike Yeh ([id number]) on 07/27/2020 6:16:11 AM Referred By: [facility] Confirmed By:Mike Yeh
[2020-07-27 06:43] LABS: Estimated Average Glucose 117 mg/dl; Hemoglobin A1C 5.7 % (4.5-5.6)
[2020-07-27] MEDS ORDERED: ALBUMIN 5% 500 ML IV ONE ×2 (06:47→07:00)
[2020-07-27 06:48] LABS: Hematocrit (blood only) 29.7 % (42-52); Hemoglobin 9.2 g/dL (14.0-18.0); Mean Corpuscular Hemoglobin 29.7 pg (25-34); Mean Corpuscular Volume 95.8 fL (80-100); Mean Platelet Volume 10.3 fL (7.4-10.4); Platelet Count 448 K/uL (130-400); RDW Coefficient of Variation 19.8 % (11.5-14.5); RDW Standard Deviation 68.5 fL (36.4-46.3); White Blood Count 22.36 K/uL (4.8-10.8)
[2020-07-27 07:02] LABS: ALC (manual) 1.59 K/uL (1.2-3.4); ANC (manual) 16.99 K/uL (1.4-6.5); Anisocytosis Present; Lymphocytes # (manual) 1.59 K/uL (1.2-3.4); Lymphocytes % (manual) 7.1 %; Metamyelocytes % (manual) 1.8 %; Monocytes # (manual) 2.77 K/uL (0.11-0.59); Monocytes % (manual) 12.4 %; Myelocytes % (manual) 2.7 %; Neutrophils # (manual) 16.99 K/uL (1.4-6.5); Polychromasia 1+
[2020-07-27 07:04] LABS: Albumin Level 1.6 gm/dl (3.4-5.0); BUN Creatinine Ratio 18.5 (10-20); Calcium 7.5 mg/dl (8.5-10.1); Creatinine Clr Calc Pharmacy 66.5 ml/min; Est GFR (African American) 92.9; Est GFR (Non-African American) 80.2; Magnesium 2.1 mg/dl (1.8-2.4); Potassium 3.5 mmol/L (3.5-5.1)
[2020-07-27 07:09] LABS: Bilirubin Direct 0.1 mg/dl (0-0.2); Bilirubin,Total 0.5 mg/dl (0.2-1); Phosphorus 3.1 mg/dl (2.5-4.9); Total Protein 5.8 gm/dl (6.4-8.2); Troponin I 0.043 ng/ml (0-0.045)
[2020-07-27 07:18] LABS: Fibrinogen 392 mg/dl (184-400)
[2020-07-27] MEDS ORDERED: SODIUM CHLORIDE 0.9% 250 ML IV PRN (07:31)
[2020-07-27] MEDS: ALBUMIN 5% 250 ML IV SCH ×2 (07:41→07:45)
[2020-07-27] MEDS: INSULIN ASPART 100 UNITS/ML 3 ML PEN SC SCH (08:00)
[2020-07-27] MEDS ORDERED: DEXAMETHASONE SOD PHOSPHATE 6 MG in SYRINGE 0 ML IV SCH (09:00)
[2020-07-27] MEDS ORDERED: INSULIN HUMAN NPH SC SCH (09:00)
[2020-07-27] MEDS ORDERED: ZINC SULFATE 220 MG CAPSULE PO SCH (09:00)
[2020-07-27] MEDS: PANTOprazole 40 MG TAB PO SCH (09:55)
--- NOTE | 2020-07-27 10:05 | Gastrointestinal Consultation ---
Date of Consultation July 27, 2020 Assessment & Plan (1) COVID-19: (2) Ulcerative colitis: (3) Clostridium difficile diarrhea: (4) Acute septic pulmonary embolism: Pt is a 85 y/o male inmate w hx of UC, Cdiff positive admitted for increasing confusion and weakness. On evaluation he was found to have COVID 19 positive, also CT studies concerning for possible septic PE. Overnight had an episode of hypotension, hypoglycemia and LGI bleeding, receiving 1U PRBC transfusion - Continue Vancomycin for Cdiff - Monitor closely for further s/s of GI bleeding, transfuse prn, IVF support - Can retry steroids for UC (Budesonide vs Methylprednisone) however if colitis symptoms remain refractory would recommend transferring to tertiary care center, especially in light of the other comorbidities he currently has a listed above Supervising Physician Co-Signing Physician Notes I performed a history and physical examination of the patient today, including specifically on physical exam - soft abdomen. I have discussed the patient's management with the advanced practitioner. Please refer to the nurse practitioner's note for the documented findings and plan of care. Patient with severe pancolitis UC, seems to be fulminant and refractory to steroids however he was just discharged from [facility] as he had some improvement but now back with rectal bleeding again and leukocytosis. He did not tolerate anti-TNF therapy due to bone marrow suppression. COVID positive. Continue IV steroids and PO Vanc, consider bowel rest and start TPN. He may need total colectomy given refractory disease. I recommend patient should be managed at a tertiary care center given complexity of his UC and refractory disease. History of Present Illness Reason for Consultation: GI bleed, hx of UC and Cdiff Requesting Physician: Dr. Debra Leon Attending Physician: Dr. Naveen Rayo History of Present Illness Received consult this AM to evaluate pt for GI bleeding, hx of UC and Cdiff. He tested positive for COVID 19, currently in isolation at COVID 19 yeh. I spoke with RN (Lisa) taking care of pt who reports pt is currently disoriented. I did not personally perform physical examination on this pt. Chart was reviewed. Pt is a male inmate who was initially hospitalized at [facility] a month ago for rectal bleeding, abd pain, colonoscopy showed signs of severe UC. He had previously been managed w 5-ASA. He received Infliximab induction during his stay but failed to show improvement. Was eventually transferred to [facility] for further management and for evaluation of possible colectomy. Pt had refused re peat Colonoscopy in [facility] and surgical intervention. His Infliximab was held due to pancytopenia per Hematology's assessment. He was continued on Prednisone for UC management, w TPN support. He refused PEG placement and TPN catheter was removed eventually on 07/20/2020. He was also found to be Cdiff positive receiving Vancomycin treatment. He was DC'd from [facility] on 07/21/2020 Pt was taken back to [facility] yesterday as he was having more confusion and weakness, c/o abd discomfort, n/v. ? possible aspiration during vomiting. On eval he was found to have COVID +. CT chest/abd/pelvis showed signs of RLE DVT, possible septic PE, pancolitis. Overnight he had an episode of hypoglycemia and hypotension, RN also reported large bloody BM around 5AM this morning. No more rectal bleeding since then. He is receiving 1U PRBC. Allergies Allergy/AdvReac Type Severity Reaction Status Date / Time No Known Allergies Allergy Unverified 06/19/20 09:43 Home Medications Home Medications Medication Instructions Recorded Confirmed Type finasteride [Proscar] 5 mg PO HS 10/11/18 07/26/20 History tamsulosin 0.8 mg PO HS 11/01/18 07/26/20 History insulin aspart U-100 [Novolog 1 sliding scale dose SUBCUT 07/26/20 07/26/20 History U-100 Insulin aspart] USEASDIRECTD mirtazapine 15 mg PO PM 07/26/20 07/26/20 History omeprazole 40 mg PO BID 07/26/20 07/26/20 History prednisone [Deltasone] 40 mg PO PM 07/26/20 07/26/20 History vancomycin 125 mg PO Q6H 07/26/20 07/26/20 History Patient History Medical History (Updated 07/27/20 @ 16:18 by Julio Fried DO) Anemia BPH (benign prostatic hyperplasia) Carcinoma of parotid gland H/O flexible sigmoidoscopy Hemorrhagic shock Lower GI bleed Ulcerative colitis Family History Other Family history non-contributory Social History Smoking Status: Never smoker Tobacco Type: Smokeless Tobacco (Dip or Chew) Second Hand Exposure: No; Hx Alcohol Use: No Hx Substance Use: No Preferred Language: Belarusian Communication Ability: poor histo Vehicle Assembler Required: No Beliefs That Will Affect Care: None Current Living Situation: Other Current Living Situation Comment: [facility] Feels Safe at Home: Yes Assistive Devices: Oxygen - Continuous Review of Systems Review of Systems: Unobtainable due to cognitive status Physical Exam Physical Exam: No physical exam conducted. See HPI above for more details Results & Data ([facility]) Vital Signs (Past 12 Hours) Vital Signs Temp Pulse Pulse Resp BP BP Pulse Ox 07/27/20 09:28 36.6 C 88 18 93/65 L 100 07/27/20 09:13 36.6 C 98 H 18 104/61 100 07/27/20 09:12 36.6 C 98 H 18 104/61 100 07/27/20 08:45 36.6 C 114 H 99 H 18 81/64 L 100 07/27/20 07:50 98/52 L 07/27/20 05:12 36.7 C 101 H 22 118/91 96 07/27/20 00:00 103 H 07/26/20 23:43 36.4 C L 87 22 120/76 99 (1) Acute septic pulmonary embolism Acute cor pulmonale presence: unspecified Qualified Code(s): I26.90 - Septic pulmonary embolism without acute cor pulmonale
[2020-07-27] MEDS: VANCOMYCIN HCL 1,250 MG in SODIUM CHLORIDE 0.9% 250 ML IV SCH ×2 (10:29→21:49)
[2020-07-27] MEDS ORDERED: PANTOprazole 80 MG in DEXTROSE 5% 100 ML IV STA (10:39)
--- NOTE | 2020-07-27 11:21 | Critical Care Consultation ---
Date of Consultation July 27, 2020 Assessment & Plan (1) Hemorrhagic shock: The patient was discussed in multidisciplinary rounds Neurologic: Avoid mind altering agents at this time. He does have some mild encephalopathy likely related to his COVID-19 infection and hypotension. Pulmonary: Minimal oxygen requirement at this point. No significant signs of COVID-19 pneumonitis. I am going to discontinue the Decadron and put him back on his previous dose of prednisone. No indications for remdesivir therapy or convalescent plasma at this time. He does have a DVT and PE. He may need an IVC filter. Will consult vascular surgery. Cardiovascular: Maintain mean arterial pressure above 65. We will obtain an echocardiogram given the possibility of emboli. Gastrointestinal: GI is following. Continue prednisone. He has evidence of lower GI bleed. Start IV twice daily Protonix. Check CBC every 6 hours. Hold on anticoagulation at this time. Lactate is elevated. Possible ischemic colitis. Renal: No significant issues currently. Lactate elevated to 6.2. Will repeat. Infectious disease: Continue p.o. vancomycin for his history of C. difficile infection. Will need to determine how long his treatment was ready. Patient is currently on Zosyn. I am not sure what Zosyn is treating at this time. I am going to discontinue Zosyn. Procalcitonin was negative. Hematologic: H&H every 6 hours. Holding Lovenox. Will need to address possible IVC filter placement. Endocrine: Hyperglycemia protocol F/E/N: N.p.o. for the time being. Lines and tubes: Peripheral IVs in place. He may need central access. We will try to obtain larger bore IVs. VTE prophylaxis: SCD. CODE STATUS: Full code. Prognosis is very poor. Will touch base with family. Palliative care consult placed. Family at bedside: None available at bedside due to the COVID-19 pandemic. Disposition: ICU I have personally spent 54 minutes of critical care time in the direct management of this patient. This is a life/limb threatening event. This includes time spent evaluating patient, direct bedside care, chart review, placing orders, interpretation of diagnostic studies, discussion with consultants, patient, and family members, as well as other required patient management activities. This time is exclusive of all separately billable procedures, and teaching time and separate from and in addition to any other critical care service time. Thank you for allowing us to participate in the care of this patient. (2) Lower GI bleed: (3) Clostridium difficile diarrhea: (4) Dvt femoral (deep venous thrombosis): (5) Acute septic pulmonary embolism: (6) Ulcerative colitis: History of Present Illness Reason for Consultation: Hemorrhagic shock Requesting Physician: Dr. Julio Fried Attending Physician: Julio Fried, DO History of Present Illness 85-year-old male with a complicated past medical history who was recently discharged from the hospital earlier this month for ulcerative colitis and GI bleeding. He was actually transferred to [facility] during that last hospitalization. ICU was consulted for hypotension and active lower GI bleed. Patient is an inmate who recently had a colonoscopy that showed signs of severe ulcerative colitis. He was managed with 5 ASA and received infliximab induction but did not really show improvement. He was transferred to [facility] on his last hospital mission for possible colectomy, but the patient refused repeat colonoscopy and surgical intervention. He was also refusing PEG tube placement and underwent a TPN that was eventually stopped on 07/20/2020. He was found to be C. difficile positive and he is currently on p.o. vancomycin. Patient was admitted to the hospital with worsening confusion and weakness. He is unable to really give any history at this time. He states that he feels f ine. He did have a very large bloody bowel movement this morning and was noted to have blood from his rectum down to the knees that was covering the bed. He is receiving 1 unit of blood currently. Notably, he underwent a CT chest and abdomen yesterday evening and was found to have right lower extremity DVT involving the distal external iliac vein, common femoral vein and proximal superficial deep femoral vein. Interval development of a few scattered pulmonary nodules with cavitation were noted. Slight progression of pancolitis was also noted. Small bilateral effusions noted. He was also found to be COVID-19 positive as well. Allergies Allergy/AdvReac Type Severity Reaction Status Date / Time No Known Allergies Allergy Unverified 06/19/20 09:43 Home Medications Home Medications Medication Instructions Recorded Confirmed Type finasteride [Proscar] 5 mg PO HS 10/11/18 07/26/20 History tamsulosin 0.8 mg PO HS 11/01/18 07/26/20 History insulin aspart U-100 [Novolog 1 sliding scale dose SUBCUT 07/26/20 07/26/20 History U-100 Insulin aspart] USEASDIRECTD mirtazapine 15 mg PO PM 07/26/20 07/26/20 History omeprazole 40 mg PO BID 07/26/20 07/26/20 History prednisone [Deltasone] 40 mg PO PM 07/26/20 07/26/20 History vancomycin 125 mg PO Q6H 07/26/20 07/26/20 History Patient History Medical History BPH (benign prostatic hyperplasia) Carcinoma of parotid gland H/O flexible sigmoidoscopy Ulcerative colitis Family History Other Family history non-contributory Social History Smoking Status: Never smoker Tobacco Type: Smokeless Tobacco (Dip or Chew) Second Hand Exposure: No; Do You Dip or Chew Tobacco: Yes (1 can every other day); Tobacco Cessation Education Requested by Patient: No Hx Alcohol Use: No Hx Substance Use: No Preferred Language: [place] Communication Ability: poor histo Lamp Developer Required: No Beliefs That Will Affect Care: None Current Living Situation: Other Current Living Situation Comment: [facility] Other Information That Helps Us Care for You: No Feels Safe at Home: Yes Safety Concerns: Feels Safe At This Time Assistive Devices: Oxygen - Continuous Review of Systems Review of Systems: Unobtainable due to cognitive status Physical Exam Constitutional: WD/WN, vitals as above ENMT: external ear and nose normal, oropharynx normal Neck: normal visual inspection Respiratory: Mildly tachypneic. No significant wheezes or rales. Cardiovascular: RRR, no murmur, no edema Gastrointestinal (Abdomen): Soft, nondistended nontender. Musculoskeletal: no cyanosis or clubbing, extremities motor strength 5/5 Skin: no rashes, warm and dry Neurologic: PERRL, EOMI, accommodation nl, no face palsy, no dysarthria Psychiatric: Alert. Oriented to place. Unable to tell me the time or date. Results & Data Results & Data ([facility]) Vital Signs (Past 12 Hours) Vital Signs Temp Pulse Pulse Resp BP BP Pulse Ox 07/27/20 10:58 97.7 F 83 18 109/48 L 100 10/26/20 10:30 83 119/91 100 07/27/20 09:58 97.9 F 93 H 18 90/58 L 100 07/27/20 09:28 97.9 F 88 18 93/65 L 100 07/27/20 09:13 97.9 F 98 H 18 104/61 100 07/27/20 09:12 97.9 F 98 H 18 104/61 100 07/27/20 08:45 97.9 F 114 H 99 H 18 81/64 L 100 07/27/20 07:50 98/52 L 07/27/20 05:12 98.1 F 101 H 22 118/91 96 07/27/20 00:00 103 H 07/26/20 23:43 97.5 F L 87 22 120/76 99 I reviewed the vital signs, labs and imaging Coding Level of Care Code Critical Care 1st 30-74 mins Diagnoses Hemorrhagic shock R57.8 Lower GI bleed K92.2 Clostridium difficile diarrhea A04.72 Dvt femoral (deep venous thrombosis) I82.411 Chronicity: acute Laterality: right Acute septic pulmonary embolism I26.90 Acute cor pulmonale presence: unspecified Ulcerative colitis K51.90 Time Spent (min) 54 (1) Dvt femoral (deep venous thrombosis) Chronicity: acute Laterality: right Qualified Code(s): I82.411 - Acute embolism and thrombosis of right femoral vein (2) Acute septic pulmonary embolism Acute cor pulmonale presence: unspecified Qualified Code(s): I26.90 - Septic pulmonary embolism without acute cor pulmonale
[2020-07-27] MEDS: LACTATED RINGER'S 1,000 ML IV SCH ×2 (12:14→23:27)
[2020-07-27] MEDS: methylPREDNISolone 20 MG in SYRINGE 0 ML IV SCH ×3 (13:58→23:27)
--- NOTE | 2020-07-27 14:12 | Pharmacy Report ---
Pharmacy Glycemic Short Note 2 - Date of Service July 27, 2020 - Glycemic Short BSG Results (Last 24 hours): 07/26/20 07/26/20 07/26/20 16:49 20:21 20:47 Glucose POC Glucose 96 52 L* 117 H 07/27/20 07/27/20 07/27/20 05:44 06:06 06:39 Glucose 72 POC Glucose 55 L* 76 07/27/20 07:28 Glucose POC Glucose 77 OUTPATIENT ANTIDIABETIC REGIMEN: * NovoLog per scale ACHS * recently on a course of prednisone 40mg daily for UC flare * A1c = 6.3% on 06/26/20 ASSESSMENT: 07/27/20: * Patient's BSGs have not responded to steroid administration as expected. * Pt has had a couple episodes of significant hypoglycemia in the past 24 hours. * NPH dose reduced markedly this morning and Novolog parameters loosened. * Provider has put insulin on hold for now, which is appropriate until BSGs return to goal range. 07/26 * 85yo "pre-diabetic" known to pharmacy from previous admissions/glycemic consults- most recently earlier this month * Pt typically has severe hyperglycemia secondary to steroids. Pt is starting DXM 6mg IV Q24hrs for COVID-19+ * NPH insulin is used to counteract the hyperglycemic effect of prednisone. Pt ordered DXM (not prednisone) but will use NPH for DXM induced hyperglycemia in this patient since he typically has an adequate HS --> AM drop in BSG per last admission. 24hr insulin (Lantus) not needed and may contribute to hypoglycemia. * NPH should be dosed at the same time that steroid is given * The dose of NPH given is dependent on the steroid dose given. DXM 4mg IV is ~ prednisone 40mg PO. * For doses of prednisone 40mg/day or above NPH dose should be 0.4 units/kg. HOWEVER, patient did NOT require this high of dosing last admission while on RTC steroids of methylprednisolone. Patient averaged ~ 20-40units of insulin per day. Typically, patients will also need rapid-acting insulin with meals * Will initiated SQ basal bolus insulin regimen with NPH + NovoLog based on a total daily dose of ~ 40 units/day; however will distribute in a 70%:30% fashion between prandial:basal (regimen weighted towards prandial insulin since steroids have their most profound effect on post-prandial hyperglycemia) * Will adjust insulin orders and titrate based on BSG trends. PLAN FOR INPATIENT GLYCEMIC CONTROL: * Steroid hyperglycemia/Basal insulin * NPH 8 units SQ daily * Dose to be given at the same time as DXM. HOLD NPH if DXM is held. * Bolus insulin * NovoLog per scale ACHS or Q6hrs while NPO * Goal Range: Low 110 mg/dL - High 140 mg/dL * Correction Factor: 25 mg/dL/unit * Nutritional / Prandial insulin per carb ratio of 1 unit per 8 grams CHO consumed
[2020-07-27 15:53] LABS: Hematocrit (blood only) 22.8 % (42-52); Hemoglobin 7.1 g/dL (14.0-18.0); Mean Corpuscular Hgb Conc 31.1 g/dL (32-36); Mean Corpuscular Volume 93.1 fL (80-100); Mean Platelet Volume 9.6 fL (7.4-10.4); Nucleated RBC # (auto) 0.07 K/uL (0-0); Nucleated RBC % (auto) 0.6 %; Platelet Count 248 K/uL (130-400); RDW Coefficient of Variation 19.8 % (11.5-14.5); RDW Standard Deviation 65.5 fL (36.4-46.3); Red Blood Count 2.45 M/uL (4.7-6.1); White Blood Count 12.09 K/uL (4.8-10.8)
--- NOTE | 2020-07-27 16:02 | Hospitalist Progress Note ---
Date of Service July 27, 2020 Assessment & Plan (1) Hemorrhagic shock: blood pressure dropped below 90's systolic, difficult to get an accurate BP responded to one unit of PRBC due to large bloody BM, has history of UC as well as C diff colitis now with DVT that required anticoagulation, which is held central line placed by ICU overnight however, patient's family would not want further escalation of care will not move to ICU, no pressors DNR/DNI daughter just wants to make sure that he is comfortable (2) Lower GI bleed: large bloody BM this morning known history of severe UC bleeding likely worsened by Lovenox which is held Hb dropped to 7.1 despite one unit of PRBC no further transfusions planned (3) Dvt femoral (deep venous thrombosis): Patient was found to have a DVT seen on CT scan of the abdomen pelvis CT scan abdomen pelvis 07/26/2020 IMPRESSION: 1. Right lower extremity deep vein thrombosis involving the distal external iliac vein, common femoral vein, and proximal superficial/deep femoral veins. 2. Interval development of a few scattered pulmonary nodules some of which demonstrate cavitation. In conjunction with the DVT this is highly suspicious for septic pulmonary emboli. The main and lobar pulmonary arteries are patent. The distal pulmonary arteries are obscured by motion artifact. An atypical infection such as a fungal process could also result in the cavitary nodules. 3. Slight progression of the pancolitis. This could represent an inflammatory process or infectious process such as C. difficile colitis. 4. Cholelithiasis. 5. Small left and trace right pleural effusions, unchanged. 6. Bibasilar densities have progressed. This could represent atelectasis or pneumonia. initially placed on lovenox q12 held due to large bloody BM early this morning family does not want any further procedures, planned for IVC filter but this can be cancelled (4) COVID-19: COVID-19 infection by nasopharyngeal swab. Unclear exposure patient was recently in the [facility] system discharged on 21 July. Reportedly the half-way guards were with him, from [place], state that there is no active cases amongst the guards at [facility] only possible exposures Solu Medrol for steroids for lungs but also to cover UC no role for Remdesivir or convalescent plasma at this time comfort care if he deteriorates from respiratory perspective (5) Acute septic pulmonary embolism: Consideration of septic emboli was brought up by radiology. The patient is immunosuppressed being given Remicade not too long ago is extremely poor nutrition is a diabetic and is on steroids. Subsequently the patient was initiated on vancomycin and Zosyn in the emergency department and these will be continued. Blood cultures were obtained. This could be the source of his metabolic encephalopathy as well other infections from his novel COVID-19 infection. His procalcitonin being negative goes against this being a bacterial septic emboli may make these changes be just pulmonary emboli from his DVT continue antibiotics for time being with comfort as goal (6) Ulcerative colitis: Patient was given Remicade in our facility on June 26 he is maintained on prednisone 40 mg a day and was treated for a concomitant C. difficile colitis. As per his previous treatment for C. difficile colitis he remains on vancomycin orally patient with severe UC, he was transferred to [facility] last time he was at [facility] he was evaluated for colectomy but he refused colonoscopy and refused colectomy he had very poor oral intake and he refused PEG and refused TPN he has severe malnutrition, poor prognosis due to severe UC let alone having GI bleed, DVT, COVID 19 infection family wishes for DNR, DNI which is appropriate wants him to be comfortable (7) Encephalopathy acute: Patient's encephalopathy could be multifactorial is always challenging given an incarcerated person. The patient likely may have encephalopathy from his Covid infection is low pro calcitonin goes against this being a bacterial infection He did have a CT scan of his head on 07/26/2020 which shows no significant change compared to prior called patient's daughter Zander, she is POA, he cannot make decisions he will be DNR, DNI (8) Anemia of chronic disease: Persist with anemia of chronic disease likely from his previous persistent prolonged GI blood loss from colitis his hemoglobin is in the 9 g range which is actually improved from his discharge hemoglobin dropped to 7.1 with large bloody BM this morning, received one unit of PRBC (9) Anemia: (10) Clostridium difficile diarrhea: oral Vancomycin (11) Severe malnutrition: due to UC, C diff, unable to eat well enough albumin very low at 1.6 Admission and Anticipated Discharge Date Admission Date: July 26, 2020 Subjective patient had large bloody BM this morning while on anticoagulation, this was held patient largely confused spoke with the RN at [facility] who knows him well for 20 years, she says he is weak, malnourished, deconditioned while at [facility] he refused PEG, TPN, colonoscopy and colectomy now he has COVID 19, DVT, confusion I spoke with his daughter, Zander, over the phone after discussing the complexities of his case she spoke with her sister and they agreed that he should be DNR, DNI she would want him to be comfortable, would not want escalation of care further if he would deteriorate we spoke about IVC filter, would not change terminal clerk outlook, she does not wish to proceed she asked about him receiving last rights, I am not sure if we can do this in person, perhaps over the phone she just wants to make sure he is comfortable, no pain I spoke with physician at [facility], updated him on this plan, they are in agreement they can take him back if he remains stable but not today Review of Systems Review of Systems: Unobtainable due to cognitive status (confused, angry) Physical Exam Constitutional: + ill appearing, + frail appearing and + lethargic; no acute distress Neck: trachea midline, no thyromegaly Respiratory: normal respiratory effort, lungs clear to auscultation Cardiovascular: RRR, no murmur, no edema Gastrointestinal (Abdomen): normal bowel sounds, soft, nontender, no hepatosplenomegaly Musculoskeletal: Head/Neck/Chest: normocephalic, head atraumatic and neck supple Extremities: + abnormal strength (generalized weakness) Skin: no rashes, warm and dry Neurologic: CN's II-XI intact bilaterally and + confused; no focal motor deficits Psychiatric: Orientation: oriented to person and + guarded; + not oriented to place and + not oriented to time Lymphatic: no cervical or axillary lymphadenopathy Results & Data Results & Data ([facility]) Vital Signs (Past 12 Hours) Vital Signs Temp Pulse Pulse Resp BP BP Pulse Ox 07/27/20 15:06 36.5 C 77 16 103/69 100 07/27/20 14:01 77 111/74 100 07/27/20 12:08 36.5 C 77 18 122/73 100 07/27/20 11:58 36.5 C 82 18 122/73 100 07/27/20 10:58 36.5 C 83 18 109/48 L 100 07/27/20 10:30 83 119/91 100 07/27/20 09:58 36.6 C 93 H 18 90/58 L 100 07/27/20 09:28 36.6 C 88 18 93/65 L 100 07/27/20 09:13 36.6 C 98 H 18 104/61 100 07/27/20 09:12 36.6 C 98 H 18 104/61 100 07/27/20 08:45 36.6 C 114 H 99 H 18 81/64 L 100 07/27/20 07:50 98/52 L 07/27/20 05:12 36.7 C 101 H 22 118/91 96 Laboratory Results Laboratory Results - last 24 hr 07/26/20 07/26/20 07/26/20 12:07 16:49 18:30 WBC RBC Hgb Hct MCV MCH MCHC RDW Std Deviation RDW Coeff of Torrie Plt Count MPV Absolute Nucleated RBC Nucleated RBC % (auto) Neutrophils % (Manual) Lymphocytes % (Manual) Monocytes % (Manual) Metamyelocytes % (Man) Myelocytes % (Man) Neutrophils # (Manual) Total Absolute Neuts Lymphocytes # (Manual) Total Abs Lymphocytes Monocytes # (Manual) Metamyelocytes # (Man) Myelocytes # (Manual) Polychromasia Anisocytosis Fibrinogen Sodium Potassium Chloride Carbon Dioxide Anion Gap BUN Creatinine Est Cr Clr Drug Dosing Est GFR ( Amer) Est GFR (Non-Af Amer) BUN/Creatinine Ratio Glucose POC Glucose 96 Estimat Average Glucose Hemoglobin A1c Lactate Calcium Phosphorus Magnesium Total Bilirubin Direct Bilirubin AST ALT Alkaline Phosphatase Troponin I Total Protein Albumin Urine Color Urine Appearance Urine pH Ur Specific [place] Urine Protein Urine Glucose (UA) Urine Ketones Urine Blood Urine Nitrite Urine Bilirubin Urine Urobilinogen Ur Leukocyte Esterase Urine WBC (Auto) Urine RBC (Auto) U Hyaline Cast (Auto) U Epithel Cells (Auto) Urine Bacteria (Auto) COVID-19 Eval Order Covid19 IDNow atMMNC SARS-CoV-2, RNA, NAAT Blood Type O Positive Antibody Screen NEGATIVE Crossmatch See Detail 07/26/20 07/26/20 07/26/20 18:30 20:21 20:47 WBC RBC Hgb Hct MCV MCH MCHC RDW Std Deviation RDW Coeff of Torrie Plt Count MPV Absolute Nucleated RBC Nucleated RBC % (auto) Neutrophils % (Manual) Lymphocytes % (Manual) Monocytes % (Manual) Metamyelocytes % (Man) Myelocytes % (Man) Neutrophils # (Manual) Total Absolute Neuts Lymphocytes # (Manual) Total Abs Lymphocytes Monocytes # (Manual) Metamyelocytes # (Man) Myelocytes # (Manual) Polychromasia Anisocytosis Fibrinogen Sodium Potassium Chloride Carbon Dioxide Anion Gap BUN Creatinine Est Cr Clr Drug Dosing Est GFR ( Amer) Est GFR (Non-Af Amer) BUN/Creatinine Ratio Glucose POC Glucose 52 L* 117 H Estimat Average Glucose Hemoglobin A1c Lactate Calcium Phosphorus Magnesium Total Bilirubin Direct Bilirubin AST ALT Alkaline Phosphatase Troponin I Total Protein Albumin Urine Color Urine Appearance Urine pH Ur Specific [place] Urine Protein Urine Glucose (UA) Urine Ketones Urine Blood Urine Nitrite Urine Bilirubin Urine Urobilinogen Ur Leukocyte Esterase Urine WBC (Auto) Urine RBC (Auto) U Hyaline Cast (Auto) U Epithel Cells (Auto) Urine Bacteria (Auto) COVID-19 Eval Order SARS-CoV-2, RNA, NAAT POSITIVE A* Blood Type Antibody Screen Crossmatch 07/26/20 07/27/20 07/27/20 Unknown 05:36 05:44 WBC 22.36 H D RBC 3.10 L Hgb 9.2 L Hct 29.7 L MCV 95.8 MCH 29.7 MCHC 31.0 L RDW Std Deviation 68.5 H RDW Coeff of Torrie 19.8 H Plt Count 448 H MPV 10.3 Absolute Nucleated RBC Nucleated RBC % (auto) Neutrophils % (Manual) 76.0 Lymphocytes % (Manual) 7.1 Monocytes % (Manual) 12.4 Metamyelocytes % (Man) 1.8 Myelocytes % (Man) 2.7 Neutrophils # (Manual) 16.99 H Total Absolute Neuts 16.99 H Lymphocytes # (Manual) 1.59 Total Abs Lymphocytes 1.59 Monocytes # (Manual) 2.77 H Metamyelocytes # (Man) 0.40 H Myelocytes # (Manual) 0.60 H Polychromasia 1+ Anisocytosis Present Fibrinogen Sodium Potassium Chloride Carbon Dioxide Anion Gap BUN Creatinine Est Cr Clr Drug Dosing Est GFR ( Amer) Est GFR (Non-Af Amer) BUN/Creatinine Ratio Glucose POC Glucose Estimat Average Glucose 117 Hemoglobin A1c 5.7 H Lactate Calcium Phosphorus Magnesium Total Bilirubin Direct Bilirubin AST ALT Alkaline Phosphatase Troponin I Total Protein Albumin Urine Color Dark Yellow Urine Appearance Clear Urine pH 6.0 Ur Specific [place] > 1.045 H Urine Protein 1+ H Urine Glucose (UA) Negative Urine Ketones Trace H Urine Blood Trace H Urine Nitrite Negative Urine Bilirubin Negative Urine Urobilinogen Negative Ur Leukocyte Esterase Negative Urine WBC (Auto) 1-5 Urine RBC (Auto) 0-4 U Hyaline Cast (Auto) 1-5 U Epithel Cells (Auto) 10-20 H Urine Bacteria (Auto) Negative COVID-19 Eval Order SARS-CoV-2, RNA, NAAT Blood Type Antibody Screen Crossmatch 07/27/20 07/27/20 07/27/20 05:44 05:45 06:06 WBC RBC Hgb Hct MCV MCH MCHC RDW Std Deviation RDW Coeff of Torrie Plt Count MPV Absolute Nucleated RBC Nucleated RBC % (auto) Neutrophils % (Manual) Lymphocytes % (Manual) Monocytes % (Manual) Metamyelocytes % (Man) Myelocytes % (Man) Neutrophils # (Manual) Total Absolute Neuts Lymphocytes # (Manual) Total Abs Lymphocytes Monocytes # (Manual) Metamyelocytes # (Man) Myelocytes # (Manual) Polychromasia Anisocytosis Fibrinogen 392 Sodium 140 Potassium 3.5 Chloride 107 Carbon Dioxide 23 Anion Gap 10.0 BUN 16 Creatinine 0.86 Est Cr Clr Drug Dosing 66.5 Est GFR ( Amer) 92.9 Est GFR (Non-Af Amer) 80.2 BUN/Creatinine Ratio 18.5 Glucose 72 POC Glucose 55 L* Estimat Average Glucose Hemoglobin A1c Lactate Calcium 7.5 L Phosphorus 3.1 Magnesium 2.1 Total Bilirubin 0.5 Direct Bilirubin 0.1 AST 22 ALT 18 Alkaline Phosphatase 86 Troponin I 0.043 Total Protein 5.8 L Albumin 1.6 L Urine Color Urine Appearance Urine pH Ur Specific [place] Urine Protein Urine Glucose (UA) Urine Ketones Urine Blood Urine Nitrite Urine Bilirubin Urine Urobilinogen Ur Leukocyte Esterase Urine WBC (Auto) Urine RBC (Auto) U Hyaline Cast (Auto) U Epithel Cells (Auto) Urine Bacteria (Auto) COVID-19 Eval Order SARS-CoV-2, RNA, NAAT Blood Type Antibody Screen Crossmatch 07/27/20 07/27/20 07/27/20 06:39 07:18 07:28 WBC RBC Hgb Hct MCV MCH MCHC RDW Std Deviation RDW Coeff of Torrie Plt Count MPV Absolute Nucleated RBC Nucleated RBC % (auto) Neutrophils % (Manual) Lymphocytes % (Manual) Monocytes % (Manual) Metamyelocytes % (Man) Myelocytes % (Man) Neutrophils # (Manual) Total Absolute Neuts Lymphocytes # (Manual) Total Abs Lymphocytes Monocytes # (Manual) Metamyelocytes # (Man) Myelocytes # (Manual) Polychromasia Anisocytosis Fibrinogen Sodium Potassium Chloride Carbon Dioxide Anion Gap BUN Creatinine Est Cr Clr Drug Dosing Est GFR ( Amer) Est GFR (Non-Af Amer) BUN/Creatinine Ratio Glucose POC Glucose 76 77 Estimat Average Glucose Hemoglobin A1c Lactate 6.2 H* Calcium Phosphorus Magnesium Total Bilirubin Direct Bilirubin AST ALT Alkaline Phosphatase Troponin I Total Protein Albumin Urine Color Urine Appearance Urine pH Ur Specific [place] Urine Protein Urine Glucose (UA) Urine Ketones Urine Blood Urine Nitrite Urine Bilirubin Urine Urobilinogen Ur Leukocyte Esterase Urine WBC (Auto) Urine RBC (Auto) U Hyaline Cast (Auto) U Epithel Cells (Auto) Urine Bacteria (Auto) COVID-19 Eval Order SARS-CoV-2, RNA, NAAT Blood Type Antibody Screen Crossmatch 07/27/20 07/27/20 07/27/20 13:57 15:11 15:11 WBC 12.09 H D RBC 2.45 L Hgb 7.1 L Hct 22.8 L MCV 93.1 MCH 29.0 MCHC 31.1 L RDW Std Deviation 65.5 H RDW Coeff of Torrie 19.8 H Plt Count 248 MPV 9.6 Absolute Nucleated RBC 0.07 H Nucleated RBC % (auto) 0.6 Neutrophils % (Manual) Lymphocytes % (Manual) Monocytes % (Manual) Metamyelocytes % (Man) Myelocytes % (Man) Neutrophils # (Manual) Total Absolute Neuts Lymphocytes # (Manual) Total Abs Lymphocytes Monocytes # (Manual) Metamyelocytes # (Man) Myelocytes # (Manual) Polychromasia Anisocytosis Fibrinogen Sodium Potassium Chloride Carbon Dioxide Anion Gap BUN Creatinine Est Cr Clr Drug Dosing Est GFR ( Amer) Est GFR (Non-Af Amer) BUN/Creatinine Ratio Glucose POC Glucose 96 Estimat Average Glucose Hemoglobin A1c Lactate 1.4 Calcium Phosphorus Magnesium Total Bilirubin Direct Bilirubin AST ALT Alkaline Phosphatase Troponin I Total Protein Albumin Urine Color Urine Appearance Urine pH Ur Specific [place] Urine Protein Urine Glucose (UA) Urine Ketones Urine Blood Urine Nitrite Urine Bilirubin Urine Urobilinogen Ur Leukocyte Esterase Urine WBC (Auto) Urine RBC (Auto) U Hyaline Cast (Auto) U Epithel Cells (Auto) Urine Bacteria (Auto) COVID-19 Eval Order SARS-CoV-2, RNA, NAAT Blood Type Antibody Screen Crossmatch Medications Administered Current Inpatient Medications Acetaminophen (Acetaminophen 1000 Mg/100 Ml Iv) 1,000 mg IV Q8H PRN PRN Reason: fever or pain Stop: 07/29/20 17:48 Dextrose (Dextrose 50% 50 Ml Syringe) 25 - 50 ml IV UD PRN; Protocol PRN Reason: Hypoglycemia Protocol Stop: 08/25/20 14:55 Last Admin: 07/26/20 20:27 Dose: 25 ml Documented by: Enoxaparin Sodium (Enoxaparin 100 Mg/1ml Syr) 100 mg SC Q12H YADIRA Stop: 08/25/20 15:59 Last Admin: 07/27/20 06:09 Dose: Not Given Documented by: Glucagon (Glucagon For Inj 1 Mg Vial) 1 mg SQ UD PRN; Protocol PRN Reason: Hypoglycemia Protocol Stop: 08/25/20 14:55 Glucose (Glucose 10 Tabs/Tube) 4 - 8 tabs PO UD PRN; Protocol PRN Reason: Hypoglycemia Protocol Stop: 08/25/20 14:55 Glucose (Glucose 40% Gel 15 Gm Tube) 15 - 30 gm PO UD PRN; Protocol PRN Reason: Hypoglycemia Protocol Stop: 08/25/20 14:55 Vancomycin HCl 1,250 mg/ (Sodium Chloride) 275 mls @ 200 mls/hr IV Q12H YADIRA Stop: 08/02/20 21:59 Last Infusion: 07/27/20 12:16 Dose: Infused Documented by: Sodium Chloride (Nss) 250 mls @ 15 mls/hr IV .[id number] PRN PRN Reason: For Transfusion Stop: 07/27/20 17:32 Pantoprazole Sodium 40 mg/ (Syringe) 10 mls @ 5 mls/min IV BID@0900,2100 YADIRA Stop: 08/26/20 20:59 Lactated Ringer's (Lr) 1,000 mls @ 80 mls/hr IV .[id number] YADIRA Stop: 08/26/20 11:29 Last Admin: 07/27/20 12:14 Dose: 80 mls/hr Documented by: Methylprednisolone 20 mg/ (Syringe) 0.32 mls @ 1.5 mls/min IV Q6H YADIRA Stop: 08/26/20 11:59 Last Admin: 07/27/20 13:58 Dose: 1.5 mls/min Documented by: Insulin Aspart (Insulin Aspart 100 Units/Ml 3 Ml Pen) 0 units SC ACHS YADIRA; Protocol Stop: 08/25/20 16:29 Last Admin: 07/27/20 08:00 Dose: Not Given Documented by: Insulin Human NPH (Insulin Human Nph) 8 units SC DAILY YADIRA; Protocol Stop: 08/26/20 08:59 Last Admin: 07/27/20 09:55 Dose: 8 units Documented by: Mirtazapine (Mirtazapine Tab 15 Mg Tab) 15 mg PO PM YADIRA Stop: 08/25/20 20:59 Last Admin: 07/26/20 21:36 Dose: Not Given Documented by: Miscellaneous (Carbohydrates For Hypoglycemia ) 15 - 30 gm PO UD PRN PRN Reason: Hypoglycemia Protocol Stop: 08/25/20 14:55 Miscellaneous Information (Vancomycin Consult Active) 1 ea N/A UD PRN PRN Reason: Consult Stop: 08/25/20 11:37 Miscellaneous Information (Pharmacy Glycemic Mgmt Consult) 1 ea N/A UD PRN; Protocol PRN Reason: Consult Stop: 08/25/20 15:09 Ondansetron HCl (Ondansetron Inj 2 Mg/Ml 2 Ml Vial) 4 mg IV Q6H PRN PRN Reason: Nausea Stop: 08/25/20 14:55 Raspberry (Raspberry Syrup 5 Ml Udp) 5 ml PO Q6 YADIAR Stop: 08/09/20 17:59 Last Admin: 07/27/20 06:09 Dose: Not Given Documented by: Tamsulosin HCl (Tamsulosin Hcl 0.4 Mg Cap) 0.8 mg PO HS [facility] Stop: 08/25/20 20:59 Last Admin: 07/26/20 21:36 Dose: Not Given Documented by: Vancomycin HCl (Vancomycin Hcl 125 Mg/2.5ml Soln) 125 mg PO Q6 YADIRA Stop: 08/05/20 17:59 Last Admin: 07/27/20 13:58 Dose: Not Given Documented by: PG Care Time/CCT Total # of Minutes Spent Total Time Spent with Patient: Total time spent is greater than 50% in coordination of care (as documented) at patient's floor/unit and/or counseling patient: Coding Level of Care Code 54036 Subseq Hosp Care Lvl 3 Diagnoses Hemorrhagic shock R57.8 Lower GI bleed K92.2 Dvt femoral (deep venous thrombosis) I82.411 Chronicity: acute Laterality: right COVID-19 U07.1 Acute septic pulmonary embolism I26.90 Acute cor pulmonale presence: unspecified Ulcerative colitis K51.90 Encephalopathy acute G93.40 Anemia of chronic disease D63.8 Anemia D64.9 Clostridium difficile diarrhea A04.72 Severe malnutrition E43 (1) Dvt femoral (deep venous thrombosis) Chronicity: acute Laterality: right Qualified Code(s): I82.411 - Acute emb olism and thrombosis of right femoral vein (2) Acute septic pulmonary embolism Acute cor pulmonale presence: unspecified Qualified Code(s): I26.90 - Septic pulmonary embolism without acute cor pulmonale
[2020-07-27 16:10] LABS: Anisocytosis Present; Basophils # (auto) 0.06 K/uL (0-0.2); Basophils % (auto) 0.5 %; Immature Granulocytes # (auto) 1.09 K/uL (0.00-0.02); Lymphocytes # (auto) 1.77 K/uL (1.2-3.4); Lymphocytes % (auto) 14.6 %; Monocytes # (auto) 0.54 K/uL (0.11-0.59); Monocytes % (auto) 4.5 %; Neutrophils # (auto) 8.63 K/uL (1.4-6.5); Neutrophils % (auto) 71.4 %; Polychromasia 1+
[2020-07-27 17:37] LABS: Hematocrit (blood only) 21.4 % (42-52); Hemoglobin 6.9 g/dL (14.0-18.0); Mean Corpuscular Hemoglobin 29.5 pg (25-34); Mean Corpuscular Hgb Conc 32.2 g/dL (32-36); Mean Corpuscular Volume 91.5 fL (80-100); Mean Platelet Volume 9.8 fL (7.4-10.4); Nucleated RBC # (auto) 0.05 K/uL (0-0); Nucleated RBC % (auto) 0.5 %; Platelet Count 226 K/uL (130-400); RDW Coefficient of Variation 20.1 % (11.5-14.5); RDW Standard Deviation 65.4 fL (36.4-46.3); Red Blood Count 2.34 M/uL (4.7-6.1); White Blood Count 10.99 K/uL (4.8-10.8)
[2020-07-27 18:29] LABS: ALC (manual) 0.58 K/uL (1.2-3.4); ANC (manual) 9.54 K/uL (1.4-6.5); Anisocytosis Present; Basophils % (manual) 0.9 %; Lymphocytes # (manual) 0.58 K/uL (1.2-3.4); Lymphocytes % (manual) 5.3 %; Metamyelocytes # (manual) 0.29 K/uL (0-0); Metamyelocytes % (manual) 2.6 %; Monocytes % (manual) 1.8 %; Myelocytes # (manual) 0.29 K/uL (0-0); Myelocytes % (manual) 2.6 %; Neutrophils # (manual) 9.54 K/uL (1.4-6.5); Neutrophils % (manual) 86.8 %; Polychromasia 1+
[2020-07-27] MEDS ORDERED: MoRPHine SULFATE 4 MG/ML 1 ML CARP\\VIAL IV PRN (18:33)
[2020-07-27] MEDS ORDERED: MoRPHine SULFATE 2 MG/ML CARP IV PRN (18:33)
[2020-07-27 19:24] LABS: Hematocrit (blood only) 24.1 % (42-52); Hemoglobin 7.7 g/dL (14.0-18.0)
[2020-07-27] MEDS: PANTOprazole 40 MG in SYRINGE 0 ML IV SCH (21:49)
[2020-07-28] MEDS: methylPREDNISolone 20 MG in SYRINGE 0 ML IV SCH (06:45)
[2020-07-28] MEDS: VANCOMYCIN HCL 125 MG/2.5ML SOLN PO SCH (06:46)
[2020-07-28] MEDS: PANTOprazole 40 MG in SYRINGE 0 ML IV SCH ×2 (08:25→08:27)
[2020-07-28] MEDS ORDERED: VANCOMYCIN TROUGH ONE (09:30)
--- NOTE | 2020-07-28 09:59 | Discharge Summary ---
Date of Service July 28, 2020 Admission HPI Per Admitting Provider 85-year-old life incarcerated inmate with a significant past medical history of ulcerative colitis, GERD. Sent to the ER from the retirement due to concerns for increased weakness and possible change in mental status overnight. Evidently was recently discharged from [facility] on the 07/21 back to retirement after an extended stay there where he was evaluated for colectomy due to unremitting Ulcerative colitis flare. Prior to transfer he did recieve REmicade and was on steroids. While at [facility] confirmed ulcerative colitis flare but also diagnosed with C. difficile colitis and started on oral v ancomycin. Improved with steroids and was on TPN for some duration. Patient per the discharge summary refused a PEG tube for nutritional support and tunnel catheter and TPN was discontinued. Per the report from the retirement seems more confused today and the patient states he was significantly weak. Patient states he is had some continued abdominal discomfort and nausea and feels generally weak but not focally. No falls or syncope reported. The retirement was concerned that he possibly aspirated yesterday. Patient denies any significant bloody stools or diarrhea at this time. Patient with some mild diffuse abdominal tenderness reported. States a little bit of chest discomfort. Pt found to have lower extremity edema and CT of Chest abd pelvis shows extensive right sided DVT into the femoral vein and concern for small PE's vs septic emboli. During the last admission he did see Palliative care and confirms he was to be a full code Principal Diagnosis DVT with pulmonary embolism, possible septic pulmonary emboli Discharge Exam Constitutional + ill appearing, + frail appearing and + lethargic; no acute distress Neck trachea midline, no thyromegaly Respiratory normal respiratory effort, lungs clear to auscultation Cardiovascular RRR, no murmur, no edema Gastrointestinal (Abdomen) normal bowel sounds, soft, nontender, no hepatosplenomegaly Musculoskeletal Head/Neck/Chest: normocephalic, head atraumatic and neck supple Extremities: + abnormal strength (generalized weakness) Skin no rashes, warm and dry Neurologic CN's II-XI intact bilaterally and + confused; no focal motor deficits Psychiatric Orientation: oriented to person and + guarded; + not oriented to place and + not oriented to time Lymphatic no cervical or axillary lymphadenopathy Discharge Data Allergies Allergy/AdvReac Type Severity Reaction Status Date / Time No Known Allergies Allergy Unverified 06/19/20 09:43 Consultations 07/26/20 12:40 ED Decision to Admit Stat 07/26/20 14:56 Consult Pulmonology Routine 07/27/20 06:25 Consult Gastroenterology Routine 07/27/20 08:01 Consult [employer] Routine Procedures Performed Operation Date: 07/28/20 08:25 <No data on this case meets the specified criteria> Ordered Studies 07/26/20 09:28 CT head/brain wo con Stat 07/26/20 09:36 CT abd pelvis IV con only Stat 07/26/20 10:18 CT chest w con Stat Hospital Course (1) Hemorrhagic shock: blood pressure dropped below 90's systolic, difficult to get an accurate BP on 07/27 responded to one unit of PRBC due to large bloody BM, has history of UC as well as C diff colitis now with DVT that required anticoagulation, which is held discussed with patient's daughter Zander, family would not want further escalation of care will not move to ICU, no pressors DNR/DNI daughter just wants to make sure that he is comfortable patient stating on day of discharge that he just wants "to " no morphine required while here will discharge back to [facility], they can use Roxanol if needed discussed plan with physician and [facility] as well as daughter Zander on day of discharge (2) Lower GI bleed: large bloody BM morning of 07/27 known history of severe UC bleeding likely worsened by Lovenox which is now held Hb dropped to 6.9 despite one unit of PRBC, then up to 7.7 no further transfusions planned comfort care preferred by family and patient (3) Dvt femoral (deep venous thrombosis): Patient was found to have a DVT seen on CT scan of the abdomen pelvis CT scan abdomen pelvis 07/26/2020 IMPRESSION: 1. Right lower extremity deep vein thrombosis involving the distal external iliac vein, common femoral vein, and proximal superficial/deep femoral veins. 2. Interval development of a few scattered pulmonary nodules some of which demonstrate cavitation. In conjunction with the DVT this is highly suspicious for septic pulmonary emboli. The main and lobar pulmonary arteries are patent. The distal pulmonary arteries are obscured by motion artifact. An atypical infection such as a fungal process could also result in the cavitary nodules. 3. Slight progression of the pancolitis. This could represent an inflammatory process or infectious process such as C. difficile colitis. 4. Cholelithiasis. 5. Small left and trace right pleural effusions, unchanged. 6. Bibasilar densities have progressed. This could represent atelectasis or pneumonia. initially placed on lovenox q12 held due to large volume GI bleeding and hypotension family does not want any further procedures, planned for IVC filter but this can be cancelled comfort care only (4) COVID-19: COVID-19 infection by nasopharyngeal swab. Unclear exposure patient was recently in the [facility] system discharged on 21 July. Reportedly the retirement guards were with him, from [place], state that there is no active cases amongst the guards at [facility] only possible exposures Solu Medrol for steroids for lungs but also to cover UC no role for Remdesivir or convalescent plasma at this time comfort care planned, no steroids on discharge (5) Acute septic pulmonary embolism: Consideration of septic emboli was brought up by radiology. The patient is immunosuppressed being given Remicade not too long ago is extremely poor nutrition is a diabetic and is on steroids. Subsequently the patient was initiated on vancomycin and Zosyn in the emergency department and these will be continued. Blood cultures were obtained. This could be the source of his metabolic encephalopathy as well other infections from his novel COVID-19 infection. His procalcitonin being negative goes against this being a bacterial septic emboli may make these changes be just pulmonary emboli from his DVT treated with IV antibiotics while here no further antibiotics on discharge comfort care (6) Ulcerative colitis: Patient was given Remicade in our facility on June 26 he is maintained on prednisone 40 mg a day and was treated for a concomitant C. difficile colitis. As per his previous treatment for C. difficile colitis he remains on vancomycin orally patient with severe UC, he was transferred to [place] last time he was at [facility] he was evaluated for colectomy but he refused colonoscopy and refused colectomy he had very poor oral intake and he refused PEG and refused TPN he has severe malnutrition, poor prognosis due to severe UC let alone having GI bleed, DVT, COVID 19 infection family wishes for DNR, DNI which is appropriate wants him to be comfortable (7) Encephalopathy acute: Patient's encephalopathy could be multifactorial is always challenging given an incarcerated person. The patient likely may have encephalopathy from his Covid infection is low pro calcitonin goes against this being a bacterial infection He did have a CT scan of his head on 07/26/2020 which shows no significant change compared to prior called patient's daughter Zander, she is POA, he cannot make decisions he will be DNR, DNI (8) Anemia of chronic disease: Persist with anemia of chronic disease likely from his previous persistent prolonged GI blood loss from colitis his hemoglobin is in the 9 g range which is actually improved from his discharge hemoglobin dropped to 7.1 with large bloody BM (9) Anemia: (10) Clostridium difficile diarrhea: oral Vancomycin (11) Severe malnutrition: due to UC, C diff, unable to eat well enough albumin very low at 1.6 Total Time Total Time Spent Total Time Spent (In Minutes): 35 minutes Total Time Includes: Examination of the Patient, Discharge Planning, Medication Reconciliation, Communication With Other Providers (physician at [facility]) and Other (discussion with daughter Zander) Discharge Plan Discharge Items [facility] Disposition: [facility] Reason For Visit: ACUTE DVT, COVID + PULMONARY NODULES Discharge Diagnosis: DVT, pulmonary emboli, possible septic emboli Severe ulcerative colitis COVID 19 infection Acute GI bleed with hypotension Condition on Discharge: Serious Goals: comfort care Activity Comment: bedrest Non-emergency contact: Primary Care Provider Call non-emergency contact if: your symptoms worsen and your pain is not controlled Follow-up/Referrals: Berna LEBLANC [Primary Care Provider] - Diet: Regular Addtl Attending Provider Instructions: Medications: recommend using roxanol PRN for any pain or dyspnea, patient has been very comfortable here without medications, sleeping most of the day Severe ulcerative colitis causing malnutrition, now complicated by COVID 19 infection, pneumonia, right leg DVT, pulmonary emboli, acute GI bleeding patient does not want any invasive procedures he voices that he just wants to , no further lab draws, no treatment updated his daughter Zander over the phone, she asks that she can have a phone call with her father and she would like him to receive his last rites at the retirement if possible patient should be on comfort measures only Pending Studies at Discharge: No Stand-Alone Forms: My [facility] Skilled Items Patient informed of condition?: Yes Discharge Level of Care: Other Communicable Disease: No Discharge Prognosis: Deteriorating Lines: None Urinary Catheter: Yes (keep for comfort to prevent incontinence) Medications and DC Order Prescriptions: Discontinued finasteride [Proscar] 5 mg Tablet 5 mg PO HS RF: 0 tamsulosin 0.4 mg Capsule 0.8 mg PO HS RF: 0 prednisone [Deltasone] 20 mg Tablet 40 mg PO PM RF: 0 omeprazole 40 mg Capsule,Delayed Release(Dr/Ec) 40 mg PO BID RF: 0 insulin aspart U-100 [Novolog U-100 Insulin aspart] 100 unit/mL Solution 1 sliding scale dose SUBCUT USEASDIRECTD RF: 0 vancomycin 50 mg/mL Recon Soln 125 mg PO Q6H RF: 0 mirtazapine 15 mg Tablet 15 mg PO PM RF: 0 Discharge Orders: Discharge Order (Routine); Ordered 07/28/20 Ordered By: Julio Fried Admission Data Admit Date/Time: 07/26/20 13:32 Attending Provider: Julio Fried Admit Provider: Corky Stark Primary Care Provider: Berna LEBLANC Other Providers: Pepe Bronson ; Corky Stark ; Chaz Womack Other Interventions: Discharge Summary Assessment (RN) Last Done: 07/28/20 10:59 Coding Level of Care Code D/C Day Management >30 mins Diagnoses Hemorrhagic shock R57.8 Lower GI bleed K92.2 Dvt femoral (deep venous thrombosis) I82.411 Chronicity: acute Laterality: right COVID-19 U07.1 Acute septic pulmonary embolism I26.90 Acute cor pulmonale presence: unspecified Ulcerative colitis K51.90 Encephalopathy acute G93.40 Anemia of chronic disease D63.8 Anemia D64.9 Clostridium difficile diarrhea A04.72 Severe malnutrition E43
[2020-07-28] MEDS: LACTATED RINGER'S 1,000 ML IV SCH (13:36)
== END 2020-07-28 19:30 | DRG 177 ==
LOC: ED 09:03 → SUATTDRO 13:32 → 2S 13:32